=== PATIENT | male | born 1940 | race Caucasian/White ===

== ENCOUNTER 2020-09-10 19:05 | Inpatient (IN) ==
--- NOTE | 2020-09-10 19:29 | Emergency Department Note ---
Impression & Plan COVID-19, Weakness, Dehydration, Hypoxia ED Provider Note NAME: MARLEN MCGRAW AGE: 80 SEX: M : 1940 ARRIVES VIA: Walk-In INFORMANT: Patient, ED PROVIDER(S): Alex Sheth MD Chief Complaint: Weakness HPI: Patient had been pending possible anterior cervical discectomy and fusion with Dr. Freeman and had had some preoperative lab work completed along with a Covid test. Patient had mild leukopenia with a hemoglobin of 13.2 and lymphopenia noted. The patient had unremarkable kidney function negative urine. Patient was reported to be Covid positive after a Covid test completed at [facility]. The patient states that he did get his first dose in the donor vaccine on the but stated that he had symptoms prior to that. The patient states he has had decreased appetite but is unsure as to any loss of taste or smell. The patient's primarily issue is weakness. It is generalized in nature is gotten worse. Patient did have some cough but [facility] which seems to have improved this. Patient states he is not a smoker. Patient does have some occasional abdominal discomfort but without any vomiting or pain. No dysuria or hematuria. The patient denies any issues with bowel movements although his urination and defecation have been less frequent due to his decreased p.o. intake. ROS: See HPI for pertinent positives and negatives. A total of 10 systems were reviewed and otherwise negative. Past medical history: See below Surgical history: See below Social history: See below Physical Exam: GENERAL: Fatigued in appearance, wearing a mask. EYE EXAM: Normal conjunctiva. PERRL, no anisocoria and EOM's grossly intact w/o pain. NECK: Supple, no nuchal rigidity, no adenopathy, non-tender. No signs of meningismus. LUNGS: Clear to auscultation. Normal chest wall mechanics. HEART: NSR, no MRG. ABDOMEN: Abdomen soft, non-tender, normo-active bowel sounds, no masses, no rebound or guarding. BACK: No CVA TTP. SKIN: No rashes and no bruising. UPPER EXTREMITIES: Upper extremities are grossly normal. LOWER EXTREMITIES: Grossly normal, no edema. NEURO EXAM: A&O x3, cranial nerves II-XII grossly intact, normal speech, moves all 4 extremities on command w/o issue. Differential diagnoses: Infection, dehydration, metabolic abnormality, hypo/hyperglycemia, electrolyte disturbance, anemia, hypoxia, cardiac sources, intracerebral event, toxicologic, neurologic, as well as other pathologies. Course: Patient was seen and evaluated the bedside. Full history physical exam was performed. EKG: Indication: Weakness Normal sinus rhythm, rate 79, normal intervals, normal axis, no obvious ST changes or T WI. No significant change from comparison EKG September 06, 2020. Imaging Studies: 1 view chest x-ray Elevation left hemidiaphragm, unsure if gastric fullness versus pleural effusion versus consolidation. Comparison is from chest x-ray completed on September 06 which showed elevation left hemidiaphragm. No obvious free air under the diaphragm. No obvious pneumothorax. Cardiac monitoring: An order was placed for continuous cardiac monitoring. The monitor shows a rate of 81 with sinus rhythm. MDM: Patient does presents with weeks of weakness and recent Covid diagnosis back on the with more persistent worsening symptoms. Patient did have blood work completed. The patient does have leukopenia with a normal hemoglobin. Platelet count is unremarkable. Patient does have mild elevation in BUN. Patient did receive IV fluids. Chest x-ray did show elevation left hemidiaphragm. The patient did state he initially had a cough but this has resolved. Believe this less likely to be a pneumonia and may just be full stomach. Given the patient's weakness and age with the patient may benefit from admission. I did speak the on-call hospitalist and the patient was admitted to the medicine service. I discussed the patient with the patient's daughter who had related that the patient at home had been hypoxic to 84%. Because of this I did order dexamethasone. I did convey this to the house hospitalist Dr. Segura. The patient was admitted to the medicine service. Past Med/Surg History Medical History (Updated 09/11/20 @ 17:30 by Alex Sheth MD) Depression Hyperlipidemia Hypothyroidism Osteoarthritis Surgical History Hx of bilateral cataract extraction Hx of colonoscopy Hx of decompressive lumbar laminectomy Hx of fusion of cervical spine Social History Smoking Status: Never smoker Second Hand Exposure: No; Do You Dip or Chew Tobacco: No; Hx Alcohol Use: No Hx Substance Use: No Preferred Language: Ukrainian Communication Ability: Effective Audio Video Tech Required: No Beliefs That Will Affect Care: None Current Living Situation: Spouse Other Information That Helps Us Care for You: No Feels Safe at Home: Yes Safety Concerns: Feels Safe At This Time Assistive Devices: Oxygen - Continuous Allergies Allergies Allergy/AdvReac Type Severity Reaction Status Date / Time No Known Allergies Allergy Mild Unverified 09/10/20 21:58 Home Meds Home Medications Medication Instructions Recorded Confirmed levothyroxine 125 mcg PO DAILY 08/24/20 09/10/20 rosuvastatin 10 mg PO QAM 08/24/20 09/10/20 sertraline 0 mg PO DAILY 08/24/20 09/10/20 Results & Data (ED) Vital Signs Vital Signs - 24 hr 09/10/20 19:13 09/10/20 20:24 09/10/20 20:30 Temperature 37.1 C Temperature Source Temporal Artery Scan Pulse Rate 90 77 81 Pulse Rate from SpO2 Sensor 77 82 Respiratory Rate 24 22 20 Blood Pressure 143/91 H 136/84 129/79 Blood Pressure Mean 108 101 95 Pulse Oximetry 95 92 93 Oxygen Delivery Method Room Air Room Air Room Air Oxygen Flow Rate Sepsis New/Unexplained Change in Mental Status N/A Sepsis Action Taken by Nursing No Action Required 09/10/20 21:00 09/10/20 21:30 09/10/20 22:01 Temperature 36.6 C Temperature Source Oral Pulse Rate 82 83 76 Pulse Rate from SpO2 Sensor 82 83 77 Respiratory Rate 22 20 21 Blood Pressure 132/74 128/78 102/56 L Blood Pressure Mean 93 94 71 Pulse Oximetry 92 92 Oxygen Delivery Method Room Air Room Air Oxygen Flow Rate Sepsis New/Unexplained Change in Mental Status Sepsis Action Taken by Nursing 09/10/20 22:09 09/10/20 22:11 09/10/20 22:30 Temperature Temperature Source Pulse Rate 72 Pulse Rate from SpO2 Sensor 73 Respiratory Rate 24 Blood Pressure 121/70 Blood Pressure Mean 87 Pulse Oximetry 87 L 95 95 Oxygen Delivery Method Nasal Cannula Nasal Cannula Nasal Cannula Oxygen Flow Rate 2 2 Sepsis New/Unexplained Change in Mental Status Sepsis Action Taken by Nursing 09/10/20 23:00 Temperature Temperature Source Pulse Rate 73 Pulse Rate from SpO2 Sensor 72 Respiratory Rate 17 Blood Pressure 125/85 Blood Pressure Mean 98 Pulse Oximetry 96 Oxygen Delivery Method Nasal Cannula Oxygen Flow Rate 2 Sepsis New/Unexplained Change in Mental Status Sepsis Action Taken by Intermediate Medications Current Medication List: was personally reviewed by me Laboratory Data Attestation: I reviewed the patient's lab results. Result diagrams: 09/11/20 07:36 09/11/20 07:36 Lab Results 09/10/20 09/10/20 09/10/20 Range/Units 20:13 20:13 20:13 WBC 3.54 L (4.8-10.8) K/uL RBC 4.43 L (4.7-6.1) M/uL Hgb 14.2 (14.0-18.0) g/dL Hct 40.3 L (42-52) % MCV 91.0 (80-100) fL MCH 32.1 (25-34) pg MCHC 35.2 (32-36) g/dL RDW Std Deviation 44.4 (36.4-46.3) fL RDW Coeff of Devan 13.2 (11.5-14.5) % Plt Count 164 (130-400) K/uL MPV 10.6 H (7.4-10.4) fL Immature Gran % (Auto) 0.3 % Neut % (Auto) 63.5 % Lymph % (Auto) 22.0 % [place] % (Auto) 13.6 % Eos % (Auto) 0.3 % Baso % (Auto) 0.3 % Neut # (Auto) 2.25 (1.4-6.5) K/uL Lymph # (Auto) 0.78 L (1.2-3.4) K/uL [place] # (Auto) 0.48 (0.11-0.59) K/uL Eos # (Auto) 0.01 (0-0.5) K/uL Baso # (Auto) 0.01 (0-0.2) K/uL Immature Gran # (Auto) 0.01 (0.00-0.02) K/uL PT 10.5 (9.0-12.0) Seconds INR 1.0 (0.9-1.1) Sodium 135 L (136-145) mmol/L Potassium 4.1 (3.5-5.1) mmol/L Chloride 105 (98-107) mmol/L Carbon Dioxide 25 (21-32) mmol/L Anion Gap 5.0 (3-11) BUN 22 H (7-18) mg/dl Creatinine 1.18 (0.6-1.4) mg/dl Est Cr Clr Drug Dosing 63.6 ml/min Est GFR ( Amer) 67.6 Est GFR (Non-Af Amer) 58.3 BUN/Creatinine Ratio 18.2 (10-20) Glucose 105 H (70-99) mg/dl Calcium 9.0 (8.5-10.1) mg/dl Magnesium 2.1 (1.8-2.4) mg/dl Total Bilirubin 0.4 (0.2-1) mg/dl AST 20 (15-37) U/L ALT 18 (12-78) U/L Alkaline Phosphatase 39 L (45-117) U/L Troponin I < 0.015 (0-0.045) ng/ml Total Protein 7.5 (6.4-8.2) gm/dl Albumin 3.9 (3.4-5.0) gm/dl Globulin 3.6 (2.5-4.0) gm/dl Albumin/Globulin Ratio 1.1 (0.9-2) TSH 0.150 L (0.300-4.500) uIu/ml Free T4 1.23 (0.8-1.6) ng/dl COVID-19 Eval Order SARS-CoV-2 (PCR) (Negative) Influenza Type A (PCR) (Neg) Influenza Type B (PCR) (Neg) RSV (RT-PCR) (Neg) 09/10/20 09/10/20 Range/Units 20:34 20:34 WBC (4.8-10.8) K/uL RBC (4.7-6.1) M/uL Hgb (14.0-18.0) g/dL Hct (42-52) % MCV (80-100) fL MCH (25-34) pg MCHC (32-36) g/dL RDW Std Deviation (36.4-46.3) fL RDW Coeff of Devan (11.5-14.5) % Plt Count (130-400) K/uL MPV (7.4-10.4) fL Immature Gran % (Auto) % Neut % (Auto) % Lymph % (Auto) % [place] % (Auto) % Eos % (Auto) % Baso % (Auto) % Neut # (Auto) (1.4-6.5) K/uL Lymph # (Auto) (1.2-3.4) K/uL [place] # (Auto) (0.11-0.59) K/uL Eos # (Auto) (0-0.5) K/uL Baso # (Auto) (0-0.2) K/uL Immature Gran # (Auto) (0.00-0.02) K/uL PT (9.0-12.0) Seconds INR (0.9-1.1) Sodium (136-145) mmol/L Potassium (3.5-5.1) mmol/L Chloride (98-107) mmol/L Carbon Dioxide (21-32) mmol/L Anion Gap (3-11) BUN (7-18) mg/dl Creatinine (0.6-1.4) mg/dl Est Cr Clr Drug Dosing ml/min Est GFR ( Amer) Est GFR (Non-Af Amer) BUN/Creatinine Ratio (10-20) Glucose (70-99) mg/dl Calcium (8.5-10.1) mg/dl Magnesium (1.8-2.4) mg/dl Total Bilirubin (0.2-1) mg/dl AST (15-37) U/L ALT (12-78) U/L Alkaline Phosphatase (45-117) U/L Troponin I (0-0.045) ng/ml Total Protein (6.4-8.2) gm/dl Albumin (3.4-5.0) gm/dl Globulin (2.5-4.0) gm/dl Albumin/Globulin Ratio (0.9-2) TSH (0.300-4.500) uIu/ml Free T4 (0.8-1.6) ng/dl COVID-19 Eval Order CovFluRsv at [facility] SARS-CoV-2 (PCR) POSITIVE A* (Negative) Influenza Type A (PCR) Negative (Neg) Influenza Type B (PCR) Negative (Neg) RSV (RT-PCR) Negative (Neg) Administered Medications Enoxaparin Sodium (Enoxaparin Inj 60 Mg/0.6 Ml Syr) 50 mg SQ Q12H JASS Stop: 10/10/20 23:44 Last Admin: 09/11/20 11:25 Dose: 50 mg Documented by: [id number] Admin: 09/11/20 01:26 Dose: 50 mg Documented by: [id number] Guaifenesin (Guaifenesin 600 Mg Tabcr) 600 mg PO Q12 JASS Stop: 10/11/20 08:59 Last Admin: 09/11/20 08:24 Dose: 600 mg Documented by: [id number] Potassium Chloride/Sodium Chloride (Normal Saline W/20 Meq Kcl) 20 meq in 1,000 mls @ 100 mls/hr IV .Q10H JASS Stop: 10/11/20 00:29 Last Admin: 09/11/20 11:13 Dose: 100 mls/hr Documented by: [id number] Infusion: 09/11/20 11:13 Dose: 100 mls/hr Documented by: [id number] Admin: 09/11/20 01:58 Dose: 100 mls/hr Documented by: [id number] Dexamethasone 6 mg/ Syringe 1.5 mls @ 1 mls/min IV DAILY JASS Stop: 10/11/20 08:59 Last Admin: 09/11/20 08:24 Dose: 1 mls/min Documented by: [id number] Azithromycin 500 mg/ Dextrose 255 mls @ 125 mls/hr IV DAILY JASS Stop: 09/18/20 08:59 Last Infusion: 09/11/20 11:14 Dose: 0 mls/hr Documented by: [id number] Admin: 09/11/20 08:23 Dose: 125 mls/hr Documented by: [id number] Levothyroxine Sodium (Levothyroxine Sodium 125 Mcg Tablet) 125 mcg PO DAILYBB JASS Stop: 10/11/20 06:29 Last Admin: 09/11/20 06:01 Dose: 125 mcg Documented by: [id number] Ondansetron HCl (Ondansetron Inj 2 Mg/Ml 2 Ml Vial) 4 mg IV Q6H PRN PRN Reason: Nausea Stop: 10/11/20 00:01 Last Admin: 09/11/20 11:24 Dose: 4 mg Documented by: [id number] Rosuvastatin Calcium (Rosuvastatin Calcium 10 Mg Tab) 10 mg PO QAM JASS Stop: 10/11/20 08:59 Last Admin: 09/11/20 08:24 Dose: 10 mg Documented by: [id number] Sertraline HCl (Sertraline Hcl 50 Mg Tablet) 25 mg PO DAILY JASS Stop: 10/11/20 08:59 Last Admin: 09/11/20 08:24 Dose: 25 mg Documented by: [id number] Vitamin D (Cholecalciferol 1,000 Units 25 Mcg Tab) 2,000 units PO [facility] Stop: 10/11/20 08:59 Last Admin: 09/11/20 08:24 Dose: 2,000 units Documented by: [id number] Zinc Sulfate (Zinc Sulfate 220 Mg Capsule) [facility] [place] Stop: 10/11/20 08:59 Last Admin: 09/11/20 08:24 Dose: 220 mg Documented by: [id number] Discontinued Medications Acetaminophen (Acetaminophen 325 Mg Tab) 650 mg PO NOW STA Stop: 09/10/20 19:51 Last Admin: 09/10/20 20:14 Dose: 650 mg Documented by: [id number] Dexamethasone Sodium Phosphate (DexamethasonePf 10 Mg/Ml Vial) 6 mg IV NOW ONE Stop: 09/10/20 22:05 Last Admin: 09/10/20 22:17 Dose: 6 mg Documented by: [id number] Sodium Chloride (Nss 1000ml) 1,000 mls @ 999 mls/hr IV .Q1H1M JASS Stop: 09/10/20 21:00 Last Infusion: 09/10/20 21:21 Dose: 0 mls/hr Documented by: [id number] Admin: 09/10/20 20:18 Dose: 999 mls/hr Documented by: [id number] Ondansetron HCl (Ondansetron Inj 2 Mg/Ml 2 Ml Vial) 4 mg IV NOW STA Stop: 09/10/20 19:51 Last Admin: 09/10/20 20:14 Dose: 4 mg Documented by: [id number] Discharge Plan Visit Data Chief Complaint: Referred by Doctor Stated Complaint: COVID+, SOB ED Provider: Alex Sheth Discharge Problem: COVID-19, Weakness, Dehydration, Hypoxia Patient Disposition: Admitted As Inpatient Discharge Instructions Interventions: ED Discharge Assessment Last Done: 09/10/20 23:32
[2020-09-10] MEDS ORDERED: ACETAMINOPHEN 325 MG TAB PO STA (19:50)
[2020-09-10] MEDS ORDERED: ONDANSETRON INJ 2 MG/ML 2 ML VIAL IV STA (19:50)
[2020-09-10] MEDS ORDERED: SODIUM CHLORIDE 0.9% 1000ML 1,000 ML IV SCH (20:00)
[2020-09-10 20:37] LABS: Basophils # (auto) 0.01 K/uL (0-0.2); Basophils % (auto) 0.3 %; Eosinophils # (auto) 0.01 K/uL (0-0.5); Eosinophils % (auto) 0.3 %; Hematocrit (blood only) 40.3 % (42-52); Hemoglobin 14.2 g/dL (14.0-18.0); Immature Granulocytes # (auto) 0.01 K/uL (0.00-0.02); Immature Granulocytes % (auto) 0.3 %; Lymphocytes # (auto) 0.78 K/uL (1.2-3.4); Mean Corpuscular Hemoglobin 32.1 pg (25-34); Mean Corpuscular Hgb Conc 35.2 g/dL (32-36); Mean Platelet Volume 10.6 fL (7.4-10.4); Monocytes # (auto) 0.48 K/uL (0.11-0.59); Monocytes % (auto) 13.6 %; Neutrophils # (auto) 2.25 K/uL (1.4-6.5); Neutrophils % (auto) 63.5 %; Platelet Count 164 K/uL (130-400); RDW Coefficient of Variation 13.2 % (11.5-14.5); RDW Standard Deviation 44.4 fL (36.4-46.3); Red Blood Count 4.43 M/uL (4.7-6.1); White Blood Count 3.54 K/uL (4.8-10.8)
[2020-09-10 20:52] LABS: Prothrombin Time 10.5 Seconds (9.0-12.0)
[2020-09-10 20:57] LABS: Alanine Aminotransferase 18 U/L (12-78); Albumin Level 3.9 gm/dl (3.4-5.0); Aspartate Aminotransferase 20 U/L (15-37); BUN Creatinine Ratio 18.2 (10-20); Blood Urea Nitrogen 22 mg/dl (7-18); Carbon Dioxide 25 mmol/L (21-32); Chloride 105 mmol/L (98-107); Creatinine Clr Calc Pharmacy 63.6 ml/min; Est GFR (African American) 67.6; Est GFR (Non-African American) 58.3; Glucose 105 mg/dl (70-99); Magnesium 2.1 mg/dl (1.8-2.4); Potassium 4.1 mmol/L (3.5-5.1); Sodium 135 mmol/L (136-145)
[2020-09-10 21:07] LABS: Albumin Globulin Ratio 1.1 (0.9-2); Alkaline Phosphatase 39 U/L (45-117); Bilirubin,Total 0.4 mg/dl (0.2-1); Globulin 3.6 gm/dl (2.5-4.0); Total Protein 7.5 gm/dl (6.4-8.2); Troponin I < 0.015 ng/ml (0-0.045)
[2020-09-10 21:20] LABS: T4 Free Thyroxine 1.23 ng/dl (0.8-1.6)
[2020-09-10 21:56] LABS: Influenza A virus by PCR Negative (Neg); Influenza B virus by PCR Negative (Neg); RSV by PCR Negative (Neg)
[2020-09-10 21:57] LABS: SARS CoV2 RNA(COVID-19) InHosp POSITIVE (Negative)
[2020-09-10] MEDS ORDERED: dexAMETHasone**PF** 10 MG/ML VIAL IV ONE (22:04)
[2020-09-11] MEDS ORDERED: ALBUTEROL HFA 8 GM INHALER INH PRN (00:02)
[2020-09-11] MEDS ORDERED: ACETAMINOPHEN 325 MG TAB PO PRN (00:02)
[2020-09-11] MEDS: ENOXAPARIN INJ 60 MG/0.6 ML SYR SQ SCH ×3 (01:26→23:09)
[2020-09-11] MEDS: NSS + 20MEQ KCL 20 MEQ/1,000 ML BAG IV SCH ×2 (01:58→11:13)
--- NOTE | 2020-09-11 04:35 | History & Physical Report ---
Date of Service September 10, 2020 Assessment & Plan (1) Pneumonia due to COVID-19 virus: Pneumonia due to COVID-19 virus with hypoxia- Presented with significant generalized weakness and fatigue Dexamethasone 6 mg IV every morning Ventolin HFA 2 puffs every 2 hours as needed DuoNebs every 2 hours as needed Nasal cannula oxygen, titrate to keep pulse ox 94 to 95% Zinc sulfate turn 20 mg p.o. every morning Vitamin D 2000 international units p.o. every morning Azithromycin 500 mg IV daily Guaifenesin extended release 600 mg p.o. every 12 hours Acetaminophen 650 mg p.o. every 6 hours as needed mild pain or fever Lovenox 0.5 mg/kg subcu every 12 hours Present on Admission?: Yes (2) Hypoxia: See above Present on Admission?: Yes (3) Generalized weakness: See above Present on Admission?: Yes (4) Dehydration: Placed on NSS + KCl 20 mEq at 100 mils per hour Present on Admission?: Yes (5) Depression: Continue sertraline 25 mg daily Present on Admission?: Yes (6) Hyperlipidemia: Continue rosuvastatin 10 mg every morning Present on Admission?: Yes (7) Hypothyroidism: Continue levothyroxine 125 mcg daily Present on Admission?: Yes History of Present Illness Chief Complaint: The patient presents to the emergency department with significant generalized fatigue worsening over the past 3 weeks, decreased oral intake, and recent diagnosis with COVID-19 3 days ago. Primary Care Provider: Kimberly Santa The patient is a 80-year-old male with a past medical history including hypothyroidism, hyperlipidemia and depression, who presents with symptoms as noted above. He had been following his pulse oximetry at home, which was recorded to be around 88% this evening, and presented to the emergency department for assessment. His principal exposure was to that of his son who was COVID-19 positive. Of note also, patient's is presently being assessed in the ED for different symptoms, but has been diagnosed with COVID-19 disease as well. His COVID-19 test was positive this evening, and pulse ox on room air had a low of 88% Allergies Allergy/AdvReac Type Severity Reaction Status Date / Time No Known Allergies Allergy Mild Unverified 09/10/20 21:58 Home Medications Medication Instructions Recorded Confirmed Type levothyroxine 125 mcg PO DAILY 08/24/20 09/10/20 History rosuvastatin 10 mg PO QAM 08/24/20 09/10/20 History sertraline 0 mg PO DAILY 08/24/20 09/10/20 History Past Med/Surg History Medical History Hyperlipidemia Hypothyroidism Osteoarthritis Surgical History Hx of bilateral cataract extraction Hx of colonoscopy Hx of decompressive lumbar laminectomy Hx of fusion of cervical spine Social History Smoking Status: Never smoker Second Hand Exposure: No; Do You Dip or Chew Tobacco: No; Hx Alcohol Use: No Hx Substance Use: No Preferred Language: Tajik Communication Ability: Effective Circus Supervisor Required: No Beliefs That Will Affect Care: None Current Living Situation: Spouse Other Information That Helps Us Care for You: No Feels Safe at Home: Yes Safety Concerns: Feels Safe At This Time Assistive Devices: None Review of Systems Review of Systems: The patient denies chest pain, palpitations, shortness of breath, dyspnea on exertion, cough, lower extremity swelling, sore throat, fevers, chills, sweats, nausea, vomiting, diarrhea , constipation, abdominal pain, pelvic pain, blood in urine or stool, dysuria, urinary frequency or urgency, memory loss, loss of consciousness, rash, abnormal bruising or bleeding, imbalance, focal weakness, numbness or tingling in arms or legs, back or neck pain, or night sweats. The review of systems is otherwise negative other than for that already noted above, and at least 10 systems have been reviewed. Physical Exam Physical Exam: The patient is awake, alert and oriented 3, well developed and well nourished, normocephalic and atraumatic, lying in bed and in no acute distress. HEENT--PERRL, EOMI, mucous membranes and oropharynx dry. Neck--supple. No JVD. No bruits. Thyroid normal, trachea midline, no adenopathy. Heart--normal S1 and S2. No murmurs, rubs or gallops. Lungs--clear bilaterally, no respiratory distress, no accessory muscle use. Abdomen--normal bowel sounds and soft. Nontender. Nondistended. Extremities--no cyanosis or clubbing. No edema. Dermatologic--normal skin turgor, normal color, no abnormal lymph nodes, no rash. Neurologic--cranial nerves II through XII grossly intact. Rheumatologic--normal range of motion. Psychiatric--normal affect. Results & Data Results & Data ([facility]) Vital Signs (Past 12 Hours) Vital Signs Temp Pulse Resp BP Pulse Ox 09/10/20 22:30 72 24 121/70 95 09/10/20 22:11 95 09/10/20 22:09 87 L 09/10/20 22:01 76 21 102/56 L 09/10/20 21:30 97.9 F 83 20 128/78 92 09/10/20 21:00 82 22 132/74 92 09/10/20 20:30 81 20 129/79 93 09/10/20 20:24 77 22 136/84 92 09/10/20 19:13 98.8 F 90 24 143/91 H 95 Laboratory Results Laboratory Results WBC 3.54 K/uL (4.8-10.8) L 09/10/20 20:13 RBC 4.43 M/uL (4.7-6.1) L 09/10/20 20:13 Hgb 14.2 g/dL (14.0-18.0) 09/10/20 20:13 Hct 40.3 % (42-52) L 09/10/20 20:13 MCV 91.0 fL (80-100) 09/10/20 20:13 MCH 32.1 pg (25-34) 09/10/20 20:13 MCHC 35.2 g/dL (32-36) 09/10/20 20:13 RDW Std Deviation 44.4 fL (36.4-46.3) 09/10/20 20:13 RDW Coeff of Devan 13.2 % (11.5-14.5) 09/10/20 20:13 Plt Count 164 K/uL (130-400) 09/10/20 20:13 MPV 10.6 fL (7.4-10.4) H 09/10/20 20:13 Immature Gran % (Auto) 0.3 % 09/10/20 20:13 Neut % (Auto) 63.5 % 09/10/20 20:13 Lymph % (Auto) 22.0 % 09/10/20 20:13 [place] % (Auto) 13.6 % 09/10/20 20:13 Eos % (Auto) 0.3 % 09/10/20 20:13 Baso % (Auto) 0.3 % 09/10/20 20:13 Neut # (Auto) 2.25 K/uL (1.4-6.5) 09/10/20 20:13 Lymph # (Auto) 0.78 K/uL (1.2-3.4) L 09/10/20 20:13 [place] # (Auto) 0.48 K/uL (0.11-0.59) 09/10/20 20:13 Eos # (Auto) 0.01 K/uL (0-0.5) 09/10/20 20:13 Baso # (Auto) 0.01 K/uL (0-0.2) 09/10/20 20:13 Immature Gran # (Auto) 0.01 K/uL (0.00-0.02) 09/10/20 20:13 PT 10.5 Seconds (9.0-12.0) 09/10/20 20:13 INR 1.0 (0.9-1.1) 09/10/20 20:13 Sodium 135 mmol/L (136-145) L 09/10/20 20:13 Potassium 4.1 mmol/L (3.5-5.1) 09/10/20 20:13 Chloride 105 mmol/L (98-107) 09/10/20 20:13 Carbon Dioxide 25 mmol/L (21-32) 09/10/20 20:13 Anion Gap 5.0 (3-11) 09/10/20 20:13 BUN 22 mg/dl (7-18) H 09/10/20 20:13 Creatinine 1.18 mg/dl (0.6-1.4) 09/10/20 20:13 Est Cr Clr Drug Dosing 63.6 ml/min 09/10/20 20:13 Est GFR ( Amer) 67.6 09/10/20 20:13 Est GFR (Non-Af Amer) 58.3 09/10/20 20:13 BUN/Creatinine Ratio 18.2 (10-20) 09/10/20 20:13 Glucose 105 mg/dl (70-99) H 09/10/20 20:13 Calcium 9.0 mg/dl (8.5-10.1) 09/10/20 20:13 Magnesium 2.1 mg/dl (1.8-2.4) 09/10/20 20:13 Total Bilirubin 0.4 mg/dl (0.2-1) 09/10/20 20:13 AST 20 U/L (15-37) 09/10/20 20:13 ALT 18 U/L (12-78) 09/10/20 20:13 Alkaline Phosphatase 39 U/L (45-117) L 09/10/20 20:13 Troponin I < 0.015 ng/ml (0-0.045) 09/10/20 20:13 Total Protein 7.5 gm/dl (6.4-8.2) 09/10/20 20:13 Albumin 3.9 gm/dl (3.4-5.0) 09/10/20 20:13 Globulin 3.6 gm/dl (2.5-4.0) 09/10/20 20:13 Albumin/Globulin Ratio 1.1 (0.9-2) 09/10/20 20:13 TSH 0.150 uIu/ml (0.300-4.500) L 09/10/20 20:13 Free T4 1.23 ng/dl (0.8-1.6) 09/10/20 20:13 COVID-19 Eval Order CovFluRsv at [facility] 09/10/20 20:34 SARS-CoV-2 (PCR) POSITIVE (Negative) A* 09/10/20 20:34 Influenza Type A (PCR) Negative (Neg) 09/10/20 20:34 Influenza Type B (PCR) Negative (Neg) 09/10/20 20:34 RSV (RT-PCR) Negative (Neg) 09/10/20 20:34 Code Status & VTE Plan Code Status Full code VTE Prophylaxis Plan VTE Prophylaxis will be ordered: Yes PG Care Time/CCT Total # of Minutes Spent Total Time Spent with Patient: Total time spent is greater than 50% in coordination of care (as documented) at patient's floor/unit and/or counseling patient: Coding Level of Care Code 02129 Initial Inpt Care Lvl 3 Diagnoses Pneumonia due to COVID-19 virus U07.1; J12.82 Hypoxia R09.02 Generalized weakness R53.1 Dehydration E86.0 Depression F32.9 Hyperlipidemia E78.5 Hypothyroidism E03.9
[2020-09-11] MEDS: LEVOTHYROXINE SODIUM 125 MCG TABLET PO SCH (06:01)
[2020-09-11 06:31] LABS: Appearance Urine Clear (Clear); Bilirubin Urine Negative (Negative); Blood Urine Negative (Negative); Color Urine Yellow; Glucose Urine UA Negative (Negative); Ketones Urine Negative (Negative); Leukocyte Esterase Urine Negative (Negative); Nitrite Urine Negative (Negative); Protein Urine Negative (Negative); Specific Gravity Urine 1.011 (1.000-1.030); Urobilinogen Urine Negative (Negative)
[2020-09-11 07:56] LABS: Hematocrit (blood only) 37.4 % (42-52); Hemoglobin 12.7 g/dL (14.0-18.0); Immature Granulocytes # (auto) 0.01 K/uL (0.00-0.02); Immature Granulocytes % (auto) 0.4 %; Lymphocytes # (auto) 0.63 K/uL (1.2-3.4); Lymphocytes % (auto) 25.7 %; Mean Corpuscular Hemoglobin 31.1 pg (25-34); Mean Corpuscular Volume 91.7 fL (80-100); Mean Platelet Volume 10.6 fL (7.4-10.4); Monocytes # (auto) 0.19 K/uL (0.11-0.59); Monocytes % (auto) 7.8 %; Neutrophils # (auto) 1.62 K/uL (1.4-6.5); Neutrophils % (auto) 66.1 %; Platelet Count 136 K/uL (130-400); RDW Coefficient of Variation 13.2 % (11.5-14.5); RDW Standard Deviation 44.7 fL (36.4-46.3); Red Blood Count 4.08 M/uL (4.7-6.1); White Blood Count 2.45 K/uL (4.8-10.8)
[2020-09-11] MEDS: CHOLECALCIFEROL 1,000 UNITS 25 MCG TAB PO SCH (08:24)
[2020-09-11] MEDS: SERTRALINE HCL 50 MG TABLET PO SCH (08:24)
[2020-09-11] MEDS: guaiFENesin 600 MG TABCR PO SCH ×2 (08:24→20:34)
[2020-09-11] MEDS: dexAMETHasone 6 MG in SYRINGE 0 ML IV SCH (08:24)
[2020-09-11] MEDS: ROSUVASTATIN CALCIUM 10 MG TAB PO SCH (08:24)
[2020-09-11] MEDS: ZINC SULFATE 220 MG CAPSULE PO SCH (08:24)
[2020-09-11 08:33] LABS: Albumin Level 3.3 gm/dl (3.4-5.0); BUN Creatinine Ratio 19.4 (10-20); Calcium 8.5 mg/dl (8.5-10.1); Creatinine Clr Calc Pharmacy 78.1 ml/min; Est GFR (African American) 87.9; Est GFR (Non-African American) 75.8; Potassium 4.7 mmol/L (3.5-5.1)
[2020-09-11 08:36] LABS: Albumin Globulin Ratio 1.1 (0.9-2); Bilirubin,Total 0.4 mg/dl (0.2-1); Globulin 3.1 gm/dl (2.5-4.0); Total Protein 6.4 gm/dl (6.4-8.2)
[2020-09-11] MEDS ORDERED: AZITHROMYCIN 500 MG in DEXTROSE 5% 250 ML IV SCH (09:00)
--- NOTE | 2020-09-11 09:37 | XRay Report ---
XR chest 1V portable HISTORY: weakness COMPARISON: 09/06/2020. FINDINGS: Chronic elevation of the left hemidiaphragm with left basilar linear densities suggesting s ubsegmental atelectasis. No pneumothorax. No pleural effusions. The heart remains mildly enlarged. No evidence for pulmonary edema. IMPRESSION: No significant change compared to the prior study. No acute process. Left basilar linear densities fa vor subsegmental atelectasis secondary to the elevated left hemidiaphragm. ACT 112: Negative or not required by law. Electronically signed by: Steve Conde M.D. 09/11/2020 9:36 AM
[2020-09-11] MEDS: ONDANSETRON INJ 2 MG/ML 2 ML VIAL IV PRN (11:24)
--- NOTE | 2020-09-11 14:32 | Hospitalist Progress Note ---
Date of Service September 11, 2020 Assessment & Plan (1) Pneumonia due to COVID-19 virus: Pneumonia due to COVID-19 virus with hypoxia- Presented with significant generalized weakness and fatigue and pulse ox 88%-was placed on 2 L nasal cannula initially and now weaned down to 1 L Improving today Continue dexamethasone 6 mg IV daily x10-day course Continue Ventolin HFA 2 puffs every 2 hours as needed Wean off oxygen Zinc sulfate turn 20 mg p.o. every morning Vitamin D 2000 international units p.o. every morning Azithromycin but convert to 250 mg p.o. once daily x5-day course Continue guaifenesin extended release 600 mg p.o. every 12 hours Continue acetaminophen 650 mg p.o. every 6 hours as needed mild pain or fever Continue Lovenox 0.5 mg/kg subcu every 12 hours -Antiemetics as needed for nausea from Covid-19 (2) Hypoxia: See above (3) Generalized weakness: Secondary to Covid-19 infection and poor p.o. intake over the last 2 weeks Hydrating with IV fluids but will now discontinue that PT/OT consults ordered (4) Dehydration: Placed on NSS + KCl 20 mEq at 100 mils per hour and now improved, tolerating p.o. DC IV fluids (5) Depression: Continue sertraline 25 mg daily (6) Hyperlipidemia: -Continue rosuvastatin 10 mg every morning (7) Hypothyroidism: -Continue levothyroxine 125 mcg daily TSH low free T4 normal (8) DVT prophylaxis: Lovenox Disposition-continued stay Admission and Anticipated Discharge Date Admission Date: September 10, 2020 Subjective Patient reports feeling generally weak, he ate too large of a breakfast and then felt nauseated afterwards. But this is the most he has eaten in 2 weeks. He no longer feels short of breath. Remains on 1 L nasal cannula. Denies headache, denies cough. No chest pain. No abdominal pain. Telemetry with sinus rhythm with rates in the 60s to 70s. Review of Systems Review of Systems: All systems reviewed & are unremarkable except as noted in HPI & below Physical Exam Constitutional: WD/WN, vitals as above Eyes: + anicteric sclerae ENMT: external ear and nose normal, oropharynx normal Neck: trachea midline, no thyromegaly Respiratory: normal respiratory effort, lungs clear to auscultation Cardiovascular: RRR, no murmur, no edema Chest (Breasts): Chest: normal inspection of chest Gastrointestinal (Abdomen): normal bowel sounds, soft, nontender, no hepatosplenomegaly Musculoskeletal: Extremities: extremities normal to inspection; no cyanosis and no clubbing Skin: no rashes, warm and dry Neurologic: moves all extremities and awake; no focal motor deficits Psychiatric: A+Ox3, euthymic affect Lymphatic: no lymphedema Results & Data Results & Data ([facility]) Vital Signs (Past 12 Hours) Vital Signs Temp Pulse Pulse Resp BP Pulse Ox Pulse Ox 09/11/20 12:40 66 95 09/11/20 11:23 36.4 C L 71 18 111/69 93 09/11/20 07:57 36.4 C L 69 20 131/73 96 09/11/20 04:00 36.4 C L 69 19 119/91 92 Laboratory Results 09/11/20 09/11/20 09/11/20 Range/Units 07:36 07:36 06:15 WBC 2.45 L (4.8-10.8) K/uL RBC 4.08 L (4.7-6.1) M/uL Hgb 12.7 L (14.0-18.0) g/dL Hct 37.4 L (42-52) % MCV 91.7 (80-100) fL MCH 31.1 (25-34) pg MCHC 34.0 (32-36) g/dL RDW Std Deviation 44.7 (36.4-46.3) fL RDW Coeff of Devan 13.2 (11.5-14.5) % Plt Count 136 (130-400) K/uL MPV 10.6 H (7.4-10.4) fL Immature Gran % (Auto) 0.4 % Neut % (Auto) 66.1 % Lymph % (Auto) 25.7 % [place] % (Auto) 7.8 % Eos % (Auto) 0.0 % Baso % (Auto) 0.0 % Neut # (Auto) 1.62 (1.4-6.5) K/uL Lymph # (Auto) 0.63 L (1.2-3.4) K/uL [place] # (Auto) 0.19 (0.11-0.59) K/uL Eos # (Auto) 0.00 (0-0.5) K/uL Baso # (Auto) 0.00 (0-0.2) K/uL Immature Gran # (Auto) 0.01 (0.00-0.02) K/uL PT (9.0-12.0) Seconds INR (0.9-1.1) Sodium 139 (136-145) mmol/L Potassium 4.7 (3.5-5.1) mmol/L Chloride 109 H (98-107) mmol/L Carbon Dioxide 24 (21-32) mmol/L Anion Gap 5.0 (3-11) BUN 18 (7-18) mg/dl Creatinine 0.95 (0.6-1.4) mg/dl Est Cr Clr Drug Dosing 78.1 ml/min Est GFR ( Amer) 87.9 Est GFR (Non-Af Amer) 75.8 BUN/Creatinine Ratio 19.4 (10-20) Glucose 150 H (70-99) mg/dl Calcium 8.5 (8.5-10.1) mg/dl Magnesium (1.8-2.4) mg/dl Total Bilirubin 0.4 (0.2-1) mg/dl AST 16 (15-37) U/L ALT 14 (12-78) U/L Alkaline Phosphatase 34 L (45-117) U/L Troponin I (0-0.045) ng/ml Total Protein 6.4 (6.4-8.2) gm/dl Albumin 3.3 L (3.4-5.0) gm/dl Globulin 3.1 (2.5-4.0) gm/dl Albumin/Globulin Ratio 1.1 (0.9-2) TSH (0.300-4.500) uIu/ml Free T4 (0.8-1.6) ng/dl Urine Color Yellow Urine Appearance Clear (Clear) Urine pH 6.0 (4.5-7.5) Ur Specific [place] 1.011 (1.000-1.030) Urine Protein Negative (Negative) Urine Glucose (UA) Negative (Negative) Urine Ketones Negative (Negative) Urine Blood Negative (Negative) Urine Nitrite Negative (Negative) Urine Bilirubin Negative (Negative) Urine Urobilinogen Negative (Negative) Ur Leukocyte Esterase Negative (Negative) COVID-19 Eval Order SARS-CoV-2 (PCR) (Negative) Influenza Type A (PCR) (Neg) Influenza Type B (PCR) (Neg) RSV (RT-PCR) (Neg) 09/10/20 09/10/20 09/10/20 Range/Units 20:34 20:34 20:13 WBC 3.54 L (4.8-10.8) K/uL RBC 4.43 L (4.7-6.1) M/uL Hgb 14.2 (14.0-18.0) g/dL Hct 40.3 L (42-52) % MCV 91.0 (80-100) fL MCH 32.1 (25-34) pg MCHC 35.2 (32-36) g/dL RDW Std Deviation 44.4 (36.4-46.3) fL RDW Coeff of Devan 13.2 (11.5-14.5) % Plt Count 164 (130-400) K/uL MPV 10.6 H (7.4-10.4) fL Immature Gran % (Auto) 0.3 % Neut % (Auto) 63.5 % Lymph % (Auto) 22.0 % [place] % (Auto) 13.6 % Eos % (Auto) 0.3 % Baso % (Auto) 0.3 % Neut # (Auto) 2.25 (1.4-6.5) K/uL Lymph # (Auto) 0.78 L (1.2-3.4) K/uL [place] # (Auto) 0.48 (0.11-0.59) K/uL Eos # (Auto) 0.01 (0-0.5) K/uL Baso # (Auto) 0.01 (0-0.2) K/uL Immature Gran # (Auto) 0.01 (0.00-0.02) K/uL PT (9.0-12.0) Seconds INR (0.9-1.1) Sodium (136-145) mmol/L Potassium (3.5-5.1) mmol/L Chloride (98-107) mmol/L Carbon Dioxide (21-32) mmol/L Anion Gap (3-11) BUN (7-18) mg/dl Creatinine (0.6-1.4) mg/dl Est Cr Clr Drug Dosing ml/min Est GFR ( Amer) Est GFR (Non-Af Amer) BUN/Creatinine Ratio (10-20) Glucose (70-99) mg/dl Calcium (8.5-10.1) mg/dl Magnesium (1.8-2.4) mg/dl Total Bilirubin (0.2-1) mg/dl AST (15-37) U/L ALT (12-78) U/L Alkaline Phosphatase (45-117) U/L Troponin I (0-0.045) ng/ml Total Protein (6.4-8.2) gm/dl Albumin (3.4-5.0) gm/dl Globulin (2.5-4.0) gm/dl Albumin/Globulin Ratio (0.9-2) TSH (0.300-4.500) uIu/ml Free T4 (0.8-1.6) ng/dl Urine Color Urine Appearance (Clear) Urine pH (4.5-7.5) Ur Specific [place] (1.000-1.030) Urine Protein (Negative) Urine Glucose (UA) (Negative) Urine Ketones (Negative) Urine Blood (Negative) Urine Nitrite (Negative) Urine Bilirubin (Negative) Urine Urobilinogen (Negative) Ur Leukocyte Esterase (Negative) COVID-19 Eval Order CovFluRsv at [facility] SARS-CoV-2 (PCR) POSITIVE A* (Negative) Influenza Type A (PCR) Negative (Neg) Influenza Type B (PCR) Negative (Neg) RSV (RT-PCR) Negative (Neg) 09/10/20 09/10/20 Range/Units 20:13 20:13 WBC (4.8-10.8) K/uL RBC (4.7-6.1) M/uL Hgb (14.0-18.0) g/dL Hct (42-52) % MCV (80-100) fL MCH (25-34) pg MCHC (32-36) g/dL RDW Std Deviation (36.4-46.3) fL RDW Coeff of Devan (11.5-14.5) % Plt Count (130-400) K/uL MPV (7.4-10.4) fL Immature Gran % (Auto) % Neut % (Auto) % Lymph % (Auto) % [place] % (Auto) % Eos % (Auto) % Baso % (Auto) % Neut # (Auto) (1.4-6.5) K/uL Lymph # (Auto) (1.2-3.4) K/uL [place] # (Auto) (0.11-0.59) K/uL Eos # (Auto) (0-0.5) K/uL Baso # (Auto) (0-0.2) K/uL Immature Gran # (Auto) (0.00-0.02) K/uL PT 10.5 (9.0-12.0) Seconds INR 1.0 (0.9-1.1) Sodium 135 L (136-145) mmol/L Potassium 4.1 (3.5-5.1) mmol/L Chloride 105 (98-107) mmol/L Carbon Dioxide 25 (21-32) mmol/L Anion Gap 5.0 (3-11) BUN 22 H (7-18) mg/dl Creatinine 1.18 (0.6-1.4) mg/dl Est Cr Clr Drug Dosing 63.6 ml/min Est GFR ( Amer) 67.6 Est GFR (Non-Af Amer) 58.3 BUN/Creatinine Ratio 18.2 (10-20) Glucose 105 H (70-99) mg/dl Calcium 9.0 (8.5-10.1) mg/dl Magnesium 2.1 (1.8-2.4) mg/dl Total Bilirubin 0.4 (0.2-1) mg/dl AST 20 (15-37) U/L ALT 18 (12-78) U/L Alkaline Phosphatase 39 L (45-117) U/L Troponin I < 0.015 (0-0.045) ng/ml Total Protein 7.5 (6.4-8.2) gm/dl Albumin 3.9 (3.4-5.0) gm/dl Globulin 3.6 (2.5-4.0) gm/dl Albumin/Globulin Ratio 1.1 (0.9-2) TSH 0.150 L (0.300-4.500) uIu/ml Free T4 1.23 (0.8-1.6) ng/dl Urine Color Urine Appearance (Clear) Urine pH (4.5-7.5) Ur Specific [place] (1.000-1.030) Urine Protein (Negative) Urine Glucose (UA) (Negative) Urine Ketones (Negative) Urine Blood (Negative) Urine Nitrite (Negative) Urine Bilirubin (Negative) Urine Urobilinogen (Negative) Ur Leukocyte Esterase (Negative) COVID-19 Eval Order SARS-CoV-2 (PCR) (Negative) Influenza Type A (PCR) (Neg) Influenza Type B (PCR) (Neg) RSV (RT-PCR) (Neg) PG Care Time/CCT Total # of Minutes Spent Total Time Spent with Patient: Total time spent is greater than 50% in coordination of care (as documented) at patient's floor/unit and/or counseling patient: Coding Level of Care Code 03463 Subseq Hosp Care Lvl 2 Diagnoses Pneumonia due to COVID-19 virus U07.1; J12.82 Hypoxia R09.02 Generalized weakness R53.1 Dehydration E86.0 Depression F32.9 Hyperlipidemia E78.5 Hypothyroidism E03.9 DVT prophylaxis Z29.9
--- NOTE | 2020-09-11 15:14 | Electrocardiogram Report ---
Test Reason : Blood Pressure : / mmHG Vent. Rate : 079 BPM Atrial Rate : 079 BPM P-R Int : 186 ms QRS Dur : 088 ms QT Int : 382 ms P-R-T Axes : 034 052 036 degrees QTc Int : 438 ms Normal sinus rhythm with sinus arrhythmia Normal ECG When compared with ECG of 06-SEP-2020 13:52, No significant change was found Confirmed by Kashif Fontanez ([id number]) on 09/11/2020 3:13:45 PM Referred By: REFERRED SELF Confirmed By:Kashif Fontanez
[2020-09-12] MEDS: LEVOTHYROXINE SODIUM 125 MCG TABLET PO SCH (03:39)
[2020-09-12 07:04] LABS: Basophils # (auto) 0.01 K/uL (0-0.2); Basophils % (auto) 0.2 %; Hematocrit (blood only) 36.8 % (42-52); Hemoglobin 12.4 g/dL (14.0-18.0); Immature Granulocytes # (auto) 0.01 K/uL (0.00-0.02); Immature Granulocytes % (auto) 0.2 %; Lymphocytes # (auto) 1.07 K/uL (1.2-3.4); Lymphocytes % (auto) 17.2 %; Mean Corpuscular Hemoglobin 31.1 pg (25-34); Mean Corpuscular Hgb Conc 33.7 g/dL (32-36); Mean Corpuscular Volume 92.2 fL (80-100); Mean Platelet Volume 10.5 fL (7.4-10.4); Monocytes % (auto) 9.6 %; Neutrophils # (auto) 4.54 K/uL (1.4-6.5); Neutrophils % (auto) 72.8 %; Platelet Count 130 K/uL (130-400); RDW Coefficient of Variation 13.1 % (11.5-14.5); RDW Standard Deviation 44.2 fL (36.4-46.3); Red Blood Count 3.99 M/uL (4.7-6.1); White Blood Count 6.23 K/uL (4.8-10.8)
[2020-09-12 07:30] LABS: Albumin Level 3.3 gm/dl (3.4-5.0); Calcium 8.5 mg/dl (8.5-10.1); Creatinine Clr Calc Pharmacy 59.4 ml/min; Est GFR (African American) 70.5; Est GFR (Non-African American) 60.8; Magnesium 2.1 mg/dl (1.8-2.4); Potassium 4.4 mmol/L (3.5-5.1)
[2020-09-12 07:34] LABS: Bilirubin,Total 0.6 mg/dl (0.2-1); Globulin 3.2 gm/dl (2.5-4.0); Total Protein 6.5 gm/dl (6.4-8.2)
[2020-09-12] MEDS: CHOLECALCIFEROL 1,000 UNITS 25 MCG TAB PO SCH (09:52)
[2020-09-12] MEDS: dexAMETHasone 6 MG in SYRINGE 0 ML IV SCH (09:52)
[2020-09-12] MEDS: ZINC SULFATE 220 MG CAPSULE PO SCH (09:52)
[2020-09-12] MEDS: SERTRALINE HCL 50 MG TABLET PO SCH (09:52)
[2020-09-12] MEDS: guaiFENesin 600 MG TABCR PO SCH ×2 (09:53→19:50)
[2020-09-12] MEDS: ROSUVASTATIN CALCIUM 10 MG TAB PO SCH (09:53)
[2020-09-12] MEDS: AZITHROMYCIN 250 MG TAB PO SCH (09:53)
[2020-09-12] MEDS ORDERED: SODIUM CHLORIDE 0.9% 1000ML 500 ML IV ONE (10:36)
--- NOTE | 2020-09-12 11:18 | XRay Report ---
XR chest 1V portable HISTORY: 80 years-old Male COVID follow up acute shortness of breath. COVID Positive. COMPARISON: Chest radiograph 09/10/2020, chest CT 10/25/2011 TECHNIQUE: Portable AP view of the chest FINDINGS: Cardiac silhouette is enlarged, unchanged. Chronic left hemidiaphragm elevation with left basilar suri ear opacities. No pneumothorax, large pleural effusion, overt pulmonary edema. Ill-defined peripheral predominant opacities are noted within the right midlung and right lung base. Degenerative changes o f the shoulders and spine. IMPRESSION: 1. Ill-defined pulmonary opacities of the peripheral right midlung and right lung base may reflect de veloping infectious or inflammatory pneumonitis.. 2. Chronic left hemidiaphragm elevation with linear left lung base opacities suggestive of atelectasi s/scarring. ACT 112: Negative or not required by law. The above report was generated using voice recognition software. It may contain grammatical, syntax o r spelling errors. Electronically signed by: Joseph Arellano M.D. 09/12/2020 11:17 AM
[2020-09-12] MEDS: ONDANSETRON INJ 2 MG/ML 2 ML VIAL IV PRN (11:28)
--- NOTE | 2020-09-12 11:40 | Hospitalist Progress Note ---
Date of Service September 12, 2020 Assessment & Plan (1) Pneumonia due to COVID-19 virus: Pneumonia due to COVID-19 virus with hypoxia- Presented with significant generalized weakness and fatigue and pulse ox 88%-was placed on 2 L nasal cannula initially was on room air this morning, needed 3L on exertion, now back to 2L he looks and feels weak, needs better rest, hydration and nutrition giving 500cc NSS today Continue dexamethasone 6 mg IV daily for 10 days Continue Ventolin HFA 2 puffs every 2 hours as needed Wean off oxygen Zinc sulfate turn 220 mg p.o. every morning Vitamin D 2000 international units p.o. every morning Azithromycin but convert to 250 mg p.o. once daily x5-day course Continue guaifenesin extended release 600 mg p.o. every 12 hours Continue acetaminophen 650 mg p.o. every 6 hours as needed mild pain or fever Continue Lovenox 0.5 mg/kg subcu every 12 hours -Antiemetics as needed for nausea from Covid-19 (2) Hypoxia: See above 2 step done today, no oxygen at rest and 3L needed on exertion unsure now if he will be ready tomorrow, see how he feels (3) Generalized weakness: Secondary to Covid-19 infection and poor p.o. intake over the last 2 weeks Hydrating with IV fluids but will now discontinue that PT/OT consults ordered (4) Dehydration: BP low normal, in 90's systolic will give 500cc NSS today encourage PO intake (5) Depression: Continue sertraline 25 mg daily (6) Hyperlipidemia: -Continue rosuvastatin 10 mg every morning (7) Hypothyroidism: -Continue levothyroxine 125 mcg daily TSH low free T4 normal (8) DVT prophylaxis: Lovenox Disposition-continued stay Admission and Anticipated Discharge Date Admission Date: September 10, 2020 Subjective patient feeling worse today, says he is very fatigued, did not sleep well last night due to beeping transferred him to medical status, take off monitor BP soft, normally pressures in 100's systolic, today they are in 90's no light headed sensation when walking around, performed two step, needed 3L on exertion, no oxygen at rest not eating or drinking well, + nausea he is pleased his is going home, he wishes he was going with her discussed that he needs to be feeling a little better, will re-evaluate tomorrow Review of Systems Review of Systems: All systems reviewed & are unremarkable except as noted in Subjective Constitutional: + fatigue and + weakness; no fever, no chills and no sweats Respiratory: + dyspnea on exertion; no cough and no dyspnea Cardiovascular: no chest pain and no edema Gastrointestinal: + early satiety and + nausea; no abdominal pain, no vomiting, no constipation and no diarrhea/loose stools Physical Exam Constitutional: WD/WN, vitals as above + ill appearing and + frail appearing; no acute distress Neck: trachea midline, no thyromegaly Respiratory: normal respiratory effort, lungs clear to auscultation Cardiovascular: RRR, no murmur, no edema Gastrointestinal (Abdomen): normal bowel sounds, soft, nontender, no hepatosplenomegaly Musculoskeletal: no cyanosis or clubbing, extremities motor strength 5/5 Skin: no rashes, warm and dry Neurologic: patellar DTR's 2+ bilat, sensation intact and PERRL, EOMI, accommodation nl, no face palsy, no dysarthria Psychiatric: Orientation: alert and oriented x 3 Affect: + flat affect Lymphatic: no cervical or axillary lymphadenopathy Results & Data Results & Data ([facility]) Vital Signs (Past 12 Hours) Vital Signs Temp Pulse Pulse Pulse Pulse Pulse Pulse 09/12/20 10:24 89 90 89 89 85 09/12/20 08:35 36.9 C 09/12/20 03:25 37.9 C H 09/12/20 00:00 68 Pulse Pulse Resp Resp Resp Resp Resp 09/12/20 10:24 86 21 21 20 21 09/12/20 08:35 75 20 09/12/20 03:25 80 20 09/12/20 00:00 Resp Resp BP BP Pulse Ox Pulse Ox Pulse Ox 09/12/20 10:24 19 18 88 L 88 L 09/12/20 08:35 95/40 L 92 09/12/20 03:25 105/52 L 94 09/12/20 00:00 Pulse Ox Pulse Ox Pulse Ox Pulse Ox 09/12/20 10:24 91 86 L 93 91 09/12/20 08:35 09/12/20 03:25 09/12/20 00:00 Laboratory Results Laboratory Results - last 24 hr 09/12/20 09/12/20 06:37 06:37 WBC 6.23 RBC 3.99 L Hgb 12.4 L Hct 36.8 L MCV 92.2 MCH 31.1 MCHC 33.7 RDW Std Deviation 44.2 RDW Coeff of Devan 13.1 Plt Count 130 MPV 10.5 H Immature Gran % (Auto) 0.2 Neut % (Auto) 72.8 Lymph % (Auto) 17.2 [place] % (Auto) 9.6 Eos % (Auto) 0.0 Baso % (Auto) 0.2 Neut # (Auto) 4.54 Lymph # (Auto) 1.07 L [place] # (Auto) 0.60 H Eos # (Auto) 0.00 Baso # (Auto) 0.01 Immature Gran # (Auto) 0.01 Sodium 139 Potassium 4.4 Chloride 107 Carbon Dioxide 27 Anion Gap 5.0 BUN 19 H Creatinine 1.14 Est Cr Clr Drug Dosing 59.4 Est GFR ( Amer) 70.5 Est GFR (Non-Af Amer) 60.8 BUN/Creatinine Ratio 17.0 Glucose 105 H Calcium 8.5 Magnesium 2.1 Total Bilirubin 0.6 AST 16 ALT 15 Alkaline Phosphatase 33 L Total Protein 6.5 Albumin 3.3 L Globulin 3.2 Albumin/Globulin Ratio 1.0 Medications Administered Current Inpatient Medications Acetaminophen (Acetaminophen 325 Mg Tab) 650 mg PO Q4H PRN PRN Reason: Pain or Fever Stop: 10/11/20 00:01 Last Admin: 09/12/20 03:37 Dose: 650 mg Documented by: Albuterol (Albuterol Hfa 8 Gm Inhaler) 2 puffs INH QID PRN PRN Reason: Dyspnea Stop: 10/11/20 00:01 Azithromycin ([facility] 250 Mg Tab) [facility] [place] Stop: 09/18/20 08:59 Last Admin: 09/12/20 09:53 Dose: 250 mg Documented by: Enoxaparin Sodium (Enoxaparin Inj 60 Mg/0.6 Ml Syr) 50 mg SQ Q12H [facility] Stop: 10/10/20 23:44 Last Admin: 09/11/20 23:09 Dose: 50 mg Documented by: Guaifenesin (Guaifenesin 600 Mg Tabcr) 600 mg PO Q12 [facility] Stop: 10/11/20 08:59 Last Admin: 09/12/20 09:53 Dose: 600 mg Documented by: Dexamethasone 6 mg/ Syringe 1.5 mls @ 1 mls/min IV DAILY [facility] Stop: 10/11/20 08:59 Last Admin: 09/12/20 09:52 Dose: 1 mls/min Documented by: Sodium Chloride (Nss 1000ml) 500 mls @ 250 mls/hr IV .Q2H [facility] Stop: 09/12/20 12:35 Last Admin: 09/12/20 11:28 Dose: 250 mls/hr Documented by: Levothyroxine Sodium (Levothyroxine Sodium 125 Mcg Tablet) 125 mcg PO DAILYBB [facility] Stop: 10/11/20 06:29 Last Admin: 09/12/20 03:39 Dose: 125 mcg Documented by: Ondansetron HCl (Ondansetron Inj 2 Mg/Ml 2 Ml Vial) 4 mg IV Q6H PRN PRN Reason: Nausea Stop: 10/11/20 00:01 Last Admin: 09/12/20 11:28 Dose: 4 mg Documented by: Rosuvastatin Calcium (Rosuvastatin Calcium 10 Mg Tab) 10 mg PO QAM [facility] Stop: 10/11/20 08:59 Last Admin: 09/12/20 09:53 Dose: 10 mg Documented by: Sertraline HCl (Sertraline Hcl 50 Mg Tablet) 25 mg PO DAILY [facility] Stop: 10/11/20 08:59 Last Admin: 09/12/20 09:52 Dose: 25 mg Documented by: Vitamin D (Cholecalciferol 1,000 Units 25 Mcg Tab) 2,000 units PO QAM [facility] Stop: 10/11/20 08:59 Last Admin: 09/12/20 09:52 Dose: 2,000 units Documented by: Zinc Sulfate (Zinc Sulfate 220 Mg Capsule) 220 mg PO QAM [facility] Stop: 10/11/20 08:59 Last Admin: 09/12/20 09:52 Dose: 220 mg Documented by: PG Care Time/CCT Total # of Minutes Spent Total Time Spent with Patient: Total time spent is greater than 50% in coordination of care (as documented) at patient's floor/unit and/or counseling patient: Coding Level of Care Code 67795 Subseq Hosp Care Lvl 3 Diagnoses Pneumonia due to COVID-19 virus U07.1; J12.82 Hypoxia R09.02 Generalized weakness R53.1 Dehydration E86.0 Depression F32.9 Hyperlipidemia E78.5 Hypothyroidism E03.9 DVT prophylaxis Z29.9
[2020-09-12] MEDS: ENOXAPARIN INJ 60 MG/0.6 ML SYR SQ SCH ×2 (12:34→23:00)
[2020-09-13] MEDS: LEVOTHYROXINE SODIUM 125 MCG TABLET PO SCH (04:07)
[2020-09-13 07:53] LABS: Hemoglobin 12.4 g/dL (14.0-18.0); Immature Granulocytes # (auto) 0.01 K/uL (0.00-0.02); Immature Granulocytes % (auto) 0.2 %; Lymphocytes # (auto) 0.81 K/uL (1.2-3.4); Lymphocytes % (auto) 15.1 %; Mean Corpuscular Hemoglobin 31.5 pg (25-34); Mean Corpuscular Hgb Conc 34.4 g/dL (32-36); Mean Corpuscular Volume 91.4 fL (80-100); Mean Platelet Volume 11.2 fL (7.4-10.4); Monocytes # (auto) 0.54 K/uL (0.11-0.59); Neutrophils # (auto) 4.02 K/uL (1.4-6.5); Neutrophils % (auto) 74.7 %; Platelet Count 137 K/uL (130-400); RDW Coefficient of Variation 13.3 % (11.5-14.5); RDW Standard Deviation 44.6 fL (36.4-46.3); Red Blood Count 3.94 M/uL (4.7-6.1); White Blood Count 5.38 K/uL (4.8-10.8)
[2020-09-13] MEDS: dexAMETHasone 6 MG in SYRINGE 0 ML IV SCH (08:19)
[2020-09-13] MEDS: AZITHROMYCIN 250 MG TAB PO SCH (08:20)
[2020-09-13] MEDS: CHOLECALCIFEROL 1,000 UNITS 25 MCG TAB PO SCH (08:20)
[2020-09-13] MEDS: ROSUVASTATIN CALCIUM 10 MG TAB PO SCH (08:20)
[2020-09-13] MEDS: ZINC SULFATE 220 MG CAPSULE PO SCH (08:20)
[2020-09-13] MEDS: SERTRALINE HCL 50 MG TABLET PO SCH (08:20)
[2020-09-13] MEDS: guaiFENesin 600 MG TABCR PO SCH (08:20)
[2020-09-13 08:24] LABS: Albumin Level 3.1 gm/dl (3.4-5.0); BUN Creatinine Ratio 20.4 (10-20); Calcium 8.5 mg/dl (8.5-10.1); Creatinine Clr Calc Pharmacy 65.1 ml/min; Est GFR (African American) 78.8; Potassium 4.3 mmol/L (3.5-5.1)
[2020-09-13 08:26] LABS: Bilirubin,Total 0.5 mg/dl (0.2-1); Globulin 3.2 gm/dl (2.5-4.0); Total Protein 6.3 gm/dl (6.4-8.2)
[2020-09-13] MEDS: ENOXAPARIN INJ 60 MG/0.6 ML SYR SQ SCH (11:10)
--- NOTE | 2020-09-13 12:30 | Communication Note ---
Date of Service: September 13, 2020 patient noted to be on 2L NC at rest today, was not on oxygen at rest yesterday I removed oxygen, he dropped to 87% on room air, no distress, feels well, placed him on 2LPM and he came up to 92% yesterday afternoon he had a 2 step test that demonstrated that he needs 3LPM on exertion the patient needs to be on 2LPM at all times and increase to 3LPM on exertion, will arrange for home oxygen and try to arrange for discharge later today he feels so much better than yesterday
--- NOTE | 2020-09-13 12:40 | Discharge Summary ---
Date of Service September 13, 2020 Admission HPI Per Admitting Provider The patient is a 80-year-old male with a past medical history including hypothyroidism, hyperlipidemia and depression, who presents with symptoms as noted above. He had been following his pulse oximetry at home, which was recorded to be around 88% this evening, and presented to the emergency department for assessment. His principal exposure was to that of his son who was COVID-19 positive. Of note also, patient's is presently being assessed in the ED for different symptoms, but has been diagnosed with COVID-19 disease as well. His COVID-19 test was positive this evening, and pulse ox on room air had a low of 88% Principal Diagnosis COVID 19 pneumonia with acute hypoxia Discharge Exam Constitutional WD/WN, vitals as above no acute distress Neck trachea midline, no thyromegaly Respiratory normal respiratory effort, lungs clear to auscultation Cardiovascular RRR, no murmur, no edema Gastrointestinal (Abdomen) normal bowel sounds, soft, nontender, no hepatosplenomegaly Musculoskeletal no cyanosis or clubbing, extremities motor strength 5/5 Skin no rashes, warm and dry Neurologic patellar DTR's 2+ bilat, sensation intact and PERRL, EOMI, accommodation nl, no face palsy, no dysarthria Psychiatric A+Ox3, euthymic affect Lymphatic no cervical or axillary lymphadenopathy Discharge Data Allergies Allergy/AdvReac Type Severity Reaction Status Date / Time No Known Allergies Allergy Mild Unverified 09/10/20 21:58 Consultations 09/10/20 22:04 ED Decision to Admit Stat Hospital Course (1) Pneumonia due to COVID-19 virus: Pneumonia due to COVID-19 virus with hypoxia- Presented with significant generalized weakness and fatigue and pulse ox 88%-was placed on 2 L nasal cannula initially patient feeling a lot better after dexamethasone and IV fluids he is breathing comfortably on 2L at rest, needs 3L on exertion arranged for home oxygen will complete full course of dexamethasone 6mg PO daily at home Zinc sulfate turn 220 mg p.o. every morning Vitamin D 2000 international units p.o. every morning Azithromycin but convert to 250 mg p.o. daily, complete 5 days eating and drinking better, feeling better in general, no fever he wants to go home, has good family support knows to watch for worsening symptoms (2) Hypoxia: See above 2 step done, needs 3L on exertion needs 2L at rest no distress at all, lungs are clear, minimal cough CXR on 09/12 with minimal infiltrates (3) Generalized weakness: Secondary to Covid-19 infection and poor p.o. intake over the last 2 weeks gave him some IV fluids now eating and drinking much better, energy is better (4) Dehydration: BP low normal, in 90's systolic on 09/12 gave 500cc NSS encourage PO intake BP better, 110's systolic, drinking much better (5) Depression: Continue sertraline 25 mg daily (6) Hyperlipidemia: -Continue rosuvastatin 10 mg every morning (7) Hypothyroidism: -Continue levothyroxine 125 mcg daily TSH low free T4 normal (8) DVT prophylaxis: Lovenox Disposition-continued stay Total Time Total Time Spent Total Time Spent (In Minutes): 34 Total Time Includes: Examination of the Patient, Discharge Planning and Medication Reconciliation Discharge Plan Discharge Items Patient Disposition: Home - Self-Care Reason For Visit: COVID+ PNEUMONIA WITH HYPOXIA Discharge Diagnosis: COVID 19 pneumonia Acute hypoxic respiratory failure Condition on Discharge: Good Goals: stay well hydrated, well nourished, get plenty of rest the next week complete course of dexamethasone (steroid) Activity: Per Instructions section Lifting: None Bathing: No limitations Exercise/Sports: Gradually increase as tolerated Weightbearing: Full weightbearing Non-emergency contact: Primary Care Provider Call non-emergency contact if: you have any medication questions and your symptoms worsen Follow-up/Referrals: Kimberly Santa PA-C [Primary Care Provider] - (7-10 days) Diet: Regular Addtl Attending Provider Instructions: Medications: - DEXAMETHASONE: 6mg daily, take for 6 more days, next dose is tomorrow morning - AZITHROMYCIN: 250mg daily, take for 2 more days, next dose is tomorrow morning - ZINC: 220mg, take for 10 days, helps immune system, can obtain over the counter - VITAMIN D: 2000 units, take for 10 days, helps immune system, can obtain over the counter Oxygen: you need 2L at rest (at all times, even when sleeping) and can increase to 3L on exertion anticipate that you might need oxygen for a few more days as you recover want to keep your oxygen saturations > 88% COVID 19 pneumonia, hypoxia complete course of dexamethasone and azithromycin as outlined above stay well nourished and well hydrated and focus on getting rest to help you recover stay in your home the next 7 days but after that you will not need to be quarantined Pending Studies at Discharge: No Stand-Alone Forms: My [facility], Smoking Cessation Medications and DC Order Prescriptions: New azithromycin 250 mg Tablet 250 mg PO QAM 2 Days Qty: 2 RF: 0 cholecalciferol (vitamin D3) 25 mcg (1,000 unit) Capsule 2,000 unit PO QAM 10 Days RF: 0 zinc sulfate [Orazinc] 50 mg zinc (220 mg) Capsule 220 mg PO QAM 10 Days Qty: 44 RF: 0 dexamethasone 4 mg tablet 6 mg PO DAILY 6 Days Qty: 9 RF: 0 Continued levothyroxine 125 mcg Capsule 125 mcg PO DAILY RF: 0 sertraline 25 mg Tablet 0 mg PO DAILY RF: 0 rosuvastatin 10 mg Tablet 10 mg PO QAM RF: 0 Discharge Orders: Discharge Order (Routine); Ordered 09/13/20 Ordered By: Zack Faustin Admission Data Admit Date/Time: 09/10/20 23:13 Attending Provider: Zack Faustin Admit Provider: Krystian Montana Primary Care Provider: Kimberly Santa Other Providers: Krystian Montana Other Interventions: Discharge Summary Assessment (RN) Last Done: 09/13/20 14:59 Coding Level of Care Code D/C Day Management >30 mins Diagnoses Pneumonia due to COVID-19 virus U07.1; J12.82 Hypoxia R09.02 Generalized weakness R53.1 Dehydration E86.0 Depression F32.9 Hyperlipidemia E78.5 Hypothyroidism E03.9 DVT prophylaxis Z29.9
== END 2020-09-13 16:47 | disposition home or self-care (01) | DRG 177 ==
LOC: ED 19:05 → SUATTDRO 23:13 → 2E 23:13

== ENCOUNTER 2020-09-14 17:21 | Inpatient (IN) ==
[2020-09-14] MEDS ORDERED: SODIUM CHLORIDE 0.9% 1000ML 1,000 ML IV STA ×2 (18:53)
[2020-09-14] MEDS ORDERED: ACETAMINOPHEN 500 MG TAB PO STA (18:53)
[2020-09-14] MEDS ORDERED: ONDANSETRON INJ 2 MG/ML 2 ML VIAL IV STA (18:54)
[2020-09-14 19:04] LABS: Basophils # (auto) 0.01 K/uL (0-0.2); Basophils % (auto) 0.2 %; Hematocrit (blood only) 37.6 % (42-52); Hemoglobin 13.3 g/dL (14.0-18.0); Immature Granulocytes # (auto) 0.02 K/uL (0.00-0.02); Immature Granulocytes % (auto) 0.3 %; Lymphocytes # (auto) 0.49 K/uL (1.2-3.4); Lymphocytes % (auto) 7.5 %; Mean Corpuscular Hemoglobin 31.7 pg (25-34); Mean Corpuscular Hgb Conc 35.4 g/dL (32-36); Mean Corpuscular Volume 89.5 fL (80-100); Mean Platelet Volume 10.7 fL (7.4-10.4); Monocytes # (auto) 0.43 K/uL (0.11-0.59); Monocytes % (auto) 6.6 %; Neutrophils # (auto) 5.59 K/uL (1.4-6.5); Neutrophils % (auto) 85.4 %; Platelet Count 192 K/uL (130-400); RDW Standard Deviation 42.9 fL (36.4-46.3); White Blood Count 6.54 K/uL (4.8-10.8)
[2020-09-14] MEDS ORDERED: dexAMETHasone 6 MG in SYRINGE 0 ML IV ONE (19:18)
[2020-09-14] MEDS ORDERED: FAMOTIDINE 20MG/5ML IV PUSH IV STA (19:18)
[2020-09-14 19:22] LABS: Alanine Aminotransferase 17 U/L (12-78); Albumin Level 3.5 gm/dl (3.4-5.0); Aspartate Aminotransferase 17 U/L (15-37); BUN Creatinine Ratio 23.2 (10-20); Blood Urea Nitrogen 28 mg/dl (7-18); Calcium 8.7 mg/dl (8.5-10.1); Carbon Dioxide 25 mmol/L (21-32); Chloride 102 mmol/L (98-107); Creatinine Clr Calc Pharmacy 60.7 ml/min; Glucose 142 mg/dl (70-99); Potassium 4.2 mmol/L (3.5-5.1); Sodium 135 mmol/L (136-145)
--- NOTE | 2020-09-14 19:23 | XRay Report ---
XR chest 1V portable HISTORY: 80 years-old Male Fever acute fever COMPARISON: Chest radiograph 09/12/2020, chest CT 10/25/2011 TECHNIQUE: Portable AP view of the chest FINDINGS: Cardiac silhouette is enlarged. Chronic left hemidiaphragmatic elevation. Progressive left lung base consolidation with mildly progressed ill-defined airspace opacities of the right lung base and latera l right midlung. No pneumothorax or large pleural effusion. Degenerative changes of the shoulders and spine. Cervical spinal fusion hardware. IMPRESSION: 1. Progressively worsened bibasilar consolidation with right midlung airspace opacities suggestive of multifocal pneumonia. 2. Cardiomegaly. ACT 112: Negative or not required by law. The above report was generated using voice recognition software. It may contain grammatical, syntax o r spelling errors. Electronically signed by: Joseph Arellano M.D. 09/14/2020 7:22 PM
[2020-09-14 19:26] LABS: Albumin Globulin Ratio 0.9 (0.9-2); Alkaline Phosphatase 38 U/L (45-117); Bilirubin,Total 0.7 mg/dl (0.2-1); Total Protein 7.5 gm/dl (6.4-8.2); Troponin I < 0.015 ng/ml (0-0.045)
[2020-09-14] MEDS ORDERED: DEXAMETHASONE SOD INJ 4 MG/ML VIAL ONE (19:30)
--- NOTE | 2020-09-14 20:17 | History & Physical Report ---
Date of Service September 14, 2020 Assessment & Plan (1) COVID-19: 80yo C male with acute hypoxic respiratory failure secondary to Covid-19 PNA. Patient has been ill x 3 weeks. Was diagnosed with Covid-19 on 09/07. His and son are ill as well and recovering at home. Patient lymphopenic, mild hyponatremia. CXR with progressive airspace disease. -Admit to medical with telemetry -Maintain isolation precautions - contact and airborne -Supplemental O2 as needed -Check Ddimer, BNP -Dexamethasone 6mg IV daily -Albuterol, Tylenol, Guaifenesin PRN -Continue home Zinc and Vitamin D supplementation -Lovenox 40 BID. BMI=28.6 Present on Admission?: Yes (2) Depression: Chronic. Stable -Continue Sertraline 25mg po daily Present on Admission?: Yes (3) Hyperlipidemia: Chronic. Stable -Continue Crestor 10mg po daily Present on Admission?: Yes (4) Hypothyroidism: Chronic. Stable -Continue Synthroid 125mcg po daily F/E/N - IVF given in ER. Will avoid further IV fluids for now. Patient is HD stable. Electrolytes WNL. Heart healthy diet as tolerated Ppx - Lovenox 40 BID Code - Full per discussion with patient Dispo - Admit to medical History of Present Illness Chief Complaint: weakness, fatigue, Covid-19 Primary Care Provider: Kimberly Santa Lalo Calvillo is a 71yo male with Covid-19. Patient has been ill for approximately 3 weeks. He was diagnosed with Covid-19 on 09/07/20. He was hospitalized at [facility] on 09/10/20 with acute hypoxic respiratory failure - satu rations of 88% and was treated with Dexamethasone and supplemental O2. He was discharged home on 09/13/20 on home oxygen and Dexamethasone. Patient has not been doing well since his arrival home. He reports weakness, difficulty ambulating as well as profuse, watery diarrhea. He was found down on the kitchen floor this evening - confused, hypoxic to 74%. Patient 91% on room air in ER. Currently on Oxymask 5L saturating 93% ER course: Tylenol, Zofran, Dexamethasone, Pepcid, NSS Allergies Allergy/AdvReac Type Severity Reaction Status Date / Time No Known Allergies Allergy Mild Unverified 09/10/20 21:58 Home Medications Medication Instructions Recorded Confirmed Type levothyroxine 125 mcg PO DAILY 08/24/20 09/14/20 History rosuvastatin 10 mg PO QAM 08/24/20 09/14/20 History sertraline 0 mg PO DAILY 08/24/20 09/14/20 History azithromycin 250 mg PO QAM 2 Days #2 tab 09/13/20 09/14/20 Rx cholecalciferol (vitamin D3) 2,000 unit PO QAM 10 Days cap 09/13/20 09/14/20 Rx dexamethasone 6 mg PO DAILY 6 Days #9 tab 09/13/20 09/14/20 Rx zinc sulfate [Orazinc] 220 mg PO QAM 10 Days #44 cap 09/13/20 09/14/20 Rx Past Med/Surg History Medical History (Updated 09/15/20 @ 02:45 by Edel Santana DO) Dehydration Depression Hyperlipidemia Hypothyroidism Osteoarthritis Weakness Surgical History Hx of bilateral cataract extraction Hx of colonoscopy Hx of decompressive lumbar laminectomy Hx of fusion of cervical spine Social History Smoking Status: Never smoker Second Hand Exposure: No; Hx Alcohol Use: No Hx Substance Use: No Preferred Language: Greek Communication Ability: Effective Soil Conservation Technician Required: No Beliefs That Will Affect Care: None Current Living Situation: Spouse Other Information That Helps Us Care for You: No Feels Safe at Home: Yes Safety Concerns: Feels Safe At This Time Assistive Devices: Hearing Aid - Left, Hearing Aid - Right and Oxygen - Continuous Assistive Devices Comment: hearing aids not present on admission Review of Systems Review of Systems: All systems reviewed & are unremarkable except as noted in HPI & below Physical Exam Physical Exam: General: patient resting comfortably, NAD, non-toxic in appearance, AA&O x 4 Skin: warm, dry, intact, no rashes or lesions HEENT: NC/AT, PERRL, EOMI, anicteric sclera, conjunctiva without injection, external ear normal to inspection and nontender, nares patent, moist mucus membranes, dentition intact, no oropharyngeal lesions, neck supple, trachea midline, no LAD, no thyromegaly, no JVD Heart: +S1/S2, regular, no m/r/g Lungs: equal air entry bilaterally, no rales/rhonchi/wheezes Abd: +BS, soft, NT/ND, no masses/organomegaly/ascites Ext: warm, 2+ pulses in UE/LE bilaterally, no clubbing/cyanosis or edema Neuro: nonfocal, patient AA&O x 4, speech intact, no facial droop, moving all extremities on command with equal strength 5/5 Results & Data Results & Data ([facility]) Vital Signs (Past 12 Hours) Vital Signs Temp Pulse Resp BP Pulse Ox 09/14/20 19:00 67 25 H 113/73 96 09/14/20 18:49 92 09/14/20 18:45 67 29 H 118/59 L 91 09/14/20 18:15 36.8 C 69 26 H 109/65 91 Laboratory Results Lab Results 09/14/20 09/14/20 09/14/20 Range/Units 18:46 18:46 18:46 WBC 6.54 (4.8-10.8) K/uL RBC 4.20 L (4.7-6.1) M/uL Hgb 13.3 L (14.0-18.0) g/dL Hct 37.6 L (42-52) % MCV 89.5 (80-100) fL MCH 31.7 (25-34) pg MCHC 35.4 (32-36) g/dL RDW Std Deviation 42.9 (36.4-46.3) fL RDW Coeff of Devan 13.0 (11.5-14.5) % Plt Count 192 (130-400) K/uL MPV 10.7 H (7.4-10.4) fL Immature Gran % (Auto) 0.3 % Neut % (Auto) 85.4 % Lymph % (Auto) 7.5 % [place] % (Auto) 6.6 % Eos % (Auto) 0.0 % Baso % (Auto) 0.2 % Neut # (Auto) 5.59 (1.4-6.5) K/uL Lymph # (Auto) 0.49 L (1.2-3.4) K/uL [place] # (Auto) 0.43 (0.11-0.59) K/uL Eos # (Auto) 0.00 (0-0.5) K/uL Baso # (Auto) 0.01 (0-0.2) K/uL Immature Gran # (Auto) 0.02 (0.00-0.02) K/uL Sodium 135 L (136-145) mmol/L Potassium 4.2 (3.5-5.1) mmol/L Chloride 102 (98-107) mmol/L Carbon Dioxide 25 (21-32) mmol/L Anion Gap 8.0 (3-11) BUN 28 H (7-18) mg/dl Creatinine 1.22 (0.6-1.4) mg/dl Est Cr Clr Drug Dosing 60.7 ml/min Est GFR ( Amer) 65.0 Est GFR (Non-Af Amer) 56.0 BUN/Creatinine Ratio 23.2 H (10-20) Glucose 142 H (70-99) mg/dl Calcium 8.7 (8.5-10.1) mg/dl Phosphorus 3.8 (2.5-4.9) mg/dl Magnesium 2.5 H (1.8-2.4) mg/dl Total Bilirubin 0.7 (0.2-1) mg/dl AST 17 (15-37) U/L ALT 17 (12-78) U/L Alkaline Phosphatase 38 L (45-117) U/L Troponin I < 0.015 (0-0.045) ng/ml Total Protein 7.5 (6.4-8.2) gm/dl Albumin 3.5 (3.4-5.0) gm/dl Globulin 4.0 (2.5-4.0) gm/dl Albumin/Globulin Ratio 0.9 (0.9-2) Procalcitonin 0.09 (0-0.5) ng/ml Diagnostic Findings XR chest 1V portable HISTORY: 80 years-old Male Fever acute fever COMPARISON: Chest radiograph 09/12/2020, chest CT 10/25/2011 TECHNIQUE: Portable AP view of the chest FINDINGS: Cardiac silhouette is enlarged. Chronic left hemidiaphragmatic elevation. Progressive left lung base consolidation with mildly progressed ill-defined airspace opacities of the right lung base and lateral right midlung. No pneumothorax or large pleural effusion. Degenerative changes of the shoulders and spine. Cervical spinal fusion hardware. IMPRESSION: 1. Progressively worsened bibasilar consolidation with right midlung airspace opacities suggestive of multifocal pneumonia. 2. Cardiomegaly. ACT 112: Negative or not required by law. The above report was generated using voice recognition software. It may contain grammatical, syntax or spelling errors. Electronically signed by: Joseph Arellano M.D. 09/14/2020 7:22 PM Dictated: 09/14/201919Transcribed: 09/14/201919 Code Status & VTE Plan VTE Prophylaxis Plan VTE Prophylaxis will be ordered: Yes PG Care Time/CCT Total # of Minutes Spent Total Time Spent with Patient: Total time spent is greater than 50% in coordination of care (as documented) at patient's floor/unit and/or counseling patient: Coding Level of Care Code 01686 Initial Inpt Care Lvl 3 Diagnoses COVID-19 U07.1 Depression F32.9 Depression Type: major depressive disorder Major depression recurrence: unspecified whether recurrent Active/Remission status: remission status unspecified Hyperlipidemia E78.5 Hyperlipidemia type: unspecified Hypothyroidism E03.9 Hypothyroidism type: unspecified (1) Depression Depression Type: major depressive disorder Major depression recurrence: unspecified whether recurrent Active/Remission status: remission status unspecified Qualified Code(s): F32.9 - Major depressive disorder, single episode, unspecified (2) Hyperlipidemia Hyperlipidemia type: unspecified Qualified Code(s): E78.5 - Hyperlipidemia, unspecified (3) Hypothyroidism Hypothyroidism type: unspecified Qualified Code(s): E03.9 - Hypothyroidism, unspecified
[2020-09-14] MEDS ORDERED: ACETAMINOPHEN 325 MG TAB PO PRN (23:08)
[2020-09-14] MEDS ORDERED: ONDANSETRON INJ 2 MG/ML 2 ML VIAL IV PRN (23:08)
[2020-09-14] MEDS ORDERED: ALBUTEROL HFA 8 GM INHALER INH PRN (23:08)
[2020-09-14] MEDS ORDERED: guaiFENesin SUGAR FREE 100 MG/5 ML UDC PO PRN (23:08)
[2020-09-14 23:48] LABS: Magnesium 2.5 mg/dl (1.8-2.4); Phosphorus 3.8 mg/dl (2.5-4.9)
[2020-09-15] MEDS: LEVOTHYROXINE SODIUM 125 MCG TABLET PO SCH (05:58)
[2020-09-15 06:10] LABS: Hematocrit (blood only) 36.6 % (42-52); Hemoglobin 12.8 g/dL (14.0-18.0); Immature Granulocytes # (auto) 0.02 K/uL (0.00-0.02); Immature Granulocytes % (auto) 0.2 %; Lymphocytes # (auto) 0.64 K/uL (1.2-3.4); Lymphocytes % (auto) 7.9 %; Mean Corpuscular Hemoglobin 31.4 pg (25-34); Mean Corpuscular Volume 89.9 fL (80-100); Mean Platelet Volume 10.9 fL (7.4-10.4); Monocytes # (auto) 0.65 K/uL (0.11-0.59); Neutrophils # (auto) 6.78 K/uL (1.4-6.5); Neutrophils % (auto) 83.9 %; Platelet Count 175 K/uL (130-400); RDW Coefficient of Variation 13.2 % (11.5-14.5); RDW Standard Deviation 43.8 fL (36.4-46.3); Red Blood Count 4.07 M/uL (4.7-6.1); White Blood Count 8.09 K/uL (4.8-10.8)
[2020-09-15 06:48] LABS: D Dimer 990 ug/L FEU (0-500)
[2020-09-15 06:49] LABS: Albumin Level 2.9 gm/dl (3.4-5.0); BUN Creatinine Ratio 31.4 (10-20); Calcium 8.2 mg/dl (8.5-10.1); Est GFR (Non-African American) 76.8; Potassium 4.4 mmol/L (3.5-5.1)
[2020-09-15 06:54] LABS: Bilirubin Direct 0.1 mg/dl (0-0.2); Bilirubin,Total 0.5 mg/dl (0.2-1); Total Protein 6.8 gm/dl (6.4-8.2)
[2020-09-15] MEDS: ZINC SULFATE 220 MG CAPSULE PO SCH (08:45)
[2020-09-15] MEDS: SERTRALINE HCL 50 MG TABLET PO SCH (08:45)
[2020-09-15] MEDS: dexAMETHasone 6 MG in SYRINGE 0 ML IV SCH (08:46)
[2020-09-15] MEDS: CHOLECALCIFEROL 1,000 UNITS 25 MCG TAB PO SCH (08:46)
[2020-09-15] MEDS: ENOXAPARIN INJ 40 MG/0.4 ML SYR SQ SCH ×2 (08:46→21:19)
[2020-09-15] MEDS: ROSUVASTATIN CALCIUM 10 MG TAB PO SCH (08:46)
[2020-09-15] MEDS: levoFLOXacin/D5W 750 MG/150 ML BAG IV SCH (10:22)
--- NOTE | 2020-09-15 10:43 | Electrocardiogram Report ---
Test Reason : Blood Pressure : / mmHG Vent. Rate : 065 BPM Atrial Rate : 065 BPM P-R Int : 170 ms QRS Dur : 084 ms QT Int : 408 ms P-R-T Axes : 077 045 052 degrees QTc Int : 424 ms Poor data quality, interpretation may be adversely affected Sinus rhythm with Premature atrial complexes Otherwise normal ECG When compared with ECG of 10-SEP-2020 20:20, Premature atrial complexes are now Present Confirmed by Reyes Wilder ([id number]) on 09/15/2020 10:42:52 AM Referred By: Kimberly Santa Confirmed By:Alvaro Wilder
--- NOTE | 2020-09-15 12:30 | Emergency Department Note ---
History of Present Illness General Chief complaint: Shortness of Breath/Dyspnea Stated complaint: SOB Time Seen by Provider: 09/14/20 18:30 Source: patient and RN notes reviewed Mode of arrival: wheelchair Limitations: no limitations History of Present Illness Provider complaint: COVID, weakness, incontinent of stool, hypoxia Maximum Pain Intensity: 5 This pt is a 80 yo male who presents to the ED with c/o weakness, ? confusion episode, hypoxia, found on floor by son covered in stool. Pt states he was hospitalized a few days ago, d/c yesterday to home with O2 as he and his have COVID. He developed diarrhea and got up to use the bathroom. He believes he wandered downstairs, became weak, lost control of his bowels and fell or lowered himself to the floor. He denies high fevers but admits to SOB, nausea and inability to eat much. He is trying to drink "electrolyte solution" to stay hydrated but sometimes it bothers his stomach. He denies blood in stools. Home Medications Medication Instructions Recorded Confirmed Type levothyroxine 125 mcg PO DAILY 08/24/20 09/14/20 History rosuvastatin 10 mg PO QAM 08/24/20 09/14/20 History sertraline 0 mg PO DAILY 08/24/20 09/14/20 History azithromycin 250 mg PO QAM 2 Days #2 tab 09/13/20 09/14/20 Rx cholecalciferol (vitamin D3) 2,000 unit PO QAM 10 Days cap 09/13/20 09/14/20 Rx dexamethasone 6 mg PO DAILY 6 Days #9 tab 09/13/20 09/14/20 Rx zinc sulfate [Orazinc] 220 mg PO QAM 10 Days #44 cap 09/13/20 09/14/20 Rx Allergies Allergy/AdvReac Type Severity Reaction Status Date / Time No Known Allergies Allergy Mild Unverified 09/10/20 21:58 Past Med/Surg History Medical History Dehydration Depression Hyperlipidemia Hypothyroidism Osteoarthritis Weakness Surgical History Hx of bilateral cataract extraction Hx of colonoscopy Hx of decompressive lumbar laminectomy Hx of fusion of cervical spine Social History Smoking Status: Never smoker Second Hand Exposure: No; Hx Alcohol Use: No Hx Substance Use: No Preferred Language: Martiniquais Communication Ability: Effective Export 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 and A total of 10 systems reviewed and were otherwise negative Physical Exam Vital Signs Vital Signs - 24 hr 09/14/20 18:15 09/14/20 18:45 09/14/20 18:49 Temperature 36.8 C Temperature Source Temporal Artery Scan Pulse Rate 69 67 Pulse Rate from SpO2 Sensor 70 Respiratory Rate 26 H 29 H Respiratory Effort / Characteristics Short of Breath Spontaneous Respiratory Pattern Regular Apnea Blood Pressure 109/65 118/59 L Blood Pressure Mean 79 78 Blood Pressure Position Sitting Pulse Oximetry 91 91 92 Oxygen Delivery Method Room Air Nasal Cannula Nasal Cannula Oxygen Flow Rate 3 3 Sepsis Recent Fever Within 48 Hours No Sepsis New/Unexplained Change in Mental Status N/A Sepsis Action Taken by Nursing No Action Required 09/14/20 19:00 09/14/20 19:30 09/14/20 20:00 Temperature Temperature Source Pulse Rate 67 69 63 Pulse Rate from SpO2 Sensor 67 66 66 Respiratory Rate 25 H 23 34 H Respiratory Effort / Characteristics Respiratory Pattern Blood Pressure 113/73 104/59 L 119/72 Blood Pressure Mean 86 74 87 Blood Pressure Position Pulse Oximetry 96 93 96 Oxygen Delivery Method Oxymask Oxygen Flow Rate 6 Sepsis Recent Fever Within 48 Hours Sepsis New/Unexplained Change in Mental Status Sepsis Action Taken by Nursing Vital signs reviewed. General: Ill appearing 80 yo male, in no significant distress. On n/c O2 but moved to oxymask HEENT: No scleral icterus, PERRLA, neck supple. Atraumatic. Cardiovascular: Regular rate and rhythm, no extra sounds. Pulmonary: Coarse BS to auscultation bilaterally, increased work of breathing. Abdomen: Soft, nontender, nondistended, positive bowel sounds. Musculoskeletal: Atraumatic, no peripheral edema. Neurologic: Patient awake alert and oriented x 3, full strength in all 4 extremities. Cranial nerves 2 through 12 grossly intact. Skin: Warm, dry, no rash, pale Course Administered Medications Acetaminophen (Acetaminophen 325 Mg Tab) 650 mg PO Q4H PRN PRN Reason: Pain or fever Stop: 10/14/20 23:07 Last Admin: 09/15/20 21:20 Dose: 650 mg Documented by: [id number] Enoxaparin Sodium (Enoxaparin Inj 40 Mg/0.4 Ml Syr) 40 mg SQ Q12H JASS Stop: 10/15/20 08:59 Last Admin: 09/17/20 09:12 Dose: 40 mg Documented by: [id number] Admin: 09/16/20 20:57 Dose: 40 mg Documented by: [id number] Admin: 09/16/20 08:18 Dose: 40 mg Documented by: [id number] Admin: 09/15/20 21:19 Dose: 40 mg Documented by: [id number] Admin: 09/15/20 08:46 Dose: 40 mg Documented by: [id number] Guaifenesin (Guaifenesin Sugar Free 100 Mg/5 Ml Udc) 100 mg PO Q6H PRN PRN Reason: Cough Stop: 10/14/20 23:07 Last Admin: 09/15/20 21:19 Dose: 100 mg Documented by: [id number] Dexamethasone 6 mg/ Syringe 1.5 mls @ 1 mls/min IV Q24H JASS Stop: 10/15/20 08:59 Last Admin: 09/17/20 09:12 Dose: 1 mls/min Documented by: [id number] Admin: 09/16/20 08:18 Dose: 1 mls/min Documented by: [id number] Admin: 09/15/20 08:46 Dose: 1 mls/min Documented by: [id number] Levofloxacin/Dextrose (Levaquin/D5w) 750 mg in 150 mls @ 100 mls/hr IV Q24H [facility]; Protocol Stop: 09/21/20 11:29 Last Infusion: 09/17/20 12:05 Dose: 0 mls/hr Documented by: [id number] Admin: 09/17/20 10:35 Dose: 100 mls/hr Documented by: [id number] Infusion: 09/16/20 12:34 Dose: 0 mls/hr Documented by: [id number] Admin: 09/16/20 10:45 Dose: 100 mls/hr Documented by: [id number] Infusion: 09/15/20 11:55 Dose: 0 mls/hr Documented by: [id number] Admin: 09/15/20 10:22 Dose: 100 mls/hr Documented by: [id number] Sodium Chloride (Nss 1000ml) 1,000 mls @ 80 mls/hr IV .[id number] [facility] Stop: 10/17/20 12:29 Last Admin: 09/17/20 12:29 Dose: 80 mls/hr Documented by: [id number] Levothyroxine Sodium (Levothyroxine Sodium 125 Mcg Tablet) 125 mcg PO DAILYBB S Stop: 10/15/20 06:29 Last Admin: 09/17/20 06:03 Dose: 125 mcg Documented by: [id number] Admin: 09/16/20 05:14 Dose: 125 mcg Documented by: [id number] Admin: 09/15/20 05:58 Dose: 125 mcg Documented by: [id number] Rosuvastatin Calcium (Rosuvastatin Calcium 10 Mg Tab) 10 mg PO [facility] Stop: 10/15/20 08:59 Last Admin: 09/17/20 09:13 Dose: 10 mg Documented by: [id number] Admin: 09/16/20 08:17 Dose: 10 mg Documented by: [id number] Admin: 09/15/20 08:46 Dose: 10 mg Documented by: [id number] Sertraline HCl (Sertraline Hcl 50 Mg Tablet) 25 mg PO DAILY [facility] Stop: 10/15/20 08:59 Last Admin: 09/17/20 09:12 Dose: 25 mg Documented by: [id number] Admin: 09/16/20 08:17 Dose: 25 mg Documented by: [id number] Admin: 09/15/20 08:45 Dose: 25 mg Documented by: [id number] Vitamin D (Cholecalciferol 1,000 Units 25 Mcg Tab) 2,000 units PO [facility] Stop: 10/15/20 08:59 Last Admin: 09/17/20 09:12 Dose: 2,000 units Documented by: [id number] Admin: 09/16/20 08:18 Dose: 2,000 units Documented by: [id number] Admin: 09/15/20 08:46 Dose: 2,000 units Documented by: [id number] Zinc Sulfate (Zinc Sulfate 220 Mg Capsule) 220 mg PO [facility] Stop: 10/15/20 08:59 Last Admin: 09/17/20 09:12 Dose: 220 mg Documented by: [id number] Admin: 09/16/20 08:17 Dose: 220 mg Documented by: [id number] Admin: 09/15/20 08:45 Dose: 220 mg Documented by: [id number] Discontinued Medications Acetaminophen (Acetaminophen 500 Mg Tab) 1,000 mg PO ONE STA Stop: 09/14/20 18:54 Last Admin: 09/14/20 19:36 Dose: 1,000 mg Documented by: [id number] Dexamethasone (Dexamethasone Sod Inj 4 Mg/Ml Vial) Confirm Administered Dose 8 mg .ROUTE .STK-MED ONE Stop: 09/14/20 19:31 Last Admin: 09/14/20 19:36 Dose: 6 mg Documented by: [id number] Famotidine (Famotidine 20mg/5ml Iv Push) 20 mg IV ONE STA Stop: 09/14/20 19:19 Last Admin: 09/14/20 19:36 Dose: 20 mg Documented by: [id number] Sodium Chloride (Nss 1000ml) 1,000 mls @ 999 mls/hr IV .Q1H1M STA Stop: 09/14/20 19:53 Last Infusion: 09/14/20 21:47 Dose: 0 mls/hr Documented by: [id number] Admin: 09/14/20 19:35 Dose: 999 mls/hr Documented by: [id number] Sodium Chloride (Nss 1000ml) 1,000 mls @ 125 mls/hr IV .Q8H STA Stop: 09/15/20 02:52 Last Admin: 09/15/20 07:50 Dose: Not Given Documented by: [id number] Dexamethasone 6 mg/ Syringe 1.5 mls @ 1 mls/min IV ONE ONE Stop: 09/14/20 19:19 Last Admin: 09/14/20 19:36 Dose: Not Given Documented by: [id number] Sodium Chloride (Nss 1000ml) 500 mls @ 999 mls/hr IV .Q31M ONE Stop: 09/17/20 12:49 Last Infusion: 09/17/20 13:15 Dose: 0 mls/hr Documented by: [id number] Admin: 09/17/20 12:47 Dose: 999 mls/hr Documented by: [id number] Ondansetron HCl (Ondansetron Inj 2 Mg/Ml 2 Ml Vial) 4 mg IV NOW STA Stop: 09/14/20 18:55 Last Admin: 09/14/20 19:36 Dose: 4 mg Documented by: [id number] Medical Decision Making Differential Diagnosis Infection/COVID, dehydration, GIB, c diff, food borne illness, metabolic abnormality, hypo/hyperglycemia, electrolyte disturbance, anemia, hypoxia, cardiac sources, intracerebral event, toxicologic, neurologic, as well as other pathologies. Medical Records Attestation: I reviewed the patient's medical records. Home Medications Current Medication List: was personally reviewed by me Laboratory Data Attestation: I reviewed the patient's lab results. Result diagrams: 09/17/20 07:19 09/17/20 07:19 Lab Results 09/14/20 09/14/20 09/14/20 Range/Units 18:46 18:46 18:46 WBC 6.54 (4.8-10.8) K/uL RBC 4.20 L (4.7-6.1) M/uL Hgb 13.3 L (14.0-18.0) g/dL Hct 37.6 L (42-52) % MCV 89.5 (80-100) fL MCH 31.7 (25-34) pg MCHC 35.4 (32-36) g/dL RDW Std Deviation 42.9 (36.4-46.3) fL RDW Coeff of Devan 13.0 (11.5-14.5) % Plt Count 192 (130-400) K/uL MPV 10.7 H (7.4-10.4) fL Immature Gran % (Auto) 0.3 % Neut % (Auto) 85.4 % Lymph % (Auto) 7.5 % [place] % (Auto) 6.6 % Eos % (Auto) 0.0 % Baso % (Auto) 0.2 % Neut # (Auto) 5.59 (1.4-6.5) K/uL Lymph # (Auto) 0.49 L (1.2-3.4) K/uL [place] # (Auto) 0.43 (0.11-0.59) K/uL Eos # (Auto) 0.00 (0-0.5) K/uL Baso # (Auto) 0.01 (0-0.2) K/uL Immature Gran # (Auto) 0.02 (0.00-0.02) K/uL Sodium 135 L (136-145) mmol/L Potassium 4.2 (3.5-5.1) mmol/L Chloride 102 (98-107) mmol/L Carbon Dioxide 25 (21-32) mmol/L Anion Gap 8.0 (3-11) BUN 28 H (7-18) mg/dl Creatinine 1.22 (0.6-1.4) mg/dl Est Cr Clr Drug Dosing 60.7 ml/min Est GFR ( Amer) 65.0 Est GFR (Non-Af Amer) 56.0 BUN/Creatinine Ratio 23.2 H (10-20) Glucose 142 H (70-99) mg/dl Calcium 8.7 (8.5-10.1) mg/dl Phosphorus 3.8 (2.5-4.9) mg/dl Magnesium 2.5 H (1.8-2.4) mg/dl Total Bilirubin 0.7 (0.2-1) mg/dl AST 17 (15-37) U/L ALT 17 (12-78) U/L Alkaline Phosphatase 38 L (45-117) U/L Troponin I < 0.015 (0-0.045) ng/ml Total Protein 7.5 (6.4-8.2) gm/dl Albumin 3.5 (3.4-5.0) gm/dl Globulin 4.0 (2.5-4.0) gm/dl Albumin/Globulin Ratio 0.9 (0.9-2) Procalcitonin 0.09 (0-0.5) ng/ml Imaging Data Radiologist's Impression: Chest X-Ray 09/14/20 18:53 XR chest 1V portable HISTORY: 80 years-old Male Fever acute fever COMPARISON: Chest radiograph 09/12/2020, chest CT 10/25/2011 TECHNIQUE: Portable AP view of the chest FINDINGS: Cardiac silhouette is enlarged. Chronic left hemidiaphragmatic elevation. Progressive left lung base consolidation with mildly progressed ill-defined airspace opacities of the right lung base and lateral right midlung. No pneumothorax or large pleural effusion. Degenerative changes of the shoulders and spine. Cervical spinal fusion hardware. IMPRESSION: 1. Progressively worsened bibasilar consolidation with right midlung airspace opacities suggestive of multifocal pneumonia. 2. Cardiomegaly. ACT 112: Negative or not required by law. The above report was generated using voice recognition software. It may contain grammatical, syntax or spelling errors. Electronically signed by: Joseph Arellano M.D. 09/14/2020 7:22 PM ECG Data Attestation: I personally reviewed and interpreted this ECG as follows: Indication: + weakness Rate (beats per minute): 65 Rhythm: + sinus rhythm ECG Intervals/blocks: + Normal QT-c ECG [place]: + Normal ECG ST segments: + Normal ST segments ECG Findings: + PACs; no PVCs Comparison ECG Date: from (09/10/20) Change: the following changes noted (PACs are new) MDM Narrative This pt was evaluated and appeared to be in no distress. IV access was obtained and lab work was drawn. PT was hydrated with NSS. EKG is reassuring. CXR reveals pulm infiltrates c/w COVID pneumonia. Lab work was also reassuring, hgb 13.3. Pt was given IV dexamthasone, IV pepcid, IV zofran, IV NSS and PO tylenol. CAse was d/w the hospitalist for further management. Pt was aware of the plan and agreed. Impression & Plan Pneumonia due to COVID-19 virus, Hypoxia, Diarrhea, Weakness, Fall Discharge Plan Visit Data Chief Complaint: Shortness of Breath/Dyspnea Stated Complaint: SOB ED Provider: Farideh Allen Discharge Problem: Pneumonia due to COVID-19 virus, Hypoxia, Diarrhea, Weakness, Fall Patient Disposition: Admitted As Inpatient Discharge Instructions Interventions: ED Discharge Assessment Last Done: 09/14/20 22:38 Discharge Problem: Diarrhea Qualifiers: Diarrhea type: infectious Qualified Code(s): A09 - Infectious gastroenteritis and colitis, unspecified Fall Qualifiers: Encounter type: initial encounter Qualified Code(s): W19.XXXA - Unspecified fall, initial encounter
--- NOTE | 2020-09-15 21:41 | Hospitalist Progress Note ---
Date of Service September 15, 2020 Assessment & Plan (1) COVID-19: 80yo C male with acute hypoxic respiratory failure secondary to Covid-19 PNA. Patient has been ill x 3 weeks. Was diagnosed with Covid-19 on 09/07. His and son are ill as well and recovering at home. Patient lymphopenic, mild hyponatremia. CXR with progressive airspace disease. increasing oxygen requirements today, up to 10L oxymask, no distress does well laying prone, he will do this often at risk of needing Vapotherm, will see if he can remain stable on oxymask continue dexamethasone -Continue home Zinc and Vitamin D supplementation -Lovenox 40 BID. BMI=28.6 (2) Acute respiratory failure with hypoxia: worsening oxygen requirements, up to 10L oxymask no distress CXR on admission with worsening infiltrates encourage laying prone next step would be Vapotherm if he gets more hypoxic (3) Depression: Chronic. Stable -Continue Sertraline 25mg po daily (4) Hyperlipidemia: Chronic. Stable -Continue Crestor 10mg po daily (5) Hypothyroidism: Chronic. Stable -Continue Synthroid 125mcg po daily F/E/N - IVF given in ER. Will avoid further IV fluids for now. Patient is HD stable. Electrolytes WNL. Heart healthy diet as tolerated Ppx - Lovenox 40 BID Code - Full per discussion with patient Dispo - Admit to medical Admission and Anticipated Discharge Date Admission Date: September 14, 2020 Subjective patient says "I relapsed at home, felt a lot worse, had more diarrhea" he says that he was walking down to his kitchen, he might have taken off his oxygen, he collapsed when EMS arrived his saturations were in the 70's he feels better today, but his oxygen requirements are a lot higher compared to 2 days ago on oxymask, had to turn him up to 10L, but he is more than compliant with laying prone he says he actually sleeps on his stomach at home he is eating okay, no diarrhea since he has been here, no nausea reviewed the chart from yesterday labs, WBC 8k, Hb 12.8, plts 175k, d dimer 990, Cr 0.94, BUN 29, K 4.4 Review of Systems Review of Systems: All systems reviewed & are unremarkable except as noted in Subjective Constitutional: + fatigue and + weakness; no fever Respiratory: + cough, + dyspnea and + dyspnea on exertion; no sputum production Cardiovascular: no chest pain, no palpitations, no syncope and no edema Gastrointestinal: no abdominal pain, no nausea, no vomiting, no constipation and no diarrhea/loose stools Physical Exam Constitutional: well developed, well nourished, + ill appearing and comfortable; no acute distress Neck: trachea midline, no thyromegaly Respiratory: normal respiratory effort, lungs clear to auscultation Cardiovascular: RRR, no murmur, no edema Gastrointestinal (Abdomen): normal bowel sounds, soft, nontender, no hepatosplenomegaly Musculoskeletal: no cyanosis or clubbing, extremities motor strength 5/5 Skin: no rashes, warm and dry Neurologic: patellar DTR's 2+ bilat, sensation intact and PERRL, EOMI, accommodation nl, no face palsy, no dysarthria Psychiatric: A+Ox3, euthymic affect Lymphatic: no cervical or axillary lymphadenopathy Results & Data Results & Data ([facility]) Vital Signs (Past 12 Hours) Vital Signs Temp Pulse Pulse Resp BP Pulse Ox 09/15/20 19:00 36.6 C 70 20 114/64 91 09/15/20 16:00 62 09/15/20 15:40 36.4 C L 67 20 118/62 90 09/15/20 11:34 36.4 C L 62 18 100/68 96 Laboratory Results Laboratory Results - last 24 hr 09/14/20 09/14/20 09/15/20 18:46 18:46 05:25 WBC RBC Hgb Hct MCV MCH MCHC RDW Std Deviation RDW Coeff of Devan Plt Count MPV Immature Gran % (Auto) Neut % (Auto) Lymph % (Auto) [place] % (Auto) Eos % (Auto) Baso % (Auto) Neut # (Auto) Lymph # (Auto) [place] # (Auto) Eos # (Auto) Baso # (Auto) Immature Gran # (Auto) D-Dimer 990 H* Sodium Potassium Chloride Carbon Dioxide Anion Gap BUN Creatinine Est Cr Clr Drug Dosing Est GFR ( Amer) Est GFR (Non-Af Amer) BUN/Creatinine Ratio Glucose Calcium Phosphorus 3.8 Magnesium 2.5 H Total Bilirubin Direct Bilirubin AST ALT Alkaline Phosphatase NT-Pro-B Natriuret Pep Total Protein Albumin Procalcitonin 0.09 09/15/20 09/15/20 05:25 05:25 WBC 8.09 RBC 4.07 L Hgb 12.8 L Hct 36.6 L MCV 89.9 MCH 31.4 MCHC 35.0 RDW Std Deviation 43.8 RDW Coeff of Devan 13.2 Plt Count 175 MPV 10.9 H Immature Gran % (Auto) 0.2 Neut % (Auto) 83.9 Lymph % (Auto) 7.9 [place] % (Auto) 8.0 Eos % (Auto) 0.0 Baso % (Auto) 0.0 Neut # (Auto) 6.78 H Lymph # (Auto) 0.64 L [place] # (Auto) 0.65 H Eos # (Auto) 0.00 Baso # (Auto) 0.00 Immature Gran # (Auto) 0.02 D-Dimer Sodium 138 Potassium 4.4 Chloride 109 H Carbon Dioxide 25 Anion Gap 4.0 BUN 29 H Creatinine 0.94 Est Cr Clr Drug Dosing 79.0 Est GFR ( Amer) 89.0 Est GFR (Non-Af Amer) 76.8 BUN/Creatinine Ratio 31.4 H Glucose 146 H Calcium 8.2 L Phosphorus Magnesium Total Bilirubin 0.5 Direct Bilirubin 0.1 AST 13 L ALT 15 Alkaline Phosphatase 34 L NT-Pro-B Natriuret Pep 241 Total Protein 6.8 Albumin 2.9 L Procalcitonin Medications Administered Current Inpatient Medications Acetaminophen (Acetaminophen 325 Mg Tab) 650 mg PO Q4H PRN PRN Reason: Pain or fever Stop: 10/14/20 23:07 Last Admin: 09/15/20 21:20 Dose: 650 mg Documented by: Albuterol (Albuterol Hfa 8 Gm Inhaler) 2 puffs INH Q4H PRN PRN Reason: spob Stop: 10/14/20 23:07 Enoxaparin Sodium (Enoxaparin Inj 40 Mg/0.4 Ml Syr) 40 mg SQ Q12H JASS Stop: 10/15/20 08:59 Last Admin: 09/15/20 21:19 Dose: 40 mg Documented by: Guaifenesin (Guaifenesin Sugar Free 100 Mg/5 Ml Udc) 100 mg PO Q6H PRN PRN Reason: Cough Stop: 10/14/20 23:07 Last Admin: 09/15/20 21:19 Dose: 100 mg Documented by: Dexamethasone 6 mg/ Syringe 1.5 mls @ 1 mls/min IV Q24H [facility] Stop: 10/15/20 08:59 Last Admin: 09/15/20 08:46 Dose: 1 mls/min Documented by: Levofloxacin/Dextrose (Levaquin/D5w) 750 mg in 150 mls @ 100 mls/hr IV Q24H [facility]; Protocol Stop: 09/21/20 11:29 Last Infusion: 09/15/20 11:55 Dose: Infused Documented by: Levothyroxine Sodium (Levothyroxine Sodium 125 Mcg Tablet) 125 mcg PO DAILYBB [facility] Stop: 10/15/20 06:29 Last Admin: 09/15/20 05:58 Dose: 125 mcg Documented by: Ondansetron HCl (Ondansetron Inj 2 Mg/Ml 2 Ml Vial) 4 mg IV Q6H PRN PRN Reason: Nausea And Vomiting Stop: 10/14/20 23:07 Rosuvastatin Calcium (Rosuvastatin Calcium 10 Mg Tab) 10 mg PO [facility] Stop: 10/15/20 08:59 Last Admin: 09/15/20 08:46 Dose: 10 mg Documented by: Sertraline HCl (Sertraline Hcl 50 Mg Tablet) 25 mg PO DAILY [facility] Stop: 10/15/20 08:59 Last Admin: 09/15/20 08:45 Dose: 25 mg Documented by: Vitamin D (Cholecalciferol 1,000 Units 25 Mcg Tab) [facility]: 10/15/20 08:59 Last Admin: 09/15/20 08:46 Dose: 2,000 units Documented by: Zinc Sulfate (Zinc Sulfate 220 Mg Capsule) [facility] Stop: 10/15/20 08:59 Last Admin: 09/15/20 08:45 Dose: 220 mg Documented by: PG Care Time/CCT Total # of Minutes Spent Total Time Spent: 32 Total Time Spent with Patient: Total time spent is greater than 50% in coordination of care (as documented) at patient's floor/unit and/or counseling patient: Coding Level of Care Code 47284 Subseq Hosp Care Lvl 3 Diagnoses COVID-19 U07.1 Acute respiratory failure with hypoxia J96.01 Depression F32.9 Depression Type: major depressive disorder Major depression recurrence: unspecified whether recurrent Active/Remission status: remission status unspecified Hyperlipidemia E78.5 Hyperlipidemia type: unspecified Hypothyroidism E03.9 Hypothyroidism type: unspecified (1) Depression Depression Type: major depressive disorder Major depression recurrence: unspecified whether recurrent Active/Remission status: remission status unspecified Qualified Code(s): F32.9 - Major depressive disorder, single episode, unspecified (2) Hyperlipidemia Hyperlipidemia type: unspecified Qualified Code(s): E78.5 - Hyperlipidemia, unspecified (3) Hypothyroidism Hypothyroidism type: unspecified Qualified Code(s): E03.9 - Hypothyroidism, unspecified
[2020-09-16] MEDS: LEVOTHYROXINE SODIUM 125 MCG TABLET PO SCH (05:14)
[2020-09-16 06:36] LABS: Hematocrit (blood only) 37.9 % (42-52); Hemoglobin 12.9 g/dL (14.0-18.0); Mean Corpuscular Hemoglobin 30.9 pg (25-34); Mean Corpuscular Volume 90.9 fL (80-100); Mean Platelet Volume 10.8 fL (7.4-10.4); Platelet Count 189 K/uL (130-400); RDW Coefficient of Variation 12.9 % (11.5-14.5); RDW Standard Deviation 42.9 fL (36.4-46.3); Red Blood Count 4.17 M/uL (4.7-6.1); White Blood Count 10.67 K/uL (4.8-10.8)
[2020-09-16 07:18] LABS: BUN Creatinine Ratio 28.8 (10-20); Calcium 8.5 mg/dl (8.5-10.1); Creatinine Clr Calc Pharmacy 77.4 ml/min; Est GFR (African American) 86.8; Est GFR (Non-African American) 74.9; Potassium 4.1 mmol/L (3.5-5.1)
[2020-09-16] MEDS: ZINC SULFATE 220 MG CAPSULE PO SCH (08:17)
[2020-09-16] MEDS: ROSUVASTATIN CALCIUM 10 MG TAB PO SCH (08:17)
[2020-09-16] MEDS: SERTRALINE HCL 50 MG TABLET PO SCH (08:17)
[2020-09-16] MEDS: dexAMETHasone 6 MG in SYRINGE 0 ML IV SCH (08:18)
[2020-09-16] MEDS: CHOLECALCIFEROL 1,000 UNITS 25 MCG TAB PO SCH (08:18)
[2020-09-16] MEDS: ENOXAPARIN INJ 40 MG/0.4 ML SYR SQ SCH ×2 (08:18→20:57)
[2020-09-16] MEDS: levoFLOXacin/D5W 750 MG/150 ML BAG IV SCH (10:45)
--- NOTE | 2020-09-16 14:25 | Hospitalist Progress Note ---
Date of Service September 16, 2020 Assessment & Plan (1) COVID-19: 80yo C male with acute hypoxic respiratory failure secondary to Covid-19 PNA. Patient has been ill x 3 weeks. Was diagnosed with Covid-19 on 09/07. His and son are ill as well and recovering at home. Patient lymphopenic, mild hyponatremia. CXR with progressive airspace disease. increasing oxygen requirements today, up to 12L oxymask, no distress he is very fatigued, no sleep last night continue to lay prone as much as possible at risk of needing Vapotherm, will see if he can remain stable on oxymask continue dexamethasone 6mg IV daily added Levaquin 750mg daily on 09/15 for bacterial coverage, day 2, complete 5 days -Continue home Zinc and Vitamin D supplementation -Lovenox 40 BID. BMI=28.6 (2) Acute respiratory failure with hypoxia: worsening oxygen requirements, up to 12L oxymask no distress, just very fatigued CXR on admission with worsening infiltrates, will repeat portable CXR tomorrow encourage laying prone next step would be Vapotherm if he gets more hypoxic, RN is aware of plan (3) Depression: Chronic. Stable -Continue Sertraline 25mg po daily (4) Hyperlipidemia: Chronic. Stable -Continue Crestor 10mg po daily (5) Hypothyroidism: Chronic. Stable -Continue Synthroid 125mcg po daily F/E/N - IVF given in ER. Will avoid further IV fluids for now. Patient is HD stable. Electrolytes WNL. Heart healthy diet as tolerated Ppx - Lovenox 40 BID Code - Full per discussion with patient, confirmed he would want intubated on 09/16 at the bedside Dispo - Admit to medical Admission and Anticipated Discharge Date Admission Date: September 14, 2020 Subjective patient looks exhausted today, he says he did not sleep at all last night, feels profoundly fatigued he ate some cream of wheat for breakfast and some fruit for lunch, drinking some fluids he does not feel more short of breath, just tired, RN had to put him up to 12L oxymask, saturations are 92% he was prone this morning, will do it again this afternoon no fever, reviewed labs, WBC normal, Cr normal, electrolytes stable Review of Systems Review of Systems: All systems reviewed & are unremarkable except as noted in Subjective Constitutional: + fatigue (profound) and + weakness (profound); no fever, no chills and no sweats Respiratory: + dyspnea on exertion; no cough, no dyspnea, no sputum production and no wheezing Cardiovascular: no chest pain, no palpitations and no edema Gastrointestinal: + early satiety; no abdominal pain, no nausea, no vomiting, no constipation and no diarrhea/loose stools Musculoskeletal: + muscle weakness Physical Exam Constitutional: well developed, well nourished, + ill appearing, + frail appearing and comfortable; no acute distress Neck: trachea midline, no thyromegaly Respiratory: normal respiratory effort, lungs clear to auscultation Cardiovascular: RRR, no murmur, no edema Gastrointestinal (Abdomen): normal bowel sounds, soft, nontender, no hepatosplenomegaly Musculoskeletal: no cyanosis or clubbing, extremities motor strength 5/5 Skin: no rashes, warm and dry Neurologic: patellar DTR's 2+ bilat, sensation intact and PERRL, EOMI, accommodation nl, no face palsy, no dysarthria Psychiatric: A+Ox3, euthymic affect Lymphatic: no cervical or axillary lymphadenopathy Results & Data Results & Data ([facility]) Vital Signs (Past 12 Hours) Vital Signs Temp Pulse Pulse Resp BP BP Pulse Ox 09/16/20 11:52 36.4 C L 72 19 107/50 L 92 09/16/20 08:00 36.4 C L 75 20 121/72 91 09/16/20 07:36 75 09/16/20 04:00 36.9 C 72 22 122/77 92 Laboratory Results Laboratory Results - last 24 hr 09/16/20 09/16/20 05:56 05:56 WBC 10.67 RBC 4.17 L Hgb 12.9 L Hct 37.9 L MCV 90.9 MCH 30.9 MCHC 34.0 RDW Std Deviation 42.9 RDW Coeff of Devan 12.9 Plt Count 189 MPV 10.8 H Sodium 136 Potassium 4.1 Chloride 106 Carbon Dioxide 27 Anion Gap 3.0 BUN 28 H Creatinine 0.96 Est Cr Clr Drug Dosing 77.4 Est GFR ( Amer) 86.8 Est GFR (Non-Af Amer) 74.9 BUN/Creatinine Ratio 28.8 H Glucose 97 Calcium 8.5 Medications Administered Current Inpatient Medications Acetaminophen (Acetaminophen 325 Mg Tab) 650 mg PO Q4H PRN PRN Reason: Pain or fever Stop: 10/14/20 23:07 Last Admin: 09/15/20 21:20 Dose: 650 mg Documented by: Albuterol (Albuterol Hfa 8 Gm Inhaler) 2 puffs INH Q4H PRN PRN Reason: spob Stop: 10/14/20 23:07 Enoxaparin Sodium (Enoxaparin Inj 40 Mg/0.4 Ml Syr) 40 mg SQ Q12H [facility] Stop: 10/15/20 08:59 Last Admin: 09/16/20 08:18 Dose: 40 mg Documented by: Guaifenesin (Guaifenesin Sugar Free 100 Mg/5 Ml Udc) 100 mg PO Q6H PRN PRN Reason: Cough Stop: 10/14/20 23:07 Last Admin: 09/15/20 21:19 Dose: 100 mg Documented by: Dexamethasone 6 mg/ Syringe 1.5 mls @ 1 mls/min IV Q24H [facility] Stop: 10/15/20 08:59 Last Admin: 09/16/20 08:18 Dose: 1 mls/min Documented by: Levofloxacin/Dextrose (Levaquin/D5w) 750 mg in 150 mls @ 100 mls/hr IV Q24H [facility]; Protocol Stop: 09/21/20 11:29 Last Infusion: 09/16/20 12:34 Dose: Infused Documented by: Levothyroxine Sodium (Levothyroxine Sodium 125 Mcg Tablet) 125 mcg PO DAILYBB [facility] Stop: 10/15/20 06:29 Last Admin: 09/16/20 05:14 Dose: 125 mcg Documented by: Ondansetron HCl (Ondansetron Inj 2 Mg/Ml 2 Ml Vial) 4 mg IV Q6H PRN PRN Reason: Nausea And Vomiting Stop: 10/14/20 23:07 Rosuvastatin Calcium (Rosuvastatin Calcium 10 Mg Tab) [facility] [place] Stop: 10/15/20 08:59 Last Admin: 09/16/20 08:17 Dose: 10 mg Documented by: Sertraline HCl (Sertraline Hcl 50 Mg Tablet) 25 mg PO DAILY [facility] Stop: 10/15/20 08:59 Last Admin: 09/16/20 08:17 Dose: 25 mg Documented by: Vitamin D (Cholecalciferol 1,000 Units 25 Mcg Tab) 2,000 units PO QAM [facility] Stop: 10/15/20 08:59 Last Admin: 09/16/20 08:18 Dose: 2,000 units Documented by: Zinc Sulfate (Zinc Sulfate 220 Mg Capsule) 220 mg PO QAM [facility] Stop: 10/15/20 08:59 Last Admin: 09/16/20 08:17 Dose: 220 mg Documented by: PG Care Time/CCT Total # of Minutes Spent Total Time Spent with Patient: Total time spent is greater than 50% in coordination of care (as documented) at patient's floor/unit and/or counseling patient: Coding Level of Care Code 88322 Subseq Hosp Care Lvl 2 Diagnoses COVID-19 U07.1 Acute respiratory failure with hypoxia J96.01 Depression F32.9 Depression Type: major depressive disorder Major depression recurrence: unspecified whether recurrent Active/Remission status: remission status unspecified Hyperlipidemia E78.5 Hyperlipidemia type: unspecified Hypothyroidism E03.9 Hypothyroidism type: unspecified (1) Depression Depression Type: major depressive disorder Major depression recurrence: unspecified whether recurrent Active/Remission status: remission status unspecified Qualified Code(s): F32.9 - Major depressive disorder, single episode, unspecified (2) Hyperlipidemia Hyperlipidemia type: unspecified Qualified Code(s): E78.5 - Hyperlipidemia, unspecified (3) Hypothyroidism Hypothyroidism type: unspecified Qualified Code(s): E03.9 - Hypothyroidism, unspecified
[2020-09-17] MEDS: LEVOTHYROXINE SODIUM 125 MCG TABLET PO SCH (06:03)
[2020-09-17 08:00] LABS: Hematocrit (blood only) 38.4 % (42-52); Hemoglobin 13.4 g/dL (14.0-18.0); Mean Corpuscular Hemoglobin 31.5 pg (25-34); Mean Corpuscular Hgb Conc 34.9 g/dL (32-36); Mean Corpuscular Volume 90.4 fL (80-100); Mean Platelet Volume 10.3 fL (7.4-10.4); Platelet Count 206 K/uL (130-400); RDW Standard Deviation 43.1 fL (36.4-46.3); Red Blood Count 4.25 M/uL (4.7-6.1); White Blood Count 8.49 K/uL (4.8-10.8)
[2020-09-17 08:18] LABS: BUN Creatinine Ratio 25.2 (10-20); Calcium 8.6 mg/dl (8.5-10.1); Creatinine Clr Calc Pharmacy 74.3 ml/min; Est GFR (African American) 82.6; Est GFR (Non-African American) 71.3; Potassium 4.5 mmol/L (3.5-5.1)
--- NOTE | 2020-09-17 08:34 | XRay Report ---
XR chest 1V portable CLINICAL HISTORY: COVID pneumonia COMPARISON STUDY: 09/14/2020 FINDINGS: The cardiac and mediastinal contours remain stable. There is persistent elevation left jenn diaphragm. There are bilateral pulmonary airspace opacities consistent with a multifocal pneumonia.[ IMPRESSION: No significant change from the prior study. Persistent elevation left hemidiaphragm. Bila teral pulmonary airspace opacities consistent with a multifocal pneumonia ACT 112: Negative or not required by law. Electronically signed by: Grant Juarez M.D. 09/17/2020 8:33 AM
[2020-09-17] MEDS: dexAMETHasone 6 MG in SYRINGE 0 ML IV SCH (09:12)
[2020-09-17] MEDS: ZINC SULFATE 220 MG CAPSULE PO SCH (09:12)
[2020-09-17] MEDS: CHOLECALCIFEROL 1,000 UNITS 25 MCG TAB PO SCH (09:12)
[2020-09-17] MEDS: SERTRALINE HCL 50 MG TABLET PO SCH (09:12)
[2020-09-17] MEDS: ENOXAPARIN INJ 40 MG/0.4 ML SYR SQ SCH ×2 (09:12→21:29)
[2020-09-17] MEDS: ROSUVASTATIN CALCIUM 10 MG TAB PO SCH (09:13)
[2020-09-17] MEDS: levoFLOXacin/D5W 750 MG/150 ML BAG IV SCH (10:35)
[2020-09-17] MEDS: SODIUM CHLORIDE 0.9% 1000ML 500 ML IV ONE ×2 (12:25→12:47)
[2020-09-17] MEDS: SODIUM CHLORIDE 0.9% 1000ML 1,000 ML IV SCH (12:29)
--- NOTE | 2020-09-17 15:59 | Hospitalist Progress Note ---
Date of Service September 17, 2020 Assessment & Plan (1) COVID-19: 80yo C male with acute hypoxic respiratory failure secondary to Covid-19 PNA. Patient has been ill x 3 weeks. Was diagnosed with Covid-19 on 09/07. His and son are ill as well and recovering at home. Patient lymphopenic, mild hyponatremia. CXR with progressive airspace disease. increasing oxygen requirements again today, up to 15L oxymask, no distress he is very fatigued, but he says he feels a little better continue to lay prone as much as possible, he is very compliant at risk of needing Vapotherm, will see if he can remain stable on oxymask continue dexamethasone 6mg IV daily for 10 days added Levaquin 750mg daily on 09/15 for bacterial coverage, day 3, complete 5 days -Continue home Zinc and Vitamin D supplementation -Lovenox 40 BID. BMI=28.6 (2) Acute respiratory failure with hypoxia: worsening oxygen requirements, up to 15L oxymask no distress, just very fatigued but states he feels a little better, can take a deeper breath CXR on admission with worsening infiltrates, CXR today is stable encourage laying prone next step would be Vapotherm if he gets more hypoxic, RN is aware of plan (3) Hypotension: BP was low in 80's, no symptoms gave NSS 500cc bolus and then 80cc/hr BP up above 90 systolic (4) Depression: Chronic. Stable -Continue Sertraline 25mg po daily (5) Hyperlipidemia: Chronic. Stable -Continue Crestor 10mg po daily (6) Hypothyroidism: Chronic. Stable -Continue Synthroid 125mcg po daily F/E/N - IVF given in ER. Will avoid further IV fluids for now. Patient is HD stable. Electrolytes WNL. Heart healthy diet as tolerated Ppx - Lovenox 40 BID Code - Full per discussion with patient, confirmed he would want intubated on 09/16 at the bedside Dispo - Admit to medical Admission and Anticipated Discharge Date Admission Date: September 14, 2020 Subjective patient had some confusion early this morning, he got up out of bed, thought he was in the bathroom he has been much better today, laying prone most of the time saturations are in the 90's when prone, he is on 15L oxymask he says his breathing is better today, feels like he can take a deep breath easier minimal coughing, no chest pain, no fever, no chest pain eating okay but not great BP was running a little low this afternoon, gave 500cc bolus and 80cc/hr of NSS, BP was then 90 systolic he does not feel light headed, will watch closely CXR this morning was stable labs reviewed, CBC and BMP stable Review of Systems Review of Systems: All systems reviewed & are unremarkable except as noted in Subjective Constitutional: + fatigue, + malaise and + weakness; no fever, no chills and no sweats Respiratory: + dyspnea and + dyspnea on exertion; no cough Cardiovascular: no chest pain, no palpitations, no lightheadedness, no syncope and no edema Gastrointestinal: no abdominal pain, no nausea, no vomiting, no constipation and no diarrhea/loose stools Physical Exam Constitutional: well developed, well nourished, + frail appearing and comfortable; no acute distress Neck: trachea midline, no thyromegaly Respiratory: normal respiratory effort, lungs clear to auscultation Cardiovascular: RRR, no murmur, no edema Gastrointestinal (Abdomen): normal bowel sounds, soft, nontender, no hepatosplenomegaly Musculoskeletal: no cyanosis or clubbing, extremities motor strength 5/5 Skin: no rashes, warm and dry Neurologic: patellar DTR's 2+ bilat, sensation intact and PERRL, EOMI, accommodation nl, no face palsy, no dysarthria Psychiatric: A+Ox3, euthymic affect Lymphatic: no cervical or axillary lymphadenopathy Results & Data Results & Data ([facility]) Vital Signs (Past 12 Hours) Vital Signs Temp Pulse Pulse Pulse Resp BP BP 09/17/20 14:30 56 L 90/42 L 09/17/20 13:30 61 94/43 L 09/17/20 12:00 36.5 C 68 18 87/42 L 09/17/20 08:09 36.8 C 65 17 95/52 L 09/17/20 07:00 62 Pulse Ox 09/17/20 14:30 09/17/20 13:30 95 09/17/20 12:00 91 09/17/20 08:09 90 09/17/20 07:00 Laboratory Results Laboratory Results - last 24 hr 09/17/20 09/17/20 07:19 07:19 WBC 8.49 RBC 4.25 L Hgb 13.4 L Hct 38.4 L MCV 90.4 MCH 31.5 MCHC 34.9 RDW Std Deviation 43.1 RDW Coeff of Devan 13.0 Plt Count 206 MPV 10.3 Sodium 136 Potassium 4.5 Chloride 105 Carbon Dioxide 29 Anion Gap 2.0 L BUN 25 H Creatinine 1.00 Est Cr Clr Drug Dosing 74.3 Est GFR ( Amer) 82.6 Est GFR (Non-Af Amer) 71.3 BUN/Creatinine Ratio 25.2 H Glucose 103 H Calcium 8.6 Medications Administered Current Inpatient Medications Acetaminophen (Acetaminophen 325 Mg Tab) 650 mg PO Q4H PRN PRN Reason: Pain or fever Stop: 10/14/20 23:07 Last Admin: 09/15/20 21:20 Dose: 650 mg Documented by: Albuterol (Albuterol Hfa 8 Gm Inhaler) 2 puffs INH Q4H PRN PRN Reason: spob Stop: 10/14/20 23:07 Enoxaparin Sodium (Enoxaparin Inj 40 Mg/0.4 Ml Syr) 40 mg SQ Q12H [facility] Stop: 10/15/20 08:59 Last Admin: 09/17/20 09:12 Dose: 40 mg Documented by: Guaifenesin (Guaifenesin Sugar Free 100 Mg/5 Ml Udc) 100 mg PO Q6H PRN PRN Reason: Cough Stop: 10/14/20 23:07 Last Admin: 09/15/20 21:19 Dose: 100 mg Documented by: Dexamethasone 6 mg/ Syringe 1.5 mls @ 1 mls/min IV Q24H [facility] Stop: 10/15/20 08:59 Last Admin: 09/17/20 09:12 Dose: 1 mls/min Documented by: Levofloxacin/Dextrose (Levaquin/D5w) 750 mg in 150 mls @ 100 mls/hr IV Q24H [facility]; Protocol Stop: 09/21/20 11:29 Last Infusion: 09/17/20 12:05 Dose: Infused Documented by: Sodium Chloride (Nss 1000ml) 1,000 mls @ 80 mls/hr IV .[id number] [facility] Stop: 10/17/20 12:29 Last Admin: 09/17/20 12:29 Dose: 80 mls/hr Documented by: Levothyroxine Sodium (Levothyroxine Sodium 125 Mcg Tablet) [facility] Stop: 10/15/20 06:29 Last Admin: 09/17/20 06:03 Dose: 125 mcg Documented by: Ondansetron HCl (Ondansetron Inj 2 Mg/Ml 2 Ml Vial) 4 mg IV Q6H PRN PRN Reason: Nausea And Vomiting Stop: 10/14/20 23:07 Rosuvastatin Calcium (Rosuvastatin Calcium 10 Mg Tab) 10 mg PO [facility] Stop: 10/15/20 08:59 Last Admin: 09/17/20 09:13 Dose: 10 mg Documented by: Sertraline HCl (Sertraline Hcl 50 Mg Tablet) 25 mg PO DAILY [facility] Stop: 10/15/20 08:59 Last Admin: 09/17/20 09:12 Dose: 25 mg Documented by: Vitamin D (Cholecalciferol 1,000 Units 25 Mcg Tab) 2,000 units PO [facility] Stop: 10/15/20 08:59 Last Admin: 09/17/20 09:12 Dose: 2,000 units Documented by: Zinc Sulfate (Zinc Sulfate 220 Mg Capsule) 220 mg PO [facility] Stop: 10/15/20 08:59 Last Admin: 09/17/20 09:12 Dose: 220 mg Documented by: PG Care Time/CCT Total # of Minutes Spent Total Time Spent with Patient: Total time spent is greater than 50% in coordination of care (as documented) at patient's floor/unit and/or counseling patient: Coding Level of Care Code 52634 Subseq Hosp Care Lvl 2 Diagnoses COVID-19 U07.1 Acute respiratory failure with hypoxia J96.01 Hypotension I95.9 Depression F32.9 Active/Remission status: remission status unspecified Depression Type: major depressive disorder Major depression recurrence: unspecified whether recurrent Hyperlipidemia E78.5 Hyperlipidemia type: unspecified Hypothyroidism E03.9 Hypothyroidism type: unspecified (1) Depression Active/Remission status: remission status unspecified Depression Type: major depressive disorder Major depression recurrence: unspecified whether recurrent Qualified Code(s): F32.9 - Major depressive disorder, single episode, unspecified (2) Hyperlipidemia Hyperlipidemia type: unspecified Qualified Code(s): E78.5 - Hyperlipidemia, unspecified (3) Hypothyroidism Hypothyroidism type: unspecified Qualified Code(s): E03.9 - Hypothyroidism, unspecified
[2020-09-17] MEDS ORDERED: MELATONIN 3 MG TAB PO PRN (18:59)
[2020-09-18] MEDS: SODIUM CHLORIDE 0.9% 1000ML 1,000 ML IV SCH ×2 (02:56→13:10)
[2020-09-18] MEDS: LEVOTHYROXINE SODIUM 125 MCG TABLET PO SCH (06:07)
[2020-09-18 06:58] LABS: Creatinine Clr Calc Pharmacy 93.4 ml/min; Est GFR (Non-African American) 85.4
[2020-09-18] MEDS: ENOXAPARIN INJ 40 MG/0.4 ML SYR SQ SCH ×2 (09:19→20:48)
[2020-09-18] MEDS: ROSUVASTATIN CALCIUM 10 MG TAB PO SCH (09:19)
[2020-09-18] MEDS: dexAMETHasone 6 MG in SYRINGE 0 ML IV SCH (09:19)
[2020-09-18] MEDS: SERTRALINE HCL 50 MG TABLET PO SCH (09:19)
[2020-09-18] MEDS: CHOLECALCIFEROL 1,000 UNITS 25 MCG TAB PO SCH (09:19)
[2020-09-18] MEDS: ZINC SULFATE 220 MG CAPSULE PO SCH (09:19)
[2020-09-18] MEDS: levoFLOXacin/D5W 750 MG/150 ML BAG IV SCH (09:27)
--- NOTE | 2020-09-18 14:54 | Hospitalist Progress Note ---
Date of Service September 18, 2020 Assessment & Plan (1) COVID-19: 80yo C male with acute hypoxic respiratory failure secondary to Covid-19 PNA. Patient has been ill x 3 weeks. Was diagnosed with Covid-19 on 09/07. His and son are ill as well and recovering at home. Patient lymphopenic, mild hyponatremia. CXR with progressive airspace disease at time of admission stable on 15L oxymask, no distress he is very fatigued, but he says he feels a little better each day continue to lay prone as much as possible, he is very compliant, lays on his side when not prone at risk of needing Vapotherm, will see if he can remain stable on oxymask continue dexamethasone 6mg IV daily for 10 days, day 7 today added Levaquin 750mg daily on 09/15 for bacterial coverage, day 4, complete 5 days -Continue home Zinc and Vitamin D supplementation -Lovenox 40 BID. BMI=28.6 (2) Acute respiratory failure with hypoxia: stable on 15L oxymask no distress, just very fatigued but states he feels a little better, can take a deeper breath encourage laying prone next step would be Vapotherm if he gets more hypoxic, RN is aware of plan repeat CXR tomorrow (3) Hypotension: BP was low in 80's, no symptoms, on 09/17 gave NSS 500cc bolus and then 80cc/hr BP up in 120's today, eating and drinking much better stop IV fluids (4) Depression: Chronic. Stable -Continue Sertraline 25mg po daily (5) Hyperlipidemia: Chronic. Stable -Continue Crestor 10mg po daily (6) Hypothyroidism: Chronic. Stable -Continue Synthroid 125mcg po daily F/E/N - eating and drinking better, stop fluids Ppx - Lovenox 40 BID Code - Full per discussion with patient, confirmed he would want intubated on at the bedside Dispo - Admit to medical Admission and Anticipated Discharge Date Admission Date: September 14, 2020 Subjective patient laying on his side, breathing well he says he is feeling better than yesterday he is eating well, much better actually, ate all his food at lunch he got cleaned up today with nurses, doing some incentive spirometer, prone position most the morning no fever, BP is stable, he is on 15L oxymask still but saturations holding around 90 Cr is stable, will check full labs tomorrow Review of Systems Review of Systems: All systems reviewed & are unremarkable except as noted in Subjective Constitutional: + fatigue and + weakness; no fever Respiratory: + cough, + dyspnea and + dyspnea on exertion; no sputum production Cardiovascular: no chest pain, no palpitations, no syncope and no edema Gastrointestinal: no abdominal pain, no nausea, no vomiting, no constipation and no diarrhea/loose stools Physical Exam Constitutional: well developed, well nourished, + frail appearing and comfortable; no acute distress Neck: trachea midline, no thyromegaly Respiratory: normal respiratory effort, lungs clear to auscultation Cardiovascular: RRR, no murmur, no edema Gastrointestinal (Abdomen): normal bowel sounds, soft, nontender, no hepatosplenomegaly Musculoskeletal: no cyanosis or clubbing, extremities motor strength 5/5 Skin: no rashes, warm and dry Neurologic: patellar DTR's 2+ bilat, sensation intact and PERRL, EOMI, accommodation nl, no face palsy, no dysarthria Psychiatric: A+Ox3, euthymic affect Lymphatic: no cervical or axillary lymphadenopathy Results & Data Results & Data ([facility]) Vital Signs (Past 12 Hours) Vital Signs Temp Pulse Pulse Resp BP BP Pulse Ox 09/18/20 11:29 36.8 C 64 22 137/68 92 09/18/20 08:00 36.9 C 59 L 19 110/52 L 95 09/18/20 07:57 62 09/18/20 03:40 36.9 C 60 18 107/52 L 91 Laboratory Results Laboratory Results - last 24 hr 09/18/20 06:13 Creatinine 0.79 Est Cr Clr Drug Dosing 93.4 Est GFR ( Amer) 99.0 Est GFR (Non-Af Amer) 85.4 Medications Administered Current Inpatient Medications Acetaminophen (Acetaminophen 325 Mg Tab) 650 mg PO Q4H PRN PRN Reason: Pain or fever Stop: 10/14/20 23:07 Last Admin: 09/15/20 21:20 Dose: 650 mg Documented by: Albuterol (Albuterol Hfa 8 Gm Inhaler) 2 puffs INH Q4H PRN PRN Reason: spob Stop: 10/14/20 23:07 Enoxaparin Sodium (Enoxaparin Inj 40 Mg/0.4 Ml Syr) 40 mg SQ Q12H [facility] Stop: 10/15/20 08:59 Last Admin: 09/18/20 09:19 Dose: 40 mg Documented by: Guaifenesin (Guaifenesin Sugar Free 100 Mg/5 Ml Udc) 100 mg PO Q6H PRN PRN Reason: Cough Stop: 10/14/20 23:07 Last Admin: 09/15/20 21:19 Dose: 100 mg Documented by: Dexamethasone 6 mg/ Syringe 1.5 mls @ 1 mls/min IV Q24H [facility] Stop: 10/15/20 08:59 Last Admin: 09/18/20 09:19 Dose: 1 mls/min Documented by: Levofloxacin/Dextrose (Levaquin/D5w) 750 mg in 150 mls @ 100 mls/hr IV Q24H [facility]; Protocol Stop: 09/21/20 11:29 Last Infusion: 09/18/20 11:00 Dose: Infused Documented by: Sodium Chloride (Nss 1000ml) 1,000 mls @ 80 mls/hr IV .[id number] [facility] Stop: 10/17/20 12:29 Last Admin: 09/18/20 13:10 Dose: Not Given Documented by: Levothyroxine Sodium (Levothyroxine Sodium 125 Mcg Tablet) 125 mcg PO DAILYBB [facility] Stop: 10/15/20 06:29 Last Admin: 09/18/20 06:07 Dose: 125 mcg Documented by: Melatonin (Melatonin 3 Mg Tab) 3 mg PO HS PRN PRN Reason: Sleep Stop: 10/17/20 18:58 Ondansetron HCl (Ondansetron Inj 2 Mg/Ml 2 Ml Vial) 4 mg IV Q6H PRN PRN Reason: Nausea And Vomiting Stop: 10/14/20 23:07 Rosuvastatin Calcium (Rosuvastatin Calcium 10 Mg Tab) [facility] [place]: 10/15/20 08:59 Last Admin: 09/18/20 09:19 Dose: 10 mg Documented by: Sertraline HCl (Sertraline Hcl 50 Mg Tablet) 25 mg PO DAILY [facility] Stop: 10/15/20 08:59 Last Admin: 09/18/20 09:19 Dose: 25 mg Documented by: Vitamin D (Cholecalciferol 1,000 Units 25 Mcg Tab) 2,000 [facility] [place]: 10/15/20 08:59 Last Admin: 09/18/20 09:19 Dose: 2,000 units Documented by: Zinc Sulfate (Zinc Sulfate 220 Mg Capsule) 220 mg PO QAM [facility] Stop: 10/15/20 08:59 Last Admin: 09/18/20 09:19 Dose: 220 mg Documented by: PG Care Time/CCT Total # of Minutes Spent Total Time Spent with Patient: Total time spent is greater than 50% in coordination of care (as documented) at patient's floor/unit and/or counseling patient: Coding Level of Care Code 31649 Subseq Hosp Care Lvl 3 Diagnoses COVID-19 U07.1 Acute respiratory failure with hypoxia J96.01 Hypotension I95.9 Depression F32.9 Depression Type: major depressive disorder Major depression recurrence: unspecified whether recurrent Active/Remission status: remission status unspecified Hyperlipidemia E78.5 Hyperlipidemia type: unspecified Hypothyroidism E03.9 Hypothyroidism type: unspecified (1) Depression Depression Type: major depressive disorder Major depression recurrence: unspecified whether recurrent Active/Remission status: remission status unspecified Qualified Code(s): F32.9 - Major depressive disorder, single episode, unspecified (2) Hyperlipidemia Hyperlipidemia type: unspecified Qualified Code(s): E78.5 - Hyperlipidemia, unspecified (3) Hypothyroidism Hypothyroidism type: unspecified Qualified Code(s): E03.9 - Hypothyroidism, unspecified
[2020-09-18] MEDS: POLYETHYLENE (MIRALAX) 17 GM PACK PO PRN (20:48)
[2020-09-19 06:38] LABS: Hematocrit (blood only) 37.2 % (42-52); Hemoglobin 12.8 g/dL (14.0-18.0); Mean Corpuscular Hgb Conc 34.4 g/dL (32-36); Mean Corpuscular Volume 90.1 fL (80-100); Mean Platelet Volume 9.7 fL (7.4-10.4); Platelet Count 191 K/uL (130-400); RDW Coefficient of Variation 12.8 % (11.5-14.5); RDW Standard Deviation 41.9 fL (36.4-46.3); Red Blood Count 4.13 M/uL (4.7-6.1)
[2020-09-19 07:07] LABS: BUN Creatinine Ratio 26.4 (10-20); Calcium 8.5 mg/dl (8.5-10.1); Creatinine Clr Calc Pharmacy 83.5 ml/min; Est GFR (African American) 94.7; Est GFR (Non-African American) 81.7; Magnesium 2.1 mg/dl (1.8-2.4); Potassium 4.2 mmol/L (3.5-5.1)
[2020-09-19] MEDS: LEVOTHYROXINE SODIUM 125 MCG TABLET PO SCH (07:50)
[2020-09-19] MEDS: ROSUVASTATIN CALCIUM 10 MG TAB PO SCH (07:51)
[2020-09-19] MEDS: SERTRALINE HCL 50 MG TABLET PO SCH (07:51)
[2020-09-19] MEDS: CHOLECALCIFEROL 1,000 UNITS 25 MCG TAB PO SCH (07:52)
[2020-09-19] MEDS: dexAMETHasone 6 MG in SYRINGE 0 ML IV SCH (07:52)
[2020-09-19] MEDS: ZINC SULFATE 220 MG CAPSULE PO SCH (07:52)
[2020-09-19] MEDS: ENOXAPARIN INJ 40 MG/0.4 ML SYR SQ SCH ×2 (07:52→20:40)
--- NOTE | 2020-09-19 08:24 | XRay Report ---
SINGLE VIEW CHEST CLINICAL HISTORY: Covid pneumonia. FINDINGS: An AP, portable, upright chest radiograph is compared to study dated 09/17/2020 and correlate d with chest CT dated 10/25/2011. The examination is degraded by portable technique and apical lordoti c positioning. The heart is top normal for projection. There is chronic elevation of the left hemidia phragm with atelectasis of the left lower lung. Patchy airspace consolidation throughout both lungs h as not significantly changed from 09/17/2020. No large pleural effusion is identified. No pneumothorax is seen. The skeletal structures are osteopenic. The bony thorax is grossly intact. IMPRESSION: Multifocal airspace consolidation has not significantly changed from 09/17/2020. ACT 112: Negative or not required by law. Electronically signed by: Antonio Jean M.D. 09/19/2020 8:22 AM
[2020-09-19] MEDS: levoFLOXacin/D5W 750 MG/150 ML BAG IV SCH (10:26)
--- NOTE | 2020-09-19 15:42 | Hospitalist Progress Note ---
Date of Service September 19, 2020 Assessment & Plan (1) COVID-19: Patient has been ill x 3 weeks. Was diagnosed with Covid-19 on 09/07. His and son are ill as well and recovering at home. - Continue dexamethasone 6mg IV daily for 10 days (End date: 09/23/2020) - Added Levaquin 750mg daily on 09/15 for bacterial coverage (Finished on 09/19) - Continue home Zinc and Vitamin D supplementation - Lovenox 40 BID. BMI=28.6 - Stable today. Will try to get up and move in a chair some. Still feeling ok with the 15L. (2) Acute respiratory failure with hypoxia: Due to Covid-19. (3) Hypotension: BP was low in 80's, no symptoms, on 09/17. Received IV fluids and resolved. - Stable now. (4) Depression: Chronic. Stable. - Continue sertraline 25mg po daily (5) Hyperlipidemia: Chronic. Stable. - Continue Crestor 10mg po daily (6) Hypothyroidism: Chronic. Stable. - Continue Synthroid 125mcg po daily (7) DVT prophylaxis: Lovenox 40 mg SQ Q12h -> Per hospital Covid policy. Admission and Anticipated Discharge Date Admission Date: September 14, 2020 Subjective Doing ok today. He feels relatively comfortable on his side. Reports no fevers/chills, chest pain, shortness of breath, abdominal pain, nausea, or vomiting. Physical Exam Constitutional: WD/WN, vitals as above Eyes: EOM intact bilaterally; no conjunctival abnormality ENMT: external ear and nose normal, oropharynx normal Neck: trachea midline, no thyromegaly normal visual inspection Respiratory: + labored breathing; no respiratory distress Auscultation: + crackles Cardiovascular: RRR, no murmur, no edema Gastrointestinal (Abdomen): Inspection/Auscultation: abdomen normal to inspection; abdomen not distended Musculoskeletal: no cyanosis or clubbing, extremities motor strength 5/5 Skin: no rashes, warm and dry Neurologic: moves all extremities and awake Psychiatric: Orientation: alert, oriented to person and cooperative Results & Data Results & Data ([facility]) Vital Signs (Past 12 Hours) Vital Signs Temp Pulse Pulse Resp BP BP Pulse Ox 09/19/20 15:33 77 18 112/67 91 09/19/20 11:28 37.1 C 72 20 97/62 L 87 L 09/19/20 08:00 56 L 09/19/20 07:34 36.6 C 64 18 114/53 L 93 09/19/20 04:10 36.5 C 59 L 22 98/62 L 92 PG Care Time/CCT Total # of Minutes Spent Total Time Spent with Patient: Total time spent is greater than 50% in coordination of care (as documented) at patient's floor/unit and/or counseling patient: Coding Level of Care Code 86983 Subseq Hosp Care Lvl 2 Diagnoses COVID-19 U07.1 Acute respiratory failure with hypoxia J96.01 Hypotension I95.9 Depression F32.9 Depression Type: major depressive disorder Major depression recurrence: unspecified whether recurrent Active/Remission status: remission status unspecified Hyperlipidemia E78.5 Hyperlipidemia type: unspecified Hypothyroidism E03.9 Hypothyroidism type: unspecified DVT prophylaxis Z29.9 (1) Depression Depression Type: major depressive disorder Major depression recurrence: unspecified whether recurrent Active/Remission status: remission status unspecified Qualified Code(s): F32.9 - Major depressive disorder, single episode, unspecified (2) Hyperlipidemia Hyperlipidemia type: unspecified Qualified Code(s): E78.5 - Hyperlipidemia, unspecified (3) Hypothyroidism Hypothyroidism type: unspecified Qualified Code(s): E03.9 - Hypothyroidism, unspecified
[2020-09-20] MEDS: LEVOTHYROXINE SODIUM 125 MCG TABLET PO SCH (06:16)
[2020-09-20] MEDS: CHOLECALCIFEROL 1,000 UNITS 25 MCG TAB PO SCH (08:09)
[2020-09-20] MEDS: ENOXAPARIN INJ 40 MG/0.4 ML SYR SQ SCH ×2 (08:09→20:00)
[2020-09-20] MEDS: ZINC SULFATE 220 MG CAPSULE PO SCH (08:09)
[2020-09-20] MEDS: ROSUVASTATIN CALCIUM 10 MG TAB PO SCH (08:10)
[2020-09-20] MEDS: SERTRALINE HCL 50 MG TABLET PO SCH (08:10)
[2020-09-20] MEDS: dexAMETHasone 6 MG in SYRINGE 0 ML IV SCH (08:10)
[2020-09-20] MEDS: POLYETHYLENE (MIRALAX) 17 GM PACK PO PRN (12:28)
--- NOTE | 2020-09-20 14:21 | Hospitalist Progress Note ---
Date of Service September 20, 2020 Assessment & Plan (1) COVID-19: Patient has been ill x 3 weeks. Was diagnosed with Covid-19 on 09/07. His and son are ill as well and recovering at home. - Continue dexamethasone 6mg IV daily for 10 days (End date: 09/23/2020) - Added Levaquin 750mg daily on 09/15 for bacterial coverage (Finished on 09/19) - Continue home Zinc and Vitamin D supplementation - Worse today. Sats down to 75% when he sat up and ate breakfast. Maintaining 89 - 90% on 15L while lying on his side. I and RN encouraged self-proning. (2) Acute respiratory failure with hypoxia: Due to Covid-19. (3) Hypotension: BP was low in 80's, no symptoms, on 09/17. Received IV fluids and resolved. - Stable now, though still only 100/50. (4) Depression: Chronic. Worse with present illness. Reports "no light at the end of the tunnel." - Continue sertraline 25mg po daily - Encouraged as much as able. (5) Hyperlipidemia: Chronic. Stable. - Continue Crestor 10mg po daily (6) Hypothyroidism: Chronic. Stable. - Continue Synthroid 125mcg po daily (7) DVT prophylaxis: Lovenox 40 mg SQ Q12h -> Per hospital Covid policy. Admission and Anticipated Discharge Date Admission Date: September 14, 2020 Subjective More shortness of breath and tiredness today. Feels discouraged given no progress. Reports no fevers/chills, chest pain, abdominal pain, nausea, or vomiting. Physical Exam Constitutional: WD/WN, vitals as above + acute distress Eyes: EOM intact bilaterally; no conjunctival abnormality ENMT: external ear and nose normal, oropharynx normal Neck: trachea midline, no thyromegaly normal visual inspection Respiratory: + respiratory distress and + labored breathing Auscultation: + crackles Cardiovascular: RRR, no murmur, no edema Gastrointestinal (Abdomen): Inspection/Auscultation: abdomen normal to inspection; abdomen not distended Musculoskeletal: no cyanosis or clubbing, extremities motor strength 5/5 Skin: no rashes, warm and dry Neurologic: moves all extremities and awake Psychiatric: Orientation: alert, oriented to person and cooperative Results & Data Results & Data ([place]) Vital Signs (Past 12 Hours) Vital Signs Temp Pulse Pulse Resp BP BP Pulse Ox 09/20/20 11:19 36.6 C 65 17 100/52 L 94 09/20/20 11:03 59 L 09/20/20 07:20 36.5 C 63 18 102/65 90 09/20/20 04:09 36.8 C 62 22 118/73 92 PG Care Time/CCT Total # of Minutes Spent Total Time Spent with Patient: Total time spent is greater than 50% in coordination of care (as documented) at patient's floor/unit and/or counseling patient: Coding Level of Care Code 32825 Subseq Hosp Care Lvl 3 Diagnoses COVID-19 U07.1 Acute respiratory failure with hypoxia J96.01 Hypotension I95.9 Depression F32.9 Depression Type: major depressive disorder Major depression recurrence: unspecified whether recurrent Active/Remission status: remission status unspecified Hyperlipidemia E78.5 Hyperlipidemia type: unspecified Hypothyroidism E03.9 Hypothyroidism type: unspecified DVT prophylaxis Z29.9 (1) Depression Depression Type: major depressive disorder Major depression recurrence: unspecified whether recurrent Active/Remission status: remission status unspecified Qualified Code(s): F32.9 - Major depressive disorder, single episode, unspecified (2) Hyperlipidemia Hyperlipidemia type: unspecified Qualified Code(s): E78.5 - Hyperlipidemia, unspecified (3) Hypothyroidism Hypothyroidism type: unspecified Qualified Code(s): E03.9 - Hypothyroidism, unspecified
[2020-09-21] MEDS: LEVOTHYROXINE SODIUM 125 MCG TABLET PO SCH (06:38)
[2020-09-21 07:34] LABS: Hematocrit (blood only) 37.1 % (42-52); Hemoglobin 13.1 g/dL (14.0-18.0); Mean Corpuscular Hemoglobin 31.4 pg (25-34); Mean Corpuscular Hgb Conc 35.3 g/dL (32-36); Mean Platelet Volume 9.9 fL (7.4-10.4); Platelet Count 230 K/uL (130-400); RDW Coefficient of Variation 12.8 % (11.5-14.5); RDW Standard Deviation 41.4 fL (36.4-46.3); Red Blood Count 4.17 M/uL (4.7-6.1); White Blood Count 9.74 K/uL (4.8-10.8)
[2020-09-21 07:57] LABS: Calcium 8.4 mg/dl (8.5-10.1); Creatinine Clr Calc Pharmacy 80.6 ml/min; Est GFR (African American) 92.6; Est GFR (Non-African American) 79.9; Potassium 4.2 mmol/L (3.5-5.1)
[2020-09-21] MEDS: dexAMETHasone 6 MG in SYRINGE 0 ML IV SCH (08:53)
[2020-09-21] MEDS: ENOXAPARIN INJ 40 MG/0.4 ML SYR SQ SCH ×2 (08:53→21:21)
[2020-09-21] MEDS: ROSUVASTATIN CALCIUM 10 MG TAB PO SCH (08:54)
[2020-09-21] MEDS: SERTRALINE HCL 50 MG TABLET PO SCH (08:54)
[2020-09-21] MEDS: CHOLECALCIFEROL 1,000 UNITS 25 MCG TAB PO SCH (08:54)
[2020-09-21] MEDS: ZINC SULFATE 220 MG CAPSULE PO SCH (08:54)
--- NOTE | 2020-09-21 21:13 | Hospitalist Progress Note ---
Date of Service September 21, 2020 Assessment & Plan (1) COVID-19: Patient has been ill x 3 weeks. Was diagnosed with Covid-19 on 09/07. His and son are ill as well and recovering at home. - Continue dexamethasone 6mg IV daily for 10 days (End date: 09/23/2020) - Added Levaquin 750mg daily on 09/15 for bacterial coverage (Finished on 09/19) - Continue home Zinc and Vitamin D supplementation - remains self proning, and on oxymask 15 liters. (2) Acute respiratory failure with hypoxia: Due to Covid-19. (3) Hypotension: BP was low in 80's, no symptoms, on 09/17. Received IV fluids and resolved. - Stable now, though still only 100/50. (4) Depression: Chronic. Worse with present illness. Reports "no light at the end of the tunnel." - Continue sertraline 25mg po daily - Encouraged as much as able. (5) Hyperlipidemia: Chronic. Stable. - Continue Crestor 10mg po daily (6) Hypothyroidism: Chronic. Stable. - Continue Synthroid 125mcg po daily (7) DVT prophylaxis: Lovenox 40 mg SQ Q12h -> Per hospital Covid policy. Admission and Anticipated Discharge Date Admission Date: September 14, 2020 Subjective Patient reports no new symptoms today. Review of Systems Review of Systems: All systems reviewed & are unremarkable except as noted in HPI & below Physical Exam Constitutional: WD/WN, vitals as above Eyes: EOM intact bilaterally; no conjunctival abnormality ENMT: external ear and nose normal, oropharynx normal Neck: trachea midline, no thyromegaly normal visual inspection Respiratory: normal respiratory effort, lungs clear to auscultation Cardiovascular: RRR, no murmur, no edema Musculoskeletal: no cyanosis or clubbing, extremities motor strength 5/5 Skin: no rashes, warm and dry Neurologic: PERRL, EOMI, accommodation nl, no face palsy, no dysarthria Psychiatric: Orientation: alert and oriented to person Lymphatic: no cervical or axillary lymphadenopathy Results & Data Results & Data ([facility]) Vital Signs (Past 12 Hours) Vital Signs Temp Pulse Resp BP BP Pulse Ox 09/21/20 19:24 36.4 C L 77 20 100/55 L 86 L 09/21/20 15:09 36.7 C 67 23 108/65 88 L 09/21/20 12:32 36.8 C 70 22 102/49 L 92 09/21/20 10:01 36.7 C 79 18 88/44 L 91 PG Care Time/CCT Total # of Minutes Spent Total Time Spent with Patient: Total time spent is greater than 50% in coordination of care (as documented) at patient's floor/unit and/or counseling patient: Coding Level of Care Code 29130 Subseq Hosp Care Lvl 3 Diagnoses COVID-19 U07.1 Acute respiratory failure with hypoxia J96.01 Hypotension I95.9 Depression F32.9 Active/Remission status: remission status unspecified Depression Type: major depressive disorder Major depression recurrence: unspecified whether recurrent Hyperlipidemia E78.5 Hyperlipidemia type: unspecified Hypothyroidism E03.9 Hypothyroidism type: unspecified DVT prophylaxis Z29.9 Time Spent (min) 35 (1) Depression Active/Remission status: remission status unspecified Depression Type: major depressive disorder Major depression recurrence: unspecified whether recurrent Qualified Code(s): F32.9 - Major depressive disorder, single episode, unspecified (2) Hyperlipidemia Hyperlipidemia type: unspecified Qualified Code(s): E78.5 - Hyperlipidemia, unspecified (3) Hypothyroidism Hypothyroidism type: unspecified Qualified Code(s): E03.9 - Hypothyroidism, unspecified
[2020-09-22] MEDS: LEVOTHYROXINE SODIUM 125 MCG TABLET PO SCH (05:02)
[2020-09-22] MEDS: dexAMETHasone 6 MG in SYRINGE 0 ML IV SCH (08:53)
[2020-09-22] MEDS: CHOLECALCIFEROL 1,000 UNITS 25 MCG TAB PO SCH (08:54)
[2020-09-22] MEDS: SERTRALINE HCL 50 MG TABLET PO SCH (08:54)
[2020-09-22] MEDS: ZINC SULFATE 220 MG CAPSULE PO SCH (08:54)
[2020-09-22] MEDS: ENOXAPARIN INJ 40 MG/0.4 ML SYR SQ SCH ×2 (08:54→20:30)
[2020-09-22] MEDS ORDERED: SODIUM CHLORIDE 0.9% 1000ML 1,000 ML IV ONE (09:19)
[2020-09-22] MEDS: ROSUVASTATIN CALCIUM 10 MG TAB PO SCH (09:25)
--- NOTE | 2020-09-22 09:55 | Hospitalist Progress Note ---
Date of Service September 22, 2020 Assessment & Plan (1) COVID-19: Patient has been ill x 3 weeks. Was diagnosed with Covid-19 on 09/07. His and son are ill as well and recovering at home. - Continue dexamethasone 6mg IV daily for 10 days (End date: 09/23/2020) - Added Levaquin 750mg daily on 09/15 for bacterial coverage (Finished on 09/19) - Continue home Zinc and Vitamin D supplementation - remains self proning when he sleeps, and remains on oxymask 15 liters. He again became hypotensive this AM but is responding to fluids. Will need to closely monitor. (2) Acute respiratory failure with hypoxia: Due to Covid-19. (3) Hypotension: BP was low in 80's, no symptoms, on 09/17. Received IV fluids and resolved. - Required another fluid bolus on 09/22 (4) Depression: Chronic. Worse with present illness. Reports "no light at the end of the tunnel." - Continue sertraline 25mg po daily - Encouraged as much as able. (5) Hyperlipidemia: Chronic. Stable. - Continue Crestor 10mg po daily (6) Hypothyroidism: Chronic. Stable. - Continue Synthroid 125mcg po daily (7) DVT prophylaxis: Lovenox 40 mg SQ Q12h -> Per hospital Covid policy. Admission and Anticipated Discharge Date Admission Date: September 14, 2020 Subjective Patient reports lying prone overnight. Was called by nursing staff this AM. Blood pressure was in the hypotensive range. Ordered a bolus and went to se the patient at bedside. Patient reports feeling about the same. He is trying his best to get better. Currently sitting up to eat his breakfast. Review of Systems Review of Systems: All systems reviewed & are unremarkable except as noted in HPI & below Physical Exam Constitutional: WD/WN, vitals as above Eyes: EOM intact bilaterally; no conjunctival abnormality ENMT: external ear and nose normal, oropharynx normal Neck: trachea midline, no thyromegaly normal visual inspection Respiratory: Bilateral rhonchi. Cardiovascular: RRR, no murmur, no edema Musculoskeletal: no cyanosis or clubbing, extremities motor strength 5/5 Skin: no rashes, warm and dry Neurologic: PERRL, EOMI, accommodation nl, no face palsy, no dysarthria Psychiatric: Orientation: alert and oriented to person Lymphatic: no cervical or axillary lymphadenopathy Results & Data Results & Data ([facility]) Vital Signs (Past 12 Hours) Vital Signs Temp Pulse Resp BP Pulse Ox 09/22/20 08:45 36.6 C 82 20 72/48 L 92 09/22/20 04:00 62 20 91/52 L 92 09/21/20 23:51 36.4 C L 95 H 20 110/73 91 PG Care Time/CCT Total # of Minutes Spent Total Time Spent with Patient: Total time spent is greater than 50% in coordination of care (as documented) at patient's floor/unit and/or counseling patient: Coding Level of Care Code 67317 Subseq Hosp Care Lvl 3 Diagnoses COVID-19 U07.1 Acute respiratory failure with hypoxia J96.01 Hypotension I95.9 Depression F32.9 Depression Type: major depressive disorder Major depression recurrence: unspecified whether recurrent Active/Remission status: remission status unspecified Hyperlipidemia E78.5 Hyperlipidemia type: unspecified Hypothyroidism E03.9 Hypothyroidism type: unspecified DVT prophylaxis Z29.9 Time Spent (min) 35 (1) Depression Depression Type: major depressive disorder Major depression recurrence: unspecified whether recurrent Active/Remission status: remission status unspecified Qualified Code(s): F32.9 - Major depressive disorder, single episode, unspecified (2) Hyperlipidemia Hyperlipidemia type: unspecified Qualified Code(s): E78.5 - Hyperlipidemia, unspecified (3) Hypothyroidism Hypothyroidism type: unspecified Qualified Code(s): E03.9 - Hypothyroidism, unspecified
[2020-09-23] MEDS: LEVOTHYROXINE SODIUM 125 MCG TABLET PO SCH (06:23)
[2020-09-23 07:17] LABS: Basophils # (auto) 0.01 K/uL (0-0.2); Basophils % (auto) 0.1 %; Eosinophils # (auto) 0.13 K/uL (0-0.5); Eosinophils % (auto) 1.2 %; Hematocrit (blood only) 36.5 % (42-52); Hemoglobin 13.1 g/dL (14.0-18.0); Immature Granulocytes # (auto) 0.11 K/uL (0.00-0.02); Immature Granulocytes % (auto) 1.1 %; Lymphocytes # (auto) 0.76 K/uL (1.2-3.4); Lymphocytes % (auto) 7.3 %; Mean Corpuscular Hgb Conc 35.9 g/dL (32-36); Mean Platelet Volume 9.7 fL (7.4-10.4); Monocytes # (auto) 0.45 K/uL (0.11-0.59); Monocytes % (auto) 4.3 %; Neutrophils # (auto) 9.01 K/uL (1.4-6.5); Platelet Count 269 K/uL (130-400); RDW Coefficient of Variation 12.8 % (11.5-14.5); RDW Standard Deviation 41.6 fL (36.4-46.3); White Blood Count 10.47 K/uL (4.8-10.8)
[2020-09-23 07:48] LABS: Albumin Level 2.2 gm/dl (3.4-5.0); BUN Creatinine Ratio 24.7 (10-20); Calcium 8.4 mg/dl (8.5-10.1); Creatinine Clr Calc Pharmacy 88.6 ml/min; Est GFR (Non-African American) 83.7; Potassium 4.1 mmol/L (3.5-5.1)
[2020-09-23 07:51] LABS: Albumin Globulin Ratio 0.5 (0.9-2); Bilirubin,Total 0.5 mg/dl (0.2-1); Globulin 4.1 gm/dl (2.5-4.0); Total Protein 6.3 gm/dl (6.4-8.2)
[2020-09-23] MEDS: SERTRALINE HCL 50 MG TABLET PO SCH (09:14)
[2020-09-23] MEDS: ROSUVASTATIN CALCIUM 10 MG TAB PO SCH (09:14)
[2020-09-23] MEDS: dexAMETHasone 6 MG in SYRINGE 0 ML IV SCH (09:15)
[2020-09-23] MEDS: ZINC SULFATE 220 MG CAPSULE PO SCH (09:15)
[2020-09-23] MEDS: CHOLECALCIFEROL 1,000 UNITS 25 MCG TAB PO SCH (09:15)
[2020-09-23] MEDS: ENOXAPARIN INJ 40 MG/0.4 ML SYR SQ SCH ×2 (09:15→20:28)
--- NOTE | 2020-09-23 09:45 | XRay Report ---
XR chest 1V portable HISTORY: Shortness of breath. covid pneumonia COMPARISON: Chest 09/19/2020. FINDINGS: No pneumothorax. No pleural effusions. There is volume loss with chronic elevation of the l eft hemidiaphragm. Scattered patchy airspace opacities persist consistent with a viral pneumonia. No evidence for pulmonary edema. IMPRESSION: No change in the multifocal airspace opacities consistent with a viral pneumonia. ACT 112: Negative or not required by law. Electronically signed by: Steve Conde M.D. 09/23/2020 9:43 AM
[2020-09-23] MEDS ORDERED: SODIUM CHLORIDE 0.9% 1000ML 500 ML IV ONE (12:40)
--- NOTE | 2020-09-23 22:09 | Hospitalist Progress Note ---
Date of Service September 23, 2020 Assessment & Plan (1) COVID-19: Patient has been ill x 3 weeks. Was diagnosed with Covid-19 on 09/07. His and son are ill as well and recovering at home. - Continue dexamethasone 6mg IV daily for 10 days (End date: 09/23/2020) - Added Levaquin 750mg daily on 09/15 for bacterial coverage (Finished on 09/19) - Continue home Zinc and Vitamin D supplementation - remains self proning when he sleeps, and remains on oxymask 15 liters. He again became hypotensive this AM but is responding to fluids. Will need to closely monitor. Continues to require oxygen, will continue to titrate him off the oxygen. (2) Acute respiratory failure with hypoxia: Due to Covid-19. (3) Hypotension: BP was low in 80's, no symptoms, on 09/17. Received IV fluids and resolved. - Required another fluid bolus on 09/22 (4) Depression: Chronic. Worse with present illness. Reports "no light at the end of the tunnel." - Continue sertraline 25mg po daily - Encouraged as much as able. (5) Hyperlipidemia: Chronic. Stable. - Continue Crestor 10mg po daily (6) Hypothyroidism: Chronic. Stable. - Continue Synthroid 125mcg po daily (7) DVT prophylaxis: Lovenox 40 mg SQ Q12h -> Per hospital Covid policy. Admission and Anticipated Discharge Date Admission Date: September 14, 2020 Subjective Patient reports feeling mildy better. Review of Systems Review of Systems: All systems reviewed & are unremarkable except as noted in HPI & below Physical Exam Constitutional: WD/WN, vitals as above Eyes: EOM intact bilaterally; no conjunctival abnormality ENMT: external ear and nose normal, oropharynx normal Neck: trachea midline, no thyromegaly normal visual inspection Respiratory: normal respiratory effort, lungs clear to auscultation Cardiovascular: RRR, no murmur, no edema Musculoskeletal: no cyanosis or clubbing, extremities motor strength 5/5 Skin: no rashes, warm and dry Neurologic: PERRL, EOMI, accommodation nl, no face palsy, no dysarthria Psychiatric: Orientation: alert and oriented to person Lymphatic: no cervical or axillary lymphadenopathy Results & Data Results & Data ([facility]) Vital Signs (Past 12 Hours) Vital Signs Temp Pulse Pulse Resp BP Pulse Ox 04/09/21 19:21 36.4 C L 66 20 113/66 92 09/23/20 15:00 36.2 C L 63 17 108/52 L 93 09/23/20 14:20 60 09/23/20 11:52 36.2 C L 72 22 83/48 L 92 PG Care Time/CCT Total # of Minutes Spent Total Time Spent with Patient: Total time spent is greater than 50% in coordination of care (as documented) at patient's floor/unit and/or counseling patient: Coding Level of Care Code 41116 Subseq Hosp Care Lvl 2 Diagnoses COVID-19 U07.1 Acute respiratory failure with hypoxia J96.01 Hypotension I95.9 Depression F32.9 Active/Remission status: remission status unspecified Depression Type: major depressive disorder Major depression recurrence: unspecified whether recurrent Hyperlipidemia E78.5 Hyperlipidemia type: unspecified Hypothyroidism E03.9 Hypothyroidism type: unspecified DVT prophylaxis Z29.9 Time Spent (min) 25 (1) Depression Active/Remission status: remission status unspecified Depression Type: major depressive disorder Major depression recurrence: unspecified whether recurrent Qualified Code(s): F32.9 - Major depressive disorder, single episode, unspecified (2) Hyperlipidemia Hyperlipidemia type: unspecified Qualified Code(s): E78.5 - Hyperlipidemia, unspecified (3) Hypothyroidism Hypothyroidism type: unspecified Qualified Code(s): E03.9 - Hypothyroidism, unspecified
[2020-09-24] MEDS: LEVOTHYROXINE SODIUM 125 MCG TABLET PO SCH (04:46)
[2020-09-24 07:25] LABS: Creatinine Clr Calc Pharmacy 90.8 ml/min; Est GFR (Non-African American) 84.5
[2020-09-24] MEDS: SERTRALINE HCL 50 MG TABLET PO SCH (07:32)
[2020-09-24] MEDS: dexAMETHasone 6 MG in SYRINGE 0 ML IV SCH (07:32)
[2020-09-24] MEDS: CHOLECALCIFEROL 1,000 UNITS 25 MCG TAB PO SCH (07:33)
[2020-09-24] MEDS: ZINC SULFATE 220 MG CAPSULE PO SCH (07:33)
[2020-09-24] MEDS: ROSUVASTATIN CALCIUM 10 MG TAB PO SCH (07:33)
[2020-09-24] MEDS: ENOXAPARIN INJ 40 MG/0.4 ML SYR SQ SCH ×2 (07:34→21:06)
[2020-09-24] MEDS: POLYETHYLENE (MIRALAX) 17 GM PACK PO PRN (21:06)
--- NOTE | 2020-09-24 22:27 | Hospitalist Progress Note ---
Date of Service September 24, 2020 Assessment & Plan (1) COVID-19: Patient has been ill x 3 weeks. Was diagnosed with Covid-19 on 09/07. His and son are ill as well and recovering at home. - Continue dexamethasone 6mg IV daily for 10 days (End date: 09/23/2020) - Added Levaquin 750mg daily on 09/15 for bacterial coverage (Finished on 09/19) - Continue home Zinc and Vitamin D supplementation - remains self proning when he sleeps. He is now on 8 liters of oxygen. He continues to improve each day. Will need to closely monitor. Continues to require oxygen, will continue to titrate him off the oxygen. (2) Acute respiratory failure with hypoxia: Due to Covid-19. (3) Hypotension: BP was low in 80's, no symptoms, on 09/17. Received IV fluids and resolved. - Required another fluid bolus on 09/22 (4) Depression: Chronic. Worse with present illness. Reports "no light at the end of the tunnel." - Continue sertraline 25mg po daily - Encouraged as much as able. (5) Hyperlipidemia: Chronic. Stable. - Continue Crestor 10mg po daily (6) Hypothyroidism: Chronic. Stable. - Continue Synthroid 125mcg po daily (7) DVT prophylaxis: Lovenox 40 mg SQ Q12h -> Per hospital Covid policy. Admission and Anticipated Discharge Date Admission Date: September 14, 2020 Subjective Patient reports doing better. He is breathing better. Review of Systems Review of Systems: All systems reviewed & are unremarkable except as noted in HPI & below Physical Exam Constitutional: WD/WN, vitals as above Eyes: EOM intact bilaterally; no conjunctival abnormality ENMT: external ear and nose normal, oropharynx normal Neck: trachea midline, no thyromegaly normal visual inspection Respiratory: normal respiratory effort, lungs clear to auscultation Cardiovascular: RRR, no murmur, no edema Musculoskeletal: no cyanosis or clubbing, extremities motor strength 5/5 Skin: no rashes, warm and dry Neurologic: PERRL, EOMI, accommodation nl, no face palsy, no dysarthria Psychiatric: Orientation: alert and oriented to person Lymphatic: no cervical or axillary lymphadenopathy Results & Data Results & Data ([facility]) Vital Signs (Past 12 Hours) Vital Signs Temp Pulse Pulse Resp BP Pulse Ox 09/24/20 19:25 36.9 C 70 19 107/67 91 09/24/20 17:00 76 09/24/20 15:24 36.7 C 70 19 103/61 92 09/24/20 11:01 36.6 C 80 21 122/69 91 PG Care Time/CCT Total # of Minutes Spent Total Time Spent with Patient: Total time spent is greater than 50% in coordination of care (as documented) at patient's floor/unit and/or counseling patient: Coding Level of Care Code 65048 Subseq Hosp Care Lvl 2 Diagnoses COVID-19 U07.1 Acute respiratory failure with hypoxia J96.01 Hypotension I95.9 Depression F32.9 Active/Remission status: remission status unspecified Depression Type: major depressive disorder Major depression recurrence: unspecified whether recurrent Hyperlipidemia E78.5 Hyperlipidemia type: unspecified Hypothyroidism E03.9 Hypothyroidism type: unspecified DVT prophylaxis Z29.9 Time Spent (min) 25 (1) Depression Active/Remission status: remission status unspecified Depression Type: major depressive disorder Major depression recurrence: unspecified whether recurrent Qualified Code(s): F32.9 - Major depressive disorder, single episode, unspecified (2) Hyperlipidemia Hyperlipidemia type: unspecified Qualified Code(s): E78.5 - Hyperlipidemia, unspecified (3) Hypothyroidism Hypothyroidism type: unspecified Qualified Code(s): E03.9 - Hypothyroidism, unspecified
[2020-09-25] MEDS: LEVOTHYROXINE SODIUM 125 MCG TABLET PO SCH (05:48)
[2020-09-25] MEDS: dexAMETHasone 6 MG in SYRINGE 0 ML IV SCH (07:22)
[2020-09-25] MEDS: ENOXAPARIN INJ 40 MG/0.4 ML SYR SQ SCH ×2 (07:23→20:15)
[2020-09-25] MEDS: CHOLECALCIFEROL 1,000 UNITS 25 MCG TAB PO SCH (07:23)
[2020-09-25] MEDS: ZINC SULFATE 220 MG CAPSULE PO SCH (07:23)
[2020-09-25] MEDS: ROSUVASTATIN CALCIUM 10 MG TAB PO SCH (07:24)
[2020-09-25] MEDS: SERTRALINE HCL 50 MG TABLET PO SCH (07:24)
[2020-09-25] MEDS: POLYETHYLENE (MIRALAX) 17 GM PACK PO PRN (07:25)
--- NOTE | 2020-09-25 22:42 | Hospitalist Progress Note ---
Date of Service September 25, 2020 Assessment & Plan (1) COVID-19: Patient has been ill x 3 weeks. Was diagnosed with Covid-19 on 09/07. His and son are ill as well and recovering at home. - Continue dexamethasone 6mg IV daily for 10 days (End date: 09/23/2020) - Added Levaquin 750mg daily on 09/15 for bacterial coverage (Finished on 09/19) - Continue home Zinc and Vitamin D supplementation - remains self proning when he sleeps. He is now on 2 liters of oxygen. He continues to improve each day. Will need to closely monitor. will continue to titrate him off the oxygen. Anticipate discharge in 1-2 days Will need 2 step at discharge. (2) Acute respiratory failure with hypoxia: Due to Covid-19. (3) Hypotension: BP was low in 80's, no symptoms, on 09/17. Received IV fluids and resolved. - Required another fluid bolus on 09/22 (4) Depression: Chronic. Worse with present illness. Reports "no light at the end of the tunnel." - Continue sertraline 25mg po daily - Encouraged as much as able. (5) Hyperlipidemia: Chronic. Stable. - Continue Crestor 10mg po daily (6) Hypothyroidism: Chronic. Stable. - Continue Synthroid 125mcg po daily (7) DVT prophylaxis: Lovenox 40 mg SQ Q12h -> Per hospital Covid policy. Admission and Anticipated Discharge Date Admission Date: September 14, 2020 Subjective 80 yo male reports feeling better. He has more energy. Not quite at baseline. He states he is tolerating being on 2 liters nasal cannula. Review of Systems Review of Systems: All systems reviewed & are unremarkable except as noted in HPI & below Physical Exam Constitutional: WD/WN, vitals as above Eyes: EOM intact bilaterally; no conjunctival abnormality ENMT: external ear and nose normal, oropharynx normal Neck: trachea midline, no thyromegaly normal visual inspection Respiratory: normal respiratory effort, lungs clear to auscultation Cardiovascular: RRR, no murmur, no edema Musculoskeletal: no cyanosis or clubbing, extremities motor strength 5/5 Skin: no rashes, warm and dry Neurologic: PERRL, EOMI, accommodation nl, no face palsy, no dysarthria Psychiatric: Orientation: alert and oriented to person Lymphatic: no cervical or axillary lymphadenopathy Results & Data Results & Data ([facility]) Vital Signs (Past 12 Hours) Vital Signs Temp Pulse Pulse Resp BP BP Pulse Ox 09/25/20 19:26 36.4 C L 77 17 117/62 91 09/25/20 15:45 65 93 09/25/20 14:43 36.6 C 80 21 103/72 91 09/25/20 11:08 36.4 C L 81 20 100/53 L 92 PG Care Time/CCT Total # of Minutes Spent Total Time Spent with Patient: Total time spent is greater than 50% in coordination of care (as documented) at patient's floor/unit and/or counseling patient: Coding Level of Care Code 99443 Subseq Hosp Care Lvl 2 Diagnoses COVID-19 U07.1 Acute respiratory failure with hypoxia J96.01 Hypotension I95.9 Depression F32.9 Active/Remission status: remission status unspecified Depression Type: major depressive disorder Major depression recurrence: unspecified whether recurrent Hyperlipidemia E78.5 Hyperlipidemia type: unspecified Hypothyroidism E03.9 Hypothyroidism type: unspecified DVT prophylaxis Z29.9 Time Spent (min) 25 (1) Depression Active/Remission status: remission status unspecified Depression Type: major depressive disorder Major depression recurrence: unspecified whether recurrent Qualified Code(s): F32.9 - Major depressive disorder, single episode, unspeci fied (2) Hyperlipidemia Hyperlipidemia type: unspecified Qualified Code(s): E78.5 - Hyperlipidemia, unspecified (3) Hypothyroidism Hypothyroidism type: unspecified Qualified Code(s): E03.9 - Hypothyroidism, unspecified
[2020-09-26] MEDS: LEVOTHYROXINE SODIUM 125 MCG TABLET PO SCH (05:27)
[2020-09-26] MEDS: ZINC SULFATE 220 MG CAPSULE PO SCH (08:10)
[2020-09-26] MEDS: dexAMETHasone 6 MG in SYRINGE 0 ML IV SCH (08:10)
[2020-09-26] MEDS: SERTRALINE HCL 50 MG TABLET PO SCH (08:10)
[2020-09-26] MEDS: ENOXAPARIN INJ 40 MG/0.4 ML SYR SQ SCH ×2 (08:10→21:32)
[2020-09-26] MEDS: CHOLECALCIFEROL 1,000 UNITS 25 MCG TAB PO SCH (08:10)
[2020-09-26] MEDS: ROSUVASTATIN CALCIUM 10 MG TAB PO SCH (08:11)
[2020-09-26 08:28] LABS: Hemoglobin 12.1 g/dL (14.0-18.0); Mean Corpuscular Hemoglobin 30.9 pg (25-34); Mean Corpuscular Hgb Conc 34.6 g/dL (32-36); Mean Corpuscular Volume 89.3 fL (80-100); Mean Platelet Volume 9.5 fL (7.4-10.4); Platelet Count 253 K/uL (130-400); RDW Coefficient of Variation 12.9 % (11.5-14.5); RDW Standard Deviation 41.5 fL (36.4-46.3); Red Blood Count 3.92 M/uL (4.7-6.1)
[2020-09-26 09:01] LABS: BUN Creatinine Ratio 38.3 (10-20); Calcium 8.3 mg/dl (8.5-10.1); Creatinine Clr Calc Pharmacy 95.3 ml/min; Est GFR (Non-African American) 86.3; Potassium 4.1 mmol/L (3.5-5.1)
--- NOTE | 2020-09-26 09:20 | Hospitalist Progress Note ---
Date of Service September 26, 2020 Assessment & Plan (1) COVID-19: Patient has been ill x 3 weeks. Was diagnosed with Covid-19 on 09/07. His and son are ill as well and recovering at home. - finished 10 days of Decadron on 09/23, finished antibiotics on 09/19 doing much better, down to 2L NC at rest and exertion eating and drinking well - Continue home Zinc and Vitamin D supplementation plan for 2 step tomorrow and discharge tomorrow afternoon (2) Acute respiratory failure with hypoxia: down to 2L NC, no distress, dry cough plan to d/c tomorrow (3) Hypotension: resolved, BP runs low normal at baseline (4) Depression: Chronic. Worse with present illness. Reports "no light at the end of the tunnel." - Continue sertraline 25mg po daily - Encouraged as much as able. (5) Hyperlipidemia: Chronic. Stable. - Continue Crestor 10mg po daily (6) Hypothyroidism: Chronic. Stable. - Continue Synthroid 125mcg po daily (7) DVT prophylaxis: Lovenox 40 mg SQ Q12h -> Per hospital Covid policy. Admission and Anticipated Discharge Date Admission Date: September 14, 2020 Subjective patient doing much better than when I saw him last, a week ago down to 2L NC at rest, no distress, has a dry cough ambulates in the room independently, denies dyspnea on exertion eating and drinking well, making urine, moving his bowels labs today show stable BMP and CBC plan for two step tomorrow morning for discharge to home tomorrow, he is excited to go home Review of Systems Review of Systems: All systems reviewed & are unremarkable except as noted in Subjective Constitutional: no fever, no chills, no sweats, no fatigue and no weakness Respiratory: + cough; no chest congestion, no dyspnea, no dyspnea on exertion and no sputum production Cardiovascular: no chest pain and no edema Physical Exam Constitutional: well developed, well nourished and comfortable; no acute distress Neck: trachea midline, no thyromegaly Respiratory: normal respiratory effort, lungs clear to auscultation Cardiovascular: RRR, no murmur, no edema Gastrointestinal (Abdomen): normal bowel sounds, soft, nontender, no hepatosplenomegaly Musculoskeletal: no cyanosis or clubbing, extremities motor strength 5/5 Skin: no rashes, warm and dry Neurologic: patellar DTR's 2+ bilat, sensation intact and PERRL, EOMI, accommodation nl, no face palsy, no dysarthria Psychiatric: A+Ox3, euthymic affect Lymphatic: no cervical or axillary lymphadenopathy Results & Data Results & Data ([facility]) Vital Signs (Past 12 Hours) Vital Signs Temp Pulse Pulse Resp BP BP Pulse Ox 09/26/20 07:14 36.7 C 60 20 90/57 L 91 09/26/20 07:00 56 L 09/26/20 03:57 36.9 C 59 L 19 109/57 L 94 09/26/20 00:00 66 09/25/20 22:56 36.6 C 69 17 114/63 93 Laboratory Results Laboratory Results - last 24 hr 09/26/20 09/26/20 07:41 07:41 WBC 8.50 RBC 3.92 L Hgb 12.1 L Hct 35.0 L MCV 89.3 MCH 30.9 MCHC 34.6 RDW Std Deviation 41.5 RDW Coeff of Devan 12.9 Plt Count 253 MPV 9.5 Sodium 139 Potassium 4.1 Chloride 106 Carbon Dioxide 27 Anion Gap 6.0 BUN 30 H Creatinine 0.77 Est Cr Clr Drug Dosing 95.3 Est GFR ( Amer) 100.0 Est GFR (Non-Af Amer) 86.3 BUN/Creatinine Ratio 38.3 H Glucose 84 Calcium 8.3 L Medications Administered Current Inpatient Medications Acetaminophen (Acetaminophen 325 Mg Tab) 650 mg PO Q4H PRN PRN Reason: Pain or fever Stop: 10/14/20 23:07 Last Admin: 09/15/20 21:20 Dose: 650 mg Documented by: Albuterol (Albuterol Hfa 8 Gm Inhaler) 2 puffs INH Q4H PRN PRN Reason: spob Stop: 10/14/20 23:07 Enoxaparin Sodium (Enoxaparin Inj 40 Mg/0.4 Ml Syr) 40 mg SQ Q12H [facility] Stop: 10/15/20 08:59 Last Admin: 09/26/20 08:10 Dose: 40 mg Documented by: Guaifenesin (Guaifenesin Sugar Free 100 Mg/5 Ml Udc) 100 mg PO Q6H PRN PRN Reason: Cough Stop: 10/14/20 23:07 Last Admin: 09/15/20 21:19 Dose: 100 mg Documented by: Dexamethasone 6 mg/ Syringe 1.5 mls @ 1 mls/min IV Q24H [facility] Stop: 10/15/20 08:59 Last Admin: 09/26/20 08:10 Dose: 1 mls/min Documented by: Levothyroxine Sodium (Levothyroxine Sodium 125 Mcg Tablet) 125 mcg PO DAILYBB [facility] Stop: 10/15/20 06:29 Last Admin: 09/26/20 05:27 Dose: 125 mcg Documented by: Melatonin (Melatonin 3 Mg Tab) 3 mg PO HS PRN PRN Reason: Sleep Stop: 10/17/20 18:58 Ondansetron HCl (Ondansetron Inj 2 Mg/Ml 2 Ml Vial) 4 mg IV Q6H PRN PRN Reason: Nausea And Vomiting Stop: 10/14/20 23:07 Polyethylene Glycol (Polyethylene (Miralax) 17 Gm Pack) 17 gm PO DAILY PRN PRN Reason: Constipation Stop: 10/18/20 19:42 Last Admin: 09/25/20 07:25 Dose: 17 gm Documented by: Rosuvastatin Calcium (Rosuvastatin Calcium 10 Mg Tab) 10 mg PO QAM [facility] Stop: 10/15/20 08:59 Last Admin: 09/26/20 08:11 Dose: 10 mg Documented by: Sertraline HCl (Sertraline Hcl 50 Mg Tablet) 25 mg PO DAILY [facility] Stop: 10/15/20 08:59 Last Admin: 09/26/20 08:10 Dose: 25 mg Documented by: Vitamin D (Cholecalciferol 1,000 Units 25 Mcg Tab) 2,000 units PO QAM [facility] Stop: 10/15/20 08:59 Last Admin: 09/26/20 08:10 Dose: 2,000 units Documented by: Zinc Sulfate (Zinc Sulfate 220 Mg Capsule) 220 mg PO QAM [facility] Stop: 10/15/20 08:59 Last Admin: 09/26/20 08:10 Dose: 220 mg Documented by: PG Care Time/CCT Total # of Minutes Spent Total Time Spent with Patient: Total time spent is greater than 50% in coordination of care (as documented) at patient's floor/unit and/or counseling patient: Coding Level of Care Code 56670 Subseq Hosp Care Lvl 2 Diagnoses COVID-19 U07.1 Acute respiratory failure with hypoxia J96.01 Hypotension I95.9 Depression F32.9 Depression Type: major depressive disorder Major depression recurrence: unspecified whether recurrent Active/Remission status: remission status unspecified Hyperlipidemia E78.5 Hyperlipidemia type: unspecified Hypothyroidism E03.9 Hypothyroidism type: unspecified DVT prophylaxis Z29.9 (1) Depression Depression Type: major depressive disorder Major depression recurrence: unspecified whether recurrent Active/Remission status: remission status unspecified Qualified Code(s): F32.9 - Major depressive disorder, single e pisode, unspecified (2) Hyperlipidemia Hyperlipidemia type: unspecified Qualified Code(s): E78.5 - Hyperlipidemia, unspecified (3) Hypothyroidism Hypothyroidism type: unspecified Qualified Code(s): E03.9 - Hypothyroidism, unspecified
[2020-09-26] MEDS: POLYETHYLENE (MIRALAX) 17 GM PACK PO PRN (14:38)
[2020-09-27] MEDS: LEVOTHYROXINE SODIUM 125 MCG TABLET PO SCH (06:05)
[2020-09-27] MEDS: ROSUVASTATIN CALCIUM 10 MG TAB PO SCH (08:21)
[2020-09-27] MEDS: ENOXAPARIN INJ 40 MG/0.4 ML SYR SQ SCH ×2 (08:22→20:34)
[2020-09-27] MEDS: ZINC SULFATE 220 MG CAPSULE PO SCH (08:22)
[2020-09-27] MEDS: CHOLECALCIFEROL 1,000 UNITS 25 MCG TAB PO SCH (08:22)
[2020-09-27] MEDS: SERTRALINE HCL 50 MG TABLET PO SCH (08:25)
[2020-09-27 08:39] LABS: Creatinine Clr Calc Pharmacy 89.5 ml/min; Est GFR (African American) 97.5; Est GFR (Non-African American) 84.1
[2020-09-27] MEDS: dexAMETHasone 6 MG in SYRINGE 0 ML IV SCH (09:22)
[2020-09-27] MEDS: FLUDROCORTISONE ACETATE 0.1 MG TAB PO SCH (13:51)
--- NOTE | 2020-09-27 14:57 | Hospitalist Progress Note ---
Date of Service September 27, 2020 Assessment & Plan (1) COVID-19: Patient has been ill x 3 weeks. Was diagnosed with Covid-19 on 09/07. His and son are ill as well and recovering at home. - finished 10 days of Decadron on 09/23, finished antibiotics on 09/19 doing much better, down to room air at rest, needs 4L on exertion, recovers quickly eating and drinking well - Continue home Zinc and Vitamin D supplementation PT/OT today, he has been in bed a lot the past 10 days he is weaker than normal but can go home with home health/therapy plan to discharge tomorrow, his can take him home tomorrow (2) Acute respiratory failure with hypoxia: on room air at rest today, needed 4L on exertion, no distress, dry cough plan to d/c tomorrow (3) Hypotension: had some orthostatic changes, will start on Florinef 0.1mg daily today check orthostatic vitals tomorrow morning (4) Depression: Chronic. doing better the past few days now that he knows he is getting b andry and going home - Continue sertraline 25mg po daily - Encouraged as much as able. (5) Hyperlipidemia: Chronic. Stable. - Continue Crestor 10mg po daily (6) Hypothyroidism: Chronic. Stable. - Continue Synthroid 125mcg po daily (7) DVT prophylaxis: Lovenox 40 mg SQ Q12h -> Per hospital Covid policy. Admission and Anticipated Discharge Date Admission Date: September 14, 2020 Subjective patient doing well today, down to room air, saturations 90% on 2 step he needed 4L on exertion with therapy his BP dropped into 80's systolic, he was weak and OT thought he could use home health patient feels like he can go home tomorrow, agrees to try Florinef starting today updated his over the phone, she can take him home tomorrow he is eating very well, sleeping well, no diarrhea, no fever/chills, no cough Review of Systems Review of Systems: All systems reviewed & are unremarkable except as noted in Subjective Physical Exam Constitutional: well developed, well nourished and comfortable; no acute distress Neck: trachea midline, no thyromegaly Respiratory: normal respiratory effort, lungs clear to auscultation Cardiovascular: RRR, no murmur, no edema Gastrointestinal (Abdomen): normal bowel sounds, soft, nontender, no hepatosplenomegaly Musculoskeletal: no cyanosis or clubbing, extremities motor strength 5/5 Skin: no rashes, warm and dry Neurologic: patellar DTR's 2+ bilat, sensation intact and PERRL, EOMI, accommodation nl, no face palsy, no dysarthria Psychiatric: A+Ox3, euthymic affect Lymphatic: no cervical or axillary lymphadenopathy Results & Data Results & Data ([facility]) Vital Signs (Past 12 Hours) Vital Signs Temp Pulse Pulse Pulse Pulse Pulse Pulse 09/27/20 14:52 36.8 C 68 09/27/20 11:13 70 09/27/20 08:51 84 79 69 67 09/27/20 07:19 36.7 C 58 L Pulse Pulse Resp Resp Resp Resp Resp 09/27/20 14:52 16 09/27/20 11:13 09/27/20 08:51 67 65 20 22 22 16 09/27/20 07:19 16 Resp Resp BP Pulse Ox Pulse Ox Pulse Ox Pulse Ox 09/27/20 14:52 99/64 L 96 09/27/20 11:13 90 09/27/20 08:51 20 16 88 L 88 L 91 09/27/20 07:19 111/73 93 Pulse Ox Pulse Ox Pulse Ox 09/27/20 14:52 09/27/20 11:13 09/27/20 08:51 87 L 92 90 09/27/20 07:19 Laboratory Results Laboratory Results - last 24 hr 09/27/20 07:41 Creatinine 0.82 Est Cr Clr Drug Dosing 89.5 Est GFR ( Amer) 97.5 Est GFR (Non-Af Amer) 84.1 Medications Administered Current Inpatient Medications Acetaminophen (Acetaminophen 325 Mg Tab) 650 mg PO Q4H PRN PRN Reason: Pain or fever Stop: 10/14/20 23:07 Last Admin: 09/15/20 21:20 Dose: 650 mg Documented by: Albuterol (Albuterol Hfa 8 Gm Inhaler) 2 puffs INH Q4H PRN PRN Reason: spob Stop: 10/14/20 23:07 Enoxaparin Sodium (Enoxaparin Inj 40 Mg/0.4 Ml Syr) 40 mg SQ Q12H [facility] Stop: 10/15/20 08:59 Last Admin: 09/27/20 08:22 Dose: 40 mg Documented by: Fludrocortisone Acetate (Fludrocortisone Acetate 0.1 Mg Tab) 0.1 mg PO QAM [facility] Stop: 10/27/20 12:44 Last Admin: 09/27/20 13:51 Dose: 0.1 mg Documented by: Guaifenesin (Guaifenesin Sugar Free 100 Mg/5 Ml Udc) 100 mg PO Q6H PRN PRN Reason: Cough Stop: 10/14/20 23:07 Last Admin: 09/15/20 21:19 Dose: 100 mg Documented by: Dexamethasone 6 mg/ Syringe 1.5 mls @ 1 mls/min IV Q24H [facility] Stop: 10/15/20 08:59 Last Admin: 09/27/20 09:22 Dose: 1 mls/min Documented by: Levothyroxine Sodium (Levothyroxine Sodium 125 Mcg Tablet) 125 mcg PO DAILYBB [facility] Stop: 10/15/20 06:29 Last Admin: 09/27/20 06:05 Dose: 125 mcg Documented by: Melatonin (Melatonin 3 Mg Tab) 3 mg PO HS PRN PRN Reason: Sleep Stop: 10/17/20 18:58 Ondansetron HCl (Ondansetron Inj 2 Mg/Ml 2 Ml Vial) 4 mg IV Q6H PRN PRN Reason: Nausea And Vomiting Stop: 10/14/20 23:07 Polyethylene Glycol (Polyethylene (Miralax) 17 Gm Pack) 17 gm PO DAILY PRN PRN Reason: Constipation Stop: 10/18/20 19:42 Last Admin: 09/26/20 14:38 Dose: 17 gm Documented by: Rosuvastatin Calcium (Rosuvastatin Calcium 10 Mg Tab) [facility] [place] [facility] [place]: 10/15/20 08:59 Last Admin: 09/27/20 08:21 Dose: 10 mg Documented by: Sertraline HCl (Sertraline Hcl 50 Mg Tablet) 25 mg PO DAILY [facility] Stop: 10/15/20 08:59 Last Admin: 09/27/20 08:25 Dose: 25 mg Documented by: Vitamin D (Cholecalciferol 1,000 Units 25 Mcg Tab) 2,000 [facility] [place] [facility] [place]: 10/15/20 08:59 Last Admin: 09/27/20 08:22 Dose: 2,000 units Documented by: Zinc Sulfate (Zinc Sulfate 220 Mg Capsule) 220 mg PO QAM [facility] Stop: 10/15/20 08:59 Last Admin: 09/27/20 08:22 Dose: 220 mg Documented by: PG Care Time/CCT Total # of Minutes Spent Total Time Spent with Patient: Total time spent is greater than 50% in coordination of care (as documented) at patient's floor/unit and/or counseling patient: Coding Level of Care Code 99376 Subseq Hosp Care Lvl 2 Diagnoses COVID-19 U07.1 Acute respiratory failure with hypoxia J96.01 Hypotension I95.9 Depression F32.9 Depression Type: major depressive disorder Major depression recurrence: unspecified whether recurrent Active/Remission status: remission status unspecified Hyperlipidemia E78.5 Hyperlipidemia type: unspecified Hypothyroidism E03.9 Hypothyroidism type: unspecified DVT prophylaxis Z29.9 (1) Depression Depression Type: major depressive disorder Major depression recurrence: unspecified whether recurrent Active/Remission status: remission status unspecified Qualified Code(s): F32.9 - Major depressive disorder, single episode, unspecified (2) Hyperlipidemia Hyperlipidemia type: unspecified Qualified Code(s): E78.5 - Hyperlipidemia, unspecified (3) Hypothyroidism Hypothyroidism type: unspecified Qualified Code(s): E03.9 - Hypothyroidism, unspecified
[2020-09-28] MEDS: LEVOTHYROXINE SODIUM 125 MCG TABLET PO SCH (04:56)
--- NOTE | 2020-09-28 08:59 | Discharge Summary ---
Date of Service September 28, 2020 Admission HPI Per Admitting Provider Primary Care Provider: Kimberly Santa Lalo Calvillo is a 71yo male with Covid-19. Patient has been ill for approximately 3 weeks. He was diagnosed with Covid-19 on 09/07/20. He was hospitalized at [facility] on 09/10/20 with acute hypoxic respiratory failure - saturations of 88% and was treated with Dexamethasone and supplemental O2. He was discharged home on 09/13/20 on home oxygen and Dexamethasone. Patient has n ot been doing well since his arrival home. He reports weakness, difficulty ambulating as well as profuse, watery diarrhea. He was found down on the kitchen floor this evening - confused, hypoxic to 74%. Patient 91% on room air in ER. Currently on Oxymask 5L saturating 93% ER course: Tylenol, Zofran, Dexamethasone, Pepcid, NSS Principal Diagnosis COVID 19 pneumonia Discharge Exam Constitutional well developed, well nourished and comfortable; no acute distress Neck trachea midline, no thyromegaly Respiratory normal respiratory effort, lungs clear to auscultation Cardiovascular RRR, no murmur, no edema Gastrointestinal (Abdomen) normal bowel sounds, soft, nontender, no hepatosplenomegaly Musculoskeletal no cyanosis or clubbing, extremities motor strength 5/5 Skin no rashes, warm and dry Neurologic patellar DTR's 2+ bilat, sensation intact and PERRL, EOMI, accommodation nl, no face palsy, no dysarthria Psychiatric A+Ox3, euthymic affect Lymphatic no cervical or axillary lymphadenopathy Discharge Data Allergies Allergy/AdvReac Type Severity Reaction Status Date / Time No Known Allergies Allergy Mild Unverified 09/10/20 21:58 Consultations 09/14/20 19:18 ED Decision to Admit Stat Hospital Course (1) COVID-19: Patient has been ill x 3 weeks. Was diagnosed with Covid-19 on 09/07. His and son are ill as well and recovering at home. - finished 10 days of Decadron on 09/23, finished antibiotics on 09/19 doing much better, down to room air at rest, needs 4L on exertion, recovers quickly eating and drinking well - Continue home Zinc and Vitamin D supplementation PT/OT today, he has been in bed a lot the past 10 days he is weaker than normal but can go home with home health/therapy discharge to home today with family (2) Acute respiratory failure with hypoxia: on room air at rest today, needed 4L on exertion, no distress, dry cough (3) Hypotension: had some orthostatic changes, will start on Florinef 0.1mg daily today BP is much better today continue on Florinef going forward educated on importance of changing position slowly (4) Depression: Chronic. doing better the past few days now that he knows he is getting better and going home - Continue sertraline 25mg po daily - Encouraged as much as able. (5) Hyperlipidemia: Chronic. Stable. - Continue Crestor 10mg po daily (6) Hypothyroidism: Chronic. Stable. - Continue Synthroid 125mcg po daily I certify that this patient is under my care and that I, or a physicians assistant teaching professor working with me, had a face to-face encounter that meets the home health aexz-ll-erim encounter requirements with this patient. The encounter with the patient was in whole, or in part, for the following medical condition, which is the primary reason for home health care (list medical condition): Covid I certify that, based on my findings, the following services are medically necessary home health services: Nursing PT OT My clinical findings support the need for the above services because: Home Safety Assessment Oxygen Safety and Management Skilled Nsg Assessment Vital Signs Further, I certify that my clinical findings support that this patient is homebo und (i.e. absences from home require considerable and taxing effort and are for medical reasons or roman catholic services or infrequently or of short duration when for other reasons) because: Poor Endurance; SOB Minimal Exertion Certification for Home Health Services: Based on the above findings, I certify that this patient is confined to the home and needs intermittent half-way care, physical therapy and/or speech therapy or continues to need occupational therapy. The patient is under my care, and I have initiated the establishment of the plan of care. This patient will be followed by a physician who will periodically review the plan of care. Total Time Total Time Spent Total Time Spent (In Minutes): 32 minutes Total Time Includes: Examination of the Patient, Discharge Planning and Medication Reconciliation Discharge Plan Discharge Items Patient Disposition: Home - Home Health Services Reason For Visit: COVID-19 Discharge Diagnosis: COVID 19 pneumonia acute hypoxic respiratory failure orthostatic hypotension Condition on Discharge: Good Goals: slowly wean off oxygen improve strength and mobility stay well nourished and well hydrated Activity: Resume your previous activity Weightbearing: Full weightbearing Non-emergency contact: Primary Care Provider Call non-emergency contact if: you have any medication questions Follow-up/Referrals: Kimberly Santa PA-C [Primary Care Provider] - (Doctors office will call you with a date and time for your follow up appointment. ) Diet: Regular Addtl Attending Provider Instructions: Medications: - FLORINEF: take one pill in the morning, this helps prevent orthostatic hypotension COVID 19 pneumonia with acute hypoxic respiratory failure down to room air at rest, you need 4L on exertion, this should improve over the next few days to weeks no further need for dexamethasone, you do not need to quarantine primarily need to improve strength, stay well nourished and well hydrated Orthostatic hypotension: blood pressure drops when you stant up use Florinef every morning to help prevent these changes very important that you take your time when transitioning from sitting to standing please pause for 30 seconds before you start walking, make sure you are not light headed or dizzy, allow your body to adjust to standing continue with home health and therapy several times a week Pending Studies at Discharge: No Stand-Alone Forms: My [facility] [employer], Smoking Cessation Medications and DC Order Prescriptions: New fludrocortisone 0.1 mg Tablet 0.1 mg PO QAM 30 Days Qty: 30 RF: 3 Continued levothyroxine 125 mcg Capsule 125 mcg PO DAILY RF: 0 sertraline 25 mg Tablet 0 mg PO DAILY RF: 0 rosuvastatin 10 mg Tablet 10 mg PO QAM RF: 0 Discontinued azithromycin 250 mg Tablet 250 mg PO QAM 2 Days Qty: 2 RF: 0 cholecalciferol (vitamin D3) 25 mcg (1,000 unit) Capsule 2,000 unit PO QAM 10 Days RF: 0 zinc sulfate [Orazinc] 50 mg zinc (220 mg) Capsule 220 mg PO QAM 10 Days Qty: 44 RF: 0 dexamethasone 4 mg tablet 6 mg PO DAILY 6 Days Qty: 9 RF: 0 Discharge Orders: Discharge Order (Routine); Ordered 09/28/20 Ordered By: Zack Faustin Admission Data Admit Date/Time: 09/14/20 20:16 Attending Provider: Zack Faustin Admit Provider: Edel Santana Primary Care Provider: Kimberly Santa. Other Providers: Avinash Madrigal ; Edel Santana ; [facility] Other Interventions: Discharge Summary Assessment (RN) Last Done: 09/28/20 14:21 Coding Level of Care Code D/C Day Management >30 mins Diagnoses COVID-19 U07.1 Acute respiratory failure with hypoxia J96.01 Hypotension I95.9 Depression F32.9 Active/Remission status: remission status unspecified Depression Type: major depressive disorder Major depression recurrence: unspecified whether recurrent Hyperlipidemia E78.5 Hyperlipidemia type: unspecified Hypothyroidism E03.9 Hypothyroidism type: unspecified
[2020-09-28] MEDS: CHOLECALCIFEROL 1,000 UNITS 25 MCG TAB PO SCH (09:05)
[2020-09-28] MEDS: SERTRALINE HCL 50 MG TABLET PO SCH (09:05)
[2020-09-28] MEDS: ROSUVASTATIN CALCIUM 10 MG TAB PO SCH (09:06)
[2020-09-28] MEDS: FLUDROCORTISONE ACETATE 0.1 MG TAB PO SCH (09:06)
[2020-09-28] MEDS: ENOXAPARIN INJ 40 MG/0.4 ML SYR SQ SCH (09:06)
[2020-09-28] MEDS: ZINC SULFATE 220 MG CAPSULE PO SCH (09:06)
[2020-09-28] MEDS: dexAMETHasone 6 MG in SYRINGE 0 ML IV SCH (09:07)
== END 2020-09-28 15:53 | disposition home health service (06) | DRG 177 ==
LOC: ED 17:21 → SUATTDRO 20:16 → 2S 20:16 → 3E 09-26 10:22

== ENCOUNTER 2020-12-21 05:32 | Inpatient (IN) ==
--- NOTE | 2020-12-05 16:11 | PAT Medication Instructions ---
Medication Instructions Date of Service December 05, 2020 Home Medications levothyroxine 125 mcg PO QAM rosuvastatin 10 mg PO QAM sertraline 25 mg tablet 12.5 mg PO QAM Focus Memory 1 cap PO QAM cyanocobalamin (vitamin B-12) [Vitamin B-12] 500 mcg PO DAILY multivitamin 1 cap PO QAM omega-3 fatty acids [Fish Oil] 1,000 mg PO DAILY STOP taking 2 weeks before surgery Focus Memory 1 cap PO QAM omega-3 fatty acids [Fish Oil] 1,000 mg PO DAILY DO NOT take the morning of surgery cyanocobalamin (vitamin B-12) [Vitamin B-12] 500 mcg PO DAILY multivitamin 1 cap PO QAM Take morning of surgery With a small sip of water, OTHERWISE NOTHING TO EAT OR DRINK AFTER MIDNIGHT: levothyroxine 125 mcg PO QAM rosuvastatin 10 mg PO QAM sertraline 25 mg tablet 12.5 mg PO QAM Other Notes If you have any questions please call us at [phone] or [phone] or [phone] or [phone]
--- NOTE | 2020-12-07 11:03 | Anesthesiology Consultation ---
Date of Service December 07, 2020 Assessment & Plan (1) Encounter for pre-operative examination: Chart Review Chart Review: Acceptable Risk for Surgery (pending stress test, surgeon ordered PCP clearance and preop Covid testing results ) and Patient seen in Pre Admission Testing Will [facility] for [facility] ordered PCP clearance note Per PAT appt on 12/07/20, patient resides in [facility]. Denies recent travel. Uses mask when required. Pt had first Covid vaccine and then had Covid infection- instructed not to get 2nd dose of Covid vaccine. No known Covid positive contacts or Covid related symptoms. No known Covid infection in the past 90 days. Did test Covid positive 09/10/2020- after first Covid vaccine- was hospitalized- does follow with pulm. Preop Covid testing scheduled 12/19/20 at [facility]= will await results. Educated on importance of self quarantining, social distancing and wearing mask in public both for the patient after Covid testing done Last seen by pulm 11/08/20= pt hospitalized with Covid pneumonia August 2020- readmitted early October 05- seen for follow up. Discharged on oxygen 2 liters. Has not needed O2 for almost three weeks now. Pt doing well- CXR shows improvement in infiltrates. Continue with incentive spirometry. WARREN- likely residual deconditioning from Covid pneumonia- gradually improving. PFTs and ECHO prior to next visit. Continue oxygen supplementation to keep sats between 88-92% (pt did pass six minute walk test). Elevated left hemidiaphram- following neck surgery- not elevated in 2016."Patient is supposed to have spine surgery because he has been complaining of numbness in the right hand. There is no absolute contraindication from pulmonary perspective for the surgery. Recommend 6-8 mL/kg of tidal volume during anesthesia and possibly BiPAP after extubation." Teaching & Discussion Pre-Anesthesia Teaching/Discussion Notes: Instructed NPO after midnight before surgery,except medications with 15 cc of water. Medication instructions provided according to the PAT guidelines. History Surgery Operation Date: 12/21/20 11:05 Proposed Procedures p C6-T1 Anterior Cervical Discectomy and Fusion, Spinal Cord Monitoring - Fabián Freeman, Height/Weight Height: 6 ft 1 in Weight: 101.7 kg Allergies Allergy/AdvReac Type Severity Reaction Status Date / Time No Known Allergies Allergy Mild Unverified 12/01/20 10:54 Medications Home Medications Medication Instructions Recorded Confirmed Last Taken levothyroxine 125 mcg PO QAM 08/24/20 12/01/20 09/09/20 rosuvastatin 10 mg PO QAM 08/24/20 12/01/20 09/09/20 sertraline 25 mg tablet 12.5 mg PO QAM tab 11/08/20 12/01/20 Unknown Focus Memory 1 cap PO QAM 12/01/20 12/01/20 Unknown cyanocobalamin (vitamin B-12) 500 mcg PO DAILY 12/01/20 12/01/20 Unknown [Vitamin B-12] multivitamin 1 cap PO QAM 12/01/20 12/01/20 Unknown omega-3 fatty acids [Fish Oil] 1,000 mg PO DAILY 12/01/20 12/01/20 Unknown Past Medical History Medical History (Updated 12/07/20 @ 11:27 by Carolina Gotti PA-C) Anxiety Depression Hyperlipidemia Hypothyroidism VIOLETA (obstructive sleep apnea) Cannot tolerate device Osteoarthritis Pneumonia due to COVID-19 virus [place] vaccine [place] he does not remember which one and got COVID virus afterwards (09/10/20)- admitted and readmitted in August/September 2020 (developed Covid pneumonia) No longer requiring oxygen the past several weeks - follows with pulm Exercise / Class Metabolic Activity II 4-5 Yardwork/Stairs/Walk up hill (one flight of stairs - no chest pain or SOB ) Past Surgical History Surgical History Hx of bilateral cataract extraction Hx of colonoscopy Hx of decompressive lumbar laminectomy Hx of fusion of cervical spine no limitations Past Anesthesia History No Hx of Anesthesia Complications and No Family Hx of Anesthesia Complications History of PONV No Hx of PONV and No Hx of Motion Sickness Social History Smoking Status: Never smoker Do You Dip or Chew Tobacco: No Hx Alcohol Use: No Hx Substance Use: No substance use type: does not use Review of Systems Occ cough- residual- improving Hx of VIOLETA- cannot tolerate device Patient denies chest pain, shortness of breath, dyspnea on exertion, reflux, wheezing, palpitations. No hx of seizures, stroke, MT. No hx of blood clots or blood transfusions Physical Exam Vital Signs VITALS BP 107/64 P 69 TEMP 97.6 SP02 97% on RA RESP 16 Constitutional no acute distress ENMT Mouth: no TMJ clicking Thyromental Distance: > or= 3.5 Finger Breadths (4.0) Mallampati Class: I (smaller airway ) Front top teeth capped Neck + limited neck extension (moderate ) Respiratory normal respiratory effort; no respiratory distress Auscultation: lungs clear to auscultation bilaterally; no wheezes Cardiovascular Rate/Rhythm: regular rate and regular rhythm Heart Sounds: no murmur Vessels: no carotid bruit Hearts sounds mildly diminished throughout Musculoskeletal Spine: + pain with cervical ROM (mild ) Extremities: extremities normal to inspection Psychiatric Orientation: alert Lab Results Anesthesia Preop Results Results Anesthesia Widget: WBC 5.12 K/uL (4.8-10.8) 12/07/20 Hgb 12.7 g/dL (14.0-18.0) L 12/07/20 Hct 38.7 % (42-52) L 12/07/20 Plt 179 K/uL (130-400) 12/07/20 Na 140 mmol/L (136-145) 12/07/20 K 4.6 mmol/L (3.5-5.1) 12/07/20 Cl 109 mmol/L (98-107) H 12/07/20 CO2 28 mmol/L (21-32) 12/07/20 BUN 22 mg/dl (7-18) H 12/07/20 Creat 0.95 mg/dl (0.6-1.4) 12/07/20 Glucose Level 99 mg/dl (70-99) 12/07/20 PT 10.7 Seconds (9.0-12.0) 12/07/20 PTT 26.3 Seconds (21.0-31.0) 12/07/20 INR 1.1 (0.9-1.1) 12/07/20 TSH 0.192 uIu/ml (0.300-4.500) L 10/17/20 Free T4 1.11 ng/dl (0.8-1.6) 10/17/20 Urine Color Yellow 12/07/20 Urine Appearance Clear (Clear) 12/07/20 Urine pH 5.5 (4.5-7.5) 12/07/20 Urine Specific [place] 1.025 (1.000-1.030) 12/07/20 Urine Protein Negative (Negative) 12/07/20 Urine Glucose (UA) Negative (Negative) 12/07/20 Urine Ketones Negative (Negative) 12/07/20 Urine Blood Trace-intact (Negative) H 12/07/20 Urine Nitrite Negative (Negative) 12/07/20 Urine Bilirubin Negative (Negative) 12/07/20 Urine Urobilinogen Negative (Negative) 12/07/20 Urine Leukocyte Esterase Negative (Negative) 12/07/20 Blood Type O Positive 12/07/20 Antibody Screen NEGATIVE 12/07/20 Testing Electrocardiogram Date: 10/17/20 NSR with occ PACs at 76bpm. Normal EKG per cardio. Chest X-Ray Date: 12/07/20 FINDINGS: The heart is mildly enlarged. There is elevation of the left hemidiaphragm. There are subsegmental atelectatic changes at the left lung base. There is residual interstitial thickening at the right lung base. There is no acute parenchymal consolidation. There is no failure. There are no large pleural effusions IMPRESSION: 1. Residual interstitial thickening at the right lung base 2. Elevation of the left hemidiaphragm with left basilar atelectasis.
[2020-12-21] MEDS ORDERED: ceFAZolin 2000MG 2,000 MG/15 ML SYR IV SCH (06:00)
[2020-12-21] MEDS ORDERED: ACETAMINOPHEN 500 MG TAB PO SCH (06:00)
[2020-12-21] MEDS ORDERED: CeleBREX 200 MG CAP PO SCH (06:00)
[2020-12-21] MEDS ORDERED: GABAPENTIN 300 MG CAP PO SCH (06:00)
[2020-12-21] MEDS ORDERED: LR 15ML/HR IV SCH (06:00)
[2020-12-21] MEDS ORDERED: PROPOFOL IV EMULSION 10 MG/ML 100 ML VIAL IV ONE ×2 (07:11→08:25)
[2020-12-21] MEDS ORDERED: ONDANSETRON INJ 2 MG/ML 2 ML VIAL ONE ×2 (07:26→08:21)
[2020-12-21] MEDS ORDERED: ROCURONIUM BROMIDE 10 MG/ML 5 ML VIAL IV ONE (07:26)
[2020-12-21] MEDS ORDERED: fentaNYL citrate 100 MCG/2 ML VIAL ONE ×2 (07:26)
[2020-12-21] MEDS ORDERED: LIDOCAINE 2% 2 ML VIAL/AMP(20MG/ML) INFIL ONE (07:26)
[2020-12-21] MEDS ORDERED: PROPOFOL IV EMULSION 10 MG/ML 20 ML VIAL IV ONE (07:26)
[2020-12-21] MEDS ORDERED: SUCCINYLCHOLINE CHLORIDE 20 MG/ML 10 ML VIAL IV ONE (07:26)
[2020-12-21] MEDS ORDERED: DEXAMETHASONE SOD INJ 4 MG/ML VIAL ONE (07:26)
[2020-12-21] MEDS ORDERED: LARYING-O-JET KIT (LTA) ONE (07:26)
--- NOTE | 2020-12-21 07:36 | History & Physical Bridge Note ---
Date of Service December 21, 2020 History & Physical Bridge Note I have examined the patient, reviewed the History & Physical and in the interval since the performance of the History & Physical I have noted the following changes of clinical significance: no changes noted
--- NOTE | 2020-12-21 07:37 | History & Physical Report ---
Date of Service December 21, 2020 Assessment & Plan (1) Cervical stenosis of spinal canal: Admission and Anticipated Discharge Date Admission Date: C6-T1 anterior cervical discectomy and fusion History of Present Illness Chief Complaint: Neck and arm pain Primary Care Provider: Kimberly Santa This is a 80-year-old male presents with chronic persistent neck and arm pain after failing course of nonoperative care is here for surgical invention. Allergies Allergy/AdvReac Type Severity Reaction Status Date / Time No Known Allergies Allergy Mild Verified 12/21/20 06:15 Home Medications Medication Instructions Recorded Confirmed Type levothyroxine 125 mcg PO QAM 08/24/20 12/21/20 History rosuvastatin 10 mg PO QAM 08/24/20 12/21/20 History sertraline 25 mg tablet 12.5 mg PO QAM tab 11/08/20 12/21/20 History Focus Memory 1 cap PO QAM 12/01/20 12/21/20 History cyanocobalamin (vitamin B-12) 500 mcg PO DAILY 12/01/20 12/21/20 History [Vitamin B-12] omega-3 fatty acids [Fish Oil] 1,000 mg PO DAILY 12/01/20 12/21/20 History Past Med/Surg History Medical History (Updated 12/21/20 @ 07:36 by Fabián Freeman DO) Anxiety Depression Hyperlipidemia Hypothyroidism VIOLETA (obstructive sleep apnea) Cannot tolerate device Osteoarthritis Pneumonia due to COVID-19 virus [place] vaccine in [place] he does not remember which one and got COVID virus afterwards (09/10/20)- admitted and readmitted in August/September 2020 (developed Covid pneumonia) No longer requiring oxygen the past several weeks - follows with pulm Surgical History Hx of bilateral cataract extraction Hx of colonoscopy Hx of decompressive lumbar laminectomy Hx of fusion of cervical spine no limitations Social History Smoking Status: Never smoker Second Hand Exposure: No; Do You Dip or Chew Tobacco: No; Tobacco Cessation Education Requested by Patient: No Hx Alcohol Use: No Hx Substance Use: No Preferred Language: Syriac Communication Ability: Effective Web Applications Administrator Required: No Beliefs That Will Affect Care: None Current Living Situation: Spouse Other Information That Helps Us Care for You: No Feels Safe at Home: Yes Safety Concerns: Feels Safe At This Time Assistive Devices: Glasses Physical Exam Physical Exam: Patient alert and oriented Heart regular in rhythm Lungs clear to auscultation Results & Data ([facility]) Vital Signs (Past 12 Hours) Vital Signs Temp Pulse Resp BP Pulse Ox 12/21/20 06:23 36.7 C 71 18 132/80 95
[2020-12-21] MEDS ORDERED: PHENYLEPHRINE 100MCG/ML 5ML SYR ONE (08:21)
[2020-12-21] MEDS ORDERED: ePHEDrine sulfate 50 MG/ML SYR ONE (08:21)
[2020-12-21] MEDS ORDERED: SUGAMMADEX SODIUM 200 MG/2 ML VIAL IV ONE (08:25)
[2020-12-21] MEDS ORDERED: PHENYLEPHRINE HCL 10 MG/ML VIAL ONE (08:30)
[2020-12-21] MEDS ORDERED: ATROPINE SULFATE 0.1 MG/ML 10ML SYR IV PRN (08:58)
[2020-12-21] MEDS ORDERED: PROMETHAZINE HCL 12.5 MG in SODIUM CHLORIDE 0.9% 50 ML IV PRN ×2 (08:58→16:44)
[2020-12-21] MEDS ORDERED: ePHEDrine sulfate 50 MG/ML AMP IV PRN (08:58)
[2020-12-21] MEDS ORDERED: fentaNYL citrate 100 MCG/2 ML VIAL IV PRN (08:58)
[2020-12-21] MEDS ORDERED: FLUMAZENIL 0.1 MG/1 ML 10 ML VIAL IV PRN (08:58)
[2020-12-21] MEDS ORDERED: LABETALOL HCL IV 5 MG/ML 20ML IV PRN (08:58)
[2020-12-21] MEDS ORDERED: NALOXONE HCL 0.4 MG/1 ML VIAL/CARP IV PRN ×2 (08:58→16:44)
[2020-12-21] MEDS ORDERED: ONDANSETRON INJ 2 MG/ML 2 ML VIAL IV PRN ×2 (08:58→16:44)
[2020-12-21] MEDS ORDERED: FLOSEAL HEMOSTATIC MATRIX 10ML TOP ONE (09:28)
--- NOTE | 2020-12-21 09:47 | Operative Report ---
Post Operative Report Pre & Post Diagnosis Operation Date: 12/21/20 07:45 Pre-Op Diagnosis: Spinal Stenosis, Cervical Region Post-Op Diagnosis: Spinal Stenosis, Cervical Region I identified the patient and participated in the time-out.: Yes Procedure Operation Date: 12/21/20 07:45 Actual Procedures #1 anterior cervical discectomy with bilateral foraminotomies C6-C7 C7-T1. #2 anterior cervical arthrodesis C6-C7 C7-T1. #3 placement of 9 mm spiral cage at C6-7 filled with I factor and a 10 mm cage filled with I factor at C7-T1. #4 application of brito plate and screws from C6-T1. Surgeon Fabián Freeman, Hospitality Director Racheal Hamilton Estimated Blood Loss 25 Findings Consistent with Post-Op Diagnosis Specimens None Indications This is a 80-year-old male presents above-mentioned diagnosis after failing course of nonoperative care is here for the above-mentioned procedure. Description of Procedure Patient met with identified informed consent obtained. Patient was then taken to the operative suite underwent an patient placed in a spine position injectable head Ríos housekeeper head. All bony prominences well-padded eyes inspected to ensure no external pressure placed upon. This point anterior cervical spine was prepped and draped in a sterile fashion. With the assistance of fluoroscopy identified the C7 vertebral body and a transverse incision was placed on the right anterior aspect of the cervical spine overlying this region. Sharp dissection with the assistance of bipolar electrocautery was performed down to and exposing anterior cervical spine from C6-T1. Several 10 retractors placed. Then performed a complete discectomy of C6-C7 out to the uncovertebral joints bilaterally. Clinton distracting pins were utilized to assist in visualization. Removed all posterior annular fibers longitudinal ligament bilateral foraminotomies performed. Endplates burred to subcortical being bone and a 9 mm Spira cage filled with I factor tapped in position. Then proceeded to C7-T1. Again complete discectomy performed out to the uncovertebral's bilaterally. Clinton distractor pins again utilized. Removed all posterior annular fibers longitudinal ligament bilateral foraminotomies again performed. Endplates burred to subcortical being bone. A 10 mm spiral cage filled I factor was then tapped in position. All distracting apparatus was removed osteophytes burred to a smooth cortical surface and a 5 complete screws applied with the assistance of fluoroscopy. The incision was then copiously irrigated explored to ensure no damage to surrounding structures remaining bleeding. 10 round TESS drain inserted. The incision was then closed with 2 Vicryl in the fascia and a 4 Monocryl for final skin closure. Steri-Strip sterile dressings placed. Patient will continue PACU stable condition. Please note spinal cord monitoring was utilized at the procedure and no changes noted. Lastly Racheal Hamilton was present at the entire surgery while the patient positioning complex portions of the surgery and final skin closure. I attest to the content of the Intraoperative Record and any orders documented therein. Any exceptions are noted below.
--- NOTE | 2020-12-21 10:31 | Fluoroscopy Report ---
FL cervical 2-3V CLINICAL HISTORY: C6-T1 ACDF COMPARISON STUDY: None FLUOROSCOPY TIME: 16 seconds. NUMBER OF FLUOROSCOPIC IMAGES: 2 FINDINGS: Fluoroscopic intraoperative images are submitted for review. Metallic screws and fixating plates are seen within lower cervical/upper thoracic spine. Distal portion of endotracheal tube is seen, position is difficult to assess due to mild rotation. IMPRESSION: As above. ACT 112: Negative or not required by law. The above report was generated using voice recognition software. It may contain grammatical, syntax o r spelling errors. Electronically signed by: Sonal White DO 12/21/2020 10:29 AM
--- NOTE | 2020-12-21 11:24 | Anesthesiology Progress Note ---
Date of Service December 21, 2020 Anesthesia Post Procedure Vital Signs Vital Signs: Temp Pulse Pulse Resp BP BP Pulse Ox 12/21/20 11:20 36.1 C L 71 20 129/71 94 12/21/20 11:10 72 20 129/80 95 12/21/20 11:00 71 18 138/85 95 12/21/20 10:50 70 22 143/89 H 94 12/21/20 10:40 71 20 146/94 H 97 12/21/20 10:30 80 20 131/88 95 12/21/20 10:20 74 16 132/81 95 12/21/20 10:10 81 18 144/95 H 95 12/21/20 10:00 76 14 137/87 95 12/21/20 09:58 36.3 C L 71 18 151/98 H 95 12/21/20 06:23 36.7 C 71 18 132/80 95 Transfer of Care Handoff Completed per policy Notes Mental Status: alert / awake / arousable Patient Amnestic to Procedure: Yes Nausea / Vomiting: adequately controlled Pain: adequately controlled Airway Patency, RR, SpO2: stable & adequate BP & HR: stable & adequate Hydration State: stable & adequate Anesthetic Complications: no major complications apparent
[2020-12-21] MEDS ORDERED: dexAMETHasone 8 MG in SYRINGE 0 ML IV PRN (16:44)
[2020-12-21] MEDS ORDERED: HYDROmorphone INJ 0.5 MG/0.5 ML SYR IV PRN (16:44)
[2020-12-21] MEDS ORDERED: hydrOXYzine HCl 25 MG TAB PO PRN (16:44)
[2020-12-21] MEDS ORDERED: ACETAMINOPHEN 1,000 MG/100 ML VIAL IV PRN (16:44)
[2020-12-21] MEDS ORDERED: LORazepam 0.5 MG/1 ML VIAL IV PRN (16:44)
[2020-12-21] MEDS ORDERED: oxyCODONE HCL IR 5 MG TAB (IMMEDIATE RELEASE) PO PRN (16:44)
[2020-12-21] MEDS ORDERED: ONDANSETRON 4 MG OD TAB PO PRN (16:44)
[2020-12-21] MEDS ORDERED: FAMOTIDINE 20 MG TAB PO PRN (16:44)
[2020-12-21] MEDS ORDERED: MAGNESIUM HYDROXIDE SUSP 30 ML UDC PO PRN (16:44)
[2020-12-21] MEDS ORDERED: METOCLOPRAMIDE HCL INJ 5 MG/ML 2 ML VIAL IV PRN (16:44)
[2020-12-21] MEDS ORDERED: SOD PHOSPHATE/SOD BIPHOSPHATE ENEMA 132 ML BTL PR PRN (16:44)
[2020-12-21] MEDS ORDERED: DO NOT ADMINISTER PNEUMOCOCCAL VACCINE PRN (16:44)
[2020-12-21] MEDS ORDERED: LORazepam 0.5 MG TAB PO PRN (16:44)
[2020-12-21] MEDS ORDERED: RACEPINEPHRINE 2.25% NEBU SOLN 0.5 ML VIAL INH PRN (16:44)
[2020-12-21] MEDS ORDERED: HYDROmorphone INJ 1 MG/ML SYRINGE IV PRN (16:44)
[2020-12-21] MEDS ORDERED: ACETAMINOPHEN 500 MG TAB PO PRN (16:44)
[2020-12-21] MEDS ORDERED: ALUMINUM/MAGNESIUM SUSP 30 ML UDC PO PRN (16:44)
[2020-12-21] MEDS ORDERED: DO NOT ADMINISTER FLU VACCINE PRN (16:44)
[2020-12-21] MEDS ORDERED: traMADol HCL 50 MG TABLET PO PRN (16:44)
[2020-12-21] MEDS ORDERED: diphenhydrAMINE Capsule 25 MG CAP PO PRN (16:44)
[2020-12-21] MEDS: ceFAZolin 2000MG 2,000 MG/15 ML SYR IV SCH (18:16)
[2020-12-21] MEDS: SODIUM CHLORIDE 0.9% 1000ML 1,000 ML IV SCH (18:16)
[2020-12-21] MEDS ORDERED: DOCUSATE SODIUM/SENNA 50/8.6MG TAB PO SCH (21:00)
[2020-12-22] MEDS: SODIUM CHLORIDE 0.9% 1000ML 1,000 ML IV SCH (01:02)
[2020-12-22] MEDS: ceFAZolin 2000MG 2,000 MG/15 ML SYR IV SCH (02:28)
[2020-12-22] MEDS: POLYETHYLENE (MIRALAX) 17 GM PACK PO SCH ×2 (05:00→12:38)
[2020-12-22] MEDS ORDERED: LEVOTHYROXINE SODIUM 125 MCG TABLET PO SCH (06:30)
--- NOTE | 2020-12-22 08:38 | Discharge Summary ---
Date of Service December 22, 2020 Admission HPI Per Admitting Provider This is a 80-year-old male presents with chronic persistent neck and arm pain after failing course of nonoperative care is here for surgical invention. Principal Diagnosis Cervical radiculopathy Discharge Data Allergies Allergy/AdvReac Type Severity Reaction Status Date / Time No Known Allergies Allergy Mild Verified 12/21/20 06:15 Consultations 12/21/20 16:44 Consult Hospitalist Routine Procedures Performed Operation Date: 12/21/20 07:45 Actual Procedures p C6-T1 Anterior Cervical Discectomy and Fusion, Spinal Cord Monitoring(Not Applicable) - Fabián Freeman DO Ordered Studies 12/21/20 07:00 [place] cervical 2-3V Routine Hospital Course (1) Cervical stenosis of spinal canal: Patient went anterior cervical discectomy and fusion Tars posting orthopedic for postoperative postop day #1 swallowing well no hoarseness. More arm symptoms markedly improved. Excellent strength testing. TESS drain decreasing probably. Subsequently discharged home. Discharge orders and instructions found the chart for further review. Total Time Total Time Spent Total Time Spent (In Minutes): 20 minutes Discharge Plan Discharge Items Patient Disposition: Home - Self-Care Reason For Visit: Spinal Stenosis, Cervical Region Discharge Diagnosis: Cervical radiculopathy Activity: As commented below Non-emergency contact: Primary Care Provider Call non-emergency contact if: you have any medication questions Follow-up/Referrals: Kimberly Santa PA-C [Primary Care Provider] - Diet: Regular Addtl Attending Provider Instructions: ACTIVITY RECOMMENDATIONS: SELF CARE INSTRUCTIONS AFTER CERVICAL FUSIONS 1. No smoking. Smoking drastically decreases the chance of a solid fusion. 2. No bending, lifting more than 5 pounds, or twisting (roll like a log when turning in bed). 3. You may shower 3 days after surgery. Thoroughly dry wound. Do not soak in the tub. 4. Cervical collar: Must be worn at all times including sleeping. You may remove the brace only to bath, eat and if you are sitting in a recliner. 5. Please walk as much as you can for exercise. Gradually increase the distance that you walk as your endurance increases. SPECIAL CARE INSTRUCTIONS: VERY IMPORTANT TO READ AND REVIEW A. Do not take any anti-inflammatory medications (i.e. Indocin, Advil, Aspirin, Naprosyn, Aleve, Motrin, etc.) as these may inhibit the chance of a solid fusion. Tylenol is okay to take. B. Your surgical incision has been closed with a cosmetic suture under the skin that will dissolve in about 6 weeks. In 14 days, you can use a pair of clean scissors and cut the suture that is left outside of the skin at the ends of your incision. C. Complications are uncommon, but please contact us if you have any signs or symptoms of: 1. wound infection (fever higher than 102.5 degrees F, redness, separation of wound, drainage, or increasing pain from the incision) 2. blood clots in legs (pain, swelling, redness and warmth in legs) 3. urinary tract infection (fever higher than 102.5 degrees, burning upon urination or increased frequency of urination) 4. nerve problems (inability to walk on your toes or heels, numbness, loss of bowel or bladder control) 5. any other symptoms that concern you. D. Please call the office at if you have any concerns or questions about your operation or recovery. MANAGING PAIN AFTER SPINAL SURGERY 1. Narcotic medication is intended for short-term use and will be provided for surgical pain. Surgical pain usually lasts for a period of 4-6 weeks. Narcotic medication includes Percocet, Vicodin, Darvocet, Tylenol #3 or Lortab. 2. Longer-term pain is more appropriately treated with non-narcotic medication such as Tylenol ES. 3. Muscle spasm is not appropriately treated with narcotics. Muscle relaxers such as Soma, Flexeril or Skelaxin can be used along with Tylenol ES. 4. Remember that we all live with some "aches and pains". This is not unusual or uncommon after an injury or as we get older. 5. We will provide appropriate medication within the normal guidelines of their prescribed use. We will also be very cautious and aware of potential abuse and extended duration of patients' medication needs. 6. Please allow 2-3 days to process refills. Prescriptions will not be mailed but must be picked up at the office. FOLLOW UP VISIT: Keep your scheduled follow-up appointment. Any questions, please call the office at . Pending Studies at Discharge: No Stand-Alone Forms: My [facility], Smoking Cessation Medications and DC Order Prescriptions: New tramadol 50 mg tablet 50 mg PO Q6H PRN (Reason: pain, moderate) Qty: 20 RF: 0 oxycodone 5 mg tablet 5 mg PO Q6H PRN (Reason: pain, severe) Qty: 2 RF: 0 Continued levothyroxine 125 mcg Capsule 125 mcg PO QAM RF: 0 rosuvastatin 10 mg Tablet 10 mg PO QAM RF: 0 sertraline [Zoloft] 25 mg tablet 12.5 mg PO QAM RF: 0 cyanocobalamin (vitamin B-12) 500 mcg Tablet Extended Release 500 mcg PO DAILY RF: 0 omega-3 fatty acids Capsule 1,000 mg PO DAILY RF: 0 Focus Memory 1 cap PO QAM RF: 0 Discharge Orders: Discharge Order (Routine); Ordered 12/22/20 Ordered By: Fabián Freeman Admission Data Admit Date/Time: 12/21/20 10:19 Attending Provider: Fabián Freeman Admit Provider: Fabián Freeman Primary Care Provider: Kimberly Santa Other Providers: Zack Faustin
[2020-12-22] MEDS ORDERED: CYANOCOBALAMIN 500 MCG TABLET (VITAMIN B-12) PO SCH (09:00)
[2020-12-22] MEDS ORDERED: ROSUVASTATIN CALCIUM 10 MG TAB PO SCH (09:00)
[2020-12-22] MEDS ORDERED: SERTRALINE HCL 50 MG TABLET PO SCH (09:00)
--- NOTE | 2020-12-22 14:27 | Hospitalist Consultation ---
Date of Consultation December 22, 2020 Assessment & Plan (1) S/P cervical discectomy: * Patient had an uneventful perioperative course * Would recommend adequate pain control, and DVT prophylaxisper primary team (2) Cervical stenosis of spinal canal: * S/p C6-T1 ant cervical discectomy and fusion (3) Hypoxia: * Resolved. Likely related to OSAintolerant to CPAP * Pulse ox currently 94% on room air (4) Depression: * Patient should resume Zoloft (5) Hypothyroidism: * Patient should continue Synthroid as prior to hospitalization (6) Elevated diaphragm: * Chronic. Recommend continued incentive spirometry even after the postoperative phase. Lengthy discussion with patient regarding the importance. (7) VIOLETA (obstructive sleep apnea): * Patient reports that he is intolerant to CPAP. Recommend follow-up with PCP to discuss other options (different masks/equipment) At this time, there are no medical contraindications to proceed with discharge. Will sign off on this patient from a medical standpoint. Do not hesitate to reconsult should a problem arise. Thank you for allowing me to participate in the care of this patient. Plan of care to be discussed with Dr. Faustin Supervising Physician Co-Signing Physician Notes Attending note: patient reviewed with Mallika Saez PA-C. I agree with her consultation. I personally reviewed the labs and imaging findings. was not able to examine the patient prior to discharge as they went home before I could make it to their room. patient was stable after cervical spine surgery, vitals stable, labs normal for VIOLETA, recommend he follow up with PCP to discuss other options, maybe nocturnal oxygen if he cannot tolerate CPAP follow up with Dr. Freeman post op History of Present Illness Reason for Consultation: Medical management Attending Physician: Fabián Freeman DO History of Present Illness Mr. Calvillo is a 80-year-old white male with a past medical history of mixed anxiety/depression, OSAintolerant to CPAP and hyperlipidemia. In addition, he had Covid pneumonia in August/September 2020 requiring hospitalization X 2 weeks but completely recovered. He underwent a C6-T1 anterior cervical discectomy and fusion by Dr. Freeman. It appears as if he was requiring supplemental oxygen following the procedure and into the evening hours; however, is currently 94% on room air. Again, he does have sleep apnea and is intolerant to a CPAP. He is appears to have had an uneventful perioperative course. Today is POD #1. Pain is adequately controlled. He is passing flatus but denies having a BM. Denies fevers, chills, chest pain, shortness of breath, abdominal pain, nausea or vomiting. Patient lives at home with his and children and reports he has been seen by attending physician and is being discharged today. Allergies Allergy/AdvReac Type Severity Reaction Status Date / Time No Known Allergies Allergy Mild Verified 12/21/20 06:15 Home Medications Medication Instructions Recorded Confirmed Type levothyroxine 125 mcg PO QAM 08/24/20 12/21/20 History rosuvastatin 10 mg PO QAM 08/24/20 12/21/20 History sertraline 25 mg tablet 12.5 mg PO QAM tab 11/08/20 12/21/20 History Focus Memory 1 cap PO QAM 12/01/20 12/21/20 History cyanocobalamin (vitamin B-12) 500 mcg PO DAILY 12/01/20 12/21/20 History omega-3 fatty acids 1,000 mg PO DAILY 12/01/20 12/21/20 History oxycodone 5 mg PO Q6H PRN #2 tab 12/22/20 Rx tramadol 50 mg PO Q6H PRN #20 tab 12/22/20 Rx Patient History Medical History (Updated 12/22/20 @ 14:25 by Mallika Saez PA-C) Anxiety Depression Hyperlipidemia Hypothyroidism VIOLETA (obstructive sleep apnea) Cannot tolerate device Osteoarthritis Pneumonia due to COVID-19 virus Had first vaccine in 09/03/20 at [place] he does not remember which one and got COVID virus afterwards (09/10/20)- admitted and readmitted in August/September 2020 (developed Covid pneumonia) No longer requiring oxygen the past several weeks - follows with pulm Surgical History (Updated 12/22/20 @ 14:24 by Mallika Saez PA-C) Hx of bilateral cataract extraction Hx of colonoscopy Hx of decompressive lumbar laminectomy Hx of fusion of cervical spine no limitations Social History Smoking Status: Never smoker Second Hand Exposure: No; Do You Dip or Chew Tobacco: No; Tobacco Cessation Education Requested by Patient: No Hx Alcohol Use: No Hx Substance Use: No Preferred Language: Slovenian Communication Ability: Effective Allied Health Teacher Required: No Beliefs That Will Affect Care: None Current Living Situation: Spouse Other Information That Helps Us Care for You: No Feels Safe at Home: Yes Safety Concerns: Feels Safe At This Time Assistive Devices: Glasses Review of Systems Review of Systems: Denies fevers, chills, headache, nasal congestion, sore throat, cough, chest pain, shortness of breath, abdominal pain, nausea, vomiting, GI/ symptomatology. Physical Exam Physical Exam: General: Resting comfortably in his hospital bed. A&O X3 NAD. Neck: TESS drain with surgical dressing to anterior neck. Dressing dry and intact Cardiac: RRR 1/6 MILDRED heard best at the left sternal border Lungs: CTA without W/R/R Abdomen: Normoactive X4. Soft and nontender in all quadrants. Extremities: No peripheral clubbing cyanosis or edema Results & Data Results & Data ([facility]) Vital Signs (Past 12 Hours) Vital Signs Temp Pulse Pulse Resp BP BP Pulse Ox 12/22/20 11:13 77 20 94 12/22/20 09:01 36.7 C 79 16 127/83 124/68 93 12/22/20 08:09 36.7 C 79 16 124/68 93 12/22/20 07:18 87 20 91 12/22/20 06:30 36.3 C L 67 18 127/72 95 12/22/20 04:30 36.4 C L 64 18 108/56 L 96 12/22/20 02:50 65 16 95 12/22/20 02:30 36.4 C L 66 16 125/74 97 Laboratory Results Preoperative lab data reviewed and unremarkable: WBC: 5.12 H&H: 12.7 and 38.7 respectively Platelet count: 179 Sodium: 140 Potassium: 4.9 Chloride: 109 Carbon dioxide: CO2 BUN: 22 Creatinine 0.9 Glucose: 99 Diagnostic Findings Preoperative CXR showed residual thickening in the right base with the left hemidiaphragm and associated atelectasis PG Care Time/CCT Total # of Minutes Spent Total Time Spent with Patient: Total time spent is greater than 50% in coordination of care (as documented) at patient's floor/unit and/or counseling patient: [place] [address] Inpt Consult Level 3 Patient Type New Medical Decision Making Low Complexity Diagnoses S/P cervical discectomy Z98.890 Cervical stenosis of spinal canal M48.02 Hypoxia R09.02 Depression F32.9 Active/Remission status: remission status unspecified Depression Type: major depressive disorder Major depression recurrence: unspecified whether recurrent Hypothyroidism E03.9 Hypothyroidism type: unspecified Elevated diaphragm J98.6 VIOLETA (obstructive sleep apnea) G47.33 (1) Depression Active/Remission status: remission status unspecified Depression Type: major depressive disorder Major depression recurrence: unspecified whether recurrent Qualified Code(s): F32.9 - Major depressive disorder, single episode, unspeci fied (2) Hypothyroidism Hypothyroidism type: unspecified Qualified Code(s): E03.9 - Hypothyroidism, unspecified
[2020-12-23] MEDS ORDERED: bisacodyL 10 MG SUPP PR PRN (08:00)
== END 2020-12-22 14:52 | disposition home or self-care (01) | DRG 473 ==
LOC: ASU 05:32 → PACUINP 10:19 → 3E 15:39

== ENCOUNTER 2021-04-25 16:15 | Inpatient (IN) ==
[2021-04-25] MEDS ORDERED: HYDROmorphone INJ 0.5 MG/0.5 ML SYR IV PRN (18:34)
[2021-04-25] MEDS ORDERED: ONDANSETRON INJ 2 MG/ML 2 ML VIAL IV PRN (18:35)
[2021-04-25 18:44] LABS: Basophils # (auto) 0.02 K/uL (0-0.2); Basophils % (auto) 0.3 %; Eosinophils # (auto) 0.18 K/uL (0-0.5); Eosinophils % (auto) 2.3 %; Hematocrit (blood only) 38.2 % (42-52); Hemoglobin 12.8 g/dL (14.0-18.0); Immature Granulocytes # (auto) 0.01 K/uL (0.00-0.02); Immature Granulocytes % (auto) 0.1 %; Lymphocytes # (auto) 2.13 K/uL (1.2-3.4); Lymphocytes % (auto) 27.4 %; Mean Corpuscular Hemoglobin 30.5 pg (25-34); Mean Corpuscular Hgb Conc 33.5 g/dL (32-36); Mean Corpuscular Volume 91.2 fL (80-100); Mean Platelet Volume 9.8 fL (7.4-10.4); Monocytes # (auto) 0.52 K/uL (0.11-0.59); Monocytes % (auto) 6.7 %; Neutrophils % (auto) 63.2 %; Platelet Count 158 K/uL (130-400); RDW Coefficient of Variation 14.4 % (11.5-14.5); RDW Standard Deviation 48.4 fL (36.4-46.3); Red Blood Count 4.19 M/uL (4.7-6.1); White Blood Count 7.76 K/uL (4.8-10.8)
[2021-04-25] MEDS: LACTATED RINGER'S 1,000 ML IV SCH ×2 (18:56→22:09)
[2021-04-25 19:02] LABS: Albumin Level 3.3 gm/dl (3.4-5.0); BUN Creatinine Ratio 21.3 (10-20); Calcium 8.9 mg/dl (8.5-10.1); Creatinine Clr Calc Pharmacy 59.3 ml/min; Est GFR (African American) 63.9 ml/min; Est GFR (Non-African American) 55.1 ml/min
[2021-04-25 19:04] LABS: Bilirubin,Total 0.3 mg/dl (0.2-1); Globulin 3.4 gm/dl (2.5-4.0); Total Protein 6.7 gm/dl (6.4-8.2)
--- NOTE | 2021-04-25 20:26 | Hospitalist Consultation ---
Date of Consultation April 25, 2021 Assessment & Plan (1) Cervical radiculopathy: 81yo Male PMH 2 neck surgeries HLD depression hypothyroidism here for several months of right hand weakness, sent to hospital for pre-operative assessment surgery. Cervical Radiculopathy -patient to be scheduled for surgery with Dr. Freeman -patient denies history of NM, stroke, heart disease, not currently on blood thinner -last echo 02/23/21 EF 65-70% grade I diastolic dysfunction -ordered EKG, CXR -npo with small sips for medication -patient optimized from a cardiac and pulmonary standpoint Restrictive Lung Disease -last pulm visit 03/01/21, mild restrictive lung disease managed with incentive spirometry -O2 sat 96% room air in no acute distress Hyperlipidemia -continue rosuvastatin Hypothyroidism continue levothyroxine Depression -continue zoloft (2) Restrictive lung disease: (3) Hyperlipidemia: (4) Hypothyroidism: (5) Depression: Supervising Physician Co-Signing Physician Notes Attending addendum: I have physically seen this patient, have supervised the medical residents activities, and agree with the H&P unless as otherwise noted. Assessment and Plan: Cervical radiculopathy/anticipated OR on 04/26- Consulting surgeon Dr. Freeman Pain management per primary team Ordering EKG and chest x-ray If EKG and chest x-ray normal, patient will be considered acceptable risk for the proposed surgery Hyperlipidemia-- Continue rosuvastatin Restrictive lung disease- Incentive spirometry DuoNebs every 2 hours as needed remaining orders and notations as noted. Hospitalist service will follow along during hospital stay History of Present Illness Reason for Consultation: Pre-op clearance Requesting Physician: Fabián Freeman Attending Physician: Gigi Perales History of Present Illness 81yo Male PMH 2 neck surgeries HLD depression hypothyroidism here for several months of right hand weakness, sent to ED for pre-op clearance for surgery by Dr. Freeman. Patient states he has had right hand weakness, atrophy of thenar eminence, difficulty grasping a spoon, loss of sensation on the back of right hand for several months now that he believes are related to cervical vertebral nerve impingement, has had previous neck surgeries to correct nerve impingement, made an appointment to be evaluated by Dr. Freeman who told him urgent surgery was required to save his hand. Patient denies chest pain loss of sensation on his chest or back, states he has full ROM of right elbow and shoulder and of left upper extremity. Patient seen at bedside calm cooperative pleasant, he takes levothyroxine, a statin, and zoloft at home regularly, denies taking blood thinners. Patient denies history stroke NM heart disease, allergies. Allergies Allergy/AdvReac Type Severity Reaction Status Date / Time No Known Drug Allergies Allergy Unknown Verified 04/25/21 18:19 Home Medications Medication Instructions Recorded Confirmed Type levothyroxine 125 mcg capsule 125 mcg PO QAM 08/24/20 04/25/21 History rosuvastatin 10 mg tablet 10 mg PO QAM 08/24/20 04/25/21 History sertraline 25 mg tablet (Zoloft) 12.5 mg PO QAM tab 11/08/20 04/25/21 History cyanocobalamin (vitamin B-12) 500 500 mcg PO QAM 12/26/20 04/25/21 History mcg tablet (Vitamin B-12) omega-3 fatty acids 1,000 mg 1,000 mg PO QAM 12/26/20 04/25/21 History capsule fluticasone propionate 50 1 spray INTRANASAL DAILY #9.9 g 03/01/21 04/25/21 Rx mcg/actuation nasal spray,suspension (Allergy Relief (fluticasone)) glucosamine-chondroitin 250 mg-200 1 tab PO DAILY tab 03/01/21 04/25/21 History mg tablet (Osteo Bi-Flex) levocetirizine 5 mg tablet 5 mg PO DAILY PRN #30 tab 03/01/21 04/25/21 Rx magnesium oxide 500 mg capsule 500 mg PO DAILY 03/01/21 04/25/21 History multivitamin (Daily Multi-Vitamin) 1 tab PO DAILY 03/01/21 04/25/21 History oxycodone 5 mg tablet 5 mg PO Q6H PRN #20 tab 04/26/21 Rx tramadol 50 mg tablet 50 mg PO Q6H PRN #20 tab 04/26/21 Rx Patient History Medical History Anxiety Depression Hyperlipidemia Hypothyroidism VIOLETA (obstructive sleep apnea) Cannot tolerate device Osteoarthritis Pneumonia due to COVID-19 virus Had first vaccine in 09[place]03/20 at [place] and got COVID virus afterwards (09/10/20)- admitted and readmitted in September 2020 (developed Covid pneumonia) [facility] > symptoms resolved, no longer requiring oxygen the past several weeks Surgical History Hx of bilateral cataract extraction Hx of colonoscopy Hx of decompressive lumbar laminectomy Hx of fusion of cervical spine No ROM limitations per pt Family History Other No family history of adverse response to anesthesia No family history of bleeding disorder Social History Smoking Status: Never smoker Tobacco Type: Cigarettes Second Hand Exposure: No; Hx Alcohol Use: No Hx Substance Use: No Preferred Language: Lao Communication Ability: Effective Business Reporter Required: No Beliefs That Will Affect Care: None Current Living Situation: Spouse Other Information That Helps Us Care for You: No Feels Safe at Home: Yes Safety Concerns: Feels Safe At This Time Assistive Devices: Glasses and Hearing Aid - Bilateral Review of Systems Review of Systems: positive numbness weakness of right hand Negative fever chills Negative headache dizziness Negative chest pain palpitations SOB Negative nausea vomitting diarrhea constipation Negative rash swelling Physical Exam Physical Exam: General: Well appearing, age appropriate Heart: RRR, +S1 S2, no murmurs/gallops/rubs Lungs: cta b/l, no wheezes/rales/rhonchi Abd: soft, NT/ND, +BS Extremities: no swelling, no rashes, no clubbing/cyanosis Muskuloskeletal: loss of fine touch and pain sensation on right dorsal hand, right thenar eminence atrophy noted, 4/5 muscle strength right C8, 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 sensation intact on right ventral hand surface, right forearm and arm, ROM intact against gravity at right elbow and shoulder. Psych:euthymic, calm, cooperative Skin: warm, dry, intact Results & Data Results & Data ([facility]) Vital Signs (Past 12 Hours) Vital Signs Temp Pulse Pulse Resp BP BP Pulse Ox 04/25/21 20:13 66 19 127/89 96 04/25/21 16:31 36.6 C 68 18 145/82 H 94 Laboratory Results Laboratory Results WBC 7.76 K/uL (4.8-10.8) 04/25/21 18:35 RBC 4.19 M/uL (4.7-6.1) L 04/25/21 18:35 Hgb 12.8 g/dL (14.0-18.0) L 04/25/21 18:35 Hct 38.2 % (42-52) L 04/25/21 18:35 MCV 91.2 fL (80-100) 04/25/21 18:35 MCH 30.5 pg (25-34) 04/25/21 18:35 MCHC 33.5 g/dL (32-36) 04/25/21 18:35 RDW Std Deviation 48.4 fL (36.4-46.3) H 04/25/21 18:35 RDW Coeff of Devan 14.4 % (11.5-14.5) 04/25/21 18:35 Plt Count 158 K/uL (130-400) 04/25/21 18:35 MPV 9.8 fL (7.4-10.4) 04/25/21 18:35 Immature Gran % (Auto) 0.1 % 04/25/21 18:35 Neut % (Auto) 63.2 % 04/25/21 18:35 Lymph % (Auto) 27.4 % 04/25/21 18:35 [place] % (Auto) 6.7 % 04/25/21 18:35 Eos % (Auto) 2.3 % 04/25/21 18:35 Baso % (Auto) 0.3 % 04/25/21 18:35 Neut # (Auto) 4.90 K/uL (1.4-6.5) 04/25/21 18:35 Lymph # (Auto) 2.13 K/uL (1.2-3.4) 04/25/21 18:35 [place] # (Auto) 0.52 K/uL (0.11-0.59) 04/25/21 18:35 Eos # (Auto) 0.18 K/uL (0-0.5) 04/25/21 18:35 Baso # (Auto) 0.02 K/uL (0-0.2) 04/25/21 18:35 Immature Gran # (Auto) 0.01 K/uL (0.00-0.02) 04/25/21 18:35 Sodium 139 mmol/L (136-145) 04/25/21 18:35 Potassium 4.0 mmol/L (3.5-5.1) 04/25/21 18:35 Chloride 107 mmol/L (98-107) 04/25/21 18:35 Carbon Dioxide 27 mmol/L (21-32) 04/25/21 18:35 Anion Gap 5.0 (3-11) 04/25/21 18:35 BUN 26 mg/dl (7-18) H 04/25/21 18:35 Creatinine 1.23 mg/dl (0.6-1.4) 04/25/21 18:35 Est Cr Clr Drug Dosing 59.3 ml/min 04/25/21 18:35 Est GFR ( Amer) 63.9 ml/min 04/25/21 18:35 Est GFR (Non-Af Amer) 55.1 ml/min 04/25/21 18:35 BUN/Creatinine Ratio 21.3 (10-20) H 04/25/21 18:35 Glucose 95 mg/dl (70-99) 04/25/21 18:35 Calcium 8.9 mg/dl (8.5-10.1) 04/25/21 18:35 Total Bilirubin 0.3 mg/dl (0.2-1) 04/25/21 18:35 AST 18 U/L (15-37) 04/25/21 18:35 ALT 24 U/L (12-78) 04/25/21 18:35 Alkaline Phosphatase 56 U/L (45-117) 04/25/21 18:35 Total Protein 6.7 gm/dl (6.4-8.2) 04/25/21 18:35 Albumin 3.3 gm/dl (3.4-5.0) L 04/25/21 18:35 Globulin 3.4 gm/dl (2.5-4.0) 04/25/21 18:35 Albumin/Globulin Ratio 1.0 (0.9-2) 04/25/21 18:35 COVID-19 Eval Order Covid19 at [facility] 04/25/21 18:50 SARS-CoV-2 (PCR) NEGATIVE (Negative) 04/25/21 18:50 Medications Administered Current Inpatient Medications Hydromorphone HCl (Hydromorphone Inj 0.5 Mg/0.5 Ml Syr) 0.5 mg IV Q2H PRN PRN Reason: Pain Stop: 05/09/21 18:33 Lactated Ringer's (Lr) 1,000 mls @ 100 mls/hr IV .Q10H JASS Stop: 05/25/21 18:44 Last Admin: 04/25/21 18:56 Dose: 100 mls/hr Documented by: Ondansetron HCl (Ondansetron Inj 2 Mg/Ml 2 Ml Vial) 4 mg IV Q4H PRN PRN Reason: Nausea Stop: 05/25/21 18:34 Resident Activity Tracking Resident Involvement: Resident Care Provided Care Provided: Adult Hospital Medicine (1) Depression Active/Remission status: remission status unspecified Depression Type: major depressive disorder Major depression recurrence: unspecified whether recurrent Qualified Code(s): F32.9 - Major depressive disorder, single episode, unspecified (2) Hyperlipidemia Hyperlipidemia type: unspecified Qualified Code(s): E78.5 - Hyperlipidemia, unspecified (3) Hypothyroidism Hypothyroidism type: unspecified Qualified Code(s): E03.9 - Hypothyroidism, unspecified
--- NOTE | 2021-04-25 21:03 | Emergency Department Note ---
Impression & Plan Cervical radiculopathy ED Provider Note INFORMANT: Patient ED PROVIDER(S): Houston Fine MD CHIEF COMPLAINT: Neck pain and right arm weakness PLAN: Disposition: Admitted Condition: Good Outpatient prescription management: none Referral: None MEDICAL DECISION MAKING: Patient presented because of direction by his surgeon. He has a radiculopathy on physical examination. He has significant right arm weakness and muscular wasting. Blood work was obtained and was unremarkable. Covid testing was negative. I did discuss the case with Houston Valero PA-C for Dr. Freeman. They will admit the patient for operative intervention. Patient declined analgesia in the ER. Triage Nursing notes reviewed and agree them. Vital Signs: reviewed and remarkable for mild hypertension Differential diagnosis: Radiculopathy, cervical disc disease, neurologic, as well as other pathologies. Diagnostics interpreted by me: ECG: none Cardiac Monitoring: none Imaging studies: Deferred HPI: The patient is a 81 year old male who presents to the Emergency Room with complaints of neck pain and right arm weakness. This started over the last few weeks and is worsening. The patient also notes the following associated symptoms, muscle wasting in the right hand. The patient has been tried on steroids for relieving factors. Current pain is rated as 4/10. Patient declines analgesia. He contacted his surgeon, Dr. Freeman was directed to the ER for admission and operative intervention. Pt denies LOC, headache, fevers, chills, diaphoresis, visual changes, neck pain, chest pain, breathing difficulties, nausea, vomiting, abdominal pain, back pain, melena, hematochezia, urinary symptoms, numbness, weakness, lymphadenopathy, rash, or other complaints. ROS: See above HPI for pertinent positives & negatives. A total of 10 systems reviewed and were otherwise negative. PAST MEDICAL HISTORY:See Below , high cholesterol PAST SURGICAL HISTORY:See Below, FAMILY HISTORY:See Below SOCIAL HISTORY:See Below, retired HOME MEDICATIONS:See Below ALLERGIES:See Below VITALS:See Below PHYSICAL EXAMINATION: GENERAL: Awake, alert, uncomfortable-appearing, in no distress HENT: Normocephalic, atraumatic. Oropharynx unremarkable. EYES: Normal conjunctiva. Sclera non-icteric. NECK: Inspection normal. Non-tender. Supple. No nuchal rigidity. FROM. No masses. RESPIRATORY: Clear to auscultation. No wheezes. No rales. Normal respiratory effort. CARDIAC: Normal rate. Normal rhythm. No murmurs. No rubs. Extremities warm and well perfused. Pulses equal. No JVD. GI: Soft, non-distended. No tenderness to palpation. No rebound or guarding. No masses. RECTAL: Deferred. MUSCULOSKELETAL: Atraumatic. Chest examination reveals no tenderness. The back is symmetrical on inspection without obvious abnormality. There is no CVA tenderness to palpation. No joint edema. There is muscular wasting noted in the right hand muscles. LOWER EXTREMITIES: Calves are equal size bilaterally and non-tender. No edema. No discoloration. NEURO: Normal sensorium. 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 SKIN: No rash or jaundice noted. Houston Fine MD Past Med/Surg History Medical History Anxiety Depression Hyperlipidemia Hypothyroidism VIOLETA (obstructive sleep apnea) Cannot tolerate device Osteoarthritis Pneumonia due to COVID-19 virus Had first vaccine in 09/03/20 at [place] and got COVID virus afterwards (09/10/20)- admitted and readmitted in August/September 2020 (developed Covid pneumonia) [facility] > symptoms resolved, no longer requiring oxygen the past several weeks Surgical History Hx of bilateral cataract extraction Hx of colonoscopy Hx of decompressive lumbar laminectomy Hx of fusion of cervical spine No ROM limitations per pt Family History (Updated 04/19/21 @ 12:38 by Nadja Mcfadden MA) Other No family history of adverse response to anesthesia No family history of bleeding disorder Social History Smoking Status: Never smoker Tobacco Type: Cigarettes Second Hand Exposure: No; Hx Alcohol Use: No Hx Substance Use: No Preferred Language: Turkish Communication Ability: Effective Security Strategist Required: No Beliefs That Will Affect Care: None Current Living Situation: Spouse Feels Safe at Home: Yes Assistive Devices: Glasses Allergies Allergies Allergy/AdvReac Type Severity Reaction Status Date / Time No Known Drug Allergies Allergy Unknown Verified 04/25/21 18:19 Home Meds Home Medications Medication Instructions Recorded Confirmed levothyroxine 125 mcg capsule 125 mcg PO QAM 08/24/20 04/25/21 rosuvastatin 10 mg tablet 10 mg PO QAM 08/24/20 04/25/21 sertraline 25 mg tablet (Zoloft) 12.5 mg PO QAM tab 11/08/20 04/25/21 cyanocobalamin (vitamin B-12) 500 500 mcg PO QAM 12/26/20 04/25/21 mcg tablet (Vitamin B-12) omega-3 fatty acids 1,000 mg 1,000 mg PO QAM 12/26/20 04/25/21 capsule glucosamine-chondroitin 250 mg-200 1 tab PO DAILY tab 03/01/21 04/25/21 mg tablet (Osteo Bi-Flex) magnesium oxide 500 mg capsule 500 mg PO DAILY 03/01/21 04/25/21 multivitamin (Daily Multi-Vitamin) 1 tab PO DAILY 03/01/21 04/25/21 Previous Rx's Medication Instructions Recorded fluticasone propionate 50 1 spray INTRANASAL DAILY #9.9 g 03/01/21 mcg/actuation nasal spray,suspension (Allergy Relief (fluticasone)) levocetirizine 5 mg tablet 5 mg PO DAILY PRN #30 tab 03/01/21 Results & Data (ED) Vital Signs Vital Signs - 24 hr 04/25/21 16:31 Temperature 36.6 C Temperature Source Temporal Artery Scan Pulse Rate 68 Respiratory Rate 18 Respiratory Effort / Characteristics Non-Labored Respiratory Depth Normal Blood Pressure 145/82 H Blood Pressure Mean 103 Pulse Oximetry 94 Oxygen Delivery Method Room Air Sepsis Recent Fever Within 48 Hours No Sepsis New/Unexplained Change in Mental Status No Sepsis Action Taken by Nursing No Action Required Laboratory Data Result diagrams: 04/25/21 18:35 04/25/21 18:35 Lab Results 04/25/21 04/25/21 04/25/21 Range/Units 18:35 18:35 18:50 WBC 7.76 (4.8-10.8) K/uL RBC 4.19 L (4.7-6.1) M/uL Hgb 12.8 L (14.0-18.0) g/dL Hct 38.2 L (42-52) % MCV 91.2 (80-100) fL MCH 30.5 (25-34) pg MCHC 33.5 (32-36) g/dL RDW Std Deviation 48.4 H (36.4-46.3) fL RDW Coeff of Devan 14.4 (11.5-14.5) % Plt Count 158 (130-400) K/uL MPV 9.8 (7.4-10.4) fL Immature Gran % (Auto) 0.1 % Neut % (Auto) 63.2 % Lymph % (Auto) 27.4 % [place] % (Auto) 6.7 % Eos % (Auto) 2.3 % Baso % (Auto) 0.3 % Neut # (Auto) 4.90 (1.4-6.5) K/uL Lymph # (Auto) 2.13 (1.2-3.4) K/uL [place] # (Auto) 0.52 (0.11-0.59) K/uL Eos # (Auto) 0.18 (0-0.5) K/uL Baso # (Auto) 0.02 (0-0.2) K/uL Immature Gran # (Auto) 0.01 (0.00-0.02) K/uL Sodium 139 (136-145) mmol/L Potassium 4.0 (3.5-5.1) mmol/L Chloride 107 (98-107) mmol/L Carbon Dioxide 27 (21-32) mmol/L Anion Gap 5.0 (3-11) BUN 26 H (7-18) mg/dl Creatinine 1.23 (0.6-1.4) mg/dl Est Cr Clr Drug Dosing 59.3 ml/min Est GFR ( Amer) 63.9 ml/min Est GFR (Non-Af Amer) 55.1 ml/min BUN/Creatinine Ratio 21.3 H (10-20) Glucose 95 (70-99) mg/dl Calcium 8.9 (8.5-10.1) mg/dl Total Bilirubin 0.3 (0.2-1) mg/dl AST 18 (15-37) U/L ALT 24 (12-78) U/L Alkaline Phosphatase 56 (45-117) U/L Total Protein 6.7 (6.4-8.2) gm/dl Albumin 3.3 L (3.4-5.0) gm/dl Globulin 3.4 (2.5-4.0) gm/dl Albumin/Globulin Ratio 1.0 (0.9-2) COVID-19 Eval Order Covid19 at [facility] SARS-CoV-2 (PCR) (Negative) 04/25/21 Range/Units 18:50 WBC (4.8-10.8) K/uL RBC (4.7-6.1) M/uL Hgb (14.0-18.0) g/dL Hct (42-52) % MCV (80-100) fL MCH (25-34) pg MCHC (32-36) g/dL RDW Std Deviation (36.4-46.3) fL RDW Coeff of Devan (11.5-14.5) % Plt Count (130-400) K/uL MPV (7.4-10.4) fL Immature Gran % (Auto) % Neut % (Auto) % Lymph % (Auto) % [place] % (Auto) % Eos % (Auto) % Baso % (Auto) % Neut # (Auto) (1.4-6.5) K/uL Lymph # (Auto) (1.2-3.4) K/uL [place] # (Auto) (0.11-0.59) K/uL Eos # (Auto) (0-0.5) K/uL Baso # (Auto) (0-0.2) K/uL Immature Gran # (Auto) (0.00-0.02) K/uL Sodium (136-145) mmol/L Potassium (3.5-5.1) mmol/L Chloride (98-107) mmol/L Carbon Dioxide (21-32) mmol/L Anion Gap (3-11) BUN (7-18) mg/dl Creatinine (0.6-1.4) mg/dl Est Cr Clr Drug Dosing ml/min Est GFR ( Amer) ml/min Est GFR (Non-Af Amer) ml/min BUN/Creatinine Ratio (10-20) Glucose (70-99) mg/dl Calcium (8.5-10.1) mg/dl Total Bilirubin (0.2-1) mg/dl AST (15-37) U/L ALT (12-78) U/L Alkaline Phosphatase (45-117) U/L Total Protein (6.4-8.2) gm/dl Albumin (3.4-5.0) gm/dl Globulin (2.5-4.0) gm/dl Albumin/Globulin Ratio (0.9-2) COVID-19 Eval Order SARS-CoV-2 (PCR) NEGATIVE (Negative) Administered Medications Lactated Ringer's (Lr) 1,000 mls @ 100 mls/hr IV .Q10H JASS Stop: 05/25/21 18:44 Last Admin: 04/25/21 18:56 Dose: 100 mls/hr Documented by: [id number] Discharge Plan Visit Data Chief Complaint: Neck Injury/Pain Stated Complaint: RIGHT ARM NUMB, NECK PAIN ED Provider: Houston Fine Discharge Problem: Cervical radiculopathy Patient Disposition: Admitted As Inpatient Discharge Instructions Interventions: ED Discharge Assessment Last Done: 04/25/21 20:52
[2021-04-26] MEDS: LEVOTHYROXINE SODIUM 125 MCG TABLET PO SCH (05:59)
[2021-04-26] MEDS: LACTATED RINGER'S 1,000 ML IV SCH ×2 (07:20→16:53)
[2021-04-26] MEDS: SERTRALINE HCL 50 MG TABLET PO SCH (07:21)
[2021-04-26] MEDS: ROSUVASTATIN CALCIUM 10 MG TAB PO SCH (07:21)
--- NOTE | 2021-04-26 07:25 | XRay Report ---
XR chest 2V PA/lateral CLINICAL HISTORY: Right arm weakness TECHNIQUE: AP and lateral frontal radiograph of the chest was obtained. Comparison: None available at the time of this dictation. FINDINGS: Anterior cervical fixation hardware seen. The aorta is tortuous. The remainder of the cardiomediastin al silhouette is unremarkable. Elevation of left hemidiaphragm is seen with resulting atelectasis. No evidence of pleural effusion or pneumothorax. IMPRESSION: No acute chest disease. ACT 112: Negative or not required by law. Electronically signed by: Zack Brandon M.D. 04/26/2021 7:23 AM
--- NOTE | 2021-04-26 07:58 | History & Physical Report ---
Date of Service April 26, 2021 Assessment & Plan (1) Myelopathy concurrent with and due to spinal stenosis of cervical region: Plan: Mri demonstrates severe stenosis C3-4. Patient presenting with progressive neuro deficit. Recommend urgent acdf c3-4. Admission and Anticipated Discharge Date Admission Date: April 25, 2021 History of Present Illness Chief Complaint: neck pain with arm pain and weakness Primary Care Provider: Kimberly Gilliland PA-C 81 with markedly worsening pain and arm weakness Allergies Allergy/AdvReac Type Severity Reaction Status Date / Time No Known Drug Allergies Allergy Unknown Verified 04/25/21 18:19 Home Medications Medication Instructions Recorded Confirmed Type levothyroxine 125 mcg capsule 125 mcg PO QAM 08/24/20 04/25/21 History rosuvastatin 10 mg tablet 10 mg PO QAM 08/24/20 04/25/21 History sertraline 25 mg tablet (Zoloft) 12.5 mg PO QAM tab 11/08/20 04/25/21 History cyanocobalamin (vitamin B-12) 500 500 mcg PO QAM 12/26/20 04/25/21 History mcg tablet (Vitamin B-12) omega-3 fatty acids 1,000 mg 1,000 mg PO QAM 12/26/20 04/25/21 History capsule fluticasone propionate 50 1 spray INTRANASAL DAILY #9.9 g 03/01/21 04/25/21 Rx mcg/actuation nasal spray,suspension (Allergy Relief (fluticasone)) glucosamine-chondroitin 250 mg-200 1 tab PO DAILY tab 03/01/21 04/25/21 History mg tablet (Osteo Bi-Flex) levocetirizine 5 mg tablet 5 mg PO DAILY PRN #30 tab 03/01/21 04/25/21 Rx magnesium oxide 500 mg capsule 500 mg PO DAILY 03/01/21 04/25/21 History multivitamin (Daily Multi-Vitamin) 1 tab PO DAILY 03/01/21 04/25/21 History Past Med/Surg History Medical History Anxiety Depression Hyperlipidemia Hypothyroidism VIOLETA (obstructive sleep apnea) Cannot tolerate device Osteoarthritis Pneumonia due to COVID-19 virus Had first vaccine in 09/03/[address] [place] and got COVID virus afterwards (09/10/20)- admitted and readmitted in September 2020 (developed Covid pneumonia) [facility] > symptoms resolved, no longer requiring oxygen the past several weeks Surgical History Hx of bilateral cataract extraction Hx of colonoscopy Hx of decompressive lumbar laminectomy Hx of fusion of cervical spine No ROM limitations per pt Family History (Updated 04/19/21 @ 12:38 by Nadja Mcfadden MA) Other No family history of adverse response to anesthesia No family history of bleeding disorder Social History Smoking Status: Never smoker Tobacco Type: Cigarettes Second Hand Exposure: No; Hx Alcohol Use: No Hx Substance Use: No Preferred Language: Georgian Communication Ability: Effective Oil Distributor Required: No Beliefs That Will Affect Care: None Current Living Situation: Spouse Other Information That Helps Us Care for You: No Feels Safe at Home: Yes Safety Concerns: Feels Safe At This Time Assistive Devices: Glasses and Hearing Aid - Bilateral Physical Exam Physical Exam: spurlings sign to the R marked wasting of right hand 3/5 r hand intrinsics, biceps, triceps, delts obvious pain Results & Data ([facility]) Vital Signs (Past 12 Hours) Vital Signs Temp Pulse Resp BP BP Pulse Ox 04/26/21 07:07 36.4 C L 64 16 126/74 92 04/25/21 21:07 36.5 C 63 16 160/87 H 97 04/25/21 20:13 66 19 127/89 96 Code Status & VTE Plan VTE Prophylaxis Plan VTE Prophylaxis will be ordered: Yes
--- NOTE | 2021-04-26 09:35 | Anesthesiology Consultation ---
Date of Service April 26, 2021 Assessment & Plan (1) Encounter for pre-operative examination: Chart Review Chart Review: Acceptable Risk for Surgery and Patient NOT seen in Pre Admission Testing Consults Requested none History Surgery Operation Date: 04/26/21 08:20 Proposed Procedures p C3-C4 Anterior Cervical Discectomy Fusion, Spinal Cord Monitoring - Fabián Freeman DO Height/Weight Height: 6 ft 1 in Weight: 105.5 kg Allergies Allergy/AdvReac Type Severity Reaction Status Date / Time No Known Drug Allergies Allergy Unknown Verified 04/25/21 18:19 Medications Home Medications Medication Instructions Recorded Confirmed Last Taken levothyroxine 125 mcg capsule 125 mcg PO QAM 08/24/20 04/25/21 01/25/21 07:00 rosuvastatin 10 mg tablet 10 mg PO QAM 08/24/20 04/25/21 01/24/21 09:00 sertraline 25 mg tablet (Zoloft) 12.5 mg PO QAM tab 11/08/20 04/25/21 01/24/21 09:00 cyanocobalamin (vitamin B-12) 500 500 mcg PO QAM 12/26/20 04/25/21 01/24/21 09:00 mcg tablet (Vitamin B-12) omega-3 fatty acids 1,000 mg 1,000 mg PO QAM 12/26/20 04/25/21 01/24/21 09:00 capsule fluticasone propionate 50 1 spray INTRANASAL DAILY #9.9 g 03/01/21 04/25/21 Unknown mcg/actuation nasal spray,suspension (Allergy Relief (fluticasone)) glucosamine-chondroitin 250 mg-200 1 tab PO DAILY tab 03/01/21 04/25/21 Unknown mg tablet (Osteo Bi-Flex) levocetirizine 5 mg tablet 5 mg PO DAILY PRN #30 tab 03/01/21 04/25/21 Unknown magnesium oxide 500 mg capsule 500 mg PO DAILY 03/01/21 04/25/21 Unknown multivitamin (Daily Multi-Vitamin) 1 tab PO DAILY 03/01/21 04/25/21 Unknown Active Medications Generic Name Dose Route Start Last Admin Trade Name Freq PRN Reason Stop Dose Admin Lactated Ringer's 1,000 mls @ 100 mls/hr 04/25/21 18:45 04/26/21 07:20 Lr IV 05/25/21 18:44 100 mls/hr .Q10H JASS Administration Levothyroxine Sodium 125 mcg 04/26/21 06:30 04/26/21 05:59 Levothyroxine Sodium 125 Mcg Tablet PO 05/26/21 06:29 125 mcg DAILYBB JASS Administration Rosuvastatin Calcium 10 mg 04/26/21 09:00 04/26/21 07:21 Rosuvastatin Calcium 10 Mg Tab PO 05/26/21 08:59 Not Given QAM JASS Sertraline HCl 12.5 mg 04/26/21 09:00 04/26/21 07:21 Sertraline Hcl 50 Mg Tablet PO 05/26/21 08:59 Not Given QAM JASS Past Medical History Medical History Anxiety Depression Hyperlipidemia Hypothyroidism VIOLETA (obstructive sleep apnea) Cannot tolerate device Osteoarthritis Pneumonia due to COVID-19 virus Had [place] vaccine in [place] and got COVID virus afterwards (09/10/20)- admitted and readmitted in September 2020 (developed Covid pneumonia) [facility] > symptoms resolved, no longer requiring oxygen the past several weeks Past Family History Family History Other No family history of adverse response to anesthesia No family history of bleeding disorder Past Surgical History Surgical History Hx of bilateral cataract extraction Hx of colonoscopy Hx of decompressive lumbar laminectomy Hx of fusion of cervical spine No ROM limitations per pt Social History Smoking Status: Never smoker Hx Alcohol Use: No Hx Substance Use: No substance use type: does not use Physical Exam Vital Signs Last Vital Signs Temp 97.5 F L 04/26/21 07:07 Pulse 64 04/26/21 07:07 Resp 16 04/26/21 07:07 BP 126/74 04/26/21 07:07 Pulse Ox 92 04/26/21 07:07 Testing Laboratory Results 04/25/21 18:35 04/25/21 18:35 Electrocardiogram Date: 04/26/21 Findings: + NSR @ with PACs Chest X-Ray Date: 04/25/21 Findings: + NAD Echocardiogram Date: 02/23/21 LV Function: normal Valvular Disease: + no significant valvular disease
--- NOTE | 2021-04-26 10:42 | Hospitalist Progress Note ---
Date of Service April 26, 2021 Assessment & Plan (1) Myelopathy concurrent with and due to spinal stenosis of cervical region: Plan: - Per spine ortho note - MRI demonstrates severe stenosis at C3-4 - Patient has had progressive RUE neurological deficits with weak hand cook specialty - Pain management, DVT prophylaxis, PT/OT, and surgical management per primary team -- Patient is medically optimized for surgical intervention. No H/O MA/CHF/PE/DVT; no ischemic findings of EKG; hemodynamically stable -- Echo - Feb 2021 - EF 65-70%, grade I diastolic dysfunction; no regional wall motion abnormalities (2) Restrictive lung disease: Plan: - Does not require medicinal treatment; follows with [facility] -- Possibly related to elevation of the L hemidiaphragm per pulm note - No acute respiratory findings (3) Hyperlipidemia: Plan: - Continue Rosuvastatin 10 mg daily (4) Hypothyroidism: Plan: - Continue Levothyroxine 125 mcg daily (5) Depression: Plan: - Contiue Sertraline 12.5 mg daily Plan: - Planning on OR today. Hospitalists will continue to follow Admission and Anticipated Discharge Date Admission Date: April 25, 2021 Subjective Patient was seen prior to surgery. Reports feeling well. Chronic RUE weakness. Anticipating OR today Review of Systems Review of Systems: REVIEW OF SYSTEMS General/Constitutional: Denies fever/chills ENT: Denies sore throat, trouble swallowing Cardiovascular: Denies chest pain, palpitations, edema; denies H/O DVT/PE Respiratory: Denies cough, SOB, wheezing, orthopnea GI: Denies nausea, vomiting, abdominal pain, constipation, diarrhea : Denies dysuria Musculoskeletal: Denies joint/muscle aches Neurologic: + chronic numbness - R hand; + R hand/arm weakness; Denies dizziness/lightheadedness Hematologic/Lymphatic: Denies bleeding/clotting abnormalities Skin: Denies rash Physical Exam Physical Exam: PHYSICAL EXAM General Appearance: WDWN in NAD who is A&O x 3 HEENT: Head is normocephalic/atraumatic; Hearing grossly intact; Mucous membranes moist Neck: Supple; Trachea midline; Neg JVD Heart: RRR with no M/G/R Lungs: CTA in all lung cormier bilaterally; Respirations unlabored; Neg accessory muscle use Abdomen: Soft, non-tender, non-distended; Positive BS x 4 quadrants Extremities: Neg cyanosis or edema Neurological: Speech clear; R hand cook specialty weak and unable to fully clench fist together; thenar prominence atrophy Psychiatric: Appropriate mood/affect Skin: Normal Color; Warm/Dry Results & Data Results & Data ([facility]) Vital Signs (Past 12 Hours) Vital Signs Temp Pulse Resp BP Pulse Ox 04/26/21 07:07 36.4 C L 64 16 126/74 92 PG Care Time/CCT Total # of Minutes Spent Total Time Spent with Patient: Total time spent is greater than 50% in coordination of care (as documented) at patient's floor/unit and/or counseling patient: Coding Level of Care Code 24463 Inpt Consult Level 2 Diagnoses Myelopathy concurrent with and due to spinal stenosis of cervical region M48.02; G99.2 Restrictive lung disease J98.4 Hyperlipidemia E78.5 Hyperlipidemia type: unspecified Hypothyroidism E03.9 Hypothyroidism type: unspecified Depression F32.9 Depression Type: major depressive disorder Major depression recurrence: unspecified whether recurrent Active/Remission status: remission status unspecified (1) Hyperlipidemia Hyperlipidemia type: unspecified Qualified Code(s): E78.5 - Hyperlipidemia, unspecified (2) Hypothyroidism Hypothyroidism type: unspecified Qualified Code(s): E03.9 - Hypothyroidism, unspecified (3) Depression Depression Type: major depressive disorder Major depression recurrence: unspecified whether recurrent Active/Remission status: remission status unspecified Qualified Code(s): F32.9 - Major depressive disorder, single episode, unspecified
[2021-04-26] MEDS ORDERED: MIDAZOLAM HCL 1 MG/ML 2ML VIAL ONE (11:12)
[2021-04-26] MEDS ORDERED: fentaNYL citrate 100 MCG/2 ML VIAL ONE ×2 (11:12→13:33)
[2021-04-26] MEDS ORDERED: LIDOCAINE 2% 2 ML VIAL/AMP(20MG/ML) INFIL ONE (11:21)
[2021-04-26] MEDS ORDERED: PROPOFOL IV EMULSION 10 MG/ML 20 ML VIAL IV ONE (11:21)
[2021-04-26] MEDS ORDERED: ONDANSETRON INJ 2 MG/ML 2 ML VIAL ONE ×2 (11:21→12:51)
[2021-04-26] MEDS ORDERED: DEXAMETHASONE SOD INJ 4 MG/ML VIAL ONE (11:21)
[2021-04-26] MEDS ORDERED: SUCCINYLCHOLINE CHLORIDE 20 MG/ML 10 ML VIAL IV ONE (11:21)
[2021-04-26] MEDS ORDERED: fentaNYL citrate 100 MCG/2 ML VIAL IV PRN (11:51)
[2021-04-26] MEDS ORDERED: ATROPINE SULFATE 0.1 MG/ML 10ML SYR IV PRN (11:51)
[2021-04-26] MEDS ORDERED: ONDANSETRON INJ 2 MG/ML 2 ML VIAL IV PRN ×2 (11:51→15:56)
[2021-04-26] MEDS ORDERED: ePHEDrine sulfate 50 MG/ML AMP IV PRN (11:51)
--- NOTE | 2021-04-26 11:54 | History & Physical Bridge Note ---
Date of Service April 26, 2021 History & Physical Bridge Note I have examined the patient, reviewed the History & Physical and in the interval since the performance of the History & Physical I have noted the following changes of clinical significance: no changes noted Anterior cervical discectomy and fusion C3-C4
[2021-04-26] MEDS ORDERED: PHENYLEPHRINE 100MCG/ML 5ML SYR ONE (12:23)
[2021-04-26] MEDS ORDERED: ePHEDrine sulfate 50 MG/ML SYR ONE (12:23)
[2021-04-26] MEDS ORDERED: ROCURONIUM BROMIDE 10 MG/ML 5 ML VIAL IV ONE (12:32)
[2021-04-26] MEDS ORDERED: PHENYLEPHRINE HCL 10 MG/ML VIAL ONE (12:45)
[2021-04-26] MEDS ORDERED: GLYCOPYRROLATE 0.2 MG/ML VIAL ONE (12:53)
[2021-04-26] MEDS ORDERED: NEOSTIGMINE METHYLSULFATE 1 MG/ML 10ML VIAL ONE (12:53)
[2021-04-26] MEDS ORDERED: ceFAZolin 2000MG 2,000 MG/15 ML SYR IV ONE (13:03)
[2021-04-26] MEDS ORDERED: FLOSEAL HEMOSTATIC MATRIX 10ML TOP ONE (13:03)
--- NOTE | 2021-04-26 13:28 | Operative Report ---
Post Operative Report Pre & Post Diagnosis Operation Date: 04/26/21 08:20 Pre-Op Diagnosis: Myelopathy concurrent with and due to spinal stenosis of cervical region Post-Op Diagnosis: Myelopathy concurrent with and due to spinal stenosis of cervical region I identified the patient and participated in the time-out.: Yes Procedure Operation Date: 04/26/21 08:20 Actual Procedures #1 anterior cervical discectomy with bilateral foraminotomies C3-C4. #2 anterior cervical arthrodesis C3-C4. #3 placement of 8 mm Spira cage filled with I factor at C3-C4. #4 application of 5 complete screws across C3-C4. 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 Description of Procedure Patient was met with identified informed consent obtained. Patient was then taken to the operative suite underwent a patient placed in supine position chest table the head Ríos heading matcher and assembler. All bony prominences well-padded eyes inspected to ensure no external pressure placed upon the. This point the anterior cervical spine was prepped and draped in a sterile fashion. The assistance of fluoroscopy identified the C3-C4 disc base and a transverse incision was placed along the right anterior aspect of the cervical spine overlying this region. Blunt dissection with the assistance of bipolar electrocautery performed down to and exposing the anterior cervical spine at C3- C4. Self-retaining retractors placed. Then for a complete discectomy of C3-C4 out to the uncovertebral joints bilaterally. [place] distracting pins were utilized to assist in visualization. Removed all posterior annular fibers longitudinal ligament bilateral foraminotomies performed. The endplates were then burred to subcortical being bone and an 8 mm Spira cage filled with I factor tapped in position. Distracting apparatus was removed and 5 complete screws applied with the assistance of fluoroscopy. The incision was then copiously irrigated explored to ensure no damage to surrounding structures or remaining bleeding. 10 round TESS drain inserted. The incision was then closed with 2 Vicryl in a fashion of 4 Monocryl for final skin closure. Steri-Strip sterile dressings placed. Patient will continue PACU stable condition. Please note spinal cord monitoring was utilized at the procedure no changes noted. Lastly Racheal Hamilton was present at the entire surgeon while the patient positioning complex portions of the surgery and final skin closure. I attest to the content of the Intraoperative Record and any orders documented therein. Any exceptions are noted below.
--- NOTE | 2021-04-26 13:52 | Electrocardiogram Report ---
Test Reason : Blood Pressure : / mmHG Vent. Rate : 064 BPM Atrial Rate : 064 BPM P-R Int : 174 ms QRS Dur : 088 ms QT Int : 420 ms P-R-T Axes : 023 061 055 degrees QTc Int : 433 ms Sinus rhythm with Premature atrial complexes Otherwise normal ECG When compared with ECG of 26-DEC-2020 22:34, Premature atrial complexes are now Present Confirmed by Kashif Fontanez ([id number]) on 04/26/2021 1:52:11 PM Referred By: REFERRED SELF Confirmed By:Kashif Fontanez
--- NOTE | 2021-04-26 13:59 | Fluoroscopy Report ---
FL cervical 2-3V CLINICAL HISTORY: C3-C4 ACDF TECHNIQUE: 2 views were obtained with the C-arm in the OR with the above procedure. Total fluoroscopy time was 9.7 seconds. Total skin dose was 1.23 mGy. Comparison: None available at the time of this dictation. FINDINGS/IMPRESSION: Multiple intraoperative images were obtained. Please correlate with intraoperative fluoroscopy and operative report. ACT 112: Negative or not required by law. Electronically signed by: Zack Brandon M.D. 04/26/2021 1:58 PM
--- NOTE | 2021-04-26 14:39 | Anesthesiology Progress Note ---
Date of Service April 26, 2021 Anesthesia Post Procedure Vital Signs Vital Signs: Temp Pulse Pulse Pulse Resp BP BP 04/26/21 14:35 66 20 04/26/21 14:25 67 18 04/26/21 14:15 67 23 04/26/21 14:05 69 20 04/26/21 13:55 73 18 04/26/21 13:45 72 20 04/26/21 13:35 96.8 F L 86 17 04/26/21 11:22 98.1 F 67 18 04/26/21 07:07 97.5 F L 64 16 126/74 04/25/21 21:07 97.7 F 63 16 160/87 H 04/25/21 20:13 66 19 04/25/21 16:31 97.9 F 68 18 145/82 H BP Pulse Ox 04/26/21 14:35 119/70 93 04/26/21 14:25 113/65 92 04/26/21 14:15 114/70 92 04/26/21 14:05 113/64 93 04/26/21 13:55 122/67 96 04/26/21 13:45 122/65 96 04/26/21 13:35 139/79 95 04/26/21 11:22 142/89 H 98 04/26/21 07:07 92 04/25/21 21:07 97 04/25/21 20:13 127/89 96 04/25/21 16:31 94 Transfer of Care Handoff Completed per policy Notes Mental Status: alert / awake / arousable and participated in evaluation Patient Amnestic to Procedure: Yes Nausea / Vomiting: adequately controlled Pain: adequately controlled Airway Patency, RR, SpO2: stable & adequate BP & HR: stable & adequate Hydration State: stable & adequate Anesthetic Complications: no major complications apparent and Pt Satisfied with anesthetic care
[2021-04-26] MEDS ORDERED: ACETAMINOPHEN 1,000 MG/100 ML VIAL IV PRN (15:56)
[2021-04-26] MEDS ORDERED: dexAMETHasone 8 MG in SYRINGE 0 ML IV PRN (15:56)
[2021-04-26] MEDS ORDERED: HYDROmorphone INJ 0.5 MG/0.5 ML SYR IV PRN (15:56)
[2021-04-26] MEDS ORDERED: ALUMINUM/MAGNESIUM SUSP 30 ML UDC PO PRN (15:56)
[2021-04-26] MEDS ORDERED: HYDROmorphone INJ 1 MG/ML SYRINGE IV PRN (15:56)
[2021-04-26] MEDS ORDERED: traMADol HCL 50 MG TABLET PO PRN (15:56)
[2021-04-26] MEDS ORDERED: hydrOXYzine HCl 25 MG TAB PO PRN (15:56)
[2021-04-26] MEDS ORDERED: bisacodyL 10 MG SUPP PR PRN (15:56)
[2021-04-26] MEDS ORDERED: LORazepam 0.5 MG TAB PO PRN (15:56)
[2021-04-26] MEDS ORDERED: NALOXONE HCL 0.4 MG/1 ML VIAL/CARP IV PRN (15:56)
[2021-04-26] MEDS ORDERED: RACEPINEPHRINE 2.25% NEBU SOLN 0.5 ML VIAL INH PRN (15:56)
[2021-04-26] MEDS ORDERED: FAMOTIDINE 20 MG TAB PO PRN (15:56)
[2021-04-26] MEDS ORDERED: MAGNESIUM HYDROXIDE SUSP 30 ML UDC PO PRN (15:56)
[2021-04-26] MEDS ORDERED: METOCLOPRAMIDE HCL INJ 5 MG/ML 2 ML VIAL IV PRN (15:56)
[2021-04-26] MEDS ORDERED: ONDANSETRON 4 MG OD TAB PO PRN (15:56)
[2021-04-26] MEDS ORDERED: oxyCODONE HCL IR 5 MG TAB (IMMEDIATE RELEASE) PO PRN (15:56)
[2021-04-26] MEDS ORDERED: PROMETHAZINE HCL 12.5 MG in SODIUM CHLORIDE 0.9% 50 ML IV PRN (15:56)
[2021-04-26] MEDS ORDERED: LORazepam 0.5 MG/1 ML VIAL IV PRN (15:56)
[2021-04-26] MEDS ORDERED: SOD PHOSPHATE/SOD BIPHOSPHATE ENEMA 132 ML BTL PR PRN (15:56)
[2021-04-26] MEDS ORDERED: ACETAMINOPHEN 500 MG TAB PO PRN (15:56)
[2021-04-26] MEDS ORDERED: DO NOT ADMINISTER FLU VACCINE PRN (15:56)
[2021-04-26] MEDS ORDERED: DO NOT ADMINISTER PNEUMOCOCCAL VACCINE PRN (15:56)
[2021-04-26] MEDS ORDERED: diphenhydrAMINE Capsule 25 MG CAP PO PRN (15:56)
[2021-04-26] MEDS: dexAMETHasone 6 MG in SYRINGE 0 ML IV SCH (16:51)
[2021-04-26] MEDS: ceFAZolin 2000MG 2,000 MG/15 ML SYR IV SCH (20:09)
[2021-04-26] MEDS ORDERED: DOCUSATE SODIUM/SENNA 50/8.6MG TAB PO SCH (21:00)
[2021-04-26] MEDS ORDERED: COUGH DROP (SUGAR FREE) LOZ 24 LOZ/1 BOX BUCCAL PRN (22:26)
--- NOTE | 2021-04-26 23:44 | Billing Data ---
Date of Service April 26, 2021 Coding Level of Care Code 28090 Inpt Consult Level 3
[2021-04-27] MEDS: dexAMETHasone 6 MG in SYRINGE 0 ML IV SCH ×2 (00:06→08:42)
[2021-04-27] MEDS: LACTATED RINGER'S 1,000 ML IV SCH (02:21)
[2021-04-27] MEDS: ceFAZolin 2000MG 2,000 MG/15 ML SYR IV SCH (03:44)
[2021-04-27] MEDS: POLYETHYLENE (MIRALAX) 17 GM PACK PO SCH ×2 (05:53→13:44)
[2021-04-27] MEDS: LEVOTHYROXINE SODIUM 125 MCG TABLET PO SCH (05:54)
[2021-04-27 08:27] LABS: Hematocrit (blood only) 36.3 % (42-52); Hemoglobin 12.2 g/dL (14.0-18.0); Mean Corpuscular Hemoglobin 30.6 pg (25-34); Mean Corpuscular Hgb Conc 33.6 g/dL (32-36); Mean Platelet Volume 10.1 fL (7.4-10.4); Platelet Count 157 K/uL (130-400); RDW Coefficient of Variation 14.5 % (11.5-14.5); RDW Standard Deviation 49.1 fL (36.4-46.3); Red Blood Count 3.99 M/uL (4.7-6.1)
[2021-04-27] MEDS: ROSUVASTATIN CALCIUM 10 MG TAB PO SCH (08:37)
[2021-04-27] MEDS: SERTRALINE HCL 50 MG TABLET PO SCH (08:37)
[2021-04-27 09:04] LABS: BUN Creatinine Ratio 10.9 (10-20); Calcium 9.1 mg/dl (8.5-10.1); Creatinine Clr Calc Pharmacy 59.1 ml/min; Est GFR (African American) 61.4 ml/min; Potassium 4.2 mmol/L (3.5-5.1)
--- NOTE | 2021-04-27 09:15 | Hospitalist Progress Note ---
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 - S/P Anterior cervical discectomy with bilateral foraminotomies C3-4; anterior cervical arthrodesis C3-4; cage/screw placement C3-4 on 04/26 - Pain management, DVT prophylaxis, PT/OT, and surgical management per primary team (2) Restrictive lung disease: Plan: - Does not require medicinal treatment; [place] [facility] [place] -- Possibly related to elevation of the L hemidiaphragm per pulm note, body mass - No acute respiratory findings (3) Hyperlipidemia: Plan: - Continue Rosuvastatin 10 mg daily (4) Hypothyroidism: Plan: - Continue Levothyroxine 125 mcg daily (5) Depression: Plan: - Contiue Sertraline 12.5 mg daily Plan: - Patient is doing well post-operatively. Hemodynamically stable. Chronic conditions all stable. Recommend to continue all home medications as previously prescribed. Patient would be medically optimal for discharge when surgically cleared. Hospitalists service will sign off at this time however do not hesitate to contact us with any questions or acute changes in medical status. Admission and Anticipated Discharge Date Admission Date: April 25, 2021 Subjective Pt is doing fantastic post-operatively. Reporting immediate improvement with his strenght to his RUE. 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 He reports no neck pain currently. Tolerating collar and has drain present. Tolerating diet and no difficulty swallowing with liquid diet. Hemodynamically stable. 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 strength; Denies dizziness/lightheadedness Physical Exam Physical Exam: PHYSICAL EXAM General Appearance: WDWN in NAD who is A&O x 3 HEENT: Head is normocephalic/atraumatic; Hearing grossly intact; Mucous membranes moist Neck: Collar in place with drain present and dressing applied to surgical site; no obvious hematomas or swelling around dressing, did not remove collar Heart: RRR with no M/G/R Lungs: CTA in all lung cormier bilaterally; Respirations unlabored; Neg accessory muscle use Abdomen: Soft, non-tender, non-distended; Positive BS x 4 quadrants Extremities: Neg cyanosis or edema Neurological: Speech clear; 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 stronger compared to yesterday and able to hold utensils with proper form Psychiatric: Appropriate mood/affect Skin: Normal Color; Warm/Dry Results & Data Results & Data ([facility]) Vital Signs (Past 12 Hours) Vital Signs Temp Pulse Pulse Resp BP Pulse Ox 04/27/21 08:00 80 16 97 04/27/21 07:29 36.4 C L 73 16 152/85 H 93 04/27/21 04:50 36.7 C 71 16 113/62 95 04/27/21 03:30 36.7 C 71 18 130/82 95 04/27/21 03:15 79 15 96 04/27/21 00:57 36.8 C 68 18 125/71 94 04/26/21 22:59 48 L 14 97 04/26/21 22:16 37.0 C 94 H 19 139/73 96 04/26/21 21:22 37.4 C 80 16 103/58 L 94 PG Care Time/CCT Total # of Minutes Spent Total Time Spent with Patient: Total time spent is greater than 50% in coordination of care (as documented) at patient's floor/unit and/or counseling patient: Coding Level of Care Code 79932 Inpt Consult Level 2 Diagnoses Myelopathy concurrent with and due to spinal stenosis of cervical region M48.02; G99.2 Restrictive lung disease J98.4 Hyperlipidemia E78.5 Hyperlipidemia type: unspecified Hypothyroidism E03.9 Hypothyroidism type: unspecified Depression F32.9 Depression Type: major depressive disorder Major depression recurrence: unspecified whether recurrent Active/Remission status: remission status unspecified (1) Hyperlipidemia Hyperlipidemia type: unspecified Qualified Code(s): E78.5 - Hyperlipidemia, unspecified (2) Hypothyroidism Hypothyroidism type: unspecified Qualified Code(s): E03.9 - Hypothyroidism, unspecified (3) Depression Depression Type: major depressive disorder Major depression recurrence: unspecified whether recurrent Active/Remission status: remission status unspecified Qualified Code(s): F32.9 - Major depressive disorder, single episode, unspecified
--- NOTE | 2021-04-27 11:29 | Discharge Summary ---
Date of Service April 27, 2021 Admission HPI Per Admitting Provider 81 with markedly worsening pain and arm weakness Principal Diagnosis Cervical spinal stenosis with myeloradiculopathy Discharge Data Allergies Allergy/AdvReac Type Severity Reaction Status Date / Time No Known Drug Allergies Allergy Unknown Verified 04/25/21 18:19 Consultations 04/25/21 18:16 ED Decision to Admit Stat 04/25/21 18:27 Consult Anesthesiology Stat 04/25/21 18:29 Consult Medical [Consult Internal Medicine] Stat Procedures Performed Operation Date: 04/26/21 08:20 Actual Procedures p C3-C4 Anterior Cervical Discectomy Fusion, Spinal Cord Monitoring - Fabián Freeman DO Ordered Studies 04/26/21 13:30 FL cervical 2-3V Routine Hospital Course (1) Myelopathy concurrent with and due to spinal stenosis of cervical region: Patient was admitted to hospital for significant decline in neurologic status involving upper extremities. He underwent surgery the next day. He [place] posting the orthopedic floor. Postop day 1 his arm function markedly improved. Pain well controlled. Swallowing without difficulty. TESS drain decreasing appropriate. Socially discharged home. Discharge orders instructions on the chart for further review. Total Time Total Time Spent Total Time Spent (In Minutes): 20 minutes Discharge Plan Discharge Items Patient Disposition: Home - Self-Care Reason For Visit: UPPER EXTREMITY WEAKNESS Discharge Diagnosis: Cervical spinal stenosis with myeloradiculopathy Activity: As commented below Non-emergency contact: Primary Care Provider Call non-emergency contact if: you have any medication questions Follow-up/Referrals: Kimberly Gilliland PA-C [Primary Care Provider] - Diet: Regular Addtl Attending Provider Instructions: ACTIVITY RECOMMENDATIONS: SELF CARE INSTRUCTIONS AFTER CERVICAL FUSIONS 1. No smoking. Smoking drastically decreases the chance of a solid fusion. 2. No bending, lifting more than 5 pounds, or twisting (roll like a log when turning in bed). 3. You may shower 3 days after surgery. Thoroughly dry wound. Do not soak in the tub. 4. Cervical collar: Must be worn at all times including sleeping. You may remove the brace only to bath, eat and if you are sitting in a recliner. 5. Please walk as much as you can for exercise. Gradually increase the distance that you walk as your endurance increases. SPECIAL CARE INSTRUCTIONS: VERY IMPORTANT TO READ AND REVIEW A. Do not take any anti-inflammatory medications (i.e. Indocin, Advil, Aspirin, Naprosyn, Aleve, Motrin, etc.) as these may inhibit the chance of a solid fusion. Tylenol is okay to take. B. Your surgical incision has been closed with a cosmetic suture under the skin that will dissolve in about 6 weeks. In 14 days, you can use a pair of clean scissors and cut the suture that is left outside of the skin at the ends of your incision. C. Complications are uncommon, but please contact us if you have any signs or symptoms of: 1. wound infection (fever higher than 102.5 degrees F, redness, separation of wound, drainage, or increasing pain from the incision) 2. blood clots in legs (pain, swelling, redness and warmth in legs) 3. urinary tract infection (fever higher than 102.5 degrees, burning upon urination or increased frequency of urination) 4. nerve problems (inability to walk on your toes or heels, numbness, loss of bowel or bladder control) 5. any other symptoms that concern you. D. Please call the office at if you have any concerns or questions about your operation or recovery. MANAGING PAIN AFTER SPINAL SURGERY 1. Narcotic medication is intended for short-term use and will be provided for surgical pain. Surgical pain usually lasts for a period of 4-6 weeks. Narcotic medication includes Percocet, Vicodin, Darvocet, Tylenol #3 or Lortab. 2. Longer-term pain is more appropriately treated with non-narcotic medication such as Tylenol ES. 3. Muscle spasm is not appropriately treated with narcotics. Muscle relaxers such as Soma, Flexeril or Skelaxin can be used along with Tylenol ES. 4. Remember that we all live with some "aches and pains". This is not unusual or uncommon after an injury or as we get older. 5. We will provide appropriate medication within the normal guidelines of their prescribed use. We will also be very cautious and aware of potential abuse and extended duration of patients' medication needs. 6. Please allow 2-3 days to process refills. Prescriptions will not be mailed but must be picked up at the office. FOLLOW UP VISIT: Keep your scheduled follow-up appointment. Any questions, please call the office at . Pending Studies at Discharge: No Stand-Alone Forms: [facility], Smoking Cessation Medications and DC Order Prescriptions: New tramadol 50 mg tablet 50 mg PO Q6H PRN (Reason: pain, moderate) Qty: 20 RF: 0 oxycodone 5 mg tablet 5 mg PO Q6H PRN (Reason: pain, severe) Qty: 20 RF: 0 Continued glucosamine-chondroitin [Osteo Bi-Flex] 250-200 mg tablet 1 tab PO DAILY RF: 0 multivitamin [Daily Multi-Vitamin] Tablet 1 tab PO DAILY RF: 0 magnesium oxide 500 mg capsule 500 mg PO DAILY RF: 0 fluticasone propionate [Allergy Relief (fluticasone)] 50 mcg/actuation spray,s uspension 1 spray intranasal DAILY Qty: 9.9 RF: 1 levocetirizine 5 mg tablet 5 mg PO DAILY PRN (Reason: allergy symptoms) Qty: 30 RF: 0 levothyroxine 125 mcg Capsule 125 mcg PO QAM RF: 0 rosuvastatin 10 mg Tablet 10 mg PO QAM RF: 0 sertraline [Zoloft] 25 mg tablet 12.5 mg PO QAM RF: 0 omega-3 fatty acids 1,000 mg Capsule 1,000 mg PO QAM RF: 0 cyanocobalamin (vitamin B-12) [Vitamin B-12] 500 mcg Tablet 500 mcg PO QAM RF: 0 Discharge Orders: Discharge Order (Routine); Ordered 04/27/21 Ordered By: Fabián Freeman Admission Data Admit Date/Time: 04/25/21 18:17 Attending Provider: Fabián Freeman Admit Provider: Fabián Freeman Primary Care Provider: Kimberly Gilliland Other Providers: Fabián Freeman ; [facility] ; Zack Faustin ; Gigi Francis.
[2021-04-27] MEDS ORDERED: Nursing to Pharmacy Communication SCH (11:30)
== END 2021-04-27 16:12 | disposition home or self-care (01) | DRG 472 ==
LOC: ED 16:15 → 3N 18:17

== ENCOUNTER 2022-01-18 12:24 | Observation (INO) ==
[2022-01-18 14:05] LABS: INR 1.4 (0.9-1.1); Partial Thromboplastin Ratio 0.7; Partial Thromboplastin Time 20.5 Seconds (21.0-31.0); Prothrombin Time 14.6 Seconds (9.0-12.0)
[2022-01-18 14:17] LABS: Alanine Aminotransferase 13 U/L (7-52); Albumin Globulin Ratio 1.8 (0.9-2); Albumin Level 4.4 gm/dl (3.4-5.0); Alkaline Phosphatase 43 U/L (34-104); Anion Gap 6 (3-11); Aspartate Aminotransferase 22 U/L (13-39); BUN Creatinine Ratio 27.1 (10-20); Bilirubin,Total 0.7 mg/dl (0.2-1.0); Blood Urea Nitrogen 29 mg/dl (6-23); Calcium 9.7 mg/dl (8.5-10.1); Carbon Dioxide 25 mmol/L (21-32); Chloride 108 mmol/L (98-107); Est GFR (African American) 75.6 ml/min; Est GFR (Non-African American) 65.2 ml/min; Globulin 2.5 gm/dl (2.5-4.0); Glucose 96 mg/dl (70-99(Fasting)); Magnesium 2.3 mg/dl (1.7-2.4); Potassium 4.4 mmol/L (3.5-5.1); Sodium 139 mmol/L (136-145); Total Protein 6.9 gm/dl (6.0-8.3)
--- NOTE | 2022-01-18 14:28 | CT Scan Report ---
CT SCAN OF THE BRAIN WITHOUT IV CONTRAST CLINICAL HISTORY: Strokelike symptoms. Dizziness. Blurry vision. COMPARISON STUDY: No priors. TECHNIQUE: Unenhanced axial CT scan of the brain is performed from the vertex to the skull base. A do se lowering technique was utilized adhering to the principles of ALARA. CT DOSE: 788.63 mGycm FINDINGS: Brain parenchyma: There is age-related involutional change noting moderate subcortical and periventri cular microangiopathic disease. There is no hemorrhage, mass effect, or evidence of acute territorial ischemia by CT criteria. Blanco-white matter differentiation is preserved. No extra-axial fluid collec tion is seen. Ventricles, sulci, cisterns: Prominent secondary to involutional change. Intracranial vasculature: There is atherosclerotic calcification of the cavernous carotid and vertebr al arteries. Calvarium: Unremarkable. Sinuses and mastoids: The visualized paranasal sinuses are clear. The mastoid air cells are well pneu matized. Orbits: The bony orbits are grossly intact. There are bilateral ocular lens implants. IMPRESSION: There is no hemorrhage, mass effect, or evidence of acute territorial ischemia by CT obie may. ACT 112: Negative or not required by law. Electronically signed by: Antonio Jean M.D. 01/18/2022 2:26 PM
[2022-01-18 15:18] LABS: Hematocrit (blood only) 38.2 % (40.1-51.0); Hemoglobin 12.8 g/dl (14.0-18.0); Mean Corpuscular Hemoglobin 31.5 pg (25.0-34.0); Mean Corpuscular Hgb Conc 33.5 g/dL (32.0-36.0); Mean Corpuscular Volume 94.1 fL (80.0-100.0); Mean Platelet Volume 10.2 fL (9.4-12.4); Platelet Count 141 K/uL (130-400); RDW Coefficient of Variation 12.7 % (11.5-14.5); RDW Standard Deviation 43.8 fL (36.4-46.3); Red Blood Count 4.06 M/uL (4.63-6.08); White Blood Count 6.02 K/ul (4.8-10.8)
[2022-01-18] MEDS ORDERED: SODIUM CHLORIDE 0.9% 1000ML 500 ML IV ONE (15:20)
--- NOTE | 2022-01-18 15:28 | Emergency Department Note ---
Impression & Plan TIA (transient ischemic attack), AF (amaurosis fugax) ED Provider Note NAME: MARLEN MCGRAW AGE: 81 SEX: M : 1940 ARRIVES VIA: Walk-In INFORMANT: Patient, ED PROVIDER(S): Kashif Del Valle DO CHIEF COMPLAINT: Strokelike symptoms HPI: The patient is an 81-year-old male who presented to the emergency department for an evaluation of strokelike symptoms. The patient was in the rating room for a prolonged period of time and had orders placed. The patient was recently brought back to the room. I evaluated the patient in room C7. The patient states he had an acute onset of vision loss in his left eye at approximately 11 AM. The patient states he was working in his garage hanging a door. He was exerting himself but he says not overly exerting himself. He states he started noticing lightheadedness and then felt his vision in his left eye change. He felt it go dark but also he noticed some halos associated with it. The patient states his vision appears to be back to normal at this time. He states he still feels dizzy and lightheaded. He has no history of stroke. He denies having any chest pain or swelling in the legs. He does complain of some difficulty breathing that he has had ongoing for many months since he had COVID-19 infection. He denies having any changes to his medications. He called his primary care physician and was referred to the emergency department for further evaluation. ROS: See above HPI for pertinent positives & negatives. A total of 10 systems reviewed and were otherwise negative. PAST MEDICAL HISTORY: See Below PAST SURGICAL HISTORY: See Below FAMILY HISTORY: See Below SOCIAL HISTORY: See Below HOME MEDICATIONS: See Below ALLERGIES: See Below VITALS: See Below PHYSICAL EXAMINATION: GENERAL: Patient is awake alert in no acute distress patient is resting comfortably and showing no signs of anxiety EYES: The conjunctivae are clear. The pupils are round and reactive. Pupils are also reactive to consensual reflex. EARS, NOSE, MOUTH AND THROAT: The nose is without any evidence of any deformity. Mucous membranes are moist. Tongue is midline. NECK: The neck is nontender and supple. RESPIRATORY: Normal respiratory effort is noted there is no evidence of wheezing rhonchi or rales CARDIOVASCULAR: Regular rate and rhythm noted there no murmurs rubs or gallops normal S1 normal S2. GASTROINTESTINAL: The abdomen is soft. Abdomen is nontender. MUSCULOSKELETAL/EXTREMITIES: There is no evidence of gross deformity full range of motion is noted in the hips and shoulders. SKIN: There is no obvious evidence of any rash. There are no petechiae, pallor or cyanosis noted. NEUROLOGIC: Patient is awake alert and oriented x3 strength is symmetric patellar reflexes are 1+ bilaterally MEDICAL DECISION MAKING: The patient is an 81-year-old male who presented to the emergency department for an evaluation of visual difficulty. The patient described decreased vision in his left eye. The loss of vision was very transient and appeared to be consistent with a TIA. I discussed the patient's laboratory and radiographic studies with him. I also discussed the possibility that he may require further inpatient management such as echocardiogram or Holter monitoring. The patient was agreeable with this plan. I discussed his condition with the on-call [facility] hospitalist. Triage Nursing notes reviewed. Prior medical records reviewed Vital Signs: reviewed and remarkable for elevated blood pressure and bradycardia. Differential diagnosis: Conjunctivitis, trauma, corneal abrasion, hyphema, glaucoma, iritis, corneal ulcer, dendrite, CRAO, CRVO, vitreous detachment, retinal detachment, as well as other pathologies. ER treatment provided: See below Diagnostics interpreted by me: ECG: EKG was obtained in the emergency department. My interpretation is sinus bradycardia 57 bpm. There is no ectopy. There is no acute ST segment abnormalities noted. This was compared to a tracing from April 26, 2021. No changes were noted. Cardiac Monitoring: An order was placed for continuous cardiac monitoring. The monitor shows a rate of 55 bpm with sinus bradycardia. Laboratory studies: As stated above and show below. Imaging studies: See below Consultation(s): I discussed this case with Dr. Morgan who [facility]. Past Med/Surg History Medical History Anxiety Depression Hyperlipidemia Hypothyroidism VIOLETA (obstructive sleep apnea) Cannot tolerate device Osteoarthritis Pneumonia due to COVID-19 virus Had first vaccine in 09/03/20 at [facility] and got COVID virus afterwards (09/10/20)- admitted and readmitted in August/September 2020 (developed Covid pneumonia) [facility] > symptoms resolved, no longer requiring oxygen the past several weeks Surgical History Hx of bilateral cataract extraction Hx of colonoscopy Hx of decompressive lumbar laminectomy Hx of fusion of cervical spine No ROM limitations per pt Family History Other No family history of adverse response to anesthesia No family history of bleeding disorder Social History Smoking Status: Former smoker Tobacco Type: Cigarettes Second Hand Exposure: No; Hx Alcohol Use: No Hx Substance Use: No Preferred Language: Yi Communication Ability: Effective Manager It Security Required: No Beliefs That Will Affect Care: None marital status: Current Living Situation: Spouse Feels Safe at Home: Yes Assistive Devices: Glasses Allergies Allergies Allergy/AdvReac Type Severity Reaction Status Date / Time No Known Drug Allergies Allergy Unknown Verified 01/18/22 18:51 Home Meds Home Medications Medication Instructions Recorded Confirmed cyanocobalamin (vitamin B-12) 500 500 mcg PO QAM 12/26/20 01/18/22 mcg tablet (Vitamin B-12) glucosamine-chondroitin 250 mg-200 1 tab PO DAILY 03/01/21 01/18/22 mg tablet (Osteo Bi-Flex) clotrimazole 1 % topical solution 1 applic topical .BID UD 01/18/22 01/18/22 levothyroxine 100 mcg tablet 100 mcg PO DAILY 01/18/22 01/18/22 loratadine 10 mg tablet 10 mg PO DAILY PRN allergies 01/18/22 01/18/22 magnesium oxide 420 mg tablet 420 mg PO DAILY 01/18/22 01/18/22 meclizine 12.5 mg tablet 12.5 mg PO TID PRN dizzy 01/18/22 01/18/22 rosuvastatin 40 mg tablet 40 mg PO DAILY 01/18/22 01/18/22 sertraline 100 mg tablet 100 mg PO DAILY 01/18/22 01/18/22 Results & Data (ED) Vital Signs Vital Signs - 24 hr 01/18/22 12:39 01/18/22 15:18 01/18/22 15:19 Temperature 36.8 C Temperature Source Temporal Artery Scan Pulse Rate 59 L 52 L Pulse Rate [Right Finger] 52 L Respiratory Rate 18 12 12 Respiratory Effort / Characteristics Non-Labored Non-Labored Respiratory Depth Normal Normal Blood Pressure 131/81 Blood Pressure [Right Arm] 119/69 Blood Pressure Mean 97 Blood Pressure Mean [Right Arm] 85 Pulse Oximetry 97 98 98 Oxygen Delivery Method Room Air Room Air Room Air Sepsis Recent Fever Within 48 Hours No Sepsis New/Unexplained Change in Mental Status No Sepsis Action Taken by Nursing No Action Required 01/18/22 17:06 Temperature Temperature Source Pulse Rate Pulse Rate [Right Finger] 58 L Respiratory Rate 18 Respiratory Effort / Characteristics Non-Labored Respiratory Depth Normal Blood Pressure Blood Pressure [Right Arm] 146/78 H Blood Pressure Mean Blood Pressure Mean [Right Arm] 100 Pulse Oximetry 96 Oxygen Delivery Method Room Air Sepsis Recent Fever Within 48 Hours Sepsis New/Unexplained Change in Mental Status Sepsis Action Taken by Shelter Medications Current Medication List: was personally reviewed by me Laboratory Data Attestation: I reviewed the patient's lab results. Result diagrams: 01/19/22 07:58 01/19/22 07:58 Lab Results 01/18/22 01/18/22 01/18/22 Range/Units 13:43 13:43 13:43 WBC Cancelled RBC Cancelled Hgb Cancelled Hct Cancelled MCV Cancelled MCH Cancelled MCHC Cancelled RDW Std Deviation Cancelled RDW Coeff of Devan Cancelled Plt Count Cancelled MPV Cancelled Absolute Nucleated RBC Cancelled Nucleated RBC % (auto) Cancelled Platelet Estimate Cancelled PT 14.6 H (9.0-12.0) Seconds INR 1.4 H (0.9-1.1) APTT 20.5 L (21.0-31.0) Seconds PTT Ratio 0.7 Sodium 139 (136-145) mmol/L Potassium 4.4 (3.5-5.1) mmol/L Chloride 108 H (98-107) mmol/L Carbon Dioxide 25 (21-32) mmol/L Anion Gap 6 (3-11) BUN 29 H (6-23) mg/dl Creatinine 1.07 (0.6-1.4) mg/dl Est Cr Clr Drug Dosing Not Reportable Est GFR ( Amer) 75.6 ml/min Est GFR (Non-Af Amer) 65.2 ml/min BUN/Creatinine Ratio 27.1 H (10-20) Glucose 96 (70-99(Fasting)) mg/dl Calcium 9.7 (8.5-10.1) mg/dl Magnesium 2.3 (1.7-2.4) mg/dl Total Bilirubin 0.7 (0.2-1.0) mg/dl AST 22 (13-39) U/L ALT 13 (7-52) U/L Alkaline Phosphatase 43 (34-104) U/L Total Protein 6.9 (6.0-8.3) gm/dl Albumin 4.4 (3.4-5.0) gm/dl Globulin 2.5 (2.5-4.0) gm/dl Albumin/Globulin Ratio 1.8 (0.9-2) SARS-CoV-2, RNA, NAAT (NEGATIVE) 01/18/22 01/18/22 Range/Units 13:43 15:10 WBC 6.02 RBC 4.06 L Hgb 12.8 L Hct 38.2 L MCV 94.1 MCH 31.5 MCHC 33.5 RDW Std Deviation 43.8 RDW Coeff of Devan 12.7 Plt Count 141 MPV 10.2 Absolute Nucleated RBC Nucleated RBC % (auto) Platelet Estimate PT (9.0-12.0) Seconds INR (0.9-1.1) APTT (21.0-31.0) Seconds PTT Ratio Sodium (136-145) mmol/L Potassium (3.5-5.1) mmol/L Chloride (98-107) mmol/L Carbon Dioxide (21-32) mmol/L Anion Gap (3-11) BUN (6-23) mg/dl Creatinine (0.6-1.4) mg/dl Est Cr Clr Drug Dosing Est GFR ( Amer) ml/min Est GFR (Non-Af Amer) ml/min BUN/Creatinine Ratio (10-20) Glucose (70-99(Fasting)) mg/dl Calcium (8.5-10.1) mg/dl Magnesium (1.7-2.4) mg/dl Total Bilirubin (0.2-1.0) mg/dl AST (13-39) U/L ALT (7-52) U/L Alkaline Phosphatase (34-104) U/L Total Protein (6.0-8.3) gm/dl Albumin (3.4-5.0) gm/dl Globulin (2.5-4.0) gm/dl Albumin/Globulin Ratio (0.9-2) SARS-CoV-2, RNA, NAAT NEGATIVE (NEGATIVE) Administered Medications Clopidogrel Bisulfate (Clopidogrel Bisulfate 75 Mg Tab) 75 mg PO [facility] Stop: 02/17/22 19:29 Last Admin: 01/19/22 09:13 Dose: 75 mg Documented By: Admin: 01/18/22 20:49 Dose: 75 mg Documented By: NED Enoxaparin Sodium (Enoxaparin Inj 40 Mg/0.4 Ml Syr) 40 mg SQ Q24H JASS Stop: 02/18/22 08:59 Last Admin: 01/19/22 09:12 Dose: 40 mg Documented By: RENETTA Levothyroxine Sodium (Levothyroxine Sodium 100 Mcg Tablet) [facility]: 02/18/22 06:29 Last Admin: 01/19/22 06:03 Dose: 100 mcg Documented By: NED Rosuvastatin Calcium (Rosuvastatin Calcium 20 Mg Tab) 40 mg PO [facility] Stop: 02/18/22 08:59 Last Admin: 01/19/22 09:13 Dose: 40 mg Documented By: RENETTA Sertraline HCl (Sertraline Hcl 50 Mg Tablet) 100 mg PO [facility] Stop: 02/18/22 08:59 Last Admin: 01/19/22 09:13 Dose: 100 mg Documented By: RENETTA Discontinued Medications Sodium Chloride (Nss 1000ml) 500 mls @ 999 mls/hr IV .Q31M ONE Stop: 01/18/22 15:50 Last Infusion: 01/18/22 17:06 Dose: 0 mls/hr Documented By: Admin: 01/18/22 15:55 Dose: 999 mls/hr Documented By: LIZZIE Ioversol (Optiray 320 125ml) 121 ml IV ONCE ONE Stop: 01/18/22 16:09 Last Admin: 01/18/22 16:08 Dose: 121 ml Documented By: SHILPI Imaging Data Radiologist's Impression: Head CT 01/18/22 12:43 CT SCAN OF THE BRAIN WITHOUT IV CONTRAST CLINICAL HISTORY: Strokelike symptoms. Dizziness. Blurry vision. COMPARISON STUDY: No priors. TECHNIQUE: Unenhanced axial CT scan of the brain is performed from the vertex to the skull base. A dose lowering technique was utilized adhering to the principles of ALARA. CT DOSE: 788.63 mGycm FINDINGS: Brain parenchyma: There is age-related involutional change noting moderate subcortical and periventricular microangiopathic disease. There is no hemorrhage, mass effect, or evidence of acute territorial ischemia by CT criteria. Blanco-white matter differentiation is preserved. No extra-axial fluid collection is seen. Ventricles, sulci, cisterns: Prominent secondary to involutional change. Intracranial vasculature: There is atherosclerotic calcification of the cavernous carotid and vertebral arteries. Calvarium: Unremarkable. Sinuses and mastoids: The visualized paranasal sinuses are clear. The mastoid air cells are well pneumatized. Orbits: The bony orbits are grossly intact. There are bilateral ocular lens implants. IMPRESSION: There is no hemorrhage, mass effect, or evidence of acute territorial ischemia by CT criteria. ACT 112: Negative or not required by law. Electronically signed by: Antoino Jean M.D. 01/18/2022 2:26 PM Head CTA 01/18/22 15:20 HEAD & NECK CTA HISTORY: Transient ischemic attack. Dizziness. Blurred vision. TECHNIQUE: Multiaxial CT images of the head were performed following the intravenous administration of contrast to evaluate the major cerebral vessels. Multiaxial CT images of the neck were also performed following the intravenous administration of contrast to evaluate the major cervical vessels. Maximum intensity projection images were also obtained. A dose lowering technique was utilized adhering to the principles of ALARA. COMPARISON: Head CT 01/18/2022. FINDINGS: There is no mass, hematoma, midline shift, or acute infarct. Visualized intrac ranial internal carotid arteries, distal vertebral arteries, and basilar artery are widely patent. There is no significant stenosis, occlusion, or aneurysm seen within the bilateral ACAs, MCAs, or production expert. The major dural venous sinuses are patent. Moderate calcified plaque within the bilateral carotid siphons and distal vertebral arteries. The aortic arch and proximal great vessels are widely patent. There is no significant stenosis, occlusion, or dissection identified within the bilateral common carotid or vertebral arteries. Moderate calcified plaque within the bila teral carotid bifurcations resulting in less than 50% stenosis within the proximal bilateral internal carotid arteries. IMPRESSION: 1. No significant stenosis, occlusion, or aneurysm within the [place]. 2. No high-grade stenosis, occlusion, or dissection identified within the carotid or vertebral arteries. 3. There is less than 50% stenosis within the proximal bilateral internal carotid arteries due to the calcified plaque. ACT 112: Negative or not required by law. Electronically signed by: Steve Conde M.D. 01/18/2022 4:30 PM Neck CTA 01/18/22 15:20 HEAD & NECK CTA HISTORY: Transient ischemic attack. Dizziness. Blurred vision. TECHNIQUE: Multiaxial CT images of the head were performed following the i ntravenous administration of contrast to evaluate the major cerebral vessels. Multiaxial CT images of the neck were also performed following the intravenous administration of contrast to evaluate the major cervical vessels. Maximum intensity projection images were also obtained. A dose lowering technique was utilized adhering to the principles of ALARA. COMPARISON: Head CT 01/18/2022. FINDINGS: There is no mass, hematoma, midline shift, or acute infarct. Visualized intracranial internal carotid arteries, distal vertebral arteries, and basilar artery are widely patent. There is no significant stenosis, occlusion, or aneurysm seen within the bilateral ACAs, MCAs, or production expert. The major dural venous sinuses are patent. Moderate calcified plaque within the bilateral carotid siphons and distal vertebral arteries. The aortic arch and proximal great vessels are widely patent. There is no sig nificant stenosis, occlusion, or dissection identified within the bilateral common carotid or vertebral arteries. Moderate calcified plaque within the bilateral carotid bifurcations resulting in less than 50% stenosis within the proximal bilateral internal carotid arteries. IMPRESSION: 1. No significant stenosis, occlusion, or aneurysm within the [place]. 2. No high-grade stenosis, occlusion, or dissection identified within the caroti d or vertebral arteries. 3. There is less than 50% stenosis within the proximal bilateral internal carotid arteries due to the calcified plaque. ACT 112: Negative or not required by law. Electronically signed by: Steve Conde M.D. 01/18/2022 4:30 PM Chest X-Ray 01/18/22 15:21 XR chest 1V portable HISTORY: Stroke like symptoms. Dizziness. Blurred vision. COMPARISON: Chest 04/25/2021. FINDINGS: No pneumothorax. No pleural effusions. There is chronic elevation the left hemidiaphragm with left basilar linear densities consistent with subsegmental atelectasis. This remains unchanged. No new focal lung consolidations to suggest pneumonia. No evidence for pulmonary edema. The cardiac silhouette remains mildly enlarged. Cervical spinal fusion hardware is again noted. IMPRESSION: No significant change compared to the prior study. No acute process. ACT 112: Negative or not required by law. Electronically signed by: Steve Conde M.D. 01/18/2022 3:53 PM Discharge Plan Visit Data Chief Complaint: Dizziness Stated Complaint: DIZZY, AND BLURRY VISION IN LEFT EYE ED Provider: Kashif Del Valle Discharge Problem: TIA (transient ischemic attack), AF (amaurosis fugax) Patient Disposition: Admitted As Inpatient Discharge Instructions Interventions: ED Discharge Assessment Last Done: 01/18/22 18:31
--- NOTE | 2022-01-18 15:55 | XRay Report ---
XR chest 1V portable HISTORY: Stroke like symptoms. Dizziness. Blurred vision. COMPARISON: Chest 04/25/2021. FINDINGS: No pneumothorax. No pleural effusions. There is chronic elevation the left hemidiaphragm wi th left basilar linear densities consistent with subsegmental atelectasis. This remains unchanged. No new focal lung consolidations to suggest pneumonia. No evidence for pulmonary edema. The cardiac lucy houette remains mildly enlarged. Cervical spinal fusion hardware is again noted. IMPRESSION: No significant change compared to the prior study. No acute process. ACT 112: Negative or not required by law. Electronically signed by: Steve Conde M.D. 01/18/2022 3:53 PM
[2022-01-18] MEDS ORDERED: OPTIRAY 320 125ml IV ONE (16:08)
--- NOTE | 2022-01-18 16:33 | CT Scan Report ---
HEAD & NECK CTA HISTORY: Transient ischemic attack. Dizziness. Blurred vision. TECHNIQUE: Multiaxial CT images of the head were performed following the intravenous administration o f contrast to evaluate the major cerebral vessels. Multiaxial CT images of the neck were also perform ed following the intravenous administration of contrast to evaluate the major cervical vessels. Maxim um intensity projection images were also obtained. A dose lowering technique was utilized adhering to the principles of ALARA. COMPARISON: Head CT 01/18/2022. FINDINGS: There is no mass, hematoma, midline shift, or acute infarct. Visualized intracranial internal carotid arteries, distal vertebral arteries, and basilar artery are widely patent. There is no significant s tenosis, occlusion, or aneurysm seen within the bilateral ACAs, MCAs, or facs teacher. The major dural venous sinuses are patent. Moderate calcified plaque within the bilateral carotid siphons and distal verteb ral arteries. The aortic arch and proximal great vessels are widely patent. There is no significant stenosis, occ lusion, or dissection identified within the bilateral common carotid or vertebral arteries. Moderate calcified plaque within the bilateral carotid bifurcations resulting in less than 50% stenosis within the proximal bilateral internal carotid arteries. IMPRESSION: 1. No significant stenosis, occlusion, or aneurysm within the [place]. 2. No high-grade stenosis, occlusion, or dissection identified within the carotid or vertebral arteri es. 3. There is less than 50% stenosis within the proximal bilateral internal carotid arteries due to the calcified plaque. ACT 112: Negative or not required by law. Electronically signed by: Steve Conde M.D. 01/18/2022 4:30 PM
--- NOTE | 2022-01-18 16:33 | CT Scan Report ---
HEAD & NECK CTA HISTORY: Transient ischemic attack. Dizziness. Blurred vision. TECHNIQUE: Multiaxial CT images of the head were performed following the intravenous administration o f contrast to evaluate the major cerebral vessels. Multiaxial CT images of the neck were also perform ed following the intravenous administration of contrast to evaluate the major cervical vessels. Maxim um intensity projection images were also obtained. A dose lowering technique was utilized adhering to the principles of ALARA. COMPARISON: Head CT 01/18/2022. FINDINGS: There is no mass, hematoma, midline shift, or acute infarct. Visualized intracranial internal carotid arteries, distal vertebral arteries, and basilar artery are widely patent. There is no significant s tenosis, occlusion, or aneurysm seen within the bilateral ACAs, MCAs, or steel finisher. The major dural venous sinuses are patent. Moderate calcified plaque within the bilateral carotid siphons and distal verteb ral arteries. The aortic arch and proximal great vessels are widely patent. There is no significant stenosis, occ lusion, or dissection identified within the bilateral common carotid or vertebral arteries. Moderate calcified plaque within the bilateral carotid bifurcations resulting in less than 50% stenosis within the proximal bilateral internal carotid arteries. IMPRESSION: 1. No significant stenosis, occlusion, or aneurysm within the [place]. 2. No high-grade stenosis, occlusion, or dissection identified within the carotid or vertebral arteri es. 3. There is less than 50% stenosis within the proximal bilateral internal carotid arteries due to the calcified plaque. ACT 112: Negative or not required by law. Electronically signed by: Steve Conde M.D. 01/18/2022 4:30 PM
--- NOTE | 2022-01-18 17:26 | History & Physical Report ---
Date of Service January 18, 2022 Assessment & Plan (1) Vision loss: Plan: Lalo is an 81-year-old male with a past medical history of restrictive lung disease, esophageal mass, elevated diaphragm, chronic respiratory failure with hypoxia, cervical stenosis status post discectomy, VIOLETA, depression, hyperlipidemia, and hypothyroidism who presented with dizziness and blurry vision in his left eye. Dizziness, vision change suspected TIA - Vision has returned to normal CXR: No acute findings. Chronic left hemidiaphragm elevation Neck CTA: Less than 50% stenosis in proximal bilateral internal carotid, no high-grade stenosis of the carotid/vertebral arteries, no significant stenosis/occlusion/aneurysm of the [place]: No acute hemorrhage, mass-effect, or evidence of stroke on CT No leukocytosis, hemoglobin 12.8, sodium normal, potassium normal Creatinine normal at baseline, on admission 1.07 Glucose 96, normal No transaminitis COVID-negative EKG: Sinus bradycardia MRIbrain pending Lipid panel pending, continue statin and increase rosuvastatin to 20 mg if LDL is not overly suppressed Patient reports he was on aspirin for about 1 week recently started on 81 mg dose prior to his episode. Given that current symptoms occurred while on aspirin, will switch to Plavix 75 mg daily Echo pending, denies history of arrhythmia and A. fib Restrictive lung disease Last PFTs 03/01/2021. FVC 69%, FEV1 73%, FEV1/FVC 105% with insignificant bronchodilator response. No obstruction. Breathing is at normal baseline Supplemental O2 as needed, currently 96% on room air No acute exacerbation, lungs clear on exam Cervical spinal stenosis with myelopathy Severe C3-C4 stenosis S/p anterior cervical discectomy and bilateral foraminotomy on 04/26/2021 Patient reports he has been doing well with no focal weakness or problems in the last year other than persistent numbness in his right small finger Hyperlipidemia Continue statin Patient reports he recently started Zetia 10 mg and took his first dose 15 mi nutes before the symptoms started, discussed that this is not too sedated with stroke/vision loss however patient does not wish to take this further. Held. Lipid panel pending, adjust statin as needed Anxiety/depression Continue sertraline daily DVT prophylaxis: Lovenox Diet: Heart healthy Disposition: Medical telemetry for monitoring, TIA/CVA eval CODE STATUS: Full code, discussed with patient at bedside. Surrogate decision maker would be his in an emergency (2) Chronic respiratory failure with hypoxia: (3) Cervical stenosis of spinal canal: (4) S/P cervical discectomy: (5) VIOLETA (obstructive sleep apnea): (6) Hyperlipidemia: (7) Hypothyroidism: (8) Restrictive lung disease: History of Present Illness Primary Care Provider: Kimberly Gilliland PA-C "Henrik" is seen at the bedside. Reports he was working with a friend in the yard this morning for about a half hour moving dirt into a truck and all of a sudden his L eye developed blurry black/white circles all over the field (peripheral and central) and near complete loss of vision along with global fatigue without focal weakness. "[place] like my eye was rolling around in my head." still has mild headache/throbbing behind his right eye gradually improving and now a 1-2/10 'not bad now.' R eye is normal. His vision is currently back to normal, Henrik reports his vision seemed to return around 15 minutes and gradually came back. No hx of afib or heart arrythmia. No prior syncope/presyncopal episodes. No chest pain, no chest pressure, shortness of breath, nausea, vomiting, or diarrhea. Took Ezetimbe 10mg for the first time 15 minutes before his episode. Has been doing well since his cervical discetomy. R hand 5th digit is numb, otherwise does well with good strength and no change in the last year. Previously on baby aspirin 81mg daily which he started ~7 days ago. Medical History: Reviewed Medications: Reviewed. Took meds ~30 minutes before his episode. Surgical History: Reviewed Allergies: Reviewed Social History: No tobacco use, no alcohol use. Code Status: Surrogate DM would be his Ewelina. Full Code. Allergies Allergy/AdvReac Type Severity Reaction Status Date / Time No Known Drug Allergies Allergy Unknown Verified 04/25/21 18:19 Home Medications Medication Instructions Recorded Confirmed Type levothyroxine 125 mcg capsule 125 mcg PO QAM 08/24/20 04/25/21 History rosuvastatin 10 mg tablet 10 mg PO QAM 08/24/20 04/25/21 History sertraline 25 mg tablet (Zoloft) 12.5 mg PO QAM 11/08/20 04/25/21 History cyanocobalamin (vitamin B-12) 500 500 mcg PO QAM 12/26/20 04/25/21 History mcg tablet (Vitamin B-12) omega-3 fatty acids 1,000 mg 1,000 mg PO QAM 12/26/20 04/25/21 History capsule fluticasone propionate 50 1 spray intranasal DAILY #9.9 grams 03/01/21 04/25/21 Rx mcg/actuation nasal spray,suspension (Allergy Relief (fluticasone)) glucosamine-chondroitin 250 mg-200 1 tab PO DAILY 03/01/21 04/25/21 History mg tablet (Osteo Bi-Flex) levocetirizine 5 mg tablet 5 mg PO DAILY PRN allergy symptoms 03/01/21 04/25/21 Rx #30 tabs magnesium oxide 500 mg capsule 500 mg PO DAILY 03/01/21 04/25/21 History multivitamin (Daily Multi-Vitamin 1 tab PO DAILY 03/01/21 04/25/21 History tablet) oxycodone 5 mg tablet 5 mg PO Q6H PRN pain, severe #20 04/26/21 Rx tabs tramadol 50 mg tablet 50 mg PO Q6H PRN pain, moderate 04/26/21 Rx #20 tabs Past Med/Surg History Medical History Anxiety Depression Hyperlipidemia Hypothyroidism VIOLETA (obstructive sleep apnea) Cannot tolerate device Osteoarthritis Pneumonia due to COVID-19 virus Had first vaccine in 09/03/20 at [place] and got COVID virus afterwards (09/10/20)- admitted and readmitted in August/September 2020 (developed Covid pneumonia) [facility] > symptoms resolved, no longer requiring oxygen the past several weeks Surgical History Hx of bilateral cataract extraction Hx of colonoscopy Hx of decompressive lumbar laminectomy Hx of fusion of cervical spine No ROM limitations per pt Family History Other No family history of adverse response to anesthesia No family history of bleeding disorder Social History Smoking Status: Never smoker Tobacco Type: Cigarettes Second Hand Exposure: No; Hx Alcohol Use: No Hx Substance Use: No Preferred Language: Maldivian Communication Ability: Effective Stretch Press Operator Required: No Beliefs That Will Affect Care: None marital status: Current Living Situation: Spouse Feels Safe at Home: Yes Assistive Devices: Glasses Review of Systems Review of Systems: All systems reviewed & are unremarkable except as noted in Subjective Physical Exam Physical Exam: General: A&Ox3. NAD. Cooperative. HEENT: Atraumatic, normocephalic. Pulm: CTAB A&P. -wheezes, -rales, -rhonchi. Symmetrical chest rise. No increased work of breathing. No respiratory distress. Cardiac: RRR, -mrg. Radial pulses intact and symmetrical. Abdominal: Nontender, nondistended, soft. BS present. CRANIAL NERVES: II: Pupils equal and reactive, no relative afferent pupillary defect, no VF cuts III, IV, : EOM intact, no gaze preference or deviation, no nystagmus. V: normal sensation in V1, V2, and V3 segments bilaterally VII: no asymmetry, no nasolabial fold flattening VIII: normal hearing to speech IX, X: normal palatal elevation, no uvular deviation XI: 5/5 head turn and 5/5 shoulder shrug bilaterally XII: midline tongue protrusion MOTOR: RUE: 5/5 Shoulder internal rotation, external rotation, flexion, extension, abduction, adduction 5/5 Elbow flexion/extension, wrist flexion/extension 5/5 applications manager strength, finger flexion/extension, interosseus LUE: 5/5 Shoulder internal rotation, external rotation, flexion, extension, abduction, adduction 5/5 Elbow flexion/extension, wrist flexion/extension 5/5 applications manager strength, finger flexion/extension, interosseus RLE: 5/5 to hip flexion laying in bed, knee flexion/extension, ankle dorsiflexion/plantarflexion LLE: 5/5 to hip flexion laying in bed, knee flexion/extension, ankle dorsiflexion/plantarflexion REFLEXES: 2/4 patellar, bicepts, and achilles DTR without asymmetry. Bilateral flexor planter response, no Santa's, no clonus SENSORY: Sensation to soft touch diminished in right fifth digit, otherwise sensation intact to soft touch in hands and feet without asymmetry. No hemineglect, n COORD: Normal finger to nose Results & Data Results & Data ([facility]) Vital Signs (Past 12 Hours) Vital Signs Temp Pulse Pulse Resp BP BP Pulse Ox 01/18/22 17:06 58 L 18 146/78 H 96 01/18/22 15:19 52 L 12 119/69 98 01/18/22 15:18 52 L 12 98 01/18/22 12:39 36.8 C 59 L 18 131/81 97 O2 Del Method 01/18/22 17:06 Room Air 01/18/22 15:19 Room Air 01/18/22 15:18 Room Air 01/18/22 12:39 Room Air PG Care Time/CCT Total # of Minutes Spent Total Time Spent with Patient: Total time spent is greater than 50% in coordination of care (as documented) at patient's floor/unit and/or counseling patient: Coding Level of Care Code INT OBSERVATION CARE 50M LVL 2 Diagnoses Vision loss H54.7 Chronic respiratory failure with hypoxia J96.11 Cervical stenosis of spinal canal M48.02 S/P cervical discectomy Z98.890 VIOLETA (obstructive sleep apnea) G47.33 Hyperlipidemia E78.5 Hyperlipidemia type: unspecified Hypothyroidism E03.9 Hypothyroidism type: unspecified Restrictive lung disease J98.4 (1) Hyperlipidemia Hyperlipidemia type: unspecified Qualified Code(s): E78.5 - Hyperlipidemia, unspecified (2) Hypothyroidism Hypothyroidism type: unspecified Qualified Code(s): E03.9 - Hypothyroidism, unspecified
--- NOTE | 2022-01-18 18:53 | Electrocardiogram Report ---
Test Reason : Blood Pressure : / mmHG Vent. Rate : 057 BPM Atrial Rate : 057 BPM P-R Int : 180 ms QRS Dur : 086 ms QT Int : 444 ms P-R-T Axes : 025 056 042 degrees QTc Int : 432 ms Sinus bradycardia Otherwise normal ECG When compared with ECG of 26-APR-2021 07:11, Premature atrial complexes are no longer Present Confirmed by Reyes Wilder ([id number]) on 01/18/2022 6:53:04 PM Referred By: Confirmed By:Alvaro Wilder
[2022-01-18] MEDS ORDERED: ACETAMINOPHEN 325 MG TAB PO PRN (19:15)
[2022-01-18] MEDS: CLOPIDOGREL BISULFATE 75 MG TAB PO SCH (20:49)
--- NOTE | 2022-01-18 21:00 | Magnetic Resonance Report ---
Brain MRI WITHOUT CONTRAST HISTORY: Pain pulsating behind left eye. Dizziness. Blurred vision. Weakness. TIA/CVA eval TECHNIQUE: Multiplanar multisequence MRI of the brain was performed without the use of contrast. COMPARISON STUDY: Head CT 01/18/2022. FINDINGS: There is no mass, hematoma, midline shift, or acute infarct. The paranasal sinuses are troy r. The mastoid air cells are clear. The ventricles and sulci demonstrate mild age-related involutiona l changes. Scattered foci of T2 hyperintensity seen within the periventricular and subcortical white matter are nonspecific but suggestive of mild microvascular ischemic changes. The major vascular flow voids at the skull base are well-maintained. Evidence for prior bilateral lens replacement. Otherwis e, the orbits are unremarkable. IMPRESSION: No acute intracranial abnormality. Scattered foci of T2 hyperintensity seen within the periventricula r and subcortical white matter are nonspecific but favor microvascular ischemic change. ACT 112: Negative or not required by law. Electronically signed by: Steve Conde M.D. 01/18/2022 8:58 PM
[2022-01-19] MEDS ORDERED: LEVOTHYROXINE SODIUM 100 MCG TABLET PO SCH (06:30)
[2022-01-19 08:19] LABS: Hematocrit (blood only) 39.4 % (40.1-51.0); Hemoglobin 13.1 g/dl (14.0-18.0); Mean Corpuscular Hgb Conc 33.2 g/dL (32.0-36.0); Mean Corpuscular Volume 93.4 fL (80.0-100.0); Mean Platelet Volume 10.3 fL (9.4-12.4); Platelet Count 145 K/uL (130-400); RDW Coefficient of Variation 12.7 % (11.5-14.5); RDW Standard Deviation 43.4 fL (36.4-46.3); Red Blood Count 4.22 M/uL (4.63-6.08); White Blood Count 4.87 K/ul (4.8-10.8)
[2022-01-19 08:31] LABS: Basophils # (auto) 0.04 K/uL (0-0.2); Basophils % (auto) 0.8 %; Eosinophils # (auto) 0.16 K/uL (0-0.50); Eosinophils % (auto) 3.3 %; Immature Granulocytes # (auto) 0.02 K/uL (0.00-0.02); Immature Granulocytes % (auto) 0.4 %; Lymphocytes # (auto) 1.51 K/uL (1.2-3.4); Monocytes % (auto) 8.2 %; Neutrophils # (auto) 2.74 K/uL (1.4-6.5); Neutrophils % (auto) 56.3 %
[2022-01-19 08:39] LABS: Albumin Globulin Ratio 1.7 (0.9-2); BUN Creatinine Ratio 21.6 (10-20); Bilirubin,Total 0.5 mg/dl (0.2-1.0); Calcium 9.2 mg/dl (8.5-10.1); Chol HDL Ratio 4.4 (0-5); Creatinine Clr Calc Pharmacy 71.2 ml/min; Est GFR (African American) 80.1 ml/min; Est GFR (Non-African American) 69.1 ml/min; Globulin 2.3 gm/dl (2.5-4.0); Potassium 4.1 mmol/L (3.5-5.1); Total Protein 6.3 gm/dl (6.0-8.3)
[2022-01-19] MEDS ORDERED: ENOXAPARIN INJ 40 MG/0.4 ML SYR SQ SCH (09:00)
[2022-01-19] MEDS ORDERED: SERTRALINE HCL 50 MG TABLET PO SCH (09:00)
[2022-01-19] MEDS ORDERED: ROSUVASTATIN CALCIUM 20 MG TAB PO SCH (09:00)
[2022-01-19] MEDS: CLOPIDOGREL BISULFATE 75 MG TAB PO SCH (09:13)
[2022-01-19 09:51] LABS: Estimated Average Glucose 123 mg/dl; Hemoglobin A1C 5.9 % (4.5-5.6)
--- NOTE | 2022-01-19 13:50 | XCELERA ---
[id number] \\[id number]
--- NOTE | 2022-01-19 19:18 | Discharge Summary ---
Date of Service January 19, 2022 Admission HPI Per Admitting Provider "Henrik" is seen at the bedside. Reports he was working with a friend in the yard this morning for about a half hour moving dirt into a truck and all of a sudden his L eye developed blurry black/white circles all over the field (peripheral and central) and near complete loss of vision along with global fatigue without focal weakness. "[place] like my eye was rolling around in my head." still has mild headache/throbbing behind his right eye gradually improving and now a 1-2/10 'not bad now.' R eye is normal. His vision is currently back to normal, Henrik reports his vision seemed to return around 15 minutes and gradually came back. No hx of afib or heart arrythmia. No prior syncope/presyncopal episodes. No chest pain, no chest pressure, shortness of breath, nausea, vomiting, or diarrhea. Took Ezetimbe 10mg for the first time 15 minutes before his episode. Has been doing well since his cervical discetomy. R hand 5th digit is numb, otherwise does well with good strength and no change in the last year. Previously on baby aspirin 81mg daily which he started ~7 days ago. Medical History: Reviewed Medications: Reviewed. Took meds ~30 minutes before his episode. Surgical History: Reviewed Allergies: Reviewed Social History: No tobacco use, no alcohol use. Code Status: Surrogate DM would be his Ewelina. Full Code. Admission Exam Per Admitting Provider General: A&Ox3. NAD. Cooperative. HEENT: Atraumatic, normocephalic. Pulm: CTAB A&P. -wheezes, -rales, -rhonchi. Symmetrical chest rise. No increased work of breathing. No respiratory distress. Cardiac: RRR, -mrg. Radial pulses intact and symmetrical. Abdominal: Nontender, nondistended, soft. BS present. CRANIAL NERVES: II: Pupils equal and reactive, no relative afferent pupillary defect, no VF cuts III, IV, : EOM intact, no gaze preference or deviation, no nystagmus. V: normal sensation in V1, V2, and V3 segments bilaterally VII: no asymmetry, no nasolabial fold flattening VIII: normal hearing to speech IX, X: normal palatal elevation, no uvular deviation XI: 5/5 head turn and 5/5 shoulder shrug bilaterally XII: midline tongue protrusion MOTOR: RUE: 5/5 Shoulder internal rotation, external rotation, flexion, extension, abduction, adduction 5/5 Elbow flexion/extension, wrist flexion/extension 5/5 building supplies salesperson retail strength, finger flexion/extension, interosseus LUE: 5/5 Shoulder internal rotation, external rotation, flexion, extension, abduction, adduction 5/5 Elbow flexion/extension, wrist flexion/extension 5/5 building supplies salesperson retail strength, finger flexion/extension, interosseus RLE: 5/5 to hip flexion laying in bed, knee flexion/extension, ankle dorsiflexion/plantarflexion LLE: 5/5 to hip flexion laying in bed, knee flexion/extension, ankle dorsiflexion/plantarflexion REFLEXES: 2/4 patellar, bicepts, and achilles DTR without asymmetry. Bilateral flexor planter response, no Santa's, no clonus SENSORY: Sensation to soft touch diminished in right fifth digit, otherwise sensation intact to soft touch in hands and feet without asymmetry. No hemineglect, n COORD: Normal finger to nose Principal Diagnosis TIA Discharge Exam Constitutional WD/WN, vitals as above Eyes PERRL, conjunctivae normal, anicteric sclerae ENMT external ear and nose normal, oropharynx normal Neck trachea midline, no thyromegaly Respiratory normal respiratory effort, lungs clear to auscultation Cardiovascular RRR, no murmur, no edema Gastrointestinal (Abdomen) normal bowel sounds, soft, nontender, no hepatosplenomegaly Musculoskeletal no cyanosis or clubbing, extremities motor strength 5/5 Skin no rashes, warm and dry Neurologic patellar DTR's 2+ bilat, sensation intact Psychiatric A+Ox3, euthymic affect Discharge Data Allergies Allergy/AdvReac Type Severity Reaction Status Date / Time No Known Drug Allergies Allergy Unknown Verified 01/18/22 18:51 Consultations 01/18/22 17:31 ED Decision to Admit Stat Ordered Studies 01/18/22 12:43 CT head/brain wo con Stat 01/18/22 15:20 CT angio head w con Stat CT angio neck with con Stat 01/18/22 19:15 MR brain wo con Urgent Hospital Course (1) Vision loss: (2) Chronic respiratory failure with hypoxia: (3) Cervical stenosis of spinal canal: (4) S/P cervical discectomy: (5) VIOLETA (obstructive sleep apnea): (6) Hyperlipidemia: (7) Hypothyroidism: (8) Restrictive lung disease: Jay May is an 81-year-old male with a past medical history of restrictive lung disease, esophageal mass, elevated diaphragm, chronic respiratory failure with hypoxia, cervical stenosis status post discectomy, VIOLETA, depression, hyperlipidemia, and hypothyroidism who presented with dizziness and blurry vision in his left eye. When he was admitted to hospital, all symptoms had resolved. Patient had head CT, head CTA, neck CTA, brain MRI, and chest XR, which were all negative for anything acute. Patient did have some stenosis in his bilateral carotid arteries but were less than 50%. Patient had grossly normal labs, COVID negative, and EKG showing sinus bradycardia. ECHO was normal w/o any abnormalities and showed an EF of 55-60. Patient reports that he had been on aspirin for about 1 week prior to this episode. Given this we stopped his aspirin and switched to Plavix 75mg QD. Patient recently started Zetia 10mg for the first time, 15 mins before his symptoms started. Although may not had caused his symptoms, patient is hesitant to take again. Resumed his previous rosuvastatin 40mg and will continue on outpatient. Patient should follow up with his PCP in 1-2 weeks. Total Time Total Time Spent Total Time Spent (In Minutes): <30 Total Time Includes: Examination of the Patient, Discharge Planning, Medication Reconciliation, Communication With Other Providers and Other Discharge Plan Discharge Items Patient Disposition: Home - Self-Care Reason For Visit: DIZZY, AND BLURRY VISION IN LEFT EYE Discharge Diagnosis: TIA with vision dizziness Activity: Resume your previous activity Non-emergency contact: Primary Care Provider Call non-emergency contact if: your symptoms worsen, your pain is unusual for you and you have a fever Follow-up/Referrals: Kimberly Gilliland PA-C [Primary Care Provider] - Diet: Regular Addtl Attending Provider Instructions: You were admitted to the hospital for TIA with vision changes in your left eye. You were treated with supportive treatment. A discharge summary will be sent to your primary care physician to ensure continuity of care. Please bring this discharge summary with you to your next office appointment so that your provider can review it at that time. Follow-up appointments: Make a follow-up appointment with your PCP within the next week. It is very important that you follow up with them shortly after discharge from the hospital. Medications: Your medication list has been reviewed and reconciled upon discharge to ensure accuracy and continuity of care. An updated list of all your medications is included with your hospital discharge paperwork. Please review this list closely, and make note of any changes. We will send you with a prescription of clopidogrel (plavix). Take plavix (75mg) once a day. If you have any issues filling these prescriptions, please call [phone] and ask to leave a message for Dr. Beaver. Take your medications as instructed; do not skip a dose of your medicines. Make sure all of your doctors know every medicine you are taking (including inea-qkj-tcwpdzd medicines, vitamins, and supplements). Call your primary care provider before taking any new medicines (including over- the-counter medicines, vitamins, and supplements), because some of these may interact with your current medications, or may make your symptoms worse. Tell your primary care provider if you cannot afford your medications. CONTACT YOUR PRIMARY CARE PROVIDER if you experience any of the following: eye pain nausea and vomiting Difficulty following your treatment plan, or difficulty taking medications CALL [phone] OR GO TO THE EMERGENCY DEPARTMENT if you experience any of the following: Sudden, severe abdominal pain or nausea/vomiting Severe chest pain, or chest pain that radiates (moves) to your jaw or arm Sudden, severe shortness of breath or difficulty breathing Thank you for allowing us to participate in your care. Pending Studies at Discharge: No Stand-Alone Forms: My [facility], Smoking Cessation Medications and DC Order Prescriptions: New clopidogrel 75 mg Tablet 75 mg PO QAM 30 Days Qty: 30 0RF Continued glucosamine-chondroitin [Osteo Bi-Flex] 250-200 mg tablet 1 tab PO DAILY Rx Instructions: give after food/meal cyanocobalamin (vitamin B-12) [Vitamin B-12] 500 mcg Tablet 500 mcg PO QAM magnesium oxide 420 mg Tablet 420 mg PO DAILY sertraline 100 mg Tablet 100 mg PO DAILY meclizine 12.5 mg tablet 12.5 mg PO TID PRN (Reason: dizzy) levothyroxine 100 mcg Tablet 100 mcg PO DAILY clotrimazole 1 % Solution 1 applic TOPICAL .BID UD Rx Instructions: apply small amount to skin for onychomycosis loratadine 10 mg Tablet 10 mg PO DAILY PRN (Reason: allergies) rosuvastatin 40 mg Tablet 40 mg PO DAILY Discharge Orders: Discharge Order (Routine); Ordered 01/19/22 Ordered By: Antonio Beaver Admission Data Admit Date/Time: 01/18/22 17:26 Attending Provider: Yair Medina Admit Provider: Carroll Brice Primary Care Provider: Kimberly Gilliland Other Providers: Carroll Brice ; [facility] Other Interventions: Discharge Summary Assessment (RN) Last Done: 01/19/22 15:21 Supervising Physician Co-Signing Physician Notes I personally examined the patient and verified all monreal points of history and exam, discussed case, and agree with decision making with Dr Beaver Feeling good. Vision better. Dizziness resolved. Vitals noted, in general he is awake and alert pleasant no distress. HEENT normocephalic atraumatic mucous membranes moist. Breathing unlabored no accessory muscle use good effort. Skin shows no rashes no pallor or icterus. Neuro without focal deficits. TIAnow improved. Likely atherosclerotic small vessel disease with a bit of a watershed mechanism from dehydration being the "why now" for the event. Discussed adequate hydration. Change aspirin to Plavix. Increase rosuvastatin to 20 mg. Outpatient follow-up. otherwise as above
--- NOTE | 2022-01-19 19:25 | Billing Data ---
Date of Service January 19, 2022 Coding Level of Care Code 46741 OBS Care - Discharge
== END 2022-01-19 17:50 | disposition home or self-care (01) ==
LOC: 2W 12:24 → ED 12:24 → SUATTDRO 17:26 → 2W 18:31

== ENCOUNTER 2025-05-26 16:37 | Inpatient (IN) ==
--- NOTE | 2025-05-26 17:25 | CT Scan Report ---
Clinical History: Possible stroke Technique: Axial computed tomography images were obtained of the brain without intravenous contrast. Comparison is made to the prior CT dated 03/12/2035 Findings: There is unchanged cerebral atrophy, within expected limits for the patient's age. Areas of decreased attenuation are seen within the periventricular white matter, likely representing chronic small vessel ischemic disease. There is no definite sign of acute or old infarction. No intracranial hemorrhage is evident. No definite mass lesion is seen on this noncontrast examination. There is no midline shift or other form of herniation. No hydrocephalus is seen. No fracture is identified. The orbits and the visualized paranasal sinuses appear unremarkable. The mastoid air cells appear clear. Impression: 1. 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 No definite acute pathology These findings were discussed with Dr. Sarabia at 5:23 PM on 05/26/2025 Electronically signed by Sarmad Epstein 05-26-2025 5:25 PM
--- NOTE | 2025-05-26 17:26 | CT Scan Report ---
Technique: Axial computed tomography images were obtained of the brain after the administration of intravenous contrast according to the CT angiogram protocol Findings: There is calcified plaque within the cavernous and supraclinoid segments of the internal carotid arteries bilaterally, without significant stenosis There is a moderate severity focal stenosis of the P1 segment of the right posterior cervical artery No definite aneurysm is seen of the anterior, middle, or posterior cerebral artery circulations. 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 Sarabia at 5:23 PM on 05/26/2025 Electronically signed by Sarmad Epstein 05-26-2025 5:26 PM
--- NOTE | 2025-05-26 17:29 | CT Scan Report ---
Technique: Axial computed tomography images were obtained of the neck after the administration of intravenous contrast according to the CT angiogram protocol Findings: No stenosis is seen of the common carotid arteries bilaterally. There are severe stenoses of the carotid bulbs bilaterally. The remainder of the internal carotid arteries appear patent bilaterally. There are mild stenoses of the proximal external carotid arteries bilaterally There are mild stenoses of the distal vertebral arteries bilaterally. The visualized thoracic aorta appears unremarkable There is multilevel degenerative disc disease and osteoarthritis of the cervical spine. Impression: 1. 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 Mild stenoses of the distal vertebral arteries bilaterally 3. Mild ECA stenosis bilaterally Electronically signed by Sarmad Epstein 05-26-2025 5:29 PM
--- NOTE | 2025-05-26 17:32 | Emergency Department Note ---
History of Present Illness General Chief complaint: Neuro Symptoms/Deficit Stated complaint: RT ARM, HAND AND FINGER NUMB, PLATE IN SHOULDER Time Seen by Provider: 05/26/25 16:55 Source: patient Mode of arrival: ambulatory Limitations: no limitations History of Present Illness Maximum Pain Intensity: 0 Patient is an 85-year-old male who presents for weakness in his right wrist and hand. Started around 1230 today. He was at his desk when this occurred. He also reports the back of his right hand is numb. He has a history of prior cervical spine surgery several years ago. Denies any injury to the head neck or arm. Denies any visual changes, speech changes, numbness or weakness to the remaining extremities or the proximal part of his right arm. He does say he is right-hand dominant. He does work in his garage with his hands a lot. He denies any pain, discoloration, swelling of the arm. Home Medications Medication Instructions Recorded Confirmed Type magnesium oxide 420 mg tablet 420 mg PO DAILY 01/18/22 12/28/24 History rosuvastatin 40 mg tablet 40 mg PO DAILY 01/18/22 12/28/24 History aspirin 81 mg tablet,delayed 81 mg PO DAILY 11/16/24 12/28/24 History release cyanocobalamin (vitamin B-12) 1,000 mcg PO DAILY 11/16/24 12/28/24 History 1,000 mcg tablet (Vitamin B-12) docusate sodium 100 mg capsule 100 mg PO BID PRN Constipation 11/16/24 12/28/24 History ezetimibe 10 mg tablet (Zetia) 10 mg PO DAILY 11/16/24 12/28/24 History levothyroxine 112 mcg tablet 112 mcg PO DAILYBB 11/16/24 12/28/24 History polyvinyl alcohol-povidone (PF) 1 drp ophthalmic (eye) DIRECTED 11/16/24 12/28/24 History 1.4 %-0.6 % eye drops in a PRN Dry Eyes dropperette (Refresh Classic (PF)) meclizine 25 mg tablet 25 mg PO TID PRN dizziness #12 tabs 03/12/25 Rx Allergies Allergy/AdvReac Type Severity Reaction Status Date / Time No Known Allergies Allergy Verified 12/28/24 14:35 Past Med/Surg History Problem List (Updated 05/26/25 @ 18:13 by Nando Morley MD) Right arm weakness (Acute) Idiopathic polyneuropathy Lumbosacral radiculopathy TIA (transient ischemic attack) (Acute) COVID-19 (Acute) Anxiety Encounter for pre-operative examination Myelopathy concurrent with and due to spinal stenosis of cervical region Cervical radiculopathy (Acute) Allergic rhinitis with postnasal drip Restrictive lung disease Abnormal PFTs (pulmonary function tests) Pulmonary nodule Esophageal mass Encounter for pre-operative examination Hypoxia Hypoxia (Acute) Acute respiratory failure with hypoxia Hypoxia (Acute) Pneumonia due to COVID-19 virus Elevated diaphragm (Acute) Exertional shortness of breath Chronic respiratory failure with hypoxia Cervical stenosis of spinal canal S/P cervical discectomy VIOLETA (obstructive sleep apnea) Depression Hyperlipidemia Hypothyroidism Medical History AF (amaurosis fugax) Vision loss VIOLETA (obstructive sleep apnea) Cannot tolerate device Hypotension Generalized weakness Pneumonia due to COVID-19 virus Had first vaccine in 09/03/20 at [facility] and got COVID virus afterwards (09/10/20)- admitted and readmitted in September 2020 (developed Covid pneumonia) [facility] > symptoms resolved, no longer requiring oxygen the past several weeks Osteoarthritis Surgical History Hx of bilateral cataract extraction Hx of colonoscopy Hx of decompressive lumbar laminectomy Hx of fusion of cervical spine No ROM limitations per pt Family History Other No family history of adverse response to anesthesia No family history of bleeding disorder Social History Smoking Status: Never smoker Tobacco Type: Cigarettes Age Started Using Tobacco: 17; Age Quit Using Tobacco: 27; packs per day: 0.75; Second Hand Exposure: No; Do You Dip or Chew Tobacco: No; Hx Alcohol Use: No Hx Substance Use: No Preferred Language: [place] Communication Ability: Effective Pouncer Required: No Beliefs That Will Affect Care: None marital status: Current Living Situation: Spouse Feels Safe at Home: Yes Assistive Devices: None Review of Systems review of systems negative outside of positive findings mentioned in HPI. Physical Exam Vital Signs Vital Signs - 24 hr 05/26/25 16:44 05/26/25 17:20 05/26/25 17:23 Temperature 36.5 C Temperature Source Temporal Artery Scan Pulse Rate 74 68 Pulse Rate [Apical] 80 Pulse Rate from SpO2 Sensor Respiratory Rate 18 17 Respiratory Effort / Characteristics Non-Labored Spontaneous Respiratory Depth Normal Respiratory Pattern Regular Blood Pressure 119/71 Blood Pressure [Left Arm] 128/96 Blood Pressure Mean 87 Blood Pressure Mean [Left Arm] 106 Pulse Oximetry 94 96 Oxygen Delivery Method Room Air Room Air Sepsis Recent Fever Within 48 Hours No Sepsis New/Unexplained Change in Mental Status N/A Sepsis Action Taken by Nursing No Action Required 05/26/25 17:23 05/26/25 17:23 05/26/25 17:30 Temperature Temperature Source Pulse Rate 72 Pulse Rate [Apical] Pulse Rate from SpO2 Sensor 71 Respiratory Rate 14 Respiratory Effort / Characteristics Respiratory Depth Respiratory Pattern Blood Pressure Blood Pressure [Left Arm] Blood Pressure Mean Blood Pressure Mean [Left Arm] Pulse Oximetry 96 Oxygen Delivery Method Room Air Room Air Room Air Sepsis Recent Fever Within 48 Hours Sepsis New/Unexplained Change in Mental Status Sepsis Action Taken by Nursing 05/26/25 17:31 Temperature Temperature Source Pulse Rate Pulse Rate [Apical] Pulse Rate from SpO2 Sensor Respiratory Rate Respiratory Effort / Characteristics Respiratory Depth Respiratory Pattern Blood Pressure 116/70 Blood Pressure [Left Arm] Blood Pressure Mean 72 Blood Pressure Mean [Left Arm] Pulse Oximetry Oxygen Delivery Method Sepsis Recent Fever Within 48 Hours Sepsis New/Unexplained Change in Mental Status Sepsis Action Taken by Nursing See below Constitutional WD/WN, vitals as above Respiratory normal respiratory effort, lungs clear to auscultation Cardiovascular RRR, no murmur, no edema Neurologic Right wrist drop, unable to extend the right thumb, decreased light touch sensation to the webspace between the 1st and 2nd digits as well as the dorsum of the right hand, abduction and adduction of the digits of the right hand is maintained, 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 Home Medications Current Medication List: was personally reviewed by me Laboratory Data Attestation: I reviewed the patient's lab results. 05/26/25 17:18 05/26/25 17:18 Lab Results 05/26/25 05/26/25 Range/Units 17:18 17:28 WBC 5.65 (4.8-10.8) K/ul RBC 3.88 L (4.70-6.10) M/uL Hgb 12.3 L (14.0-18.0) g/dL POC Hgb 11.2 L (14.0-18.0) g/dl Hct 36.0 L (42.0-52.0) % POC Hct 33 L (42-52) % MCV 92.8 (80.0-100.0) fL MCH 31.7 (25.0-34.0) pg MCHC 34.2 (32.0-36.0) g/dL RDW Std Deviation 43.0 (36.4-46.3) fL RDW Coeff of Devan 12.7 (11.5-14.5) % Plt Count 144 (130-400) K/uL MPV 10.7 (9.4-12.4) fL PT 11.1 (9.0-12.0) Seconds INR 1.1 (0.9-1.1) APTT 25 (21-31) Seconds PTT Ratio 0.9 POC Sodium 141 (135-144) mmol/L Sodium 139 (136-145) mmol/L POC Potassium 4.2 (3.3-5.0) mmol/L Potassium 4.2 (3.5-5.1) mmol/L POC Chloride 107 (101-112) mmol/L Chloride 110 H (98-107) mmol/L Carbon Dioxide 22 (21-32) mmol/L POC Total CO2 21 L (24-31) mmol/L Anion Gap 7 (3-11) POC Anion Gap 18.0 (16-25) mmol/L POC BUN 28 H (7-18) mg/dl BUN 27 H (6-23) mg/dl Creatinine 1.04 (0.6-1.4) mg/dl POC Creatinine 1.2 (0.6-1.3) mg/dl Est Cr Clr Drug Dosing 68.1 ml/min eGFR 70.80 BUN/Creatinine Ratio 26.0 H (10-20) Glucose 108 H (70-99(Fasting)) mg/dl POC Glucose (other) 105 H (70-99) mg/dl Calcium 8.5 L (8.6-10.3) mg/dl POC Ioniz Calcium Joshua 1.13 (1.12-1.32) mmol/l Magnesium 2.0 (1.7-2.4) mg/dl Total Bilirubin 0.3 (0.2-1.0) mg/dl AST 17 (13-39) U/L ALT 13 (7-52) U/L Alkaline Phosphatase 39 (34-104) U/L Total Protein 6.1 (6.0-8.3) gm/dl Albumin 3.8 (3.4-5.0) gm/dl Globulin 2.3 L (2.5-4.0) gm/dl Albumin/Globulin Ratio 1.7 (0.9-2) Imaging Data Attestation: I personally reviewed and interpreted this imaging study as follows: My Impression: No acute cardiopulmonary process noted. Elevation of the left hemidiaphragm Radiologist's Impression: Chest X-Ray 05/26/25 16:51 Technique: 2 frontal views of the chest were obtained Findings: There are no confluent pulmonary infiltrates. The heart size is within normal limits. No pleural effusion or pneumothorax is seen. There is prominent elevation of the left hemidiaphragm with left lung base atelectasis No fracture is noted. There is a cervical fusion Impression: Elevation of the left hemidiaphragm and left lung base atelectasis Electronically signed by Sarmad Epstein 05-26-2025 5:[address] 05/26/25 16:51 Clinical History: Possible stroke Technique: Axial computed tomography images were obtained of the brain without intravenous contrast. Comparison is made to the prior CT dated 03/12/2035 Findings: There is unchanged cerebral atrophy, within expected limits for the patient's age. Areas of decreased attenuation are seen within the periventricular white matter, likely representing chronic small vessel ischemic disease. There is no definite sign of acute or old infarction. No intracranial hemorrhage is evident. No definite mass lesion is seen on this noncontrast examination. There is no midline shift or other form of herniation. No hydrocephalus is seen. No fracture is identified. The orbits and the visualized paranasal sinuses appear unremarkable. The mastoid air cells appear clear. Impression: 1. 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 No definite acute pathology These findings were discussed with Dr. Sarabia at 5:23 PM on 05/26/2025 Electronically signed by Sarmad Epstein 05-26-2025 5:25 PM Head CTA 05/26/25 16:56 Technique: Axial computed tomography images were obtained of the brain after the administration of intravenous contrast according to the CT angiogram protocol Findings: There is calcified plaque within the cavernous and supraclinoid segments of the internal carotid arteries bilaterally, without significant stenosis There is a moderate severity focal stenosis of the P1 segment of the right posterior cervical artery No definite aneurysm is seen of the anterior, middle, or posterior cerebral artery circulations. The basilar artery appears normal Impression: Moderate severity stenosis of the right [employer] These findings were discussed with Dr. Sarbaia at 5:23 PM on 05/26/2025 Electronically signed by Sarmad pEstein 05-26-2025 5:26 PM Neck CTA 05/26/25 16:56 Technique: Axial computed tomography images were obtained of the neck after the administration of intravenous contrast according to the CT angiogram protocol Findings: No stenosis is seen of the common carotid arteries bilaterally. There are severe stenoses of the carotid bulbs bilaterally. The remainder of the internal carotid arteries appear patent bilaterally. There are mild stenoses of the proximal external carotid arteries bilaterally There are mild stenoses of the distal vertebral arteries bilaterally. The visualized thoracic aorta appears unremarkable There is multilevel degenerative disc disease and osteoarthritis of the cervical spine. Impression: 1. 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 Mild stenoses of the distal vertebral arteries bilaterally 3. Mild ECA stenosis bilaterally Electronically signed by Sarmad Epstein 05-26-2025 5:29 PM Blood Pressure Blood Pressure Findings: Normal blood pressure MDM Narrative Patient is an 85-year-old male presents with sudden onset of weakness to his right hand and wrist. No traumatic event noted. Symptoms began around 1230 therefore he is outside the window for TNK. On my examination his only deficits were noted to be isolated to the peripheral radial nerve. He does have a history of prior cervical spine surgery but no new neck pain or injury reported. He was made a code stroke for full evaluation. CT of the head without any acute intracranial process. CTA of the head and neck shows no large vessel occlusion or indication for endovascular therapy. Carotid artery stenosis noted bilaterally. Teleneurologist at [facility] evaluated patient at bedside. They do recommend admission for MRI of the head and neck as well as dual antiplatelet therapy to rule out stroke as the cause of the symptoms. Patient was placed in a wrist cock splint for maintain neutral wrist position on the right. Stable for admission to the hospitalist service for CVA workup. He also complained of some new onset of vertigo during his workup here today. He has a history of vertigo in the past. Not concern for central cause based on exam and presentation. Impression & Plan Right arm weakness Discharge Plan Visit Data Chief Complaint: Neuro Symptoms/Deficit Stated Complaint: RT ARM, HAND AND FINGER NUMB, PLATE IN SHOULDER ED Provider: Nando Morley Discharge Problem: Right arm weakness Patient Disposition: Admitted As Inpatient Condition: Good Forms Stand Alone Forms: [facility] Prescriptions Prescriptions: No Action magnesium oxide 420 mg Tablet 420 mg PO DAILY rosuvastatin 40 mg Tablet 40 mg PO DAILY meclizine 25 mg tablet 25 mg PO TID PRN (Reason: dizziness) Qty: 12 1RF cyanocobalamin (vitamin B-12) [Vitamin B-12] 1,000 mcg Tablet 1,000 mcg PO DAILY aspirin 81 mg Tablet,Delayed Release (Dr/Ec) 81 mg PO DAILY docusate sodium 100 mg Capsule 100 mg PO BID PRN (Reason: Constipation) levothyroxine 112 mcg Tablet 112 mcg PO DAILYBB ezetimibe [Zetia] 10 mg Tablet 10 mg PO DAILY Refresh Classic (PF) 1.4-0.6 % Dropperette 1 drp OPHTHALMIC (EYE) DIRECTED PRN (Reason: Dry Eyes) Referrals Referrals: Kimberly Gilliland PA-C [Primary Care Provider] -
[2025-05-26 17:33] LABS: Hematocrit (blood only) 36.0 % (42.0-52.0); Hemoglobin 12.3 g/dL (14.0-18.0); Mean Corpuscular Hemoglobin 31.7 pg (25.0-34.0); Mean Corpuscular Volume 92.8 fL (80.0-100.0); Platelet Count 144 K/uL (130-400); RDW Standard Deviation 43.0 fL (36.4-46.3); Red Blood Count 3.88 M/uL (4.70-6.10); White Blood Count 5.65 K/ul (4.8-10.8)
[2025-05-26 17:51] LABS: Alanine Aminotransferase 13.0 U/L (7-52); Albumin Globulin Ratio 1.7 (0.9-2); Albumin Level 3.8 gm/dl (3.4-5.0); Alkaline Phosphatase 39.0 U/L (34-104); Anion Gap 7.0 (3-11); Bilirubin,Total 0.3 mg/dl (0.2-1.0); Blood Urea Nitrogen 27.0 mg/dl (6-23); Calcium 8.5 mg/dl (8.6-10.3); Carbon Dioxide 22.0 mmol/L (21-32); Chloride 110.0 mmol/L (98-107); Creatinine Clr Calc Pharmacy 68.1 ml/min; Globulin 2.3 gm/dl (2.5-4.0); Glucose 108.0 mg/dl (70-99(Fasting)); Magnesium 2.0 mg/dl (1.7-2.4); Potassium 4.2 mmol/L (3.5-5.1); Sodium 139.0 mmol/L (136-145); Total Protein 6.1 gm/dl (6.0-8.3)
[2025-05-26 18:03] LABS: INR 1.1 (0.9-1.1); Partial Thromboplastin Time 25 Seconds (21-31); Prothrombin Time 11.1 Seconds (9.0-12.0)
[2025-05-26] MEDS ORDERED: PHARMACIST DISCHARGE MED REC CONSULT PRN (18:15)
[2025-05-26] MEDS: ASPIRIN CHEW 324 MG PO STA (18:18)
[2025-05-26] MEDS: CLOPIDOGREL BISULFATE 300 MG TAB PO STA (18:18)
--- NOTE | 2025-05-26 18:24 | History & Physical Report ---
Date of Service May 26, 2025 Assessment & Plan (1) Stroke-like symptoms: (2) VIOLETA (obstructive sleep apnea): Plan 85 year old male with prior cervical spine surgery presents to the ER with right hand weakness and numbness Stroke-like symptoms Unclear whether etiology of his symptoms are stroke related or cervical spine related. Lower right extremity co-ordination appears to be affected in addition to his more prominent symptoms in right upper arm and hand Brain MRI and cervical spine MRI TTE with bubble study Lipid panel and HbA1C with AM labs Continue usual neurological checks Consult neurology and ortho spine for tomorrow pending MRIs Will continue aspirin alone for now in addition to his usual rosuvastatin pending further workup PT/OT VIOLETA Intolerant to CPAP #Hypothyroidism TSH with AM labs Continue levothyroxine VTE Prophylaxis - deferred pending further workup Disposition - observation to PCU Admission and Anticipated Discharge Date Admission Date: May 26, 2025 History of Present Illness Chief Complaint: Stroke-like symptoms Primary Care Provider: Kimberly Gilliland PA-C Lalo Calvillo is an 85 year old male who presents to the ER with sudden onset weakness of right lower arm and hand with numbness. Symptoms started acutely at 12:30pm today while working on his car. No trauma to his neck. He has ongoing finger numbness left over after cervical spine surgery to his cervical spine in 2020 however his weakness of his right arm completely resolved after this surgery. He reports his mathematician strength has been improving throughout the day. He is have mild neck pain started on right side since being in the emergency room but this wasn't there prior to his hand weakness. No prior stroke but possible TIA - although he can't remember details of this. Patient was seen by telestroke neurology in the ER but given timeframe was not considered a TNK candidate but recommended MRI brain and cervical spine with aspirin and clopidogrel pending further workup. Former smoker - quit in 20s or 30s No illicit drug use Prior alcohol use but never heavy alcohol use Allergies Allergy/AdvReac Type Severity Reaction Status Date / Time No Known Allergies Allergy Verified 05/26/25 18:58 Home Medications Medication Instructions Recorded Confirmed Type magnesium oxide 420 mg tablet 420 mg PO QAM 01/18/22 05/26/25 History rosuvastatin 40 mg tablet 40 mg PO QAM 01/18/22 05/26/25 History aspirin 81 mg tablet,delayed 81 mg PO QAM 11/16/24 05/26/25 History release cyanocobalamin (vitamin B-12) 1,000 mcg PO QAM 11/16/24 05/26/25 History 1,000 mcg tablet (Vitamin B-12) docusate sodium 100 mg capsule 100 mg PO BID PRN Constipation 11/16/24 05/26/25 History ezetimibe 10 mg tablet (Zetia) 10 mg PO QAM 11/16/24 05/26/25 History levothyroxine 112 mcg tablet 112 mcg PO DAILYBB 11/16/24 05/26/25 History polyvinyl alcohol-povidone (PF) 1 drp ophthalmic (eye) DIRECTED 11/16/24 05/26/25 History 1.4 %-0.6 % eye drops in a PRN Dry Eyes dropperette (Refresh Classic (PF)) meclizine 25 mg tablet 25 mg PO TID PRN dizziness #12 tabs 03/12/25 05/26/25 Rx Past Med/Surg History Problem List (Updated 05/26/25 @ 19:16 by Gigi Francis MD) Stroke-like symptoms Right arm weakness (Acute) Idiopathic polyneuropathy Lumbosacral radiculopathy TIA (transient ischemic attack) (Acute) COVID-19 (Acute) Anxiety Encounter for pre-operative examination Myelopathy concurrent with and due to spinal stenosis of cervical region Cervical radiculopathy (Acute) Allergic rhinitis with postnasal drip Restrictive lung disease Abnormal PFTs (pulmonary function tests) Pulmonary nodule Esophageal mass Hypoxia Hypoxia (Acute) Acute respiratory failure with hypoxia Hypoxia (Acute) Pneumonia due to COVID-19 virus Elevated diaphragm (Acute) Exertional shortness of breath Chronic respiratory failure with hypoxia Cervical stenosis of spinal canal S/P cervical discectomy VIOLETA (obstructive sleep apnea) Depression Hyperlipidemia Hypothyroidism Medical History AF (amaurosis fugax) Vision loss VIOLETA (obstructive sleep apnea) Cannot tolerate device Hypotension Generalized weakness Pneumonia due to COVID-19 virus Had first vaccine in 09/03/20 at [place] and got COVID virus afterwards (09/10/20)- admitted and readmitted in August/September 2020 (developed Covid pneumonia) [facility] > symptoms resolved, no longer requiring oxygen the past several weeks Osteoarthritis Surgical History Hx of bilateral cataract extraction Hx of colonoscopy Hx of decompressive lumbar laminectomy Hx of fusion of cervical spine No ROM limitations per pt Family History Other No family history of adverse response to anesthesia No family history of bleeding disorder Social History Smoking Status: Former smoker Tobacco Type: Cigarettes Age Started Using Tobacco: 17; Age Quit Using Tobacco: 27; packs per day: 0.75; Second Hand Exposure: No; Do You Dip or Chew Tobacco: No; Hx Alcohol Use: No Hx Substance Use: No Preferred Language: [place] Communication Ability: Effective 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 Required: No Beliefs That Will Affect Care: None marital status: Current Living Situation: Spouse Feels Safe at Home: Yes Safety Concerns: Feels Safe At This Time Assistive Devices: None Review of Systems Review of Systems: All systems reviewed & are unremarkable except as noted in HPI & below Physical Exam Constitutional: WD/WN, vitals as above Eyes: PERRL, conjunctivae normal, anicteric sclerae Respiratory: normal respiratory effort, lungs clear to auscultation Cardiovascular: Rate/Rhythm: regular rate and regular rhythm Heart Sounds: no murmur Extremities: normal capillary refill and + pedal edema (1+ bilat eral equal); no calf tenderness Gastrointestinal (Abdomen): normal bowel sounds, soft, nontender, no hepatosplenomegaly Skin: no rashes, warm and dry Neurologic: + focal motor deficit and awake Speec h / Cognition: normal speech Motor/Sensory: + sensory deficit (entire right hand sparing palm); no tremor and no pronator drift (very mild on right side) Cranial Nerves: PERRL, EOM intact bilaterally, normal facial strength, tongue midline and no nystagmus; + not able to rotate head (weak turning head to right) and + not able to elevate shoulders (weak on right side) Coordination: + abnormal [id number] test (reduced right sided) and + abnormal whro-yc-uubb test (found this easier on left side) right mathematician strength 4/5, finger abduction 3/5, thumb abduction 3/5 Psychiatric: A+Ox3, euthymic affect Results & Data Results & Data Vital Signs (Past 12 Hours) Vital Signs Temp Pulse Pulse Resp BP BP Pulse Ox 05/26/25 17:31 116/70 05/26/25 17:30 72 14 96 05/26/25 17:23 05/26/25 17:23 05/26/25 17:23 68 05/26/25 17:20 80 17 128/96 96 05/26/25 16:44 36.5 C 74 18 119/71 94 O2 Del Method 05/26/25 17:31 05/26/25 17:30 Room Air 05/26/25 17:23 Room Air 05/26/25 17:23 Room Air 05/26/25 17:23 05/26/25 17:20 Room Air 05/26/25 16:44 Room Air Laboratory Results Abnormal lab results 05/26/25 05/26/25 Range/Units 17:18 17:28 RBC 3.88 L (4.70-6.10) M/uL Hgb 12.3 L (14.0-18.0) g/dL POC Hgb 11.2 L (14.0-18.0) g/dl Hct 36.0 L (42.0-52.0) % POC Hct 33 L (42-52) % Chloride 110 H (98-107) mmol/L POC Total CO2 21 L (24-31) mmol/L POC BUN 28 H (7-18) mg/dl BUN 27 H (6-23) mg/dl BUN/Creatinine Ratio 26.0 H (10-20) Glucose 108 H (70-99(Fasting)) mg/dl POC Glucose (other) 105 H (70-99) mg/dl Calcium 8.5 L (8.6-10.3) mg/dl Globulin 2.3 L (2.5-4.0) gm/dl Diagnostic Findings CT Head wo IV Contrast Clinical History: Possible stroke Technique: Axial computed tomography images were obtained of the brain without intravenous contrast. Comparison is made to the prior CT dated 03/12/2035 Findings: There is unchanged cerebral atrophy, within expected limits for the patient's age. Areas of decreased attenuation are seen within the periventricular white matter, likely representing chronic small vessel ischemic disease. There is no definite sign of acute or old infarction. No intracranial hemorrhage is evident. No definite mass lesion is seen on this noncontrast examination. There is no midline shift or other form of herniation. No hydrocephalus is seen. No fracture is identified. The orbits and the visualized paranasal sinuses appear unremarkable. The mastoid air cells appear clear. Impression: 1. 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 No definite acute pathology CT Head angiogram Technique: Axial computed tomography images were obtained of the brain after the administration of intravenous contrast according to the CT angiogram protocol Findings: There is calcified plaque within the cavernous and supraclinoid segments of the internal carotid arteries bilaterally, without significant stenosis There is a moderate severity focal stenosis of the P1 segment of the right posterior cervical artery No definite aneurysm is seen of the anterior, middle, or posterior cerebral artery circulations. 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 There are severe stenoses of the carotid bulbs bilaterally. The remainder of the internal carotid arteries appear patent bilaterally. There are mild stenoses of the proximal external carotid arteries bilaterally There are mild stenoses of the distal vertebral arteries bilaterally. The visualized thoracic aorta appears unremarkable There is multilevel degenerative disc disease and osteoarthritis of the cervical spine. Impression: 1. 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 Mild stenoses of the distal vertebral arteries bilaterally 3. Mild ECA stenosis bilaterally Medications Administered ER Medications Given: Aspirin 324mg PO Clopidogrel 300mg PO ECG Rate (beats per minute): 69 Rhythm: sinus with SA Findings: no acute ischemic change Comparison ECG Date: from (March 12, 2025) Change: the following changes noted (PACs no longer present) Code Status & VTE Plan Code Status Full VTE Prophylaxis Plan VTE Prophylaxis will be ordered: Yes PG Care Time/CCT Total # of Minutes Spent Total Time Spent with Patient: Total time spent is greater than 50% in coordination of care (as documented) at patient's floor/unit and/or counseling patient: Coding Level of Care Code 97487 INT INP/OBS CARE 3/75MIN Diagnoses Stroke-like symptoms R29.90 VIOLETA (obstructive sleep apnea) G47.33
[2025-05-26] MEDS ORDERED: LORazepam 0.5 MG TAB PO STA (23:02)
--- NOTE | 2025-05-27 01:42 | XRay Report ---
Exam(s): XR ORBITS EXAM: XR Orbits, 4 or More Views CLINICAL HISTORY: Reason for exam: Screening for foreign body for MRI. TECHNIQUE: Frontal, lateral and oblique views of the orbits. COMPARISON: Prior head CT from the same day.. FINDINGS: Bones/joints: Unremarkable. No acute fracture. Sinuses: Unremarkable. No air-fluid levels. Soft tissues: Unremarkable. No radiopaque foreign body. IMPRESSION: No evidence of radiopaque foreign body to preclude MR imaging. Electronically signed by: Mayra Mosqueda MD 05/27/25 01:41 AM
[2025-05-27] MEDS: LORazepam 0.5 MG TAB PO PRN (03:43)
--- NOTE | 2025-05-27 05:38 | Magnetic Resonance Report ---
EXAM: MR brain wo con CLINICAL HISTORY: right-hand weakness, right-sided loss of coordination. rt sided neck pain, sudden onset of right lower arm and hand numbness, weakness rt hand. TECHNIQUE: MRI of the brain was performed without contrast, with multiplanar sequences obtained. COMPARISON: Comparison is made with prior imaging studies CT brain dated 07/27/2024 and MRI brain dated 01/18/2022. FINDINGS: Brain Parenchyma: There are 2 tiny foci of diffusion restriction in the left high posterior parietal lobe and the precentral gyrus. These are bright on T2 (not seen on CT, new as compared to prior MR). No evidence of acute intracranial hemorrhage. Normal camarena-white matter differentiation. No mass lesions. Age-related involutionary changes with small vessel ischemic changes seen as T2 and FLAIR bright foci in periventricular white matter. Ventricles and Sulci: No evidence of hydrocephalus or ventriculomegaly. Sylvian fissures, sulci, and cisterns are prominent. Posterior Fossa: The cerebellum and brainstem appear normal without evidence of mass lesions or signal abnormalities. Cranial Nerves: Normal course and appearance of cranial nerves identified. Vessels: No evidence of vascular malformations or aneurysms. Intracranial arteries and veins appear normal without evidence of stenosis or occlusion. Orbits and Skull Base: Orbits and skull base structures are normal without evidence of abnormalities. Erosive degenerative changes at the tip of the dens. IMPRESSION: . MRI of the brain: 1. There are 2 tiny foci of diffusion restriction in the left high posterior parietal lobe and the precentral gyrus (cortical-based). These are bright on T2 (not seen on CT, new as compared to prior MR dated 2021). Findings are suspicious for acute ischemic foci. A possibility of an embolic phenomenon should be ruled out by cardiac workup. 2. No acute intracranial hemorrhage. 3. Age-related involutionary changes with small vessel ischemic changes are seen as T2 and FLAIR bright foci in periventricular white matter. Electronically signed by Deangelo Franklin 05-27-2025 05:38 AM
[2025-05-27 06:34] LABS: Hematocrit (blood only) 37.8 % (42.0-52.0); Hemoglobin 12.8 g/dL (14.0-18.0); Immature Granulocytes # (auto) 0.01 K/uL (0.01-0.20); Immature Granulocytes % (auto) 0.2 %; Mean Corpuscular Hemoglobin 31.1 pg (25.0-34.0); Mean Corpuscular Volume 91.7 fL (80.0-100.0); Platelet Count 132 K/uL (130-400); RDW Standard Deviation 41.2 fL (36.4-46.3); Red Blood Count 4.12 M/uL (4.70-6.10); White Blood Count 4.84 K/ul (4.8-10.8)
--- NOTE | 2025-05-27 06:59 | Magnetic Resonance Report ---
EXAM: MR cervical spine wo con CLINICAL HISTORY: right-hand weakness, right-sided loss of coordination. rt sided neck pain, sudden onset of right lower arm and hand numbness TECHNIQUE: Multiplanar multiecho MRI sequences of the cervical spine without contrast were obtained and submitted for diagnostic interpretation (patient unable to tolerate the length of the exam, best submitted). COMPARISON: No prior MR is available. FINDINGS: Vertebral Alignment: Straightening of the cervical spine is seen. Grade 1 anterolisthesis of T1 over T2 and T2 over T3. Vertebral Bodies and Intervertebral Discs: Preserved vertebral body heights with fused vertebrae seen from C3 to C6, with evidence of internal fixation from C3 to T2 by metallic rods and plates, giving susceptibility artifacts. A 1.7 cm T2 and STIR hyperintense lesion is seen in the dens and right body of C2. Degenerative and erosive changes are seen at the dens. Multilevel cervical spondylotic changes with bridging osteophytes. T1-T2 and C6-C7 Modic type 1 end-plate changes. [id number]-[id number] analysis: C2-C3: Disc-osteophyte complex with diffuse disc bulge having right preponderance, causing central thecal sac and moderate right neural foraminal stenosis. C3-C4: Limited evaluation by susceptibility artifacts due to metallic hardware. C4-C5: Limited evaluation by susceptibility artifacts due to metallic hardware. Mild spinal canal stenosis. C5-C6: Limited evaluation by susceptibility artifacts due to metallic hardware. Moderate spinal canal and neural foraminal stenosis (RL). C6-C7: Limited evaluation by susceptibility artifacts due to metallic hardware. Disc-osteophyte complex causing ventral theca sac compression, severe spinal canal and neural foraminal stenosis (RL) with cervical cord and bilateral exiting nerve root compression. C7-T1: Limited evaluation by susceptibility artifacts due to metallic hardware Multilevel arthropathy of the uncovertebral and zygapophyseal joints. Soft Tissues: Paraspinal soft tissues appear normal without evidence of abnormal signal intensity or mass lesions. IMPRESSION: 1. Advanced cervical spondylotic changes with severe spinal canal stenosis at C6-C7. 2. Multilevel moderate to severe neural foraminal stenosis. 3. Limited evaluation by susceptibility artifacts due to metallic hardware. 4. A 1.7 cm T2 and STIR hyperintense lesion is seen in the dens and right body of C2. 5. Degenerative and erosive changes are seen at the dens. Electronically signed by Deangelo Franklin 05-27-2025 06:59 AM
[2025-05-27 07:26] LABS: Anion Gap 7 (3-11); Blood Urea Nitrogen 24 mg/dl (6-23); Calcium 9.2 mg/dl (8.6-10.3); Carbon Dioxide 25 mmol/L (21-32); Chloride 108 mmol/L (98-107); Cholesterol 123 mg/dl (0-200); Creatinine Clr Calc Pharmacy 66.2 ml/min; Glucose 90 mg/dl (70-99(Fasting)); HDL Cholesterol 31 mg/dl; Sodium 140 mmol/L (136-145); Triglycerides 226 mg/dl (0-150)
[2025-05-27] MEDS: LEVOTHYROXINE SODIUM 112 MCG TABLET PO SCH (07:33)
[2025-05-27 07:37] LABS: Hemoglobin A1C 5.8 % (4.5-5.6)
[2025-05-27 07:48] LABS: Thyroid Stimulating Hormone 0.750 uIu/ml (0.300-4.500)
[2025-05-27] MEDS: ASPIRIN 81 MG ECTAB PO SCH (09:35)
[2025-05-27] MEDS: MAGNESIUM OXIDE 400 MG TAB PO SCH (09:35)
[2025-05-27] MEDS: EZETIMIBE 10 MG TAB PO SCH (09:35)
[2025-05-27] MEDS: ROSUVASTATIN CALCIUM 20 MG TAB PO SCH (09:35)
[2025-05-27] MEDS: CLOPIDOGREL BISULFATE 75 MG TAB PO SCH (09:35)
--- NOTE | 2025-05-27 10:06 | Consultation ---
Date of Consultation May 27, 2025 Assessment & Plan (1) Right arm weakness: Is a 85-year-old gentleman who presented to the ER with subsequent admission for a stroke affecting his right upper extremity in the form of numbness and weakness. Dr. Freeman has reviewed cervical imaging as well as treatment plan. There is a C2 lesion within the vertebral body. He has no neck pain. Would recommend monitoring this with an updated cervical MRI with and without contrast with 3 to 6 months from now. He also has severe central canal stenosis at the C6-7 level. Again this will be reevaluated upon follow-up with updated MRI in a few months. He is asymptomatic from this. Would recommend physical therapy for his right upper extremity weakness. ambulate ad zach. no acute surgical indications from a spine standpoint at this point in time History of Present Illness Reason for Consultation: C2 lesion Attending Physician: Gigi Francis MD History of Present Illness This is a pleasant 85 old gentleman who is well-known to our practice. He has undergone a prior ACDF by Dr. Freeman in 2020. Yesterday while at home he started with acute right upper extremity weakness and numbness affecting his whole hand. Left upper extremity asymptomatic. No radicular pain. No lower extremity changes or symptoms. Typically he ambulates independently. His family brought him to the ER where he was admitted with strokelike symptoms. This morning he feels his right upper extremity symptoms/weakness are improving. Still has numbness that affects his entire right hand. He does have established numbness into the right pinky finger since his surgery in 2020. He denies any neck pain. Denies any dysphonia or dysphagia.Denies facial droop. Denies any bowel or bladder dysfunction or perineum numbness. He is right-hand dominant. Allergies Allergy/AdvReac Type Severity Reaction Status Date / Time No Known Allergies Allergy Verified 05/26/25 18:58 Home Medications Medication Instructions Recorded Confirmed Type magnesium oxide 420 mg tablet 420 mg PO QAM 01/18/22 05/26/25 History rosuvastatin 40 mg tablet 40 mg PO QAM 01/18/22 05/26/25 History cyanocobalamin (vitamin B-12) 1,000 mcg PO QAM 11/16/24 05/26/25 History 1,000 mcg tablet (Vitamin B-12) docusate sodium 100 mg capsule 100 mg PO BID PRN Constipation 11/16/24 05/26/25 History ezetimibe 10 mg tablet (Zetia) 10 mg PO QAM 11/16/24 05/26/25 History levothyroxine 112 mcg tablet 112 mcg PO DAILYBB 11/16/24 05/26/25 History polyvinyl alcohol-povidone (PF) 1 drp ophthalmic (eye) DIRECTED 11/16/24 05/26/25 History 1.4 %-0.6 % eye drops in a PRN Dry Eyes dropperette (Refresh Classic (PF)) meclizine 25 mg tablet 25 mg PO TID PRN dizziness #12 tabs 03/12/25 05/26/25 Rx aspirin 81 mg tablet,delayed 81 mg PO QAM 21 days #21 tabs 05/28/25 Rx release clopidogrel 75 mg tablet 75 mg PO DAILY #30 tabs 05/28/25 Rx Patient History Medical History AF (amaurosis fugax) Vision loss VIOLETA (obstructive sleep apnea) Cannot tolerate device Hypotension Generalized weakness Pneumonia due to COVID-19 virus Had first vaccine in 09/03/20 at [place] and got COVID virus afterwards (09/10/20)- admitted and readmitted in September 2020 (developed Covid pneumonia) [facility] > symptoms resolved, no longer requiring oxygen the past several weeks Osteoarthritis Surgical History Hx of bilateral cataract extraction Hx of colonoscopy Hx of decompressive lumbar laminectomy Hx of fusion of cervical spine No ROM limitations per pt Family History Other No family history of adverse response to anesthesia No family history of bleeding disorder Social History Smoking Status: Former smoker Tobacco Type: Cigarettes Age Started Using Tobacco: 17; Age Quit Using Tobacco: 27; packs per day: 0.75; Second Hand Exposure: No; Do You Dip or Chew Tobacco: No; Hx Alcohol Use: No Hx Substance Use: No Preferred Language: Nigerian Communication Ability: Effective Line Production Cook Required: No Beliefs That Will Affect Care: None marital status: Current Living Situation: Spouse Feels Safe at Home: Yes Assistive Devices: None Review of Systems Review of Systems: All systems reviewed & are unremarkable except as noted in HPI & below Physical Exam Physical Exam: He seen in room 233 he is alert and oriented and cooperative x 3 5/5 strength bilateral lower extremities No evidence of ankle close clonus bilaterally He does have a 2/5 right finger intrinsic as well as a 4- 4+/5 right wrist extensor and wrist flexor, 5/5 biceps, deltoids, triceps Strength is intact 5/5 left upper extremity Cervical incision is well-healed No evidence of upper motor neuron signs bilaterally Results & Data Vital Signs (Past 12 Hours) Vital Signs Temp Pulse Pulse Resp BP Pulse Ox O2 Del Method 05/27/25 08:28 36.4 C L 67 15 157/81 H 93 Room Air 05/27/25 02:41 36.4 C L 67 18 121/67 95 Room Air 05/27/25 00:45 Room Air 05/27/25 00:34 64 05/26/25 23:11 77 17 157/68 H 98 Room Air Diagnostic Findings [place], [place] [phone] Magnetic Resonance Report Patient: MARLEN MCGRAW Admit Date: 05/26/25 MR#: [id number] Address1: [address] [place] [address] Acct ID:[id number] Address2: Date: 1940 [facility] [facility] [address] Age: 85 Location: Sex: M Room/Bed: [facility] Att Phy: Gigi Francis MD Diagnosis: STROKE LIKE SYMPTOMS Laurie Phy: Kimberly Gilliland PA-C Service Date: 05/27/25 [facility] Phy: Interpreting Phy: Deangelo Franklin MDAdmit Phy: Gigi Francis MD Ordering Phy: Gigi Francis MD cc: ~ EXAM: MR cervical spine wo con CLINICAL HISTORY: right-hand weakness, right-sided loss of coordination. rt sided neck pain, sudden onset of right lower arm and hand numbness TECHNIQUE: Multiplanar multiecho MRI sequences of the cervical spine without contrast were obtained and submitted for diagnostic interpretation (patient unable to tolerate the length of the exam, best submitted). COMPARISON: No prior MR is available. FINDINGS: Vertebral Alignment: Straightening of the cervical spine is seen. Grade 1 anterolisthesis of T1 over T2 and T2 over T3. Vertebral Bodies and Intervertebral Discs: Preserved vertebral body heights with fused vertebrae seen from C3 to C6, with evidence of internal fixation from C3 to T2 by metallic rods and plates, giving susceptibility artifacts. A 1.7 cm T2 and STIR hyperintense lesion is seen in the dens and right body of C2. Degenerative and erosive changes are seen at the dens. Multilevel cervical spondylotic changes with bridging osteophytes. T1-T2 and C6-C7 Modic type 1 end-plate changes. Hamjz-lt-ijgmz analysis: C2-C3: Disc-osteophyte complex with diffuse disc bulge having right preponderance, causing central thecal sac and moderate right neural foraminal stenosis. C3-C4: Limited evaluation by susceptibility artifacts due to metallic hardware. C4-C5: Limited evaluation by susceptibility artifacts due to metallic hardware. Mild spinal canal stenosis. C5-C6: Limited evaluation by susceptibility artifacts due to metallic hardware. Moderate spinal canal and neural foraminal stenosis (RL). C6-C7: Limited evaluation by susceptibility artifacts due to metallic hardware. Disc-osteophyte complex causing ventral theca sac compression, severe spinal canal and neural foraminal stenosis (RL) with cervical cord and bilateral exiting nerve root compression. C7-T1: Limited evaluation by susceptibility artifacts due to metallic hardware Multilevel arthropathy of the uncovertebral and zygapophyseal joints. Soft Tissues: Paraspinal soft tissues appear normal without evidence of abnormal signal intensity or mass lesions. IMPRESSION: 1. Advanced cervical spondylotic changes with severe spinal canal stenosis at C6-C7. 2. Multilevel moderate to severe neural foraminal stenosis. 3. Limited evaluation by susceptibility artifacts due to metallic hardware. 4. A 1.7 cm T2 and STIR hyperintense lesion is seen in the dens and right body of C2. 5. Degenerative and erosive changes are seen at the dens. Electronically signed by Deangelo Franklin 05-27-2025 06:59 AM Dictated: 05/27/25 [id number] Transcribed:
--- NOTE | 2025-05-27 12:17 | Electrocardiogram Report ---
Test Reason : Blood Pressure : */* mmHG Vent. Rate : 69 BPM Atrial Rate : 69 BPM P-R Int : 198 ms QRS Dur : 84 ms QT Int : 418 ms P-R-T Axes : 33 47 46 degrees QTcB Int : 447 ms Normal sinus rhythm with sinus arrhythmia Normal ECG When compared with ECG of 12-Mar-2025 15:57, Premature atrial complexes are no longer Present Confirmed by Raz Cedeño ([id number]) on 05/27/2025 12:17:22 PM Referred By: REFERRED SELF Confirmed By: Raz Cedeño
--- NOTE | 2025-05-27 14:20 | XCELERA ---
[id number] \\[id number]}___[id number].pdf
--- NOTE | 2025-05-27 15:20 | XRay Report ---
CERVICAL SPINE 3 VIEWS CLINICAL HISTORY: Assess cervical hardware. FINDINGS: AP, lateral, and odontoid views of the cervical spine are correlated with CT angiogram of t he neck dated 05/26/2025. The skeletal structures are osteopenic. There is no radiographic evidence o f fracture or subluxation. Vertebral body height and alignment is maintained throughout the cervical spine. The atlantodental articulation appears maintained noting advanced productive degenerative solorio ge. The odontoid process and lateral masses appear intact as seen on the open-mouth view. Cystic solorio ge is again noted at the base of the odontoid process. The spinolaminar line is preserved. The spinou s processes appear intact. There has been discectomy at all levels between C3-C4 and C7-T1 with anter ior fusion. The orthopedic hardware appears intact. Multilevel facet arthropathy is noted on the AP v iew. The prevertebral soft tissues are normal as visualized. There is advanced atherosclerotic calcif ication of the carotid bulbs. The imaged apical lung parenchyma appears clear. IMPRESSION: 1. No acute bony abnormality is seen involving the cervical spine. 2. Osteopenia with degenerative and extensive postsurgical change as above. Dictated: 05/27/2025 2:29 PM Transcribed: 05/27/2025 2:35 PM Lit [id number] [email or web address] Electronically signed by: Antonio Jean M.D. 05/27/2025 3:19 PM
--- NOTE | 2025-05-27 17:22 | Neurology Consultation ---
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 I would recommend dual antiplatelet therapy, aspirin 81 mg/day and Plavix 75 mg daily for 3 weeks, followed by conversion to Plavix monotherapy 75 mg/day. I would also recommend 30-day mobile cardiac outpatient telemetry to further assess for occult atrial fibrillation. If atrial fibrillation is identified, would recommend anticoagulation with Eliquis and consultation with cardiology. Continue with Zetia and rosuvastatin as ordered, his LDL is appropriate, recommended guideline for LDL is 70 or less in this patient. Blood pressure management per stroke protocol. Consultations with PT/OT. Please call with any questions. History of Present Illness Reason for Consultation: stroke Requesting Physician: Penny Attending Physician: Gigi Francis MD History of Present Illness The patient is an 85-year-old male with a chief complaint of acute onset weakness of the right hand and wrist and associated numbness. Symptoms began around 1230 yesterday afternoon and have considerably improved although he still reports a mild degree of symptoms. He did not experience any associated change in speech or vision. No motor or sensory symptoms of the right lower limb. Past medical history notable for C-spine fusion in 2020. CT angiography of the neck revealed severe stenoses of the carotid bulbs bilaterally, CTA of the head revealed a significant stenosis of the right posterior cerebral artery. Brain MRI reveals 2 punctate foci of ischemic stroke within the left cerebral hemisphere, 1 within the precentral gyrus, the other within the left parietal cortex. I independently reviewed these images and was able to appreciate this finding. Stroke location and distribution is suggestive of an embolic etiology. He does not have a known history of atrial fibrillation. An echocardiogram revealed mild dilation of the left atrium. An ECG revealed a normal sinus rhythm although with previous ECG had revealed PACs. Hemoglobin A1c was 5.8. His LDL was 47. He normally takes Zetia, Crestor, and daily low-dose aspirin. Allergies Allergy/AdvReac Type Severity Reaction Status Date / Time No Known Allergies Allergy Verified 05/26/25 18:58 Home Medications Medication Instructions Recorded Confirmed Type magnesium oxide 420 mg tablet 420 mg PO QAM 01/18/22 05/26/25 History rosuvastatin 40 mg tablet 40 mg PO QAM 01/18/22 05/26/25 History aspirin 81 mg tablet,delayed 81 mg PO QAM 11/16/24 05/26/25 History release cyanocobalamin (vitamin B-12) 1,000 mcg PO QAM 11/16/24 05/26/25 History 1,000 mcg tablet (Vitamin B-12) docusate sodium 100 mg capsule 100 mg PO BID PRN Constipation 11/16/24 05/26/25 History ezetimibe 10 mg tablet (Zetia) 10 mg PO QAM 11/16/24 05/26/25 History levothyroxine 112 mcg tablet 112 mcg PO DAILYBB 11/16/24 05/26/25 History polyvinyl alcohol-povidone (PF) 1 drp ophthalmic (eye) DIRECTED 11/16/24 05/26/25 History 1.4 %-0.6 % eye drops in a PRN Dry Eyes dropperette (Refresh Classic (PF)) meclizine 25 mg tablet 25 mg PO TID PRN dizziness #12 tabs 03/12/25 05/26/25 Rx Patient History Medical History AF (amaurosis fugax) Vision loss VIOLETA (obstructive sleep apnea) Cannot tolerate device Hypotension Generalized weakness Pneumonia due to COVID-19 virus Had first vaccine in 09/03/20 at [place] and got COVID virus afterwards (09/10/20)- admitted and readmitted in August/September 2020 (developed Covid pneumonia) [facility] > symptoms resolved, no longer requiring oxygen the past several weeks Osteoarthritis Surgical History Hx of bilateral cataract extraction Hx of colonoscopy Hx of decompressive lumbar laminectomy Hx of fusion of cervical spine No ROM limitations per pt Family History Other No family history of adverse response to anesthesia No family history of bleeding disorder Social History Smoking Status: Former smoker Tobacco Type: Cigarettes Age Started Using Tobacco: 17; Age Quit Using Tobacco: 27; packs per day: 0.75; Second Hand Exposure: No; Do You Dip or Chew Tobacco: No; Hx Alcohol Use: No Hx Substance Use: No Preferred Language: Romansh Communication Ability: Effective College Sports Assistant Required: No Beliefs That Will Affect Care: None marital status: Current Living Situation: Spouse Feels Safe at Home: Yes Safety Concerns: Feels Safe At This Time Assistive Devices: None Review of Systems Constitutional: no fever Eyes: no blind spots and no diplopia Ear, Nose, Mouth, Throat: no hearing loss Respiratory: no dyspnea Cardiovascular: no chest pain Gastrointestinal: no nausea and no vomiting Genitourinary: no dysuria Musculoskeletal: no myalgia Integumentary: no rash Neurologic: as per Subjective / HPI, + localized weakness and + loss of sensation; no tremor(s), no headache(s), no abnormal speech, no confusion and no memory loss Psychiatric: no depression and no anxiety Exam (Neuro) Constitutional: well developed and well nourished; no acute distress Eyes: normal visual cormier by confrontation, PERRL and EOM intact bilaterally; no nystagmus Neurologic: Oriented to:: Person, Place and Time Memory: Short Term Intact and Remote Intact Attention: Span Intact and Concentration Intact Speech Fluency: negative Dysarthria or Dysfluency Speech Aphasia: negative Aphasia Fund of Knowledge: Current Events, Past History and Vocabulary Cranial Nerves: Normal II, III, IV, , V, VII, VIII, IX, X, XI and XII Motor Strength: Normal Lower Extremities; negative Normal Upper Extremities Motor Tone: Normal Lower Extremities and Normal Upper Extremities Muscle Bulk/Involuntary Movements: No Involuntary Movements and Muscle Atrophy Sensation: Light Touch Intact, Pain/Temperature Intact and Proprioception Intact Coordination: negative Limited Balance, Dysdiadochokinesia or Finger-Nose Abnormal Deep Tendon Reflexes: Rt Triceps: 2+, Lt Triceps: 2+, Rt Biceps: 2+, Lt Biceps: 2+, Rt Brachioradialis: 2+, Lt Brachioradialis: 2+, Rt Patellar: 2+, Lt Patellar: 2+, Rt Ankle: 1+ and Lt Ankle: 1+ Details: Patient has mild weakness of right wrist dorsiflexion, finger extension, and finger abduction. 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 There is atrophy of the right first dorsal interosseous muscle. Results & Data Vital Signs (Past 12 Hours) Vital Signs Temp Pulse Pulse Resp BP Pulse Ox O2 Del Method 05/27/25 15:40 36.4 C L 70 18 145/81 H 94 Room Air 05/27/25 14:51 74 05/27/25 11:59 36.4 C L 71 18 113/71 93 Room Air 05/27/25 08:28 36.4 C L 67 15 157/81 H 93 Room Air 05/27/25 08:00 67 Laboratory Results WBC 4.84, hemoglobin 12.8, platelet count 132, sodium 140, potassium 4.4, creatinine 1.07, glucose 90, hemoglobin A1c 5.8, calcium 9.2, triglycerides 226, cholesterol 123, LDL 47, HDL 31, TSH 0.750 Coding Level of Care Code 07393 INT INP/OBS CARE 3/75MIN Diagnoses Acute embolic stroke I63.9 Time Spent (min) 80 Comment Total time includes patient contact, chart review, counseling, note preparation
--- NOTE | 2025-05-27 20:19 | Hospitalist Progress Note ---
Date of Service May 27, 2025 Assessment & Plan (1) Stroke-like symptoms: (2) VIOLETA (obstructive sleep apnea): Plan 85 year old male with prior cervical spine surgery presents to the ER with right hand weakness and numbness Acute CVA TTE with bubble study - no thrombus or LDL 47 and HbA1C 5.8 Continue usual neurological checks Appreciate neurology and ortho spine consults Aspirin, clopidogrel + rosuvastatin PT/OT VIOLETA Intolerant to CPAP #Hypothyroidism TSH WNL Continue levothyroxine VTE Prophylaxis - encourage ambulation Disposition - switched to full admission Admission and Anticipated Discharge Date Admission Date: May 27, 2025 Subjective Improvement in assistant to the ceo strength. Numbness much the same. Discussed acute stroke and treatment for this awaiting PT.OT evals. C2 lesion noted on MRI cervical spine not suspected to be cause of acute symptoms. Physical Exam Constitutional: WD/WN, vitals as above Respiratory: normal respiratory effort, lungs clear to auscultation Cardiovascular: Rate/Rhythm: regular rate and regular rhythm Heart Sounds: no murmur Gastrointestinal (Abdomen): normal bowel sounds, soft, nontender, no hepatosplenomegaly Skin: no rashes, warm and dry Neurologic: + focal motor deficit and awake Speec h / Cognition: normal speech Motor/Sensory: + sensory deficit (entire right hand sparing palm); no tremor and no pronator drift (very mild on right side) Cranial Nerves: PERRL, EOM intact bilaterally, normal facial strength, tongue midline and no nystagmus; + not able to rotate head (weak turning head to right) and + not able to elevate shoulders (weak on right side) Coordination: + abnormal fqlthr-[id number] test (reduced right sided) and + abnormal fldo-ix-[id number] test (found this easier on left side) Psychiatric: A+Ox3, euthymic affect Results & Data Results & Data Vital Signs (Past 12 Hours) Vital Signs Temp Pulse Pulse Resp BP Pulse Ox O2 Del Method 05/27/25 19:28 36.5 C 80 18 106/65 93 Room Air 05/27/25 15:40 36.4 C L 70 18 145/81 H 94 Room Air 05/27/25 14:51 74 05/27/25 11:59 36.4 C L 71 18 113/71 93 Room Air 05/27/25 08:28 36.4 C L 67 15 157/81 H 93 Room Air PG Care Time/CCT Total # of Minutes Spent Total Time Spent with Patient: Total time spent is greater than 50% in coordination of care (as documented) at patient's floor/unit and/or counseling patient: Coding Level of Care Code 13645 SUB INP/OBS CARE 2/35MIN Diagnoses Stroke-like symptoms R29.90 VIOLETA (obstructive sleep apnea) G47.33
[2025-05-27] MEDS: MELATONIN 3 MG TAB PO PRN (20:39)
[2025-05-27] MEDS: COUGH DROP (SUGAR FREE) LOZ 24 LOZ/1 BOX BUCCAL PRN (20:42)
[2025-05-28 06:23] LABS: Hematocrit (blood only) 38.8 % (42.0-52.0); Hemoglobin 13.2 g/dL (14.0-18.0); Immature Granulocytes # (auto) 0.02 K/uL (0.01-0.20); Immature Granulocytes % (auto) 0.4 %; Mean Corpuscular Hemoglobin 31.4 pg (25.0-34.0); Mean Corpuscular Volume 92.2 fL (80.0-100.0); Platelet Count 132 K/uL (130-400); RDW Standard Deviation 41.6 fL (36.4-46.3); Red Blood Count 4.21 M/uL (4.70-6.10); White Blood Count 5.63 K/ul (4.8-10.8)
[2025-05-28 06:51] LABS: Anion Gap 7.0 (3-11); Blood Urea Nitrogen 23.0 mg/dl (6-23); Calcium 9.1 mg/dl (8.6-10.3); Carbon Dioxide 26.0 mmol/L (21-32); Chloride 108.0 mmol/L (98-107); Creatinine Clr Calc Pharmacy 58.9 ml/min; Glucose 105.0 mg/dl (70-99(Fasting)); Potassium 4.1 mmol/L (3.5-5.1); Sodium 141.0 mmol/L (136-145)
[2025-05-28 07:28] VITALS: RESP 18
--- NOTE | 2025-05-28 10:16 | Pharmacy Report ---
- Date of Service May 28, 2025 - Pharmacy CVA/TIA Medication Review Medications to Prevent Stroke handout has been added to the patients discharge packet. Antiplatelet(s) * aspirin 81mg PO daily * clopidogrel 75mg PO daily * DAPT x3 weeks then Plavix monotherapy per Neurology Cholesterol * High intensity statin: rosuvastatin 40 mg daily DVT Prophylaxis * Pharmacologic and mechanical DVT prophylaxis deferred due to low risk and ambulatory per Dr. Francis. Therapeutic Anticoagulation * No history of Afib/Aflutter noted, 30-day mobile cardiac outpatient telemetry to rule/out recommended Type 2 Diabetes * Patient does not have T2DM
[2025-05-28 11:30] VITALS: BP 145/71; PULSE 76; TEMP 97.7; O2SAT 92
[2025-05-28] MEDS ORDERED: STROKE PATIENT DISCHARGE STA (14:06)
--- NOTE | 2025-05-28 14:08 | Discharge Summary ---
Discharge Summary Date of Service May 28, 2025 Principal Dx & Hospital Course #1 = Principal Diagnosis (1) Stroke-like symptoms: (2) VIOLETA (obstructive sleep apnea): Plan 85 year old male with prior cervical spine surgery presents to the ER with right hand weakness and numbness Acute CVA TTE with bubble study - no thrombus or LDL 47 and HbA1C 5.8 Continue usual neurological checks Appreciate neurology and ortho spine consults Aspirin, clopidogrel + rosuvastatin PT/OT VIOLETA Intolerant to CPAP #Hypothyroidism TSH WNL Continue levothyroxine VTE Prophylaxis - encourage ambulation Disposition - switched to full admission Admission HPI Per Admitting Provider Lalo Calvillo is an 85 year old male who presents to the ER with sudden onset weakness of right lower arm and hand with numbness. Symptoms started acutely at 12:30pm today while working on his car. No trauma to his neck. He has ongoing finger numbness left over after cervical spine surgery to his cervical spine in 2020 however his weakness of his right arm completely resolved after this surgery. 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 He is have mild neck pain started on right side since being in the emergency room but this wasn't there prior to his hand weakness. No prior stroke but possible TIA - although he can't remember details of this. Patient was seen by telestroke neurology in the ER but given timeframe was not considered a TNK candidate but recommended MRI brain and cervical spine with aspirin and clopidogrel pending further workup. Former smoker - quit in 20s or 30s No illicit drug use Prior alcohol use but never heavy alcohol use Discharge Plan Discharge Items Patient Disposition: Home - Self-Care Reason For Visit: STROKE LIKE SYMPTOMS Discharge Diagnosis: Stroke Condition on Discharge: Good Activity: Resume your previous activity Non-emergency contact: Primary Care Provider Call non-emergency contact if: you have any medication questions and your symptoms worsen Follow-up/Referrals: Kimberly Gilliland PA-C [Primary Care Provider] - Diet: Heart Healthy Addtl Attending Provider Instructions: You were admitted to [facility] from May 26 - 2024 due to right hand weakness and numbness. You were diagnosed with an acute stroke. You were seen by neurology and recommended starting on clopidogrel in addition to aspirin for three weeks and then continue on clopidogrel alone. Your symptoms improved during your admission and you are now medically stable for discharge. You should be set up with meter reader chief as an outpatient. Please follow up with neurology for ongoing management as an outpatient. Pending Studies at Discharge: No Stand-Alone Forms: My [facility], Smoking Cessation, Medications to Prevent Stroke Medications and DC Order Prescriptions: New aspirin 81 mg Tablet,Delayed Release (Dr/Ec) 81 mg PO QAM 21 Days Qty: 21 0RF clopidogrel 75 mg tablet 75 mg PO DAILY Qty: 30 0RF Continued magnesium oxide 420 mg Tablet 420 mg PO QAM rosuvastatin 40 mg Tablet 40 mg PO QAM meclizine 25 mg tablet 25 mg PO TID PRN (Reason: dizziness) Qty: 12 1RF cyanocobalamin (vitamin B-12) [Vitamin B-12] 1,000 mcg Tablet 1,000 mcg PO QAM docusate sodium 100 mg Capsule 100 mg PO BID PRN (Reason: Constipation) levothyroxine 112 mcg Tablet 112 mcg PO DAILYBB ezetimibe [Zetia] 10 mg Tablet 10 mg PO QAM Refresh Classic (PF) 1.4-0.6 % Dropperette 1 drp OPHTHALMIC (EYE) DIRECTED PRN (Reason: Dry Eyes) Discontinued aspirin 81 mg Tablet,Delayed Release (Dr/Ec) 81 mg PO QAM Discharge Orders: Discharge Order (Routine); Ordered 05/28/25 Ordered By: Gigi Francis Admission Data Admit Date/Time: 05/27/25 13:44 Attending Provider: Gigi Francis Admit Provider: Gigi Francis Primary Care Provider: Kimberly Gilliland Other Providers: Gigi Francis; Nando Brewer; Fabián Freeman; [facility] Stay Data Consultations 05/26/25 18:16 ED Decision to Admit Stat 05/26/25 18:19 Consult Neurology Routine 05/27/25 08:08 Consult Orthopedic Spine Surgery Routine Diagnostic Imagining Performed 05/26/25 16:51 CT head/brain wo con Stat 05/26/25 16:56 CT angio head w con Stat CT angio neck with con Stat 05/27/25 00:10 MR brain wo con Routine MR cervical spine wo con Routine Pending Results Patient Have Any Pending Studies at Discharge: No Discharge Instructions Given to Patient (Per Discharging Provider) You were admitted to [facility] from May 26 - 2024 due to right hand weakness and numbness. You were diagnosed with an acute stroke. You were seen by neurology and recommended starting on clopidogrel in addition to aspirin for three weeks and then continue on clopidogrel alone. Your symptoms improved during your admission and you are now medically stable for discharge. You should be set up with meter reader chief as an outpatient. Please follow up with neurology for ongoing management as an outpatient. Coding Diagnoses Stroke-like symptoms R29.90 VIOLETA (obstructive sleep apnea) G47.33
== END 2025-05-28 15:23 | disposition home or self-care (01) | DRG 66 ==
LOC: EDINP 16:37 → ED 16:37 → 2S 20:57